=== PATIENT | female | born 1940 | race Caucasian/White ===

== ENCOUNTER 2023-02-08 10:09 | Inpatient (IN) | payer MEDICARE, SELFPAY ==
[2023-02-08] VITALS (7 sets, daily range): BP systolic 105–149; BP diastolic 44–82; PULSE 97–106; RESP 16–35; TEMP 36.4–36.6; O2SAT 84–95; BMI 46.5; BMI 45.4
--- NOTE | ~2023-02-08 | CT_ITS ---
EXAMINATION: CT CHEST WITHOUT CONTRAST CLINICAL INFORMATION: Shortness of breath. COMPARISON: Chest x-ray dated 02/08/2023. TECHNIQUE: Multidetector volumetric CT imaging of the chest was obtained noncontrast. Sagittal and coronal reformations were obtained. This CT examination was performed using dose optimization techniques as appropriate, variously including the following: *Automated exposure control *Adjustment of mA and/or kV according to patient size (this includes techniques or standardized protocols for targeted exams where dose is matched to indication/reason for exam; i.e. extremities or head) *Use of iterative reconstruction technique DLP: 379 mGy-cm. FINDINGS: LUNGS: Mild centrilobular and paraseptal emphysema. Several scattered linear regions of atelectasis seen in the mid and lower lungs bilaterally, most prominently in the anterobasal left lower lobe (series 5, image 345). Several scattered calcified granulomas seen in the lungs. There are also multiple additional tiny 1 to 2 mm scattered solid noncalcified pulmonary nodules seen in the lungs bilaterally. In addition, largest solid noncalcified nodules are seen, some examples of which include the following are seen on series 5: -Posterior inferior right upper lobe pleural-based 4 mm nodule, image 225. -Posterior segment right middle lobe 7 mm nodule, image 262 and 6 mm nodule, image 303. -Posterior medial basal left lower lobe 7 mm nodule, image 381. No effusion or pneumothorax. Central airways and small airways densely calcified and patent. LYMPHOVASCULAR STRUCTURES: Aortic and heart size normal. Prominent epicardiac fat pad. Prominent mitral annular calcifications and moderate aortic and great vessel atherosclerotic calcifications. No pericardial effusion. No mediastinal, hilar or axillary adenopathy or free fluid collection. CORONARY ARTERY CALCIFICATION: Three-vessel coronary artery calcifications are seen, most extensive and severe in the left anterior descending coronary artery. THYROID GLAND: Unremarkable to the extent included. UPPER ABDOMEN: Postcholecystectomy toyin are seen in the gallbladder fossa. Calcified granuloma noted in these veins. There is a partially exophytic 3.9 x 3.7 cm fluid attenuation mass in the upper pole of the left kidney, consistent with a benign cyst to the extent included. Slight fullness seen at the GE junction, consistent with a sliding hiatal hernia. Included portions of the solid organs in the upper abdomen otherwise unremarkable. BONES: Mild diffuse osteopenia and mild vertebral spondylosis in mid and lower thoracic spine. No suspicious focal findings. CT/CT chest wo IV con IMPRESSION: 1. Mild emphysema with multiple scattered bilateral calcified and noncalcified pulmonary nodules seen, measuring up to 7 mm in size. Since the patient is symptomatic, Fleischner criteria cannot be applied. The findings may be related to an inflammatory or infectious process in the acute setting. Close clinical correlation and follow-up is recommended repeat CT scan in 1-3 months is suggested for reassessment of the nodules. 2. No adenopathy. 3. Moderate to severe coronary artery calcifications. 4. Upper pole left renal cyst. This is incompletely imaged and dedicated ultrasound follow-up is recommended to fully characterize this mass and exclude solid eccentric nodular component. 5. Status post cholecystectomy. 6. Small sliding hiatal hernia. 7. Osteopenia.
--- NOTE | ~2023-02-08 | XR_ITS ---
EXAMINATION: XR CHEST CLINICAL INFORMATION: Shortness of breath COMPARISON: None available. TECHNIQUE: Frontal view of the chest was obtained. FINDINGS: The cardiac silhouette is slightly enlarged. Hilar and mediastinal contours are unremarkable. There is bilateral subsegmental atelectasis. The lungs are otherwise clear. No acute bone abnormality. XR/XR chest 1V IMPRESSION: Slightly enlarged cardiac silhouette and bilateral subsegmental atelectasis.
--- NOTE | 2023-02-08 10:38 | PC.NURSE ---
oxygen dropped to 84% after ambulating to bathroom. placed on 2L nasal cannula 94%
--- NOTE | 2023-02-08 10:45 | ECG_ITS ---
Test Reason : sob Blood Pressure : / mmHG Vent. Rate : 097 BPM Atrial Rate : 000 BPM P-R Int : 000 ms QRS Dur : 064 ms QT Int : 348 ms P-R-T Axes : 000 077 012 degrees QTc Int : 441 ms Atrial fibrillation Low voltage QRS Cannot rule out Anterior infarct , age undetermined Abnormal ECG No previous ECGs available Referred By: Kiel Martinez Electronically Signed By:Mark Prather
--- NOTE | 2023-02-08 10:51 | ED_ITS ---
HPI - General Adult General Chief complaint: General Medical Stated complaint: Swelling of lower legs per EMS Time Seen by Provider: 02/08/23 10:13 Source: patient and EMS Mode of arrival: EMS Limitations: no limitations History of Present Illness HPI narrative: 82 year old female hx of afib on Coumadin presents with shortness of breath, lower extremity swelling for the past few weeks, according to patient shortness breath is worse with exertion and better at rest. Patient notes her legs are getting progressively much larger and are seeping a clear fluid. Patient denies any chest pain. Denies fevers, chills, nausea, vomiting, abdominal pain, headache, vision changes, dizziness and weakness. Patient does not wear oxygen at home however saturating 89% on room air. With ambulation patient dropped down to 84% therefore on arrival immediately she was placed on 2 L nasal cannula. Related Data Home Medications Medication Instructions Recorded Confirmed acetaminophen 650 mg 1,300 mg PO Q8H PRN Pain 02/08/23 02/08/23 tablet,extended release (Tylenol Arthritis Pain) albuterol sulfate 90 mcg/actuation 2 puff inhalation Q4H PRN wheezing 02/08/23 02/08/23 aerosol inhaler atorvastatin 80 mg tablet 80 mg PO DAILY 02/08/23 02/08/23 diltiazem HCl 360 mg capsule,24 360 mg PO DAILY 02/08/23 02/08/23 hr,extended release (Tiadylt ER) fenofibrate 160 mg tablet 160 mg PO DAILY 02/08/23 02/08/23 furosemide 20 mg tablet 20 mg PO DAILY 02/08/23 02/08/23 gabapentin 100 mg capsule 100 mg PO BEDTIME 02/08/23 02/08/23 insulin glargine 100 unit/mL (3 80 unit subcut BEDTIME 02/08/23 02/08/23 mL) subcutaneous pen (Lantus Solostar U-100 Insulin) insulin lispro 100 unit/mL 30 unit subcut TID 02/08/23 02/08/23 subcutaneous pen (Humalog KwikPen (U-100) Insulin) losartan 25 mg tablet 25 mg PO DAILY 02/08/23 02/08/23 warfarin 2.5 mg tablet 2.5 mg PO TUSA 02/08/23 02/08/23 warfarin 5 mg tablet 5 mg PO SUMOWETHFR 02/08/23 02/08/23 Allergies Allergy/AdvReac Type Severity Reaction Status Date / Time lisinopril Allergy Cough Verified 02/08/23 11:45 Review of Systems Review of Systems: Constitutional : No Weight loss, No Fever, No Chills, No Fatigue, No Malaise ENT/Mouth : No sore throat, No Rhinorrhea Eyes: No Eye Pain, No Swelling, No Redness Cardiovascular : No Chest Pain, + SOB, + Dyspnea on Exertion, No Orthopnea, + Edema, No Palpitations Respiratory : No Cough, No Sputum, No Wheezing Gastrointestinal : No Nausea, No Vomiting, No Diarrhea, No Constipation, No ab dominal Pain, No Hematochezia, No Melena Genitourinary : No Dysuria, No Urinary Frequency, No Hematuria, Musculoskeletal : No joint pain, No Myalgias, No Joint Swelling Skin : No Skin Lesions, No rash Neuro : No Weakness, No Numbness, No Dizziness, No Headache Psych : No Anxiety/Panic, No Depression All other systems reviewed and are negative Yes all other systems are reviewed and are negative [facility] Past Medical History Attestation statement: The following information was validated with the patient. Source: old records reviewed and nursing notes reviewed Social History Social History Alcohol intake: never Smoked in Last 30 Days: No Use of substances other than those prescribed or required for medical reasons: No Advance Directives: No Advance Directives Information Provided: Yes Physical Exam ED Vital Signs: Vital Signs - 24 hr 02/08/23 10:21 02/08/23 10:27 02/08/23 10:56 Temperature 97.9 F Pulse Rate 99 Respiratory Rate 24 H Blood Pressure 149/57 H Pulse Oximetry 93 84 L Oxygen Delivery Method Room Air Room Air BMI result Body Mass Index 46.5 vss Appearance: Alert.? Oriented X3.? No acute distress.? Head: Normocephalic, atraumatic, no step-offs or deformities Eyes: Pupils equal, round and reactive to light.? CVS: Normal heart rate and rhythm.? Pulses normal.? Respiratory: No respiratory distress.? Breath sounds diminished bilaterally.? Abdomen: Soft and nontender.? Skin: Skin warm and dry.? Normal skin color.? Normal skin turgor.? Extremities: 2+ pitting edema to b/l lower extremites w/ clear drainage bilaterally. Open wounds to the right lower extremity around the montemayor w/ overlying errythema and warmth . 1+ insert tibialis, posterior tibialis and d orsalis pedis pulses equal bilateral. Normal sensation distally normal capillary refill to bilateral lower extremity digits.? No calf ttp. Global weakness. Back: No midline tenderness, no C-spine tenderness, full range of motion, no CVA tenderness bilaterally Neuro: Oriented X 3.? No motor deficit.? No sensory deficit. CN 2-12 intact Course Reevaluation(s) Reevaluation #1: W/ ambulation patient destated to 84% on RA placed on 2L now 89 at rest. Time: 12:59 Reevaluation #2: CBC appears to be within normal limits. Coags with slightly elevated BUN likely secondary to poor p.o. intake dehydration. Troponin negative, EKG nonischemic, BNP within normal limits however, patient's clinical presentation an x-ray concerning for CHF with cardiomegaly. Likely why patient is hypoxic. UA clean. She has been intermittently requiring oxygen during her stay, plan is for hospital admission. Time: 13:40 Medical Decision Making Medical Decision Making [facility] Narrative: 1100 82 year old femalepresents w/ SOB and b/l lower extremity edema worsening X 2 weeks Breath sounds diminished b/l. 2+ pitting edema to b/l lower extremites w/ clear drainage bilaterally. Open wounds to the right lower extremity around the montemayor w/ overlying errythema and warmth 1+ insert tibialis, posterior tibialis and dorsalis pedis pulses equal bilateral. Normal sensation distally normal capillary refill to bilateral lower extremity digits.? No calf ttp. Global weakness. Likely CHF, unlikely DVT or PE patient on cumadin and med compliant. I do not suspect pneumonia or ACS on this patient. Right lower extremity also seems to have slight cellulitis to the right anterior montemayor. No signs of necrotizing infection. No signs of neurovascular compromise or threatened limb. No signs of arterial occlusion. Plan labs, imaging, UA, chest x-ray, EKG. Differential Diagnosis Differential Diagnoses: The differential diagnosis associated with the presen tation includes Likely CHF, unlikely DVT or PE patient on cumadin and med compliant. I do not suspect pneumonia or ACS on this patient. Right lower extremity also seems to have slight cellulitis to the right anterior montemayor. No signs of necrotizing infection. No signs of neurovascular compromise or threatened limb. No signs of arterial occlusion. Admission/Observation Consideration of admission/observation: Escalation of care including admission/observation considered Likely hospital admission Consult Healthcare Provider Management of the patient was discussed with: Hospitalist Lab Data MDM Lab Attestation statement: I reviewed the patient's lab results. 02/08/23 11:11 02/08/23 11:11 Labs: Lab Results 02/08/23 02/08/23 02/08/23 Range/Units 11:11 11:11 11:11 WBC 8.8 (4.8-10.8) X10*3/uL RBC 5.31 (4.20-5.50) X10*6/uL Hgb 15.3 (12.0-16.0) g/dl Hct 48.6 H (37.0-47.0) % MCV 91.5 (80.0-98.0) fL MCH 28.8 (27.0-33.0) pg MCHC 31.5 (31.0-35.0) g/dl RDW 16.4 H (11.0-16.0) % Plt Count 331 (160-400) X10*3/uL MPV 9.3 L (9.4-12.3) fL Immature Gran % (Auto) 0.3 (0.0-0.4) % Neut % (Auto) 72.4 (45-73) % Lymph % (Auto) 13.9 L (20-40) % [facility] % (Auto) 9.4 (2-11) % Eos % (Auto) 3.4 (0-4) % Baso % (Auto) 0.6 (0-2) % Lymph # (Auto) 1.2 (1.2-4.9) X10*3/uL [facility] # (Auto) 0.8 (0.1-1.2) X10*3/uL Eos # (Auto) 0.3 (0.0-0.4) X10*3/uL Baso # (Auto) 0.1 (0.0-0.2) X10*3/uL Abs Immat Gran (auto) 0.03 (0.00-0.03) X10*3/uL Absolute Neuts (auto) 6.4 (2.0-8.3) x10*3/uL Absolute Nucleated RBC 0.000 (0.0-0.012) X10*3/uL Nucleated RBC % (auto) 0.0 (0.0-0.2) /100WBC PT (10.0-13.1) SEC INR (0.9-1.1) Sodium 144 (135-145) mmol/L Potassium 3.9 (3.3-5.1) mmol/L Chloride 105 (96-108) mmol/L Carbon Dioxide 30 H (22-29) mmol/L Anion Gap 13 (12-20) BUN 26 H (9-16) mg/dL Creatinine 1.25 (0.5-1.4) mg/dL Estim Creat Clear Calc 37.9 Estimated GFR 41 Random Glucose 107 (60-115) mg/dL Calcium 10.0 (8.4-10.2) mg/dL Magnesium 2.0 (1.6-2.6) mg/dL Total Bilirubin 0.6 (0.0-1.0) mg/dL AST 15 (5-31) U/L ALT 10 (0-31) U/L Alkaline Phosphatase 53 (39-117) U/L Troponin I High Sens < 2.7 (<3.5-17.0) ng/L B-Natriuretic Peptide (<100) pg/mL Total Protein 6.9 (6.5-8.0) g/dL Albumin 3.9 (3.5-5.0) g/dL Urine Color Urine Appearance Urine pH (5.0-9.0) Ur Specific [place] (1.005-1.025) Urine Protein (Neg-Trace) mg/dL Urine Glucose (UA) (Negative) mg/dL Urine Ketones (Negative) mg/dL Urine Blood (Negative) Urine Nitrite (Negative) Ur Leukocyte Esterase (Negative) Urine RBC (0-2) /HPF Urine WBC (0-5) /HPF Ur Squamous Epith Cells (0-2) /HPF Urine Bacteria (None Seen) Hyaline Casts (0-2) /LPF 02/08/23 02/08/23 02/08/23 Range/Units 11:11 11:11 11:11 WBC (4.8-10.8) X10*3/uL RBC (4.20-5.50) X10*6/uL Hgb (12.0-16.0) g/dl Hct (37.0-47.0) % MCV (80.0-98.0) fL MCH (27.0-33.0) pg MCHC (31.0-35.0) g/dl RDW (11.0-16.0) % Plt Count (160-400) X10*3/uL MPV (9.4-12.3) fL Immature Gran % (Auto) (0.0-0.4) % Neut % (Auto) (45-73) % Lymph % (Auto) (20-40) % [facility] % (Auto) (2-11) % Eos % (Auto) (0-4) % Baso % (Auto) (0-2) % Lymph # (Auto) (1.2-4.9) X10*3/uL [place] # (Auto) (0.1-1.2) X10*3/uL Eos # (Auto) (0.0-0.4) X10*3/uL Baso # (Auto) (0.0-0.2) X10*3/uL Abs Immat Gran (auto) (0.00-0.03) X10*3/uL Absolute Neuts (auto) (2.0-8.3) x10*3/uL Absolute Nucleated RBC (0.0-0.012) X10*3/uL Nucleated RBC % (auto) (0.0-0.2) /100WBC PT 28.9 H (10.0-13.1) SEC INR 2.4 H (0.9-1.1) Sodium (135-145) mmol/L Potassium (3.3-5.1) mmol/L Chloride (96-108) mmol/L Carbon Dioxide (22-29) mmol/L Anion Gap (12-20) BUN (9-16) mg/dL Creatinine (0.5-1.4) mg/dL Estim Creat Clear Calc Estimated GFR Random Glucose (60-115) mg/dL Calcium (8.4-10.2) mg/dL Magnesium (1.6-2.6) mg/dL Total Bilirubin (0.0-1.0) mg/dL AST (5-31) U/L ALT (0-31) U/L Alkaline Phosphatase (39-117) U/L Troponin I High Sens (<3.5-17.0) ng/L B-Natriuretic Peptide 100 (<100) pg/mL Total Protein (6.5-8.0) g/dL Albumin (3.5-5.0) g/dL Urine Color Yellow Urine Appearance Clear Urine pH 6.5 (5.0-9.0) Ur Specific [place] 1.010 (1.005-1.025) Urine Protein Negative (Neg-Trace) mg/dL Urine Glucose (UA) Negative (Negative) mg/dL Urine Ketones Negative (Negative) mg/dL Urine Blood Negative (Negative) Urine Nitrite Negative (Negative) Ur Leukocyte Esterase Moderate (2+) H (Negative) Urine RBC 0-2 (0-2) /HPF Urine WBC 6-10 H (0-5) /HPF Ur Squamous Epith Cells 3-5 (0-2) /HPF Urine Bacteria Trace (None Seen) Hyaline Casts 0-2 (0-2) /LPF Independent Interpretation I performed an independent interpretation of an: EKG (Ventricular rate of 97, P are variable, QRS normal, QT/QTC normal. EKG with AFib with low voltage QRS no ST elevations or inversions concerning with ischemia.) Radiology Impression Discussion of test interpretation with radiology: I have reviewed the radiologist's reading. Critical Care Time Critical Care Time Critical Care Time: No Discharge Plan Discharge Clinical Impression: Bilateral edema of lower extremity, Cellulitis, Shortness of breath, Hypoxia Patient Disposition: Still a Patient Prescriptions: No Action atorvastatin 80 mg tablet 80 mg PO DAILY diltiazem HCl [Tiadylt ER] 360 mg capsule,extended release 24 hr 360 mg PO DAILY acetaminophen [Tylenol Arthritis Pain] 650 mg Tablet Extended Release 1,300 mg PO Q8H PRN (Reason: Pain) warfarin 5 mg tablet 5 mg PO SUMOWETHFR losartan 25 mg tablet 25 mg PO DAILY furosemide 20 mg tablet 20 mg PO DAILY gabapentin 100 mg capsule 100 mg PO BEDTIME albuterol sulfate 90 mcg/actuation HFA aerosol inhaler 2 puff inhalation Q4H PRN (Reason: wheezing) insulin lispro [Humalog KwikPen Insulin] 100 unit/mL insulin pen 30 unit subcut TID fenofibrate 160 mg tablet 160 mg PO DAILY insulin glargine [Lantus Solostar U-100 Insulin] 100 unit/mL (3 mL) insulin pen 80 unit subcut BEDTIME warfarin 2.5 mg Tablet 2.5 mg PO ALEJANDRO
[2023-02-08 11:16] LABS: MANUAL DIFF FLAG NO
[2023-02-08 11:18] LABS: Basophils Absolute Auto 0.1 X10*3/uL (0.0-0.2); Basophils Percent Auto 0.6 % (0-2); Eosinophils Absolute Auto 0.3 X10*3/uL (0.0-0.4); Eosinophils Percent Auto 3.4 % (0-4); Hematocrit 48.6 % (37.0-47.0); Hemoglobin 15.3 g/dl (12.0-16.0); Imm Gran Abs Auto 0.03 X10*3/uL (0.00-0.03); Imm Gran Pct Auto 0.3 % (0.0-0.4); Lymphocytes Absolute Auto 1.2 X10*3/uL (1.2-4.9); Lymphocytes Percent Auto 13.9 % (20-40); Mean Corpuscular HGB Conc 31.5 g/dl (31.0-35.0); Mean Corpuscular Hemoglobin 28.8 pg (27.0-33.0); Mean Corpuscular Volume 91.5 fL (80.0-98.0); Mean Platelet Volume 9.3 fL (9.4-12.3); Monocytes Absolute Auto 0.8 X10*3/uL (0.1-1.2); Monocytes Percent Auto 9.4 % (2-11); Neutrophils Absolute Auto 6.4 x10*3/uL (2.0-8.3); Neutrophils Percent Auto 72.4 % (45-73); Platelet Count 331 X10*3/uL (160-400); Red Blood Count 5.31 X10*6/uL (4.20-5.50); Red Cell Distribution Width 16.4 % (11.0-16.0); White Blood Count 8.8 X10*3/uL (4.8-10.8)
[2023-02-08 11:22] LABS: Appearance Urine Clear; Color Urine Yellow; Glucose Urine UA Negative (Negative); Leukocyte Esterase Urine Moderate (2+) (Negative); Nitrite Urine Negative (Negative); PH 6.5 (5.0-9.0); UMIC TRIGGER UACC YES; Urine Blood Negative (Negative); Urine Ketones Negative (Negative); Urine Protein Negative (Neg-Trace)
[2023-02-08 11:24] LABS: Bacteria Urine Trace (None Seen); Hyaline Casts Urine 0-2 /LPF (0-2); RBC Urine 0-2 /HPF (0-2); UACC Culture Trigger YES
[2023-02-08 11:27] LABS: INTERNATIONAL NORM RATIO 2.4 (0.9-1.1); Prothrombin Time 28.9 SEC (10.0-13.1)
[2023-02-08 11:41] LABS: Alanine Aminotransferase 10 U/L (0-31); Albumin Level 3.9 g/dL (3.5-5.0); Alkaline Phosphatase 53 U/L (39-117); Anion Gap 13 (12-20); Aspartate Amino Transferase 15 U/L (5-31); Bilirubin Total 0.6 mg/dL (0.0-1.0); Blood Urea Nitrogen 26 mg/dL (9-16); Carbon Dioxide 30 mmol/L (22-29); Chloride 105 mmol/L (96-108); Creatinine Clr Calc Pharmacy 37.9; Estimated Glomerular Filt Rate 41; Glucose Random 107 mg/dL (60-115); Potassium 3.9 mmol/L (3.3-5.1); Sodium 144 mmol/L (135-145); Total Protein 6.9 g/dL (6.5-8.0)
[2023-02-08 11:46] LABS: B Type Natriuretic Peptide 100 pg/mL (<100)
[2023-02-08 11:56] LABS: Troponin-I High Sensitivity < 2.7 ng/L (<3.5-17.0)
--- NOTE | 2023-02-08 12:42 | PHA.MEDREC ---
Addendum entered by Cayetano Krishnan 02/08/23 13:16: After speaking with daughter and patient again, narrowed down warfarin to 5mg daily except on Friday and Friday which she takes a half tab (2.5mg). Original Note: Pharmacy Consult ? Medication Reconciliation Pharmacy has completed the medication reconciliation. spoke with patient to verify medications. She was able to verify insulin units. Patient cannot remember how she takes warfarin or what dose. 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 Left voicemail to son and tried calling daughter but no answer. Will try again.
[2023-02-08 14:05] LABS: COVID-19 Test Negative (Negative); IDNOW Serial# BCCEAD1C
[2023-02-08] MEDS: Piperacillin Sodium/Tazobactam 3.375 GM in 0.9 % Sodium Chloride 50 ML IV (14:14)
--- NOTE | 2023-02-08 14:40 | PM.IMHP ---
History of Present Illness Date of Service: 02/08/23 Chief Complaint: Shortness of breath 82-year-old woman presented to the ER with complaints of worsening shortness of breath over the last several weeks. She has a baseline history of chronic shortness of breath specially with ambulation but again has been worse over the last several weeks. She denied chest pain, nausea, vomiting, diarrhea. She does not wear oxygen at home and oxygen saturation in the ER was 84% with ambulation and patient would also become quite tachycardic. In the ER, chest CT showing emphysema with scattered bilateral calcified and noncalcified pulmonary nodules with no obvious consolidation or effusion. She does have moderate to severe coronary artery calcifications. BNP 100, troponin 2.7. She was also noted to lower extremity edema which is chronic from dryness and scratching with some small areas of skin tearing. In the ER she was given a dose of Zosyn. She will be admitted further management and treatment of acute hypoxic respiratory failure secondary to COPD /emphysema. Review of Systems Review of Systems: Denies any recent fever chills or decrease in appetite respiratory see HPI cardiovascular Denies chest pain gastrointestinal denies any dysphagia abdominal pain nausea vomiting or diarrhea genitourinary denies any dysuria frequency or hematuria musculoskeletal denies any joint pain or swelling neuropsych denies any weakness or seizures all other systems reviewed are negative [facility] Medical History (Updated 02/08/23 @ 14:44 by Clementine Davenport NP) Hyperlipidemia Social History Alcohol intake: never Smoked in Last 30 Days: No Use of substances other than those prescribed or required for medical reasons: No Advance Directives: No Advance Directives Information Provided: Yes Meds Allergies Allergy/AdvReac Type Severity Reaction Status Date / Time lisinopril Allergy Cough Verified 02/08/23 11:45 Active Medications: Current Medications Pharmacy Consult (Consult Rx Perform Med Rec) 1 each MISCELLANE ONCE PRN PRN Reason: Consult order Home Medications Medication Instructions Recorded Confirmed Last Taken Type acetaminophen 650 mg 1,300 mg PO Q8H PRN Pain 02/08/23 02/08/23 Unknown History tablet,extended release (Tylenol Arthritis Pain) albuterol sulfate 90 mcg/actuation 2 puff inhalation Q4H PRN wheezing 02/08/23 02/08/23 Unknown History aerosol inhaler atorvastatin 80 mg tablet 80 mg PO DAILY 02/08/23 02/08/23 Unknown History diltiazem HCl 360 mg capsule,24 360 mg PO DAILY 02/08/23 02/08/23 Unknown History hr,extended release (Tiadylt ER) fenofibrate 160 mg tablet 160 mg PO DAILY 02/08/23 02/08/23 Unknown History furosemide 20 mg tablet 20 mg PO DAILY 02/08/23 02/08/23 Unknown History gabapentin 100 mg capsule 100 mg PO BEDTIME 02/08/23 02/08/23 Unknown History insulin glargine 100 unit/mL (3 80 unit subcut BEDTIME 02/08/23 02/08/23 Unknown History mL) subcutaneous pen (Lantus Solostar U-100 Insulin) insulin lispro 100 unit/mL 30 unit subcut TID 02/08/23 02/08/23 Unknown History subcutaneous pen (Humalog KwikPen (U-100) Insulin) losartan 25 mg tablet 25 mg PO DAILY 02/08/23 02/08/23 Unknown History warfarin 2.5 mg tablet 2.5 mg PO TUSA 02/08/23 02/08/23 Unknown History warfarin 5 mg tablet 5 mg PO SUMOWETHFR 02/08/23 02/08/23 Unknown History Physical Exam Vital Signs and Narrative: Vital Signs: Last Vital Signs Temp 97.9 F 02/08/23 14:06 Pulse 100 02/08/23 14:06 Resp 35 H 02/08/23 14:06 BP 105/44 L 02/08/23 14:06 Pulse Ox 84 L 02/08/23 10:56 O2 Del Method Nasal Cannula 02/08/23 14:06 O2 Flow Rate 2 02/08/23 14:06 BMI result Body Mass Index 46.5 Appearing in no acute distress head is normocephalic atraumatic eyes pupils are PERRLA sclera is anicteric mouth throat mucous membranes are intact and moist neck is supple no lymphadenopathy, no JVD noted lung sounds are clear to auscultation heart regular rate rhythm, clear S1, S2, chronic skin changes and dryness to bilateral lower extremities with nonpitting edema noted positive bowel sounds, abdomen is soft, nontender neuro patient is alert x3, no focal deficits Results Labs 02/08/23 11:11 02/08/23 11:11 Labs: Laboratory Results - last 24 hr 02/08/23 02/08/23 02/08/23 11:11 11:11 11:11 MCV 91.5 MCH 28.8 MCHC 31.5 RDW 16.4 H Plt Count 331 MPV 9.3 L Immature Gran % (Auto) 0.3 Neut % (Auto) 72.4 Lymph % (Auto) 13.9 L [place] % (Auto) 9.4 Eos % (Auto) 3.4 Baso % (Auto) 0.6 Lymph # (Auto) 1.2 [place] # (Auto) 0.8 Eos # (Auto) 0.3 Baso # (Auto) 0.1 Abs Immat Gran (auto) 0.03 Absolute Neuts (auto) 6.4 Absolute Nucleated RBC 0.000 Nucleated RBC % (auto) 0.0 PT INR Anion Gap 13 Estim Creat Clear Calc 37.9 Estimated GFR 41 Random Glucose 107 Calcium 10.0 Magnesium 2.0 Total Bilirubin 0.6 AST 15 ALT 10 Alkaline Phosphatase 53 Troponin I High Sens < 2.7 B-Natriuretic Peptide Total Protein 6.9 Albumin 3.9 Urine Color Urine Appearance Urine pH Ur Specific [place] Urine Protein Urine Glucose (UA) Urine Ketones Urine Blood Urine Nitrite Ur Leukocyte Esterase Urine RBC Urine WBC Ur Squamous Epith Cells Urine Bacteria Hyaline Casts COVID-19 (TESSA) COVID-19 Clin Com 02/08/23 02/08/23 02/08/23 11:11 11:11 11:11 MCV MCH MCHC RDW Plt Count MPV Immature Gran % (Auto) Neut % (Auto) Lymph % (Auto) [place] % (Auto) Eos % (Auto) Baso % (Auto) Lymph # (Auto) [place] # (Auto) Eos # (Auto) Baso # (Auto) Abs Immat Gran (auto) Absolute Neuts (auto) Absolute Nucleated RBC Nucleated RBC % (auto) PT 28.9 H INR 2.4 H Anion Gap Estim Creat Clear Calc Estimated GFR Random Glucose Calcium Magnesium Total Bilirubin AST ALT Alkaline Phosphatase Troponin I High Sens B-Natriuretic Peptide 100 Total Protein Albumin Urine Color Yellow Urine Appearance Clear Urine pH 6.5 Ur Specific [place] 1.010 Urine Protein Negative Urine Glucose (UA) Negative Urine Ketones Negative Urine Blood Negative Urine Nitrite Negative Ur Leukocyte Esterase Moderate (2+) H Urine RBC 0-2 Urine WBC 6-10 H Ur Squamous Epith Cells 3-5 Urine Bacteria Trace Hyaline Casts 0-2 COVID-19 (TESSA) COVID-19 Clin Com 02/08/23 13:45 MCV MCH MCHC RDW Plt Count MPV Immature Gran % (Auto) Neut % (Auto) Lymph % (Auto) [place] % (Auto) Eos % (Auto) Baso % (Auto) Lymph # (Auto) [place] # (Auto) Eos # (Auto) Baso # (Auto) Abs Immat Gran (auto) Absolute Neuts (auto) Absolute Nucleated RBC Nucleated RBC % (auto) PT INR Anion Gap Estim Creat Clear Calc Estimated GFR Random Glucose Calcium Magnesium Total Bilirubin AST ALT Alkaline Phosphatase Troponin I High Sens B-Natriuretic Peptide Total Protein Albumin Urine Color Urine Appearance Urine pH Ur Specific [place] Urine Protein Urine Glucose (UA) Urine Ketones Urine Blood Urine Nitrite Ur Leukocyte Esterase Urine RBC Urine WBC Ur Squamous Epith Cells Urine Bacteria Hyaline Casts COVID-19 (TESSA) Negative COVID-19 Clin Com See Note Imaging Radiologist's Impressions: Impressions Chest X-Ray 02/08/23 11:40 IMPRESSION: Slightly enlarged cardiac silhouette and bilateral subsegmental atelectasis. Assessment and Plan (1) Shortness of breath: Status: Acute Plan 82-year-old woman admitted with acute hypoxic respiratory failure likely secondary to COPD exacerbation /emphysema Acute hypoxic respiratory failure secondary to COPD / emphysema Oxygen saturation with ambulation in the low 80s Chest CT showing emphysema with atelectasis without clear consolidation or effusion Will treat with IV steroids, scheduled [facility] Pulmonology consultation as patient has no formal dx of COPD Moderate to severe coronary artery calcification noted on CT, will order echocardiogram Supplemental oxygen to maintain oxygen saturation greater than 90% Atrial fibrillation Continue diltiazem Warfarin, check PT INR daily Lower extremity skin changes with skin tearing dry skin and scratching contributing cleanse both legs with soap and water daily and apply lac hydrin cream to intact skin Hypertension Losartan, furosemide Follow blood pressure closely Diabetes mellitus type 2 Sliding scale, ADA diet Hyperlipidemia Statin DVT prophylaxis with warfarin Full code Patient required 2 inpatient midnights for treatment of acute hypoxic respiratory failure requiring oxygen and IV steroids Time Spent With Patient Time: Total time managing care of this patient today ____ minutes. Quality Stroke Does the patient have a stroke diagnosis?: No VTE Prior VTE?: No VTE Risk Level:: Medical - moderate - high VTE Device Contraindication: Treatment Not Indicated VTE Drug Contraindication: N/A - Med Ordered
[2023-02-08 15:19] LABS: D Dimer High Sensitivity 259 NG/ML
--- NOTE | 2023-02-08 15:36 | PC.NURSE ---
Ambulated patient without oxygen around the nurses station dropped to 84% is not on oxygen at home. Dr. Cuenca and Carole DWYER notified.
[2023-02-08 15:46] LABS: Venous Blood Gas Refer to POC result
[2023-02-08 15:47] LABS: VBG Base Excess 5.3 mmol/L; VBG HCO3 31 mmol/L (22-26); VBG pCO2 50 mmHg; VBG pO2 58 mmHg
[2023-02-08 17:34] LABS: Glucose, Whole Blood 194 mg/dL (60-115)
[2023-02-08] MEDS: methylPREDNISolone Sod Succ 40 MG/ML VIAL IVPUSH (17:34)
[2023-02-08] MEDS: 0.9 % Sodium Chloride Flush 3 ML SYRINGE IVFLUSH ×2 (17:34→23:42)
[2023-02-08] MEDS: Insulin Lispro 100 UNIT/ML 3 ML VIAL SUBCUT ×2 (17:40→22:24)
--- NOTE | 2023-02-08 18:15 | PC.NURSE ---
called for coumadin from pharmacy
[2023-02-08] MEDS: Albuterol Sulfate (0.083%) 2.5 MG/3 ML VIAL.NEB INHALE (18:55)
[2023-02-08] MEDS: Ammonium Lactate 12 % Lotion 226 GM BOTTLE 1 APPL TOPICAL (19:04)
[2023-02-08] MEDS: Warfarin Sodium 2.5 MG TABLET PO (19:04)
[2023-02-08 21:06] LABS: Glucose, Whole Blood 243 mg/dL (60-115)
[2023-02-08] MEDS: Gabapentin 100 MG CAPSULE PO (22:23)
[2023-02-08] MEDS: Insulin Glargine,Hum.rec.anlog 100 UNIT/ML 10 ML VIAL 80 UNIT SUBCUT (22:24)
[2023-02-09] VITALS (8 sets, daily range): BP systolic 119–154; BP diastolic 60–71; PULSE 70–118; RESP 16–22; TEMP 36.1–36.6; O2SAT 83–95
[2023-02-09] MEDS: methylPREDNISolone Sod Succ 40 MG/ML VIAL IVPUSH (04:30)
[2023-02-09 05:43] LABS: Hemoglobin 15.1 g/dl (12.0-16.0); Mean Corpuscular HGB Conc 32.1 g/dl (31.0-35.0); Mean Corpuscular Hemoglobin 29.2 pg (27.0-33.0); Mean Corpuscular Volume 90.7 fL (80.0-98.0); Mean Platelet Volume 9.6 fL (9.4-12.3); Platelet Count 310 X10*3/uL (160-400); Red Blood Count 5.18 X10*6/uL (4.20-5.50); Red Cell Distribution Width 15.9 % (11.0-16.0); White Blood Count 8.4 X10*3/uL (4.8-10.8)
[2023-02-09 05:53] LABS: INTERNATIONAL NORM RATIO 1.9 (0.9-1.1); Prothrombin Time 22.9 SEC (10.0-13.1)
[2023-02-09 05:56] LABS: Anion Gap 14 (12-20); Blood Urea Nitrogen 24 mg/dL (9-16); Calcium 9.4 mg/dL (8.4-10.2); Carbon Dioxide 25 mmol/L (22-29); Chloride 105 mmol/L (96-108); Creatinine Clr Calc Pharmacy 39.3; Estimated Glomerular Filt Rate 43; Glucose Random 267 mg/dL (60-115); Potassium 4.6 mmol/L (3.3-5.1); Sodium 139 mmol/L (135-145)
[2023-02-09 07:25] LABS: Glucose, Whole Blood 287 mg/dL (60-115)
[2023-02-09] MEDS: Albuterol Sulfate (0.083%) 2.5 MG/3 ML VIAL.NEB INHALE ×3 (07:36→19:56)
[2023-02-09] MEDS: Insulin Lispro 100 UNIT/ML 3 ML VIAL SUBCUT ×7 (07:53→20:43)
[2023-02-09] MEDS: Fenofibrate 160 MG TABLET PO (07:54)
[2023-02-09] MEDS: Losartan Potassium 25 MG TABLET PO (07:54)
[2023-02-09] MEDS: 0.9 % Sodium Chloride Flush 3 ML SYRINGE IVFLUSH ×3 (07:54→20:45)
[2023-02-09] MEDS: Atorvastatin Calcium 80 MG TABLET PO (07:54)
[2023-02-09] MEDS: dilTIAZem HCL CD 180 MG CAP.ER.24H 360 MG PO (07:54)
[2023-02-09] MEDS: Ammonium Lactate 12 % Lotion 226 GM BOTTLE 1 APPL TOPICAL (07:55)
--- NOTE | 2023-02-09 10:10 | P.PNIM_ITS ---
Subjective Subjective Date of Service: 02/09/23 Review of Systems Follow up COPD no sob, only with ambulation Physical Exam Vital Signs: Vital Signs: Last Vital Signs Temp 97 F 02/09/23 07:12 Pulse 118 H 02/09/23 08:30 Resp 18 02/09/23 07:38 BP 131/68 02/09/23 07:12 Pulse Ox 83 L 02/09/23 08:30 O2 Del Method Room Air 02/09/23 08:30 O2 Flow Rate 2 02/09/23 07:12 BMI result Body Mass Index 45.4 Appearing in no acute distress lung sounds diminished heart regular rate rhythm, clear S1, S2 positive bowel sounds, abdomen is soft, nontender neuro patient is alert x3, no focal deficits Objective Data Active Medications Acetaminophen (Acetaminophen 325 Mg Tablet) 650 mg PO Q6H PRN PRN Reason: Pain, Mild (Pain Scale 1-3) Albuterol Sulfate (Albuterol Sulfate (0.083%) 2.5 Mg/3 Ml Vial.Neb) 2.5 mg INHALE RQ4H WHILE AWAKE [facility] Last Admin: 02/09/23 07:36 Dose: 2.5 mg Documented By: NIDA Atorvastatin Calcium (Atorvastatin Calcium 80 Mg Tablet) 80 mg PO DAILY [facility] Last Admin: 02/09/23 07:54 Dose: 80 mg Documented By: JAVIER Dextrose (Dextrose 50 % 25 Gm/50 Ml Syringe) 25 gm IVPUSH Q15M PRN; Protocol PRN Reason: per Hypoglycemia Standing Ord. Diltiazem HCl (Diltiazem Hcl Cd 180 Mg Cap.Er.24h) 360 mg PO DAILY [facility]; Protocol Last Admin: 02/09/23 07:54 Dose: 360 mg Documented By: JAVIER Fenofibrate (Fenofibrate 160 Mg Tablet) 160 mg PO DAILY [facility] Last Admin: 02/09/23 07:54 Dose: 160 mg Documented By: JAVIER Gabapentin (Gabapentin 100 Mg Capsule) 100 mg PO BEDTIME [facility] Last Admin: 02/08/23 22:23 Dose: 100 mg Documented By: MEERA Glucose (Glucose Gel 15 Gm Gel..Gram.) 15 gm PO Q15M PRN; Protocol PRN Reason: per Hypoglycemia Standing Ord. Insulin Glargine (Insulin Glargine,Hum.Rec.Anlog 100 Unit/Ml 10 Ml Vial) 80 unit SUBCUT BEDTIME [facility] Last Admin: 02/08/23 22:24 Dose: 80 unit Documented By: MEERA Insulin Human Lispro (Insulin Lispro 100 Unit/Ml 3 Ml Vial) 0 unit SUBCUT QIDACHS [facility]; Protocol Last Admin: 02/09/23 07:53 Dose: 6 unit Documented By: JAVIER Lactic Acid (Ammonium Lactate 12 % Lotion 226 Gm Bottle) 1 appl TOPICAL DAILY [facility]; Protocol Last Admin: 02/09/23 07:55 Dose: 1 appl Documented By: JAVIER Losartan Potassium (Losartan Potassium 25 Mg Tablet) 25 mg PO DAILY [facility]; Protocol Last Admin: 02/09/23 07:54 Dose: 25 mg Documented By: JAVIER Methylprednisolone Sodium Succinate (Methylprednisolone Sod Succ 40 Mg/Ml Vial) 40 mg IVPUSH Q12H [facility] Last Admin: 02/09/23 04:30 Dose: 40 mg Documented By: GRAHAM Ondansetron HCl (Ondansetron Hcl 4 Mg/2 Ml Vial) 4 mg IVPUSH Q8H PRN PRN Reason: Nausea and Vomiting Pharmacy Consult (Consult Rx Perform Med Rec) 1 each MISCELLANE ONCE PRN PRN Reason: Consult order Sodium Chloride (0.9 % Sodium Chloride Flush 3 Ml Syringe) 3 ml IVFLUSH QSHIFT [facility] Last Admin: 02/09/23 07:54 Dose: 3 ml Documented By: JAVIER Warfarin Sodium (Warfarin Sodium 2.5 Mg Tablet) 2.5 mg PO TuSa@1800 [facility] Last Admin: 02/08/23 19:04 Dose: 2.5 mg Documented By: KRISTINA Warfarin Sodium (Warfarin Sodium 5 Mg Tablet) 5 mg PO SuMoWeThFr@1800 [facility] Labs 02/09/23 05:07 02/09/23 05:07 Labs: Laboratory Results - last 24 hr 02/08/23 02/08/23 02/08/23 11:11 11:11 11:11 MCV 91.5 MCH 28.8 MCHC 31.5 RDW 16.4 H Plt Count 331 MPV 9.3 L Immature Gran % (Auto) 0.3 Neut % (Auto) 72.4 Lymph % (Auto) 13.9 L Carbon % (Auto) 9.4 Eos % (Auto) 3.4 Baso % (Auto) 0.6 Lymph # (Auto) 1.2 Carbon # (Auto) 0.8 Eos # (Auto) 0.3 Baso # (Auto) 0.1 Abs Immat Gran (auto) 0.03 Absolute Neuts (auto) 6.4 Absolute Nucleated RBC 0.000 Nucleated RBC % (auto) 0.0 PT INR D-Dimer High Sensitivty VBG pH VBG pCO2 VBG pO2 VBG HCO3 VBG O2 Saturation VBG Base Excess Anion Gap 13 Estim Creat Clear Calc 37.9 Estimated GFR 41 POC Glucose Random Glucose 107 Calcium 10.0 Magnesium 2.0 Total Bilirubin 0.6 AST 15 ALT 10 Alkaline Phosphatase 53 Troponin I High Sens < 2.7 B-Natriuretic Peptide Total Protein 6.9 Albumin 3.9 Urine Color Urine Appearance Urine pH Ur Specific [place] Urine Protein Urine Glucose (UA) Urine Ketones Urine Blood Urine Nitrite Ur Leukocyte Esterase Urine RBC Urine WBC Ur Squamous Epith Cells Urine Bacteria Hyaline Casts COVID-19 (TESSA) COVID-19 [facility] 02/08/23 02/08/23 02/08/23 11:11 11:11 11:11 MCV MCH MCHC RDW Plt Count MPV Immature Gran % (Auto) Neut % (Auto) Lymph % (Auto) Carbon % (Auto) Eos % (Auto) Baso % (Auto) Lymph # (Auto) Carbon # (Auto) Eos # (Auto) Baso # (Auto) Abs Immat Gran (auto) Absolute Neuts (auto) Absolute Nucleated RBC Nucleated RBC % (auto) PT 28.9 H INR 2.4 H D-Dimer High Sensitivty 259 VBG pH VBG pCO2 VBG pO2 VBG HCO3 VBG O2 Saturation VBG Base Excess Anion Gap Estim Creat Clear Calc Estimated GFR POC Glucose Random Glucose Calcium Magnesium Total Bilirubin AST ALT Alkaline Phosphatase Troponin I High Sens B-Natriuretic Peptide 100 Total Protein Albumin Urine Color Yellow Urine Appearance Clear Urine pH 6.5 Ur Specific [place] 1.010 Urine Protein Negative Urine Glucose (UA) Negative Urine Ketones Negative Urine Blood Negative Urine Nitrite Negative Ur Leukocyte Esterase Moderate (2+) H Urine RBC 0-2 Urine WBC 6-10 H Ur Squamous Epith Cells 3-5 Urine Bacteria Trace Hyaline Casts 0-2 COVID-19 (TESSA) COVID-19 [employer] 02/08/23 02/08/23 02/08/23 13:45 15:39 17:30 MCV MCH MCHC RDW Plt Count MPV Immature Gran % (Auto) Neut % (Auto) Lymph % (Auto) Carbon % (Auto) Eos % (Auto) Baso % (Auto) Lymph # (Auto) Carbon # (Auto) Eos # (Auto) Baso # (Auto) Abs Immat Gran (auto) Absolute Neuts (auto) Absolute Nucleated RBC Nucleated RBC % (auto) PT INR D-Dimer High Sensitivty VBG pH 7.40 VBG pCO2 50 VBG pO2 58 VBG HCO3 31 H VBG O2 Saturation 84.0 VBG Base Excess 5.3 Anion Gap Estim Creat Clear Calc Estimated GFR POC Glucose 194 H Random Glucose Calcium Magnesium Total Bilirubin AST ALT Alkaline Phosphatase Troponin I High Sens B-Natriuretic Peptide Total Protein Albumin Urine Color Urine Appearance Urine pH Ur Specific [place] Urine Protein Urine Glucose (UA) Urine Ketones Urine Blood Urine Nitrite Ur Leukocyte Esterase Urine RBC Urine WBC Ur Squamous Epith Cells Urine Bacteria Hyaline Casts COVID-19 (TESSA) Negative COVID-19 Clin Com See Note 02/08/23 02/09/23 02/09/23 21:02 05:07 05:07 MCV 90.7 MCH 29.2 MCHC 32.1 RDW 15.9 Plt Count 310 MPV 9.6 Immature Gran % (Auto) Neut % (Auto) Lymph % (Auto) Carbon % (Auto) Eos % (Auto) Baso % (Auto) Lymph # (Auto) Carbon # (Auto) Eos # (Auto) Baso # (Auto) Abs Immat Gran (auto) Absolute Neuts (auto) Absolute Nucleated RBC 0.000 Nucleated RBC % (auto) 0.0 PT INR D-Dimer High Sensitivty VBG pH VBG pCO2 VBG pO2 VBG HCO3 VBG O2 Saturation VBG Base Excess Anion Gap 14 Estim Creat Clear Calc 39.3 Estimated GFR 43 POC Glucose 243 H Random Glucose 267 H Calcium 9.4 Magnesium Total Bilirubin AST ALT Alkaline Phosphatase Troponin I High Sens B-Natriuretic Peptide Total Protein Albumin Urine Color Urine Appearance Urine pH Ur Specific [place] Urine Protein Urine Glucose (UA) Urine Ketones Urine Blood Urine Nitrite Ur Leukocyte Esterase Urine RBC Urine WBC Ur Squamous Epith Cells Urine Bacteria Hyaline Casts COVID-19 (TESSA) COVID-19 Clin Com 02/09/23 02/09/23 05:07 07:18 MCV MCH MCHC RDW Plt Count MPV Immature Gran % (Auto) Neut % (Auto) Lymph % (Auto) Carbon % (Auto) Eos % (Auto) Baso % (Auto) Lymph # (Auto) Carbon # (Auto) Eos # (Auto) Baso # (Auto) Abs Immat Gran (auto) Absolute Neuts (auto) Absolute Nucleated RBC Nucleated RBC % (auto) PT 22.9 H INR 1.9 H D-Dimer High Sensitivty VBG pH VBG pCO2 VBG pO2 VBG HCO3 VBG O2 Saturation VBG Base Excess Anion Gap Estim Creat Clear Calc Estimated GFR POC Glucose 287 H Random Glucose Calcium Magnesium Total Bilirubin AST ALT Alkaline Phosphatase Troponin I High Sens B-Natriuretic Peptide Total Protein Albumin Urine Color Urine Appearance Urine pH Ur Specific [place] Urine Protein Urine Glucose (UA) Urine Ketones Urine Blood Urine Nitrite Ur Leukocyte Esterase Urine RBC Urine WBC Ur Squamous Epith Cells Urine Bacteria Hyaline Casts COVID-19 (TESSA) COVID-19 Clin Com Assessment and Plan (1) Cellulitis: Status: Acute Plan 82-year-old woman admitted with acute hypoxic respiratory failure likely s econdary to COPD exacerbation /emphysema Acute hypoxic respiratory failure secondary to COPD / emphysema Oxygen saturation with ambulation in the low 80s Chest CT showing emphysema with atelectasis? without clear consolidation or effusion Will treat with IV steroids, scheduled [facility] Pulmonology consultation as patient has no formal dx of COPD Moderate to severe coronary artery calcification noted on CT, will order echocardiogram Supplemental oxygen to maintain oxygen saturation greater than 90% Atrial fibrillation Continue diltiazem Warfarin, check PT INR daily Lower extremity skin changes with skin tearing dry skin and scratching contributing cleanse both legs with soap and water daily and apply lac hydrin cream to intact skin Hypertension Losartan, furosemide Follow blood pressure closely Diabetes mellitus type 2 Sliding scale, ADA diet Hyperlipidemia Statin DVT prophylaxis with warfarin Full code Attending Dr. Haider continued hospital stay for treatment of acute hypoxic respiratory failure requiring oxygen and IV steroids Time Spent With Patient Time: Total time managing care of this patient today ____ minutes. Quality Stroke Does the patient have a stroke diagnosis?: No VTE Prior VTE?: No VTE Risk Level:: Medical - moderate - high VTE Device Contraindication: Treatment Not Indicated VTE Drug Contraindication: N/A - Med Ordered
[2023-02-09 11:19] LABS: Glucose, Whole Blood 456 mg/dL (60-115)
--- NOTE | 2023-02-09 12:18 | P.CONPL_ITS ---
History of Present Illness History of Present Illness Consult date: 02/09/23 Requesting physician: Clementine Davenport Chief complaint: COPD Narrative: 82-year-old lady former 20 pack-year smoker, quit 40 years prior with underlying history of obesity, diabetes mellitus, hypertension, hyperlipidemia, also likely diastolic dysfunction admitted on 02/08/2023 with subacute onset of dyspnea over several weeks. CT chest was obtained that showed no significant emphysema, but pulmonary vascular congestion. Patient requires supplemental oxygen, however she normally does not use supplemental oxygen pulmonary evaluation was requested. On my evaluation patient does complain of slowly worsening swelling of lower extremities that is painful and orthopnea. Review of Systems Constitutional: Constitutional: Denies daytime sleepiness, Denies excessive sweating, Denies fatigue, Denies fever(s), Denies lethargy, Denies malaise, Denies night sweats, Denies snoring and Denies weight loss Eyes: Eyes: Denies blurry vision and Denies itchy eyes ENT: Denies nasal congestion, Denies post nasal drip, Denies sinus pain, Denies sinus pressure and Denies other ( Thrush) Cardiovascular: Cardiovascular: Denies chest pain, Reports pedal edema, Denies dyspnea, Reports dyspnea on exertion, Reports orthopnea and Denies paroxysmal nocturnal dyspnea Respiratory: Respiratory: Denies cough, Denies hemoptysis, Denies excessive phlegm production, Denies dyspnea, Reports dyspnea on exertion, Denies snoring and Denies wheezing Gastrointestinal: Gastrointestinal: Denies abdominal pain and Denies heartburn Musculoskeletal: Musculoskeletal: Denies myalgias, Denies arthralgias and Denies joint swelling Integumentary/Breasts: Skin/Breast: Denies rash Neurologic: Denies memory loss and Denies seizure-like activity Psychiatric: Psychiatric: Denies abnormal sleep pattern, Denies anxiety and Denies memory loss Endocrine: Endocrine: Denies excessive sweating, Denies fatigue and Denies he at intolerance Hematologic/Lymphatic: Hematologic/Lymphatic: Denies easy bruising Allergic/Immunologic: Allergic/Immunologic: Denies itchy eyes, Denies seasonal rhinorrhea and Denies wheezing PMFSH Past Medical History Medical History (Updated 02/09/23 @ 12:26 by Maximus Turner MD) Hyperlipidemia Social History Social History Household Members: Children Housing: House Alcohol intake: never Patient Tobacco Use Status: Former Tobacco user Smoked in Last 30 Days: No Use of substances other than those prescribed or required for medical reasons: No Currently Displaying Signs/Symptoms of Drug Intoxication Withdrawal: No Have you been hit, kicked, punched, or otherwise hurt by someone within the past year? If so, by whom?: No Advance Directives: No Advance Directives Information Provided: Yes Do you have thoughts of harming others: None Do you have a plan to hurt others: No Plan Recently lost weight without trying: No Nutrition Risks: No Nutritional Risk and Dental problems Patient : No : No Meds Allergies Allergy/AdvReac Type Severity Reaction Status Date / Time lisinopril Allergy Cough Verified 02/08/23 11:45 Active Medications: Current Medications Acetaminophen (Acetaminophen 325 Mg Tablet) 650 mg PO Q6H PRN PRN Reason: Pain, Mild (Pain Scale 1-3) Acetazolamide (Acetazolamide 250 Mg Tablet) 500 mg PO BID [facility] Albuterol Sulfate (Albuterol Sulfate (0.083%) 2.5 Mg/3 Ml Vial.Neb) 2.5 mg INHALE RQ4H WHILE AWAKE [facility] Last Admin: 02/09/23 11:11 Dose: Not Given Atorvastatin Calcium (Atorvastatin Calcium 80 Mg Tablet) 80 mg PO DAILY [facility] Last Admin: 02/09/23 07:54 Dose: 80 mg Dextrose (Dextrose 50 % 25 Gm/50 Ml Syringe) 25 gm IVPUSH Q15M PRN; Protocol PRN Reason: per Hypoglycemia Standing Ord. Diltiazem HCl (Diltiazem Hcl Cd 180 Mg Cap.Er.24h) 360 mg PO DAILY [facility]; Protocol Last Admin: 02/09/23 07:54 Dose: 360 mg Fenofibrate (Fenofibrate 160 Mg Tablet) 160 mg PO DAILY [facility] Last Admin: 02/09/23 07:54 Dose: 160 mg Furosemide (Furosemide 40 Mg/4 Ml Vial) 40 mg IVPUSH BID@0900,1800 [facility]; Protocol Gabapentin (Gabapentin 100 Mg Capsule) 100 mg PO BEDTIME [facility] Last Admin: 02/08/23 22:23 Dose: 100 mg Glucose (Glucose Gel 15 Gm Gel..Gram.) 15 gm PO Q15M PRN; Protocol PRN Reason: per Hypoglycemia Standing Ord. Insulin Glargine (Insulin Glargine,Hum.Rec.Anlog 100 Unit/Ml 10 Ml Vial) 80 unit SUBCUT BEDTIME [facility] Last Admin: 02/08/23 22:24 Dose: 80 unit Insulin Human Lispro (Insulin Lispro 100 Unit/Ml 3 Ml Vial) 0 unit SUBCUT QIDACHS [facility]; Protocol Last Admin: 02/09/23 07:53 Dose: 6 unit Insulin Human Lispro (Insulin Lispro 100 Unit/Ml 3 Ml Vial) 5 unit SUBCUT QIDACHS [facility] Lactic Acid (Ammonium Lactate 12 % Lotion 226 Gm Bottle) 1 appl TOPICAL DAILY [facility]; Protocol Last Admin: 02/09/23 07:55 Dose: 1 appl Losartan Potassium (Losartan Potassium 25 Mg Tablet) 25 mg PO DAILY [facility]; Protocol Last Admin: 02/09/23 07:54 Dose: 25 mg Ondansetron HCl (Ondansetron Hcl 4 Mg/2 Ml Vial) 4 mg IVPUSH Q8H PRN PRN Reason: Nausea and Vomiting Pharmacy Consult (Consult Rx Perform Med Rec) 1 each MISCELLANE ONCE PRN PRN Reason: Consult order Sodium Chloride (0.9 % Sodium Chloride Flush 3 Ml Syringe) 3 ml IVFLUSH QSHIFT [facility] Last Admin: 02/09/23 07:54 Dose: 3 ml Warfarin Sodium (Warfarin Sodium 2.5 Mg Tablet) 2.5 mg PO TuSa@1800 [facility] Last Admin: 02/08/23 19:04 Dose: 2.5 mg Warfarin Sodium (Warfarin Sodium 5 Mg Tablet) 5 mg PO SuMoWeThFr@1800 [facility] Home Medications Medication Instructions Recorded Confirmed Last Taken Type acetaminophen 650 mg 1,300 mg PO Q8H PRN Pain 02/08/23 02/08/23 Unknown History tablet,extended release (Tylenol Arthritis Pain) albuterol sulfate 90 mcg/actuation 2 puff inhalation Q4H PRN wheezing 02/08/23 02/08/23 Unknown History aerosol inhaler atorvastatin 80 mg tablet 80 mg PO DAILY 02/08/23 02/08/23 Unknown History diltiazem HCl 360 mg capsule,24 360 mg PO DAILY 02/08/23 02/08/23 Unknown History hr,extended release (Tiadylt ER) fenofibrate 160 mg tablet 160 mg PO DAILY 02/08/23 02/08/23 Unknown History furosemide 20 mg tablet 20 mg PO DAILY 02/08/23 02/08/23 Unknown History gabapentin 100 mg capsule 100 mg PO BEDTIME 02/08/23 02/08/23 Unknown History insulin glargine 100 unit/mL (3 80 unit subcut BEDTIME 02/08/23 02/08/23 Unknown History mL) subcutaneous pen (Lantus Solostar U-100 Insulin) insulin lispro 100 unit/mL 30 unit subcut TID 02/08/23 02/08/23 Unknown History subcutaneous pen (Humalog KwikPen (U-100) Insulin) losartan 25 mg tablet 25 mg PO DAILY 02/08/23 02/08/23 Unknown History warfarin 2.5 mg tablet 2.5 mg PO TUSA 02/08/23 02/08/23 Unknown History warfarin 5 mg tablet 5 mg PO SUMOWETHFR 02/08/23 02/08/23 Unknown History Physical Exam Vital Signs: Vital Signs: Last Vital Signs Temp 97 F 02/09/23 07:12 Pulse 118 H 02/09/23 08:30 Resp 18 02/09/23 07:38 BP 131/68 02/09/23 07:12 Pulse Ox 83 L 02/09/23 08:30 O2 Del Method Room Air 02/09/23 08:30 O2 Flow Rate 2 02/09/23 07:12 BMI result Body Mass Index 45.4 Const: General: no acute distress and alert Nutritional Appearance: obese Orientation/consciousness: Other orientation findings ( oriented) HEENT: Head: Yes atraumatic Eyes: General: appearance normal, both eyes and all related structures Sclerae: sclerae normal EOM: EOMs intact bilaterally Neck: Neck: Yes supple Lymphatic: no lymphadenopathy noted Resp: Effort & Inspection: normal respiratory effort and no use of accessory muscles Auscultation: clear to auscultation bilaterally Cardio: Rate: tachycardic Rhythm: regular rhythm Heart sounds: no gallops, no murmurs and no rubs Skin: General skin exam: other ( warm) Extrem: General: No clubbing, No cyanosis and Yes edema ( 2+ bilateral ) Results Laboratory Findings 02/09/23 05:07 02/09/23 05:07 ABG, PT/INR, D-dimer: PT/INR, D-dimer PT 22.9 SEC (10.0-13.1) H 02/09/23 05:07 INR 1.9 (0.9-1.1) H 02/09/23 05:07 Abnormal lab findings: Abnormal Labs 02/08/23 02/08/23 02/08/23 11:11 11:11 11:11 Hct 48.6 H RDW 16.4 H MPV 9.3 L Lymph % (Auto) 13.9 L PT INR VBG HCO3 Carbon Dioxide 30 H BUN 26 H POC Glucose Random Glucose Ur Leukocyte Esterase Moderate (2+) H Urine WBC 6-10 H 02/08/23 02/08/23 02/08/23 11:11 15:39 17:30 Hct RDW MPV Lymph % (Auto) PT 28.9 H INR 2.4 H VBG HCO3 31 H Carbon Dioxide BUN POC Glucose 194 H Random Glucose Ur Leukocyte Esterase Urine WBC 02/08/23 02/09/23 02/09/23 21:02 05:07 05:07 Hct RDW MPV Lymph % (Auto) PT 22.9 H INR 1.9 H VBG HCO3 Carbon Dioxide BUN 24 H POC Glucose 243 H Random Glucose 267 H Ur Leukocyte Esterase Urine WBC 02/09/23 02/09/23 07:18 11:15 Hct RDW MPV Lymph % (Auto) PT INR VBG HCO3 Carbon Dioxide BUN POC Glucose 287 H 456 H* Random Glucose Ur Leukocyte Esterase Urine WBC Assessment and Plan (1) Acute respiratory failure with hypoxia: Status: Acute (2) Bilateral edema of lower extremity: Status: Acute Plan Impression: 82-year-old lady admitted with acute hypoxic respiratory failure. It appears that patient had only 20 pack-year smoking history and, though she may have underlying COPD, it is unlikely it is causing her symptoms at this time. Patient does appear to diastolic dysfunction with pulmonary edema and lower extremity edema. Also, likely underlying obstructive sleep apnea with obesity hypoventilation syndrome. Recommendation: Agree with obtaining 2D echocardiogram to evaluate underlying cardiac function. Suggest starting on acetazolamide 500 IV twice a day with additional IV furosemide. Suggest nocturnal CPAP. No significant wheezing noted, would advise against systemic glucocorticoids at this time. Time Spent With Patient Time: Total time managing care of this patient today ____ minutes. Procedures Date of Service Date of Service: 02/09/23
[2023-02-09] MEDS: Acetaminophen 325 MG TABLET 650 MG PO (13:20)
--- NOTE | 2023-02-09 14:33 | MHC.CM.PN ---
PT REPORTS SHE LIVES WITH HER DAUGHTER AND IS INDEPENDENT WITH SELF CARE SHE SAYS SHE HAS A POLICE LIEUTENANT PRECINCT THAT COMES 1X/WK TO CLEAN SHE HAS A WALKER SHE USES ONLY WHEN GOING OUT SHE SAYS SHE HAS A HCP NAMING HER DAUGHTER HER AGENT ALREADY COMPLETED, COPY REQUESTED SHE DOES NOT KNOW THE NAME OF HER PCP, BUT REPORTS SHE GOES TO DELIVERED CURRENT DCP: HOME NO SERVICES FAMILY OR SON TO TRANSPORT
--- NOTE | 2023-02-09 15:56 | PC.NURSE ---
Pt bs were high at POC today, 456 @ 1130 and 359 at 1600. Provider was notified so insulin scale could be adjusted. Pt is not exhibiting any s/s of hyperglycemia. Will continue to monitor.
[2023-02-09 16:00] LABS: Glucose, Whole Blood 359 mg/dL (60-115)
[2023-02-09] MEDS: Warfarin Sodium 5 MG TABLET PO (17:00)
[2023-02-09] MEDS: Furosemide 40 MG/4 ML VIAL IVPUSH (17:01)
[2023-02-09] MEDS: Gabapentin 100 MG CAPSULE PO (20:29)
[2023-02-09] MEDS: acetaZOLAMIDE 250 MG TABLET 500 MG PO (20:29)
[2023-02-09 20:35] LABS: Glucose, Whole Blood 357 mg/dL (60-115)
[2023-02-09] MEDS: Insulin Glargine,Hum.rec.anlog 100 UNIT/ML 10 ML VIAL 80 UNIT SUBCUT (20:44)
[2023-02-10 03:07] VITALS: BP 145/63; PULSE 76; RESP 16; TEMP 36; O2SAT 94
--- NOTE | 2023-02-10 03:35 | PC.NURSE ---
HS POC= 37, sliding scale and scheduled Lispro given, Dr. Henderson was made aware.
[2023-02-10 06:31] LABS: INTERNATIONAL NORM RATIO 1.9 (0.9-1.1); Prothrombin Time 22.1 SEC (10.0-13.1)
[2023-02-10 06:40] LABS: Anion Gap 13 (12-20); Blood Urea Nitrogen 39 mg/dL (9-16); Calcium 9.4 mg/dL (8.4-10.2); Carbon Dioxide 28 mmol/L (22-29); Chloride 102 mmol/L (96-108); Creatinine Clr Calc Pharmacy 33.6; Estimated Glomerular Filt Rate 36; Glucose Random 255 mg/dL (60-115); Potassium 4.1 mmol/L (3.3-5.1); Sodium 139 mmol/L (135-145)
--- NOTE | 2023-02-10 07:00 | CA_ITS ---
Transthoracic Echocardiogram Patient (Last, First, Middle): Sofia Farris, Gender: Female Date of : 1940 Age: 82 Procedure Date: 02/10/2023 Procedure Type: Transthoracic Echocardiogram Location: S3W Height: 152.4 cm Weight: 105.24 kg BSA: 1.99 m2 Heart Rate: bpm BP: 118 / 68 mmHg Field Secretary: HAKAN Referring MD: Clementine Davenport NP Checkering Machine Adjuster: Jg Paz MD Symptoms: hypoxia Study Quality: Fair ECG Rhythm: Atrial Fibrillation Conclusions: - 1. Normal LV ejection fraction of 60-65% with mild LVH 2. Mildly dilated left atrium and right ventricle 3. Normal cardiac valvular Dopplers 4. Mildly to moderately elevated right ventricular systolic pressure mildly elevated right atrial pressures 5. Upper limits of normal ascending aortic size 6. No pericardial effusion Findings Left Ventricle Normal left ventricular size and systolic function. There is mildly increased left ventricular wall thickness. The visually estimated ejection fraction is between 60-65%. Spectral Doppler is indicative of a restrictive filling pattern. Right Ventricle Mildly increased right ventricular cavity size. There is normal right ventricular systolic function. Atria The left atrium is mildly dilated. There is lipomatous hypertrophy of the interatrial septum. There is no evidence of interatrial shunt. The right atrium is mildly dilated. Aortic Valve There is mild thickening of the aortic valve. There is no aortic valve stenosis. There is no aortic valve regurgitation. Mitral Valve There is mild anterior and posterior mitral leaflet thickening. There is moderate mitral annular calcification. There is mild mitral valve regurgitation. There is no mitral valve stenosis. Pulmonic Valve The pulmonic valve is likely normal. There is trace pulmonic valve regurgitation. Tricuspid Valve Normal tricuspid valve structure. There is mild to moderate tricuspid valve regurgitation. The right ventricular systolic pressure is 45 mmHg. Mildly elevated right atrial pressure. Mild to moderate pulmonary hypertension is present. Great Vessels The pulmonary artery was not well visualized. Venous The inferior vena cava is mildly dilated and collapses greater than 50% with inspiration. Pericardium/Pleural There is no evidence of pericardial effusion. Prior Study Comparison No prior study available for comparison. Measurements 2D Linear Measurements IVSd: 1.29 0.6-0.9/0.6-1.0 cm LVIDd: 3.79 3.9-5.3/4.2-5.9 cm LVIDd Index: 1.90 2.4-3.2/2.2-3.1 cm/m2 LVIDs: 2.56 2.0-3.6 cm LVPWd: 1.27 0.7-1.1 cm Ao Root: 3.00 2.1-3.5 cm LA Diam: 4.70 2.7-3.8/3.0-4.0 cm LAIDs Index: 2.36 1.5-2.3 cm/m2 LV Mass: 209.67 67-162/88-224 g LV Mass Index: 105.36 43-95/49-115 g/m2 LVOT Diam: 2.00 3.0+(-)1.3 cm Mitral Valve MV Pk E: 1.29 MV Decel Time: 320.00 E'Lateral: 9.79 E'Medial: 7.07 E/E' Med: 18.20 E/E' Lat: 13.20 PHT: 94.00 MVA PHT: 2.34 Decel [place]: 4.02 Aortic Valve AoV Pk Tac[place]: 1.43 AoV Mn Tac[place]: 0.93 AoV VTI: 0.36 AoV Pk Grad: 8.00 Aov Mn Grad: 4.00 YASMEEN Cont.VTI: 1.57 LVOT LVOT Pk [place]: 0.78 LVOT Mn [place]: 0.55 LVOT VTI: 0.18 LVOT Pk Grad: 2.00 LVOT Mn Grad: 2.00 LVOT Diam: 2.00 LVOT Area: 3.14 Diastolic Function MV Pk E: 1.29 E'Medial: 7.07 E/E' Med: 18.20 E' Laterial: 9.79 E/E' Lat: 13.20 Tricuspid Valve TR Pk Tac[place]: 3.06 TR Pk Grad: 37.00 RA Press: 8.00 RVSP: 45.00 Great Vessels Aorta Ao Root-2D: 3.00 2.0-3.7 cm Ao Asc: 3.60 2.1-3.4 cm Pulmonary Valve PV Pk Tacos: 1.09 Peak PV Grad: 5.00 Updated in Other Vendor System with Status of Final Jg Paz MD electronically signed on 02/10/2023 4:37:25 PM with status of Final
[2023-02-10 07:16] VITALS: BP 118/68; PULSE 75; RESP 18; TEMP 36.4; O2SAT 94
[2023-02-10 07:24] LABS: Glucose, Whole Blood 216 mg/dL (60-115)
[2023-02-10] MEDS: Furosemide 40 MG/4 ML VIAL IVPUSH ×2 (07:56→17:13)
[2023-02-10] MEDS: dilTIAZem HCL CD 180 MG CAP.ER.24H 360 MG PO (07:57)
[2023-02-10] MEDS: acetaZOLAMIDE 250 MG TABLET 500 MG PO ×2 (07:57→20:06)
[2023-02-10] MEDS: Fenofibrate 160 MG TABLET PO (07:57)
[2023-02-10] MEDS: Atorvastatin Calcium 80 MG TABLET PO (07:57)
[2023-02-10] MEDS: Losartan Potassium 25 MG TABLET PO (07:57)
[2023-02-10] MEDS: Insulin Lispro 100 UNIT/ML 3 ML VIAL SUBCUT ×8 (07:57→22:13)
[2023-02-10] MEDS: 0.9 % Sodium Chloride Flush 3 ML SYRINGE IVFLUSH ×3 (07:59→20:06)
[2023-02-10] MEDS: Ammonium Lactate 12 % Lotion 226 GM BOTTLE 1 APPL TOPICAL (08:00)
--- NOTE | 2023-02-10 08:19 | HO.PM.IMPN ---
Subjective Subjective Date of Service: 02/10/23 Review of Systems Follow up COPD no sob, only with ambulation Physical Exam Vital Signs: Vital Signs: Last Vital Signs Temp 97.6 F 02/10/23 07:16 Pulse 75 02/10/23 07:16 Resp 18 02/10/23 07:16 BP 118/68 02/10/23 07:16 Pulse Ox 94 02/10/23 07:16 O2 Del Method Room Air 02/10/23 07:16 O2 Flow Rate 2 02/09/23 20:00 BMI result Body Mass Index 45.4 Appearing in no acute distress lung sounds diminished heart regular rate rhythm, clear S1, S2 positive bowel sounds, abdomen is soft, nontender neuro patient is alert x3, no focal deficits Objective Data Active Medications Acetaminophen (Acetaminophen 325 Mg Tablet) 650 mg PO Q6H PRN PRN Reason: Pain, Mild (Pain Scale 1-3) Last Admin: 02/09/23 13:20 Dose: 650 mg Documented By: JAVIER Acetazolamide (Acetazolamide 250 Mg Tablet) 500 mg PO BID [facility] Last Admin: 02/10/23 07:57 Dose: 500 mg Documented By: LUIGI Albuterol Sulfate (Albuterol Sulfate (0.083%) 2.5 Mg/3 Ml Vial.Neb) 2.5 mg INHALE RQ4H WHILE AWAKE [facility] Last Admin: 02/10/23 07:51 Dose: Not Given Documented By: NIDA Non-Admin Reason: Patient Refused Atorvastatin Calcium (Atorvastatin Calcium 80 Mg Tablet) 80 mg PO DAILY [facility] Last Admin: 02/10/23 07:57 Dose: 80 mg Documented By: LUIGI Dextrose (Dextrose 50 % 25 Gm/50 Ml Syringe) 25 gm IVPUSH Q15M PRN; Protocol PRN Reason: per Hypoglycemia Standing Ord. Diltiazem HCl (Diltiazem Hcl Cd 180 Mg Cap.Er.24h) 360 mg PO DAILY [facility]; Protocol Last Admin: 02/10/23 07:57 Dose: 360 mg Documented By: LUIGI Fenofibrate (Fenofibrate 160 Mg Tablet) 160 mg PO DAILY [facility] Last Admin: 02/10/23 07:57 Dose: 160 mg Documented By: LUIGI Furosemide (Furosemide 40 Mg/4 Ml Vial) 40 mg IVPUSH BID@0900,1800 [facility]; Protocol Last Admin: 02/10/23 07:56 Dose: 40 mg Documented By: LUIGI Gabapentin (Gabapentin 100 Mg Capsule) 100 mg PO BEDTIME [facility] Last Admin: 02/09/23 20:29 Dose: 100 mg Documented By: GOOD Glucose (Glucose Gel 15 Gm Gel..Gram.) 15 gm PO Q15M PRN; Protocol PRN Reason: per Hypoglycemia Standing Ord. Insulin Glargine (Insulin Glargine,Hum.Rec.Anlog 100 Unit/Ml 10 Ml Vial) 80 unit SUBCUT BEDTIME [facility] Last Admin: 02/09/23 20:44 Dose: 80 unit Documented By: GOOD Insulin Human Lispro (Insulin Lispro 100 Unit/Ml 3 Ml Vial) 0 unit SUBCUT QIDACHS [facility]; Protocol Last Admin: 02/10/23 07:58 Dose: 4 unit Documented By: LUIGI Insulin Human Lispro (Insulin Lispro 100 Unit/Ml 3 Ml Vial) 5 unit SUBCUT QIDACHS [facility] Last Admin: 02/10/23 07:57 Dose: 5 unit Documented By: LUIGI Lactic Acid (Ammonium Lactate 12 % Lotion 226 Gm Bottle) 1 appl TOPICAL DAILY [facility]; Protocol Last Admin: 02/10/23 08:00 Dose: 1 appl Documented By: LUIGI Losartan Potassium (Losartan Potassium 25 Mg Tablet) 25 mg PO DAILY [facility]; Protocol Last Admin: 02/10/23 07:57 Dose: 25 mg Documented By: LUIGI Ondansetron HCl (Ondansetron Hcl 4 Mg/2 Ml Vial) 4 mg IVPUSH Q8H PRN PRN Reason: Nausea and Vomiting Pharmacy Consult (Consult Rx Perform Med Rec) 1 each MISCELLANE ONCE PRN PRN Reason: Consult order Sodium Chloride (0.9 % Sodium Chloride Flush 3 Ml Syringe) 3 ml IVFLUSH QSHIFT [facility] Last Admin: 02/10/23 07:59 Dose: 3 ml Documented By: LUIGI Warfarin Sodium (Warfarin Sodium 2.5 Mg Tablet) 2.5 mg PO TuSa@1800 [facility] Last Admin: 02/08/23 19:04 Dose: 2.5 mg Documented By: KRISTINA Warfarin Sodium (Warfarin Sodium 5 Mg Tablet) 5 mg PO SuMoWeThFr@1800 [facility] Last Admin: 02/09/23 17:00 Dose: 5 mg Documented By: JAVIER Labs 02/09/23 05:07 02/10/23 06:04 Labs: Laboratory Results - last 24 hr 02/09/23 02/09/23 02/09/23 11:15 15:50 20:30 PT INR Anion Gap Estim Creat Clear Calc Estimated GFR POC Glucose 456 H* 359 H* 357 H* Random Glucose Calcium 02/10/23 02/10/23 02/10/23 06:04 06:04 07:14 PT 22.1 H INR 1.9 H Anion Gap 13 Estim Creat Clear Calc 33.6 Estimated GFR 36 POC Glucose 216 H Random Glucose 255 H Calcium 9.4 Microbiology Microbiology Results: Microbiology 02/08/23 Unknown Urine Culture - Final Urine clean catch - Clean Catch Midstream Assessment and Plan (1) Cellulitis: Status: Acute Plan 82-year-old woman admitted with acute hypoxic respiratory failure likely secondary to COPD exacerbation /emphysema Acute hypoxic respiratory failure secondary to COPD / emphysema Oxygen saturation with ambulation in the low 80s Chest CT showing emphysema with atelectasis? without clear consolidation or effusion Pulmonology consultation>some degree of hypoventilation syndrome and also CHF likely, stop steroids, start diamox 500mg BID and diurese with Lasix IV Moderate to severe coronary artery calcification noted on CT, echocardiogram pending Supplemental oxygen to maintain oxygen saturation greater than 90% Atrial fibrillation Continue diltiazem Warfarin, check PT INR daily Lower extremity skin changes with skin tearing dry skin and scratching contributing cleanse both legs with soap and water daily and apply lac hydrin cream to intact skin Hypertension Losartan, furosemide Follow blood pressure closely Diabetes mellitus type 2 Sliding scale, ADA diet Hyperlipidemia Statin DVT prophylaxis with warfarin Full code Attending Dr. Osorio continued hospital stay for treatment of acute hypoxic respiratory failure requiring oxygen and IV steroids Time Spent With Patient Time: Total time managing care of this patient today ____ minutes. Quality Stroke Does the patient have a stroke diagnosis?: No VTE Prior VTE?: No VTE Risk Level:: Medical - moderate - high VTE Device Contraindication: Treatment Not Indicated VTE Drug Contraindication: N/A - Med Ordered
[2023-02-10 11:23] LABS: Glucose, Whole Blood 337 mg/dL (60-115)
--- NOTE | 2023-02-10 12:51 | MHC.CM.PN ---
per rounds pt not ready for dc today to have an echo dc plans remain home no servcies
[2023-02-10 15:02] VITALS: BP 112/53; PULSE 65; RESP 18; TEMP 36.7; O2SAT 94
[2023-02-10 16:28] LABS: Glucose, Whole Blood 276 mg/dL (60-115)
[2023-02-10] MEDS: Warfarin Sodium 5 MG TABLET PO (17:12)
[2023-02-10] MEDS: Acetaminophen 325 MG TABLET 650 MG PO (17:13)
[2023-02-10 19:11] VITALS: BP 143/64; PULSE 87; RESP 17; TEMP 36.6; O2SAT 95
[2023-02-10] MEDS: Albuterol Sulfate (0.083%) 2.5 MG/3 ML VIAL.NEB INHALE (19:16)
[2023-02-10 19:17] VITALS: PULSE 88; RESP 17; O2SAT 93
[2023-02-10] MEDS: Gabapentin 100 MG CAPSULE PO (20:05)
[2023-02-10 20:25] LABS: Glucose, Whole Blood 287 mg/dL (60-115)
[2023-02-10] MEDS: Insulin Glargine,Hum.rec.anlog 100 UNIT/ML 10 ML VIAL 80 UNIT SUBCUT (20:54)
[2023-02-11] VITALS (8 sets, daily range): BP systolic 118–139; BP diastolic 57–63; PULSE 75–90; RESP 16–24; TEMP 36.2–36.6; O2SAT 87–97
[2023-02-11 05:46] LABS: INTERNATIONAL NORM RATIO 2.2 (0.9-1.1); Prothrombin Time 25.7 SEC (10.0-13.1)
[2023-02-11 07:32] LABS: Glucose, Whole Blood 148 mg/dL (60-115)
[2023-02-11] MEDS: Albuterol Sulfate (0.083%) 2.5 MG/3 ML VIAL.NEB INHALE ×2 (08:10→11:18)
[2023-02-11] MEDS: Furosemide 40 MG/4 ML VIAL IVPUSH (08:22)
[2023-02-11] MEDS: acetaZOLAMIDE 250 MG TABLET 500 MG PO (08:22)
[2023-02-11] MEDS: Losartan Potassium 25 MG TABLET PO (08:22)
[2023-02-11] MEDS: Atorvastatin Calcium 80 MG TABLET PO (08:22)
[2023-02-11] MEDS: dilTIAZem HCL CD 180 MG CAP.ER.24H 360 MG PO (08:23)
[2023-02-11] MEDS: 0.9 % Sodium Chloride Flush 3 ML SYRINGE IVFLUSH (08:23)
[2023-02-11] MEDS: Fenofibrate 160 MG TABLET PO (08:23)
[2023-02-11] MEDS: Ammonium Lactate 12 % Lotion 226 GM BOTTLE 1 APPL TOPICAL (08:33)
[2023-02-11 11:33] LABS: Glucose, Whole Blood 284 mg/dL (60-115)
--- NOTE | 2023-02-11 11:33 | P.CDIM_ITS ---
PROVIDER RESPONSE TEXT: To clarify, the appropriate diagnosis supported by the clinical indicators: Obesity Due to excess calories QUERY TEXT: PHYSICIAN'S DOCUMENTATION REQUEST Date of Query: 02/11/2023 08:30 AM EDT Patient Name: Sofia Farris Admit Date: 02/08/2023 Dear Clementine Davenport, A review of the medical record indicates additional documentation may be needed. Please review below and update the documentation accordingly. Clinical Indicators: Height: ( ) 5FT Weight: ( ) 105.551 kg BMI: ( ) 45.4 Other Clinical Notes Supporting Significance of the BMI: Per Pulmonology Consultation Note 02/09/23: underlying history of obesity likely underlying obstructive sleep apnea with obesity hypoventilation syndrome Suggest nocturnal CPAP If possible, please provide an associated diagnosis related to the abnormal BMI, such as: Overweight Obesity Due to excess calories Morbid Obesity with OHS Obesity Due to other cause Specify the other cause Severe or Morbid Obesity Without alveolar hypoventilation BMI is not significant Other (explain)Clinically unable to determine (explain)Thank you, Maren Bender RN Use of terms such as suspected, likely, concern for, or probable (associated with a specific diagnosi s that is being evaluated, monitored, or treated as if it exists) are acceptable and can be coded in the inpatient se tting, when documented at the time of discharge. Please use your independent medical judgment in providing your response. THIS QUERY IS PART OF THE PERMANENT MEDICAL RECORD
--- NOTE | 2023-02-11 11:33 | P.CDIM_ITS ---
PROVIDER RESPONSE TEXT: To clarify, the appropriate diagnosis supported by the clinical indicators: Diastolic: acute QUERY TEXT: PHYSICIAN'S DOCUMENTATION REQUEST Date of Query: 02/11/2023 08:20 AM EDT Patient Name: Sofia Farris Admit Date: 02/08/2023 Dear Clementine Davenport, A review of the medical record indicates additional documentation may be needed. Please review below and update the documentation accordingly. Clinical Indicators: Per Pulmonary Consultation Note 02/09/23: Patient does appear to diastolic dysfunction with pulmonary edema and lower extremity edema ECHO done 02/10/23 Per Hospitalist Progress Note 02/10/23: stop steroids, start diamox 500mg BID and diurese with Lasix I V Please provide further specificity regarding the most likely type and acuity of CHF you are evaluatin g, treating, or monitoring. Systolic Please specify if Acute, Chronic, or Acute on chronic, or Unable to determine Diastolic Please specify if Acute, Chronic, or Acute on chronic, or Unable to determine Combined Systolic/Diastolic Please specify if Acute, Chronic, or Acute on chronic, or Unable to determine Other (explain)Clinically unable to determine (explain)Thank you, Maren Bender RN Use of terms such as suspected, likely, concern for, or probable (associated with a specific diagnosi s that is being evaluated, monitored, or treated as if it exists) are acceptable and can be coded in the inpatient se tting, when documented at the time of discharge. Please use your independent medical judgment in providing your response. THIS QUERY IS PART OF THE PERMANENT MEDICAL RECORD
--- NOTE | 2023-02-11 11:33 | P.CDIM_ITS ---
PROVIDER RESPONSE TEXT: To clarify, the appropriate diagnosis supported by the clinical indicators: No complications of DM QUERY TEXT: PHYSICIAN'S DOCUMENTATION REQUEST Date of Query: 02/11/2023 08:26 AM EDT Patient Name: Sofia Farris Admit Date: 02/08/2023 Dear Clementine Davenport, A review of the medical record indicates additional documentation may be needed. Please review below and update the documentation accordingly. Clinical Indicators: PMH: Glucose on 02/09/23: 456, 359, 357 Glucose on 02/10/23: 337 Per Hospitalist Progress Note 02/10/23: Diabetes mellitus type 2 Sliding scale, ADA diet Please clarify the following regarding the Complications of Diabetes Mellitus (DM): Please describe any known complications Hyperglycemia No complications of DM Other (explain)Clinically unable to determine (explain)Thank you, Maren Bender RN Use of terms such as suspected, likely, concern for, or probable (associated with a specific diagnosi s that is being evaluated, monitored, or treated as if it exists) are acceptable and can be coded in the inpatient se tting, when documented at the time of discharge. Please use your independent medical judgment in providing your response. THIS QUERY IS PART OF THE PERMANENT MEDICAL RECORD
[2023-02-11] MEDS: Insulin Lispro 100 UNIT/ML 3 ML VIAL SUBCUT ×2 (11:43)
--- NOTE | 2023-02-11 12:48 | P.DS_ITS ---
DS: Providers Provider Date of Service: 02/11/23 Date of admission: 02/08/23 15:54 Primary care physician: Unknown Physician Consults: 02/08/23 16:05 Consult to Pulmonology Routine Consulting Provider: [facility] [place] Pulmonology Services Reason for consultation: hypoxia DS: Diagnosis Discharge Diagnosis (1) Cellulitis: Status: Acute DS: Summary Hospital Course Hospital Course: 82-year-old woman presented to the ER with complaints of worsening shortness of breath? over the last several weeks.? She has a baseline history of chronic shortness of breath specially with ambulation but again has been worse over the last several weeks.? She denied chest pain, nausea, vomiting, diarrhea.? She does not wear oxygen at home and oxygen saturation in the ER was 84% with ambulation and patient would also become quite tachycardic.? In the ER, chest CT showing emphysema with scattered bilateral calcified and noncalcified pulmonary nodules with no obvious consolidation or effusion.? She does have moderate to severe coronary artery calcifications.? BNP 100, troponin 2.7. ? She was also noted to lower extremity edema which is chronic from dryness and scratching with some small areas of skin tearing.? In the ER she was given a dose of Zosyn. She will be admitted further management and treatment of acute hypoxic respiratory failure secondary to COPD /emphysema. 82 year old women treated for acute hypoxic respiratory failure secondary to COPD / emphysema, HFpEF with diastolic dysfunction. Seems like patient also has some degree of TREMAYNE/obesity hypoventilation syndrome. She was noted to be hypoxic in the 80's and placed on supplemental oxygen. Chest CT showed Emphysema with scattered bilateral pulmonary nodules with no obvious consolidation or effusion. Moderate to severe coronary artery calcification noted. Patient was seen evaluated by pulmonology with recommendation to stop steroids, treated with Diamox and IV Lasix. Echocardiogram then obtained showing EF of 60-65% with mild LVH, dilated left atrium and right ventricle, mild to moderate elevation to right ventricular systolic pressure and mildly elevated right atrial pressures. Patient was treated with IV Lasix with no further report of shortness breath. Chronic lower extremity edema with chronic skin changes and skin tears without acute infection. Home O2 evaluation obtained with recommendation for 2 L with rest and 3 L with ambulation. Patient should follow-up with pulmonology and will need PFTs and sleep study outpatient Atrial fibrillation. Continue diltiazem and Warfarin Lower extremity skin changes with skin tearing. dry skin and scratching contributing. cleanse both legs with soap and water daily and apply lac hydrin cream to intact skin Hypertension. Continue Losartan and furosemide Diabetes mellitus type 2. Continue medications Hyperlipidemia. Continue Statin Time Spent with Patient Time attestation: Total time managing care of this patient today ____ minutes. Discharge coordination time: Greater than 30 minutes Quality: Safe Use of Opioids Does Pt have an Active Cancer Diagnosis on the Problem List?: No Quality: Stroke Does the patient have a stroke diagnosis?: No Physical Exam Vital Signs: Vital Signs: Last Vital Signs Temp 97.6 F 02/11/23 07:02 Pulse 75 02/11/23 11:20 Resp 16 02/11/23 11:20 BP 118/60 02/11/23 08:12 Pulse Ox 93 02/11/23 08:12 O2 Del Method Nasal Cannula 02/11/23 07:02 O2 Flow Rate 2 02/11/23 07:02 BMI result Body Mass Index 45.4 Appearing in no acute distress head is normocephalic atraumatic eyes pupils are PERRLA sclera is anicteric mouth throat mucous membranes are intact and moist neck is supple no lymphadenopathy, no JVD noted lung sounds are clear to auscultation heart regular rate rhythm, clear S1, S2 positive bowel sounds, abdomen is soft, nontender neuro patient is alert x3, no focal deficits Chronic skin changes to lower extremities with skin tears, no weeping noted DS: Data Data Completed and Pending Labs on day of discharge: Laboratory Results - last 24 hr 02/10/23 02/10/23 02/11/23 16:16 20:19 05:04 PT 25.7 H INR 2.2 H POC Glucose 276 H 287 H 02/11/23 02/11/23 07:09 11:23 PT INR POC Glucose 148 H 284 H Discharge Plan Discharge Anticipated Discharge Date/Time: 02/11/23 11:21 Patient Disposition: Home, Self-Care Discharge Diagnosis: Acute hypoxic respiratory failure COPD/emphysema Atrial fibrillation Congestive heart failure with preserved ejection fraction Referrals: Maximus Turner MD [Physician] - 1 Week Discharge Medications: Continued atorvastatin 80 mg tablet 80 mg PO DAILY diltiazem HCl [Tiadylt ER] 360 mg capsule,extended release 24 hr 360 mg PO DAILY acetaminophen [Tylenol Arthritis Pain] 650 mg Tablet Extended Release 1,300 mg PO Q8H PRN (Reason: Pain) warfarin 5 mg tablet 5 mg PO SUMOWETHFR losartan 25 mg tablet 25 mg PO DAILY furosemide 20 mg tablet 20 mg PO DAILY gabapentin 100 mg capsule 100 mg PO BEDTIME albuterol sulfate 90 mcg/actuation HFA aerosol inhaler 2 puff inhalation Q4H PRN (Reason: wheezing) insulin lispro [Humalog KwikPen Insulin] 100 unit/mL insulin pen 30 unit subcut TID fenofibrate 160 mg tablet 160 mg PO DAILY insulin glargine [Lantus Solostar U-100 Insulin] 100 unit/mL (3 mL) insulin pen 80 unit subcut BEDTIME warfarin 2.5 mg Tablet 2.5 mg PO TUSA Discharge Orders: Discharge Order (Routine); Ordered 02/11/23 Ordered By: Clementine Davenport Diet: Advance to usual diet Activity on Discharge: As tolerated Stand Alone Forms: Patient Portal Discharge page Care Plan Goals: Complete resolution of symptoms Health Concerns: Acute hypoxic respiratory failure COPD/emphysema Atrial fibrillation Congestive heart failure with preserved ejection fraction Plan of Treatment: Follow-up with primary care provider as needed Take all medications as prescribed He will be sent home with oxygen, 2 L at rest, 3 L with ambulation cleanse both legs with soap and water daily and apply lac hydrin cream to intact skin Assessment: See discharge summary
--- NOTE | 2023-02-11 13:07 | W.MHC.F2F ---
Service Date Service Date: 02/11/23 Encounter Date of encounter: 02/11/23 Reasons for Services Signs and symptoms assessed: Chronic lower extremity skin changes with acute skin tears Reason for group home: wound care Homebound: Leaving the home is medically contraindicated at this time without the asist of a device and/or another person due th the listed conditions above and below. Reason homebound: unsteady gait / fall risk and shortness of breath with minimal effort Certification: Based on the above findings, I certify that this patient is confined to the home and needs intermittent group home care, physical therapy and/or speech therapy, or continues to need occupational therapy. The patient is under my care, and I have initiated the establishment of the plan of care. The patient will be followed by a physician who will periodically review the plan of care. Time Spent With Patient Time: Total time managing care of this patient today ____ minutes.
[2023-02-11 16:30] LABS: Glucose, Whole Blood 253 mg/dL (60-115)
== END 2023-02-11 17:01 | disposition home health service (06) | DRG 291 ==
LOC: HO.ED 13:33 → HO.EDOVER 16:30 → HO.S3 21:51
PROVIDERS: Physician Assistant; Admitting Provider Nurse Practitioner Acute Care; Emergency Provider Emergency Medicine; PCP Family Medicine; Visit Provider Nurse Practitioner Acute Care
DX: I11.0 Hypertensive heart disease with heart failure (principal); I50.31 Acute diastolic (congestive) heart failure; J96.01 Acute respiratory failure with hypoxia; E66.2 Morbid (severe) obesity with alveolar hypoventilation; Z68.42 Body mass index [BMI] 45.0-49.9, adult; E11.9 Type 2 diabetes mellitus without complications; I48.91 Unspecified atrial fibrillation; J43.9 Emphysema, unspecified; E78.5 Hyperlipidemia, unspecified; Z20.822 Contact with and (suspected) exposure to COVID-19; Z87.891 Personal history of nicotine dependence; Z79.4 Long term (current) use of insulin; Z79.01 Long term (current) use of anticoagulants; Z79.899 Other long term (current) drug therapy
CPT/HCPCS: 36415; 71045; 71250; 80048; 80053; 81001; 82803; 82947; 83735; 83880; 84484; 85025; 85027; 85379; 85610; 87086; 87635; 93005; 93306; 94640; 97162; 99285; J1940; J2543; J2920

== ENCOUNTER → 2023-02-08 10:31 | Outpatient (BNV) | payer MEDICARE, SELFPAY | PROVIDERS: Emergency Provider Emergency Medicine; Visit Provider Nurse Practitioner Acute Care | DX: J96.01 Acute respiratory failure with hypoxia (principal) | CPT/HCPCS: 99223; 99232; 99239; G0180 ==

== ENCOUNTER → 2023-02-08 10:45 | Outpatient (BNV) | payer MEDICARE, SELFPAY | PROVIDERS: Admitting Provider Nurse Practitioner Acute Care; Emergency Provider Emergency Medicine; Visit Provider Internal Medicine Cardiovascular Disease | DX: R06.02 Shortness of breath (principal) | CPT/HCPCS: 93010 ==

== ENCOUNTER 2023-02-08 15:54 | Outpatient (BNV) | payer MEDICARE, SELFPAY | END 2023-02-10 07:00 | PROVIDERS: Admitting Provider Nurse Practitioner Acute Care; Emergency Provider Emergency Medicine; Visit Provider Internal Medicine Cardiovascular Disease | DX: R09.02 Hypoxemia (principal) | CPT/HCPCS: 93306 ==

== ENCOUNTER → 2023-02-08 15:54 | Outpatient (BNV) | payer MEDICARE, SELFPAY | PROVIDERS: Admitting Provider Nurse Practitioner Acute Care; Emergency Provider Emergency Medicine; Visit Provider Internal Medicine Pulmonary Disease | DX: J96.01 Acute respiratory failure with hypoxia (principal); R60.0 Localized edema | CPT/HCPCS: 99232 ==

== ENCOUNTER 2023-07-15 12:04 | Inpatient (IN) | payer MEDICARE, SELFPAY ==
--- NOTE | ~2023-07-15 | XR_ITS ---
EXAMINATION: XR CHEST CLINICAL INFORMATION: SOB COMPARISON: None available. TECHNIQUE: Frontal view of the chest was obtained. FINDINGS: There is moderate cardiomegaly with prominent bilateral perivascular is suggestive mild congestion. There is mild atelectatic changes in the right lung base. The upper lung are well-expanded and clear. XR/XR chest 1V IMPRESSION: Cardiomegaly with mild CHF
[2023-07-15 12:18] VITALS: BP 125/82; PULSE 96; O2SAT 94
[2023-07-15 12:34] VITALS: BP 90/66; PULSE 96; RESP 16; TEMP 36.9; O2SAT 94; BMI 45.5
--- NOTE | 2023-07-15 12:51 | ECG_ITS ---
Test Reason : Dyspenea Blood Pressure : / mmHG Vent. Rate : 087 BPM Atrial Rate : 000 BPM P-R Int : 000 ms QRS Dur : 062 ms QT Int : 368 ms P-R-T Axes : 000 074 014 degrees QTc Int : 442 ms Atrial fibrillation Low voltage QRS Abnormal ECG When compared with ECG of 08-FEB-2023 11:01, Minimal criteria for Anterior infarct are no longer Present Referred By: Kiel Martinez Electronically Signed By:LEONARDO MANLEY
--- NOTE | 2023-07-15 13:13 | ED_ITS ---
HPI - SOB/Dyspnea General Chief Complaint: Dyspnea Stated Complaint: DIFF BREATHING, CHF HX le EDEMA/CRACKLES Time Seen by Provider: 07/15/23 13:00 Source: patient Mode of arrival: ambulatory Limitations: no limitations History of Present Illness HPI Narrative: Patient Comes to the emergency room accompanied by her daughter. Patient states that she has known history of CHF and COPD O2 dependent at 3 L. Patient states that for about 5 days she has been coughing more than usual, complaining of shortness of breath worse with exertion. Patient states the last night she had to sleep sitting upright in her couch. Patient denies fever or chills, no congestion or body aches. Patient denies worsening lower extremity edema. Denies any chest pain. Related Data Home Medications Medication Instructions Recorded Confirmed acetaminophen 650 mg 1,300 mg PO Q8H PRN Pain 02/08/23 02/08/23 tablet,extended release (Tylenol Arthritis Pain) albuterol sulfate 90 mcg/actuation 2 puff inhalation Q4H PRN wheezing 02/08/23 02/08/23 aerosol inhaler atorvastatin 80 mg tablet 80 mg PO DAILY 02/08/23 02/08/23 diltiazem HCl 360 mg capsule,24 360 mg PO DAILY 02/08/23 02/08/23 hr,extended release (Tiadylt ER) fenofibrate 160 mg tablet 160 mg PO DAILY 02/08/23 02/08/23 furosemide 20 mg tablet 20 mg PO DAILY 02/08/23 02/08/23 gabapentin 100 mg capsule 100 mg PO BEDTIME 02/08/23 02/08/23 insulin glargine 100 unit/mL (3 80 unit subcut BEDTIME 02/08/23 02/08/23 mL) subcutaneous pen (Lantus Solostar U-100 Insulin) insulin lispro 100 unit/mL 30 unit subcut TID 02/08/23 02/08/23 subcutaneous pen (Humalog KwikPen (U-100) Insulin) losartan 25 mg tablet 25 mg PO DAILY 02/08/23 02/08/23 warfarin 2.5 mg tablet 2.5 mg PO TUSA 02/08/23 02/08/23 warfarin 5 mg tablet 5 mg PO SUMOWETHFR 02/08/23 02/08/23 Allergies Allergy/AdvReac Type Severity Reaction Status Date / Time lisinopril Allergy Cough Verified 02/08/23 11:45 Review of Systems 2 Review of Systems: Constitutional : No Weight loss, No Fever, No Chills, No Night Sweats, No Fatigue, No Malaise ENT/Mouth : No Hearing loss, No Ear Pain, No Nasal Congestion, No Sinus Pain, No Hoarseness, No sore throat, No Rhinorrhea, No Swallowing Difficulty Eyes: No Eye Pain, No Swelling, No Redness, No Foreign Body, No Discharge, No Vision Changes Cardiovascular : No Chest Pain, complaining of shortness of breath exertion, complaining of orthopnea, no palpitations Respiratory : Complaining worsening productive cough and Wheezing, No Smoke Exposure, No Dyspnea Gastrointestinal : No Nausea, No Vomiting, No Diarrhea, No Constipation, No abdominal Pain, No Hematochezia, No Melena Genitourinary : no irregular bleeding, No Dysuria, No Urinary Frequency, No Hematuria, No Urinary Incontinence, No Urgency, No Flank Pain, No Urinary Flow Changes, No Hesitancy Musculoskeletal : No joint pain, No Myalgias, No Joint Swelling Skin : No Skin Lesions, No rash Neuro : No Weakness, No Numbness, No Paresthesias, No Loss of Consciousness, No Dizziness, No Headache Psych : No Anxiety/Panic, No Depression, No SI/HI/AH/VH, No Social Issues, Heme/Lymph: No Bruising, No Bleeding,No Lymphadenopathy Endocrine : No Polyuria, No Polydipsia, No Temperature Intolerance [facility] Past Medical History Medical History (Updated 07/15/23 @ 17:26 by Sophia Thomson MD) COPD (chronic obstructive pulmonary disease) On Coumadin for atrial fibrillation Atrial fibrillation Hyperlipidemia Hypoxia Shortness of breath Bilateral edema of lower extremity Social History Social History Household Members: Children Housing: House Unable to assess alcohol history related to: Unknown Alcohol intake: never Patient Tobacco Use Status: Former Tobacco user Smoked in Last 30 Days: No Use of substances other than those prescribed or required for medical reasons: Unknown Advance Directives: Yes Advance Directives Information Provided: Yes Advance Directives on File: No service: No Physical Exam 2 Vital Signs: Vital Signs: Last Vital Signs Temp 98.8 F 07/15/23 15:50 Pulse 92 07/15/23 15:50 Resp 20 07/15/23 15:50 BP 125/55 L 07/15/23 15:50 Pulse Ox 91 L 07/15/23 15:50 O2 Del Method Nasal Cannula 07/15/23 15:50 O2 Flow Rate 2 07/15/23 15:50 Oxygen Flow Rate 3 07/15/23 12:34 BMI result Body Mass Index 45.5 Const: Other: Appearance: Alert. Oriented X3. No acute distress. Eyes: Pupils equal, round and reactive to light. ENT: Pharynx normal. Neck: Normal inspection. Neck supple. No lymph nodes noted. No crepitus CVS: Normal heart rate and rhythm. Pulses normal. Normal S1 and S2 Respiratory: No respiratory distress. Bilateral wheezing, decreased air movement, very minimal crackles bilaterally Abdomen: Soft and nontender. No rigidity. No distention. Skin: Skin warm and dry. Normal skin color. Normal skin turgor. Extremities: +2 nonpitting edema, chronic venous stasis Neuro: Oriented X 3. No motor deficit. No sensory deficit. Moving all extremities. No slurred speech. CN 2 through 12 grossly intact Psych: calm, cooperative, normal affect Course Course Course Narrative: - patient's labs and imaging pending Medications Administered Discontinued Medications Generic Name Dose Route Start Last Admin Trade Name Freq PRN Reason Stop Dose Admin Albuterol Sulfate 2.5 mg/ 0 mg 07/15/23 13:22 07/15/23 13:24 Albuterol/Ipratropium 3 ml INHALE 07/15/23 13:23 1 dose ONCE ONE Administration Magnesium Sulfate 2 gm in 50 mls @ 25 mls/hr 07/15/23 13:16 07/15/23 15:55 Magnesium Sulfate/H2o IV 07/15/23 15:15 Infused ONCE ONE Infusion Ceftriaxone Sodium 1 gm/ 50 mls @ 100 mls/hr 07/15/23 14:07 07/15/23 15:55 Sodium Chloride IV 07/15/23 14:36 Infused ONCE ONE Infusion Azithromycin 500 mg/ Sodium 250 mls @ 125 mls/hr 07/15/23 14:07 07/15/23 15:51 Chloride IV 07/15/23 16:06 125 mls/hr ONCE ONE Administration Methylprednisolone Sodium Succinate 125 mg 07/15/23 13:16 07/15/23 14:10 Methylprednisolone Sod Succ 125 Mg/2 Ml Vial IVPUSH 07/15/23 13:17 125 mg ONCE ONE Administration Medical Decision Making Medical Decision Making [facility] Narrative: -my interpretation of patient's hematology: White blood cell count 15.3. The rest of the labs are pending. -my interpretation of chest x-ray: Bilateral vascular congestion, possible Infiltrate in right lower lobe, possible pneumonia -patient has no fever, no hypotension, no tachycardia, at this time, 14:12, sepsis is not suspected. Patient being treated with IV antibiotics and gentle hydration -patient's BNP is normal. However, radiology read chest x-ray as CHF exacerbation. -it is possible that patient may have overlapping COPD. Patient empirically received IV antibiotics. -patient receiving Lasix IV. -when patient walks using her 3 L of oxygen, patient's oxygen dropped to 85%. -I discussed the patient with hospitalist team, patient being admitted Differential Diagnosis Differential Diagnoses: The differential diagnosis associated with the presentation includes (CHF, COPD, URI) Admission/Observation Consideration of admission/observation: Escalation of care including admission/observation considered Consult Healthcare Provider Management of the patient was discussed with: Hospitalist Lab Data [facility] Lab Attestation statement: I reviewed the patient's lab results. 07/15/23 13:23 07/15/23 13:23 Labs: Lab Results 07/15/23 07/15/23 Range/Units 13:23 14:45 WBC 15.3 H (4.8-10.8) X10*3/uL RBC 4.54 (4.20-5.50) X10*6/uL Hgb 13.5 (12.0-16.0) g/dl Hct 42.6 (37.0-47.0) % MCV 93.8 (80.0-98.0) fL MCH 29.7 (27.0-33.0) pg MCHC 31.7 (31.0-35.0) g/dl RDW 15.8 (11.0-16.0) % Plt Count 318 (160-400) X10*3/uL MPV 9.3 L (9.4-12.3) fL Immature Gran % (Auto) 0.8 H (0.0-0.4) % Neut % (Auto) 80.8 H (45-73) % Lymph % (Auto) 7.8 L (20-40) % [place] % (Auto) 9.3 (2-11) % Eos % (Auto) 1.0 (0-4) % Baso % (Auto) 0.3 (0-2) % Lymph # (Auto) 1.2 (1.2-4.9) X10*3/uL [place] # (Auto) 1.4 H (0.1-1.2) X10*3/uL Eos # (Auto) 0.2 (0.0-0.4) X10*3/uL Baso # (Auto) 0.1 (0.0-0.2) X10*3/uL Abs Immat Gran (auto) 0.12 H (0.00-0.03) X10*3/uL Absolute Neuts (auto) 12.4 H (2.0-8.3) x10*3/uL Absolute Nucleated RBC 0.000 (0.0-0.012) X10*3/uL Nucleated RBC % (auto) 0.0 (0.0-0.2) /100WBC PT 26.5 H (11.1-13.3) SEC INR 2.2 H (0.9-1.1) VBG pH 7.38 (7.32-7.43) VBG pCO2 44 mmHg VBG pO2 69 mmHg VBG HCO3 26 (22-26) mmol/L VBG O2 Saturation 91.0 % VBG Base Excess 1.0 mmol/L Sodium 138 (135-145) mmol/L Potassium 4.4 (3.3-5.1) mmol/L Chloride 103 (96-108) mmol/L Carbon Dioxide 26 (22-29) mmol/L Anion Gap 13 (12-20) BUN 23 H (9-16) mg/dL Creatinine 1.20 (0.5-1.4) mg/dL Estim Creat Clear Calc 40.5 Estimated GFR 43 Random Glucose 181 H (60-115) mg/dL Calcium 9.5 (8.4-10.2) mg/dL Magnesium 1.9 (1.6-2.6) mg/dL Total Bilirubin 0.7 (0.0-1.0) mg/dL AST 14 (5-31) U/L ALT 9 (0-31) U/L Alkaline Phosphatase 69 (39-117) U/L Troponin I High Sens 5.7 D (<3.5-17.0) ng/L B-Natriuretic Peptide 59 (<100) pg/mL Total Protein 6.9 (6.5-8.0) g/dL Albumin 3.5 (3.5-5.0) g/dL Influenza Type A (PCR) NEGATIVE (Negative) Influenza Type B (PCR) NEGATIVE (Negative) RSV RNA Qual (PCR) NEGATIVE (Negative) SARS-CoV-2 RNA (RT-PCR) NEGATIVE (Negative) Independent Interpretation I performed an independent interpretation of an: EKG (My interpretation of EKG: Atrial fibrillation, heart rate 87, no ST segment depression or elevation, the T-wave inversion, QTC 442) and Plain X-Ray Radiology Impression Discussion of test interpretation with radiology: I have reviewed the radiologist's reading. Radiologist Impression: There is moderate cardiomegaly with prominent bilateral perivascular is suggestive mild congestion. There is mild atelectatic changes in the right lung base. The upper lung are well-expanded and clear. XR/XR chest 1V IMPRESSION: Cardiomegaly with mild CHF Independent Historian Clinical information obtained from an independent historian. History obtained from or confirmed by: Other (Patient's daughter) Critical Care Time Critical Care Time Critical Care Time: Yes Total Critical Care Time: 75 Attestation: I have personally provided critical care time. Time includes review of lab data, radiology results, discussion with consultants, and monitoring for potential decompensation. Intervention performed as documented. Discharge Plan Discharge Clinical Impression: CHF (congestive heart failure) Patient Disposition: Admitted As Inpatient Prescriptions: No Action atorvastatin 80 mg tablet 80 mg PO DAILY diltiazem HCl [Tiadylt ER] 360 mg capsule,extended release 24 hr 360 mg PO DAILY acetaminophen [Tylenol Arthritis Pain] 650 mg Tablet Extended Release 1,300 mg PO Q8H PRN (Reason: Pain) warfarin 5 mg tablet 5 mg PO SUMOWETHFR losartan 25 mg tablet 25 mg PO DAILY furosemide 20 mg tablet 20 mg PO DAILY gabapentin 100 mg capsule 100 mg PO BEDTIME albuterol sulfate 90 mcg/actuation HFA aerosol inhaler 2 puff inhalation Q4H PRN (Reason: wheezing) insulin lispro [Humalog KwikPen Insulin] 100 unit/mL insulin pen 30 unit subcut TID fenofibrate 160 mg tablet 160 mg PO DAILY insulin glargine [Lantus Solostar U-100 Insulin] 100 unit/mL (3 mL) insulin pen 80 unit subcut BEDTIME warfarin 2.5 mg Tablet 2.5 mg PO ALEJANDRO
[2023-07-15] MEDS: Albuterol Sulfate 2.5 MG, Albuterol/Iprat 2.5/0.5MG 3 ML 3 ML INHALE (13:24)
[2023-07-15 13:26] VITALS: PULSE 94; RESP 22; O2SAT 90
[2023-07-15 13:31] LABS: MANUAL DIFF FLAG NO
[2023-07-15 13:34] LABS: Basophils Absolute Auto 0.1 X10*3/uL (0.0-0.2); Basophils Percent Auto 0.3 % (0-2); Eosinophils Absolute Auto 0.2 X10*3/uL (0.0-0.4); Hematocrit 42.6 % (37.0-47.0); Hemoglobin 13.5 g/dl (12.0-16.0); Imm Gran Abs Auto 0.12 X10*3/uL (0.00-0.03); Imm Gran Pct Auto 0.8 % (0.0-0.4); Lymphocytes Absolute Auto 1.2 X10*3/uL (1.2-4.9); Lymphocytes Percent Auto 7.8 % (20-40); Mean Corpuscular HGB Conc 31.7 g/dl (31.0-35.0); Mean Corpuscular Hemoglobin 29.7 pg (27.0-33.0); Mean Corpuscular Volume 93.8 fL (80.0-98.0); Mean Platelet Volume 9.3 fL (9.4-12.3); Monocytes Absolute Auto 1.4 X10*3/uL (0.1-1.2); Monocytes Percent Auto 9.3 % (2-11); Neutrophils Absolute Auto 12.4 x10*3/uL (2.0-8.3); Neutrophils Percent Auto 80.8 % (45-73); Platelet Count 318 X10*3/uL (160-400); Red Blood Count 4.54 X10*6/uL (4.20-5.50); Red Cell Distribution Width 15.8 % (11.0-16.0); White Blood Count 15.3 X10*3/uL (4.8-10.8)
[2023-07-15 13:38] LABS: INTERNATIONAL NORM RATIO 2.2 (0.9-1.1); Prothrombin Time 26.5 SEC (11.1-13.3)
[2023-07-15 13:50] LABS: Alanine Aminotransferase 9 U/L (0-31); Albumin Level 3.5 g/dL (3.5-5.0); Alkaline Phosphatase 69 U/L (39-117); Anion Gap 13 (12-20); Aspartate Amino Transferase 14 U/L (5-31); Bilirubin Total 0.7 mg/dL (0.0-1.0); Blood Urea Nitrogen 23 mg/dL (9-16); Calcium 9.5 mg/dL (8.4-10.2); Carbon Dioxide 26 mmol/L (22-29); Chloride 103 mmol/L (96-108); Creatinine Clr Calc Pharmacy 40.5; Estimated Glomerular Filt Rate 43; Glucose Random 181 mg/dL (60-115); Magnesium 1.9 mg/dL (1.6-2.6); Potassium 4.4 mmol/L (3.3-5.1); Sodium 138 mmol/L (135-145); Total Protein 6.9 g/dL (6.5-8.0)
[2023-07-15 13:55] LABS: B Type Natriuretic Peptide 59 pg/mL (<100); Troponin-I High Sensitivity 5.7 ng/L (<3.5-17.0)
[2023-07-15] MEDS: methylPREDNISolone Sod Succ 125 MG/2 ML VIAL IVPUSH (14:10)
[2023-07-15] MEDS: Magnesium Sulfate/H2O 2 GM/50 ML PIGGYBACK IV (14:10)
[2023-07-15 14:20] LABS: Influenza A PCR NEGATIVE (Negative); Influenza B PCR NEGATIVE (Negative); Resp Syncy Virus RNA Qual PCR NEGATIVE (Negative); SARS COV2 PCR INHOUSE NEGATIVE (Negative)
[2023-07-15 14:55] LABS: VBG HCO3 26 mmol/L (22-26); VBG pCO2 44 mmHg; VBG pH 7.38 (7.32-7.43); VBG pO2 69 mmHg
[2023-07-15 14:56] LABS: Venous Blood Gas Refer to POC result
[2023-07-15] MEDS: cefTRIAXone sodium 1 GM in 0.9 % Sodium Chloride 50 ML IV (15:28)
[2023-07-15 15:41] VITALS: O2SAT 86
[2023-07-15 15:50] VITALS: BP 125/55; PULSE 92; RESP 20; TEMP 37.1; O2SAT 91
[2023-07-15] MEDS: Azithromycin 500 MG in 0.9 % Sodium Chloride 250 ML 125 MG IV (15:51)
--- NOTE | 2023-07-15 17:12 | MHC.EDTECH ---
ambulated patient oxygen went from 91-86%.
--- NOTE | 2023-07-15 17:29 | PC.NURSE ---
Pt ambulated to bathroom, desatted to 86% with increased work of breathing with 3L O2 in place. Dr early notified.
--- NOTE | 2023-07-15 17:45 | P.HPHOSP_ITS ---
History of Present Illness Date of Service: 07/15/23 Chief Complaint: sob 82F PMH chronic hypoxic respiratory failure on 3L home O2, emphysema (on CT), morbid obesity, chronic diastolic chf, htn, hld, DM, permanent afib presented with sob. At baseline patient can ambulate with walker, slowly, with minimal shortness of breath. Over the past 2 weeks has had increasing shortness of breath, decreased tolerance of minimal effort. Reports increased orthopnea and started to sleep in a recliner, reporting worsening lower extremity edema, wheezing, nonproductive cough. Denies fevers, chest pain, chills. In ED noted to be hypoxic to 84% on ambulation. Chest x-ray with mild CHF. Review of Systems 2 Review of Systems: Yes all other systems are reviewed and are negative [facility] Medical History COPD (chronic obstructive pulmonary disease) On Coumadin for atrial fibrillation Atrial fibrillation Hyperlipidemia Hypoxia Shortness of breath Bilateral edema of lower extremity Social History Household Members: Children Housing: House Unable to assess alcohol history related to: Unknown Alcohol intake: never Patient Tobacco Use Status: Former Tobacco user Smoked in Last 30 Days: No Use of substances other than those prescribed or required for medical reasons: Unknown Advance Directives: Yes Advance Directives Information Provided: Yes Advance Directives on File: No service: No Meds Allergies Allergy/AdvReac Type Severity Reaction Status Date / Time lisinopril Allergy Cough Verified 02/08/23 11:45 Active Medications: Current Medications Albuterol/Ipratropium (Albuterol/Iprat 2.5/0.5mg 3 Ml Ampul.Neb) 3 ml INHALE RQ4H WHILE AWAKE DANIELE Dextrose (Dextrose 50 % 25 Gm/50 Ml Syringe) 25 gm IVPUSH Q15M PRN; Protocol PRN Reason: per Hypoglycemia Standing Ord. Furosemide (Furosemide 40 Mg/4 Ml Vial) 40 mg IVPUSH BID@0900,1800 [facility]; Protocol Glucose (Glucose Gel 15 Gm Gel..Gram.) 15 gm PO Q15M PRN; Protocol PRN Reason: per Hypoglycemia Standing Ord. Insulin Glargine (Insulin Glargine,Hum.Rec.Anlog 100 Unit/Ml 10 Ml Vial) 40 unit SUBCUT BEDTIME [facility] Insulin Human Lispro (Insulin Lispro 100 Unit/Ml 3 Ml Vial) 0 unit SUBCUT QIDACHS [facility]; Protocol Insulin Human Lispro (Insulin Lispro 100 Unit/Ml 3 Ml Vial) 5 unit SUBCUT QIDACHS [facility] Methylprednisolone Sodium Succinate (Methylprednisolone Sod Succ 40 Mg/Ml Vial) 40 mg IVPUSH Q12H [facility] Sodium Chloride (0.9 % Sodium Chloride Flush 3 Ml Syringe) 3 ml IVFLUSH QSHIFT [facility] Home Medications Medication Instructions Recorded Confirmed Last Taken Type acetaminophen 650 mg 1,300 mg PO Q8H PRN Pain 02/08/23 07/15/23 Unknown History tablet,extended release (Tylenol Arthritis Pain) albuterol sulfate 90 mcg/actuation 2 puff inhalation Q4H PRN wheezing 02/08/23 07/15/23 Unknown History aerosol inhaler atorvastatin 80 mg tablet 80 mg PO DAILY 02/08/23 07/15/23 07/14/23 History diltiazem HCl 360 mg capsule,24 360 mg PO DAILY 02/08/23 07/15/23 07/14/23 History hr,extended release (Tiadylt ER) fenofibrate 160 mg tablet 160 mg PO DAILY 02/08/23 07/15/23 07/14/23 History furosemide 20 mg tablet 20 mg PO DAILY 02/08/23 07/15/23 07/14/23 History gabapentin 100 mg capsule 100 mg PO BEDTIME 02/08/23 07/15/23 07/14/23 History insulin glargine 100 unit/mL (3 80 unit subcut BEDTIME 02/08/23 07/15/23 07/14/23 History mL) subcutaneous pen (Lantus Solostar U-100 Insulin) insulin lispro 100 unit/mL 30 unit subcut TIDAC 02/08/23 07/15/23 07/14/23 History subcutaneous pen (Humalog KwikPen (U-100) Insulin) losartan 25 mg tablet 25 mg PO DAILY 02/08/23 07/15/23 07/14/23 History warfarin 2.5 mg tablet 2.5 mg PO SUTH@1800 02/08/23 07/15/23 07/13/23 History warfarin 5 mg tablet 5 mg PO MOTUWEFRSA@1800 02/08/23 07/15/23 07/14/23 History tiotropium bromide 18 mcg capsule 1 cap inhalation DAILY 07/15/23 07/15/23 07/14/23 History with inhalation device (Spiriva with HandiHaler) Physical Exam 2 Vital Signs and Narrative: Vital Signs: Last Vital Signs Temp 98.8 F 07/15/23 15:50 Pulse 92 07/15/23 15:50 Resp 20 07/15/23 15:50 BP 125/55 L 07/15/23 15:50 Pulse Ox 91 L 07/15/23 15:50 O2 Del Method Nasal Cannula 07/15/23 15:50 O2 Flow Rate 2 07/15/23 15:50 Oxygen Flow Rate 3 07/15/23 12:34 BMI result Body Mass Index 45.5 General: AO X 3, dyspneic Resp: poor air entry, wheezes bilateral, accessory muscles used CVS: S1,S2,irregular, 3+ bialteral edema with chronic skin changes GI: soft, non tender, non distended Neuro: motor grossly intact, alert Psych: appropriate affect, appropriate insight Results Labs 07/15/23 13:23 07/15/23 13:23 Labs: Laboratory Results - last 24 hr 07/15/23 07/15/23 13:23 14:45 MCV 93.8 MCH 29.7 MCHC 31.7 RDW 15.8 Plt Count 318 MPV 9.3 L Immature Gran % (Auto) 0.8 H Neut % (Auto) 80.8 H Lymph % (Auto) 7.8 L [place] % (Auto) 9.3 Eos % (Auto) 1.0 Baso % (Auto) 0.3 Lymph # (Auto) 1.2 [place] # (Auto) 1.4 H Eos # (Auto) 0.2 Baso # (Auto) 0.1 Abs Immat Gran (auto) 0.12 H Absolute Neuts (auto) 12.4 H Absolute Nucleated RBC 0.000 Nucleated RBC % (auto) 0.0 PT 26.5 H INR 2.2 H VBG pH 7.38 VBG pCO2 44 VBG pO2 69 VBG HCO3 26 VBG O2 Saturation 91.0 VBG Base Excess 1.0 Anion Gap 13 Estim Creat Clear Calc 40.5 Estimated GFR 43 Random Glucose 181 H Calcium 9.5 Magnesium 1.9 Total Bilirubin 0.7 AST 14 ALT 9 Alkaline Phosphatase 69 B-Natriuretic Peptide 59 Total Protein 6.9 Albumin 3.5 Influenza Type A (PCR) NEGATIVE Influenza Type B (PCR) NEGATIVE RSV RNA Qual (PCR) NEGATIVE SARS-CoV-2 RNA (RT-PCR) NEGATIVE Imaging Radiologist's Impressions: Impressions Chest X-Ray 07/15/23 13:26 IMPRESSION: Cardiomegaly with mild CHF Assessment and Plan (1) CHF (congestive heart failure): Status: Acute Plan 82F PMH chronic hypoxic respiratory failure on 3L home O2, emphysema (on CT), morbid obesity, chronic diastolic chf, htn, hld, DM, permanent afib presented with sob Acute on chronic hypoxic respiratory failure due to acute on chronic diastolic CHF and COPD with acute decompensation IV Lasix, IV Solu-Medrol, DuoNebs Wean O2 as tolerated Monitor electrolytes Diabetes with hyperglycemia Basal bolus insulin Monitor point of care Morbid obesity Weight loss recommended Hypertension Continue losartan, diltiazem Permanent atrial fibrillation Continue Coumadin, diltiazem, monitor INR hld statin, fibrate DVT prophylaxis-on Coumadin Full code Patient with significant dyspnea, using accessory muscles and requiring higher levels of oxygen the baseline, therefore, expected require at least 2 midnights in patient Quality Stroke Does the patient have a stroke diagnosis?: No VTE Prior VTE?: No VTE Risk Level:: Medical - moderate - high VTE Device Contraindication: Treatment Not Indicated VTE Drug Contraindication: N/A - Med Ordered
--- NOTE | 2023-07-15 18:02 | PHA.MEDREC ---
Pharmacy Consult ? Medication Reconciliation Pharmacy has completed the medication reconciliation.Med rec complete, spoke with patient and compared with pharmacy claim history.
[2023-07-15] MEDS: Furosemide 40 MG/4 ML VIAL IVPUSH (18:33)
[2023-07-15] MEDS: Warfarin Sodium 5 MG TABLET PO (18:33)
[2023-07-15] MEDS: Albuterol/Iprat 2.5/0.5MG 3 ML AMPUL.NEB INHALE (20:19)
[2023-07-15 20:21] VITALS: PULSE 94; RESP 20; O2SAT 89
[2023-07-15 20:34] LABS: Glucose, Whole Blood 478 mg/dL (60-115)
[2023-07-15] MEDS: Insulin Lispro 100 UNIT/ML 3 ML VIAL SUBCUT ×2 (20:45→20:46)
[2023-07-15] MEDS: Insulin Glargine,Hum.rec.anlog 100 UNIT/ML 10 ML VIAL 40 UNIT SUBCUT (20:46)
[2023-07-15] MEDS: Gabapentin 100 MG CAPSULE PO (20:48)
[2023-07-15] MEDS: 0.9 % Sodium Chloride Flush 3 ML SYRINGE IVFLUSH (20:50)
--- NOTE | 2023-07-15 21:12 | ECG_ITS ---
Test Reason : CHEST PAINS Blood Pressure : / mmHG Vent. Rate : 103 BPM Atrial Rate : 000 BPM P-R Int : 000 ms QRS Dur : 068 ms QT Int : 344 ms P-R-T Axes : 000 095 -84 degrees QTc Int : 450 ms Atrial fibrillation with rapid ventricular response Rightward axis Septal infarct , age undetermined Abnormal ECG When compared with ECG of 15-JUL-2023 13:10, Septal infarct is now Present Nonspecific T wave abnormality now evident in Lateral leads Referred By: Vinny Santana Electronically Signed By:LEONARDO MANLEY
[2023-07-15 22:00] LABS: Troponin-I High Sensitivity 3.6 ng/L (<3.5-17.0)
[2023-07-15 22:57] LABS: Glucose, Whole Blood 469 mg/dL (60-115)
[2023-07-16] VITALS (11 sets, daily range): BP systolic 127–161; BP diastolic 57–76; PULSE 67–107; RESP 18–28; TEMP 36.1–36.7; O2SAT 90–96
[2023-07-16] MEDS: Morphine Sulfate 2 MG/ML CARTRIDGE IVPUSH (00:10)
[2023-07-16] MEDS: Acetaminophen 325 MG TABLET 650 MG PO ×2 (00:16→16:07)
[2023-07-16] MEDS: Insulin Regular, Human 100 UNIT/ML 3 ML VIAL 10 UNIT IVPUSH ×2 (00:24→02:56)
[2023-07-16] MEDS: methylPREDNISolone Sod Succ 40 MG/ML VIAL IVPUSH ×3 (00:31→21:02)
[2023-07-16 02:15] LABS: Glucose, Whole Blood 400 mg/dL (60-115)
[2023-07-16 04:28] LABS: Glucose, Whole Blood 348 mg/dL (60-115)
[2023-07-16 07:18] LABS: Glucose, Whole Blood 341 mg/dL (60-115)
[2023-07-16 07:44] LABS: Hemoglobin 13.5 g/dl (12.0-16.0); Mean Corpuscular HGB Conc 32.1 g/dl (31.0-35.0); Mean Corpuscular Hemoglobin 29.6 pg (27.0-33.0); Mean Corpuscular Volume 92.1 fL (80.0-98.0); Mean Platelet Volume 9.4 fL (9.4-12.3); Platelet Count 328 X10*3/uL (160-400); Red Blood Count 4.56 X10*6/uL (4.20-5.50); Red Cell Distribution Width 15.4 % (11.0-16.0); White Blood Count 14.1 X10*3/uL (4.8-10.8)
[2023-07-16 07:50] LABS: INTERNATIONAL NORM RATIO 2.1 (0.9-1.1); Prothrombin Time 25.4 SEC (11.1-13.3)
[2023-07-16 08:06] LABS: Anion Gap 15 (12-20); Blood Urea Nitrogen 34 mg/dL (9-16); Calcium 9.6 mg/dL (8.4-10.2); Carbon Dioxide 25 mmol/L (22-29); Chloride 101 mmol/L (96-108); Estimated Glomerular Filt Rate 40; Glucose Fasting 381 mg/dL (60-99); Magnesium 2.6 mg/dL (1.6-2.6); Potassium 4.8 mmol/L (3.3-5.1); Sodium 136 mmol/L (135-145)
[2023-07-16] MEDS: Albuterol/Iprat 2.5/0.5MG 3 ML AMPUL.NEB INHALE ×4 (08:09→19:34)
[2023-07-16] MEDS: Furosemide 40 MG/4 ML VIAL IVPUSH ×2 (08:30→17:34)
[2023-07-16] MEDS: Insulin Glargine,Hum.rec.anlog 100 UNIT/ML 10 ML VIAL 10 UNIT SUBCUT (08:30)
[2023-07-16] MEDS: Insulin Lispro 100 UNIT/ML 3 ML VIAL SUBCUT ×8 (08:31→21:03)
[2023-07-16] MEDS: Losartan Potassium 25 MG TABLET PO (08:33)
[2023-07-16] MEDS: Fenofibrate 160 MG TABLET PO (08:33)
[2023-07-16] MEDS: Atorvastatin Calcium 80 MG TABLET PO (08:34)
[2023-07-16] MEDS: 0.9 % Sodium Chloride Flush 3 ML SYRINGE IVFLUSH ×2 (08:34→16:09)
[2023-07-16] MEDS: dilTIAZem HCL CD 180 MG CAP.ER.24H 360 MG PO (08:34)
--- NOTE | 2023-07-16 09:03 | MHC.CM.PN ---
IMM 07/16. Pt lives at home with her daughter, uses a walker and home O2 through [employer]. Pt has someone to help clean the home once a week. DCP is to return home with family support vs with new VNA. Pts daughter will transport her home. Pts daughter Joselyn is HCP, but they do not have a copy, will help assist pt to complete another HCP form. Pts daughter Joselyn will transport her home at D/C. PCP: Dr. Miracle Tijerina
--- NOTE | 2023-07-16 09:55 | P.PNIM_ITS ---
Subjective Subjective Date of Service: 07/16/23 Interval History: Seen and evaluated this morning feels better overall but still short of breath and coughing no chest pain Review of Systems Review of Systems: Yes all other systems are reviewed and are negative Physical Exam 2 Vital Signs: Vital Signs: Last Vital Signs Temp 97.3 F 07/16/23 07:22 Pulse 104 H 07/16/23 08:10 Resp 20 07/16/23 08:10 BP 127/76 07/16/23 07:22 Pulse Ox 91 L 07/16/23 07:22 O2 Del Method Nasal Cannula 07/16/23 07:22 O2 Flow Rate 4 07/16/23 07:22 Oxygen Flow Rate 3 07/15/23 12:34 BMI result Body Mass Index 45.5 Const: Other: Constitutional : Awake, interactive, not in distress Neck : Normal inspection, Supple Cardiovascular : RRR, no JVP, +1 bilateral lower extremity edema Respiratory : decreased bilateral air entry, no crackles, fine expiratory wheezes Gastrointestinal: soft, lax, Normal bowel sounds, Non tender Skin : Warm, D skin mainly in LEs. ry Neurological : Alert & oriented x3, No focal deficit Objective Data Active Medications Acetaminophen (Acetaminophen 325 Mg Tablet) 650 mg PO Q6H PRN PRN Reason: Pain, Moderate(Pain Scale 4-6) Last Admin: 07/16/23 00:16 Dose: 650 mg Documented By: IBAN Albuterol Sulfate (Albuterol Sulfate (0.083%) 2.5 Mg/3 Ml Vial.Neb) 2.5 mg INHALE Q2H PRN PRN Reason: Shortness of Breath/Wheezing Albuterol/Ipratropium (Albuterol/Iprat 2.5/0.5mg 3 Ml Ampul.Neb) 3 ml INHALE RQ4H WHILE AWAKE [facility] Last Admin: 07/16/23 08:09 Dose: 3 ml Documented By: KRISTIAN Atorvastatin Calcium (Atorvastatin Calcium 80 Mg Tablet) 80 mg PO DAILY [facility] Last Admin: 07/16/23 08:34 Dose: 80 mg Documented By: ELVIS Dextrose (Dextrose 50 % 25 Gm/50 Ml Syringe) 25 gm IVPUSH Q15M PRN; Protocol PRN Reason: per Hypoglycemia Standing Ord. Diltiazem HCl (Diltiazem Hcl Cd 180 Mg Cap.Er.24h) 360 mg PO DAILY [facility]; Protocol Last Admin: 07/16/23 08:34 Dose: 360 mg Documented By: ELVIS Fenofibrate (Fenofibrate 160 Mg Tablet) 160 mg PO DAILY [facility] Last Admin: 07/16/23 08:33 Dose: 160 mg Documented By: ELVIS Furosemide (Furosemide 40 Mg/4 Ml Vial) 40 mg IVPUSH BID@0900,1800 [facility]; Protocol Last Admin: 07/16/23 08:30 Dose: 40 mg Documented By: ELVIS Gabapentin (Gabapentin 100 Mg Capsule) 100 mg PO BEDTIME [facility] Last Admin: 07/15/23 20:48 Dose: 100 mg Documented By: IBAN Glucose (Glucose Gel 15 Gm Gel..Gram.) 15 gm PO Q15M PRN; Protocol PRN Reason: per Hypoglycemia Standing Ord. Insulin Glargine (Insulin Glargine,Hum.Rec.Anlog 100 Unit/Ml 10 Ml Vial) 60 unit SUBCUT BEDTIME [facility] Insulin Human Lispro (Insulin Lispro 100 Unit/Ml 3 Ml Vial) 0 unit SUBCUT QIDACHS [facility]; Protocol Last Admin: 07/16/23 08:31 Dose: 8 unit Documented By: ELVIS Comments: BG 341 Insulin Human Lispro (Insulin Lispro 100 Unit/Ml 3 Ml Vial) 5 unit SUBCUT QIDACHS [facility] Last Admin: 07/16/23 08:32 Dose: 5 unit Documented By: ELVIS Lactic Acid (Ammonium Lactate 12 % Lotion 226 Gm Bottle) 1 appl TOPICAL BID [facility]; Protocol Losartan Potassium (Losartan Potassium 25 Mg Tablet) 25 mg PO DAILY [facility]; Protocol Last Admin: 07/16/23 08:33 Dose: 25 mg Documented By: ELVIS Methylprednisolone Sodium Succinate (Methylprednisolone Sod Succ 40 Mg/Ml Vial) 40 mg IVPUSH Q12H [facility] Last Admin: 07/16/23 08:33 Dose: 40 mg Documented By: ELVIS Sodium Chloride (0.9 % Sodium Chloride Flush 3 Ml Syringe) 3 ml IVFLUSH QSHIFT [facility] Last Admin: 07/16/23 08:34 Dose: 3 ml Documented By: ELVIS Warfarin Sodium (Warfarin Sodium 2.5 Mg Tablet) 2.5 mg PO SUTH@1800 [facility] Warfarin Sodium (Warfarin Sodium 5 Mg Tablet) 5 mg PO BETH@1800 [facility] Last Admin: 07/15/23 18:33 Dose: 5 mg Documented By: KAIDEN Labs 07/16/23 07:02 07/16/23 07:02 Labs: Laboratory Results - last 24 hr 07/15/23 07/15/23 07/15/23 13:23 14:45 20:09 MCV 93.8 MCH 29.7 MCHC 31.7 RDW 15.8 Plt Count 318 MPV 9.3 L Immature Gran % (Auto) 0.8 H Neut % (Auto) 80.8 H Lymph % (Auto) 7.8 L [place] % (Auto) 9.3 Eos % (Auto) 1.0 Baso % (Auto) 0.3 Lymph # (Auto) 1.2 [place] # (Auto) 1.4 H Eos # (Auto) 0.2 Baso # (Auto) 0.1 Abs Immat Gran (auto) 0.12 H Absolute Neuts (auto) 12.4 H Absolute Nucleated RBC 0.000 Nucleated RBC % (auto) 0.0 PT 26.5 H INR 2.2 H VBG pH 7.38 VBG pCO2 44 VBG pO2 69 VBG HCO3 26 VBG O2 Saturation 91.0 VBG Base Excess 1.0 Anion Gap 13 Estim Creat Clear Calc 40.5 Estimated GFR 43 POC Glucose 478 H* Random Glucose 181 H Fasting Glucose Calcium 9.5 Magnesium 1.9 Total Bilirubin 0.7 AST 14 ALT 9 Alkaline Phosphatase 69 B-Natriuretic Peptide 59 Total Protein 6.9 Albumin 3.5 Influenza Type A (PCR) NEGATIVE Influenza Type B (PCR) NEGATIVE RSV RNA Qual (PCR) NEGATIVE SARS-CoV-2 RNA (RT-PCR) NEGATIVE 07/15/23 07/16/23 07/16/23 22:52 02:11 04:24 MCV MCH MCHC RDW Plt Count MPV Immature Gran % (Auto) Neut % (Auto) Lymph % (Auto) [place] % (Auto) Eos % (Auto) Baso % (Auto) Lymph # (Auto) [place] # (Auto) Eos # (Auto) Baso # (Auto) Abs Immat Gran (auto) Absolute Neuts (auto) Absolute Nucleated RBC Nucleated RBC % (auto) PT INR VBG pH VBG pCO2 VBG pO2 VBG HCO3 VBG O2 Saturation VBG Base Excess Anion Gap Estim Creat Clear Calc Estimated GFR POC Glucose 469 H* 400 H* 348 H Random Glucose Fasting Glucose Calcium Magnesium Total Bilirubin AST ALT Alkaline Phosphatase B-Natriuretic Peptide Total Protein Albumin Influenza Type A (PCR) Influenza Type B (PCR) RSV RNA Qual (PCR) SARS-CoV-2 RNA (RT-PCR) 07/16/23 07/16/23 07:02 07:14 MCV 92.1 MCH 29.6 MCHC 32.1 RDW 15.4 Plt Count 328 MPV 9.4 Immature Gran % (Auto) Neut % (Auto) Lymph % (Auto) [place] % (Auto) Eos % (Auto) Baso % (Auto) Lymph # (Auto) [place] # (Auto) Eos # (Auto) Baso # (Auto) Abs Immat Gran (auto) Absolute Neuts (auto) Absolute Nucleated RBC 0.000 Nucleated RBC % (auto) 0.0 PT 25.4 H INR 2.1 H VBG pH VBG pCO2 VBG pO2 VBG HCO3 VBG O2 Saturation VBG Base Excess Anion Gap 15 Estim Creat Clear Calc 38.0 Estimated GFR 40 POC Glucose 341 H Random Glucose Fasting Glucose 381 H* Calcium 9.6 Magnesium 2.6 Total Bilirubin AST ALT Alkaline Phosphatase B-Natriuretic Peptide Total Protein Albumin Influenza Type A (PCR) Influenza Type B (PCR) RSV RNA Qual (PCR) SARS-CoV-2 RNA (RT-PCR) Assessment and Plan (1) CHF (congestive heart failure): Status: Acute (2) COPD (chronic obstructive pulmonary disease): Status: Acute (3) Hypoxia: Status: Acute Plan 82F PMH chronic hypoxic respiratory failure on 3L home O2, emphysema (on CT), morbid obesity, chronic diastolic chf, htn, hld, DM, permanent afib presented with sob Acute on chronic hypoxic respiratory failure due to acute on chronic diastolic CHF and COPD with acute decompensation Continue IV Lasix resume IV Solu-Medrol, DuoNebs Wean O2 as tolerated Monitor response increase PT Diabetes with hyperglycemia Basal bolus insulin Monitor point of care Morbid obesity Weight loss recommended Hypertension Continue losartan, diltiazem Permanent atrial fibrillation Continue Coumadin, diltiazem, monitor INR hld statin, fibrate DVT prophylaxis-on Coumadin Full code Patient with significant dyspnea, using accessory muscles and requiring higher levels of oxygen the baseline, therefore, expected require 2 overnights in patient Quality Stroke Does the patient have a stroke diagnosis?: No VTE Prior VTE?: No VTE Risk Level:: Medical - moderate - high VTE Device Contraindication: Treatment Not Indicated VTE Drug Contraindication: N/A - Med Ordered
[2023-07-16 12:17] LABS: Glucose, Whole Blood 411 mg/dL (60-115)
[2023-07-16 13:16] LABS: Appearance Urine Cloudy; Color Urine Yellow; Glucose Urine UA >=1000 mg/dL (Negative); Leukocyte Esterase Urine Trace (Negative); Nitrite Urine Negative (Negative); Specific Gravity - Urine 1.015 (1.005-1.025); UMIC TRIGGER UACC YES; Urine Blood Moderate (2+) (Negative); Urine Ketones Negative (Negative); Urine Protein Negative (Neg-Trace)
[2023-07-16 13:29] LABS: Bacteria Urine 4+ (None Seen); Squamous Epithelial Cell Urine 0-2 /HPF (0-2); WBC Urine 0-5 /HPF (0-5)
[2023-07-16 16:28] LABS: Glucose, Whole Blood 470 mg/dL (60-115)
[2023-07-16] MEDS: metOLazone 2.5 MG TABLET PO (17:34)
[2023-07-16] MEDS: Warfarin Sodium 5 MG TABLET PO (17:39)
[2023-07-16 20:55] LABS: Glucose, Whole Blood 426 mg/dL (60-115)
[2023-07-16] MEDS: Gabapentin 100 MG CAPSULE PO (21:02)
[2023-07-16] MEDS: Insulin Glargine,Hum.rec.anlog 100 UNIT/ML 10 ML VIAL 60 UNIT SUBCUT (21:03)
[2023-07-16] MEDS: Ammonium Lactate 12 % Lotion 226 GM BOTTLE 1 APPL TOPICAL (22:50)
[2023-07-17] VITALS: BP 133/67; PULSE 82; RESP 20; TEMP 36.2; O2SAT 93
[2023-07-17] MEDS: 0.9 % Sodium Chloride Flush 3 ML SYRINGE IVFLUSH ×2 (00:06→09:12)
[2023-07-17 03:22] VITALS: BP 119/58; PULSE 84; RESP 20; TEMP 36.1; O2SAT 91
[2023-07-17] MEDS: Acetaminophen 325 MG TABLET 650 MG PO (05:07)
[2023-07-17 07:49] VITALS: BP 185/91; PULSE 95; RESP 14; TEMP 36.4; O2SAT 91
[2023-07-17 08:00] LABS: Glucose, Whole Blood 351 mg/dL (60-115)
[2023-07-17 08:22] LABS: INTERNATIONAL NORM RATIO 2.6 (0.9-1.1); Prothrombin Time 31.4 SEC (11.1-13.3)
[2023-07-17 08:35] LABS: Anion Gap 16 (12-20); Blood Urea Nitrogen 52 mg/dL (9-16); Calcium 9.3 mg/dL (8.4-10.2); Carbon Dioxide 27 mmol/L (22-29); Chloride 97 mmol/L (96-108); Estimated Glomerular Filt Rate 35; Glucose Random 401 mg/dL (60-115); Potassium 4.7 mmol/L (3.3-5.1); Sodium 135 mmol/L (135-145)
[2023-07-17] MEDS: Furosemide 40 MG/4 ML VIAL IVPUSH (09:09)
[2023-07-17] MEDS: Insulin Lispro 100 UNIT/ML 3 ML VIAL SUBCUT ×5 (09:10→12:27)
[2023-07-17] MEDS: Fenofibrate 160 MG TABLET PO (09:10)
[2023-07-17] MEDS: dilTIAZem HCL CD 180 MG CAP.ER.24H 360 MG PO (09:10)
[2023-07-17] MEDS: Atorvastatin Calcium 80 MG TABLET PO (09:10)
[2023-07-17] MEDS: methylPREDNISolone Sod Succ 40 MG/ML VIAL IVPUSH (09:10)
[2023-07-17] MEDS: Insulin Glargine,Hum.rec.anlog 100 UNIT/ML 10 ML VIAL 15 UNIT SUBCUT (09:11)
[2023-07-17] MEDS: Ammonium Lactate 12 % Lotion 226 GM BOTTLE 1 APPL TOPICAL (09:12)
[2023-07-17 10:39] VITALS: BP 185/91; PULSE 95; O2SAT 91
--- NOTE | 2023-07-17 11:28 | W.MHC.F2F ---
Service Date Service Date: 07/17/23 Encounter Date of encounter: 07/17/23 Reasons for Services Signs and symptoms assessed: physical deconditioning Reason for physical therapy: home safety and mobility and therapeutic exercises Homebound: Leaving the home is medically contraindicated at this time without the asist of a device and/or another person due th the listed conditions above and below. Reason homebound: unable to drive Certification: Based on the above findings, I certify that this patient is confined to the home and needs intermittent residential care, physical therapy and/or speech therapy, or continues to need occupational therapy. The patient is under my care, and I have initiated the establishment of the plan of care. The patient will be followed by a physician who will periodically review the plan of care. Time Spent With Patient Time: Total time managing care of this patient today ____ minutes.
--- NOTE | 2023-07-17 11:29 | P.DS_ITS ---
DS: Providers Provider Date of Service: 07/17/23 Date of admission: 07/15/23 17:42 Primary care physician: Miracle Tijerina MD DS: Diagnosis Discharge Diagnosis (1) CHF (congestive heart failure): Status: Acute (2) COPD (chronic obstructive pulmonary disease): Status: Acute (3) Hypoxia: Status: Acute DS: Summary Hospital Course Hospital Course: Admission note HPI 82F PMH chronic hypoxic respiratory failure on 3L home O2, emphysema (on CT), morbid obesity, chronic diastolic chf, htn, hld, DM, permanent afib presented with sob. At baseline patient can ambulate with walker, slowly, with minimal shortness of breath. Over the past 2 weeks has had increasing shortness of breath, decreased tolerance of minimal effort. Reports increased orthopnea and started to sleep in a recliner, reporting worsening lower extremity edema, wheezing, nonproductive cough. Denies fevers, chest pain, chills. In ED noted to be hypoxic to 84% on ambulation. Chest x-ray with mild CHF. Hospital course # Acute on chronic hypoxic respiratory failure due to acute on chronic diastolic CHF and COPD with acute decompensation Treated with IV lasix, IV Solu-Medrol and DuoNebs with good response over the course of hospital stay as Weaned O2 as tolerated to room air with fair response. she felt much better and was able to ambulate with no reported dyspnea. Seen by PT team who recommended home PT as [facility] will follow her at home. Had hyperglycemia related to DM2 and steroid usage with higher than usual readings requiring more basal and rapid insulin for better control. Ammonia lotion started for lower extremities dry skin. LOW SODIUM diet Decrease Liquids intake, up to 1.5L total daily Prednisone for 3 more days Lotion for lower extremities dry skin Nystatin for rash Time Attestation Discharge coordination time: Greater than 30 minutes Quality: Safe Use of Opioids Does Pt have an Active Cancer Diagnosis on the Problem List?: No Quality: Stroke Does the patient have a stroke diagnosis?: No Physical Exam Vital Signs: Vital Signs: Last Vital Signs Temp 97.5 F 07/17/23 07:49 Pulse 95 07/17/23 10:39 Resp 14 07/17/23 07:49 BP 185/91 H 07/17/23 10:39 Pulse Ox 91 L 07/17/23 10:39 O2 Del Method Nasal Cannula 07/17/23 07:49 O2 Flow Rate 3 07/17/23 07:49 Oxygen Flow Rate 3 07/15/23 12:34 BMI result Body Mass Index 45.5 Const: Other: Constitutional : Awake, interactive, not in distress Neck : Normal inspection, Supple Cardiovascular : RRR, no JVP, no lower extremity edema Respiratory : fair bilateral air entry, no crackles, fine expiratory wheezes Gastrointestinal: soft, lax, Normal bowel sounds, Non tender Skin : Warm, Dry skin mainly in LEs. Neurological : Alert & oriented x3, No focal deficit DS: Data Data Completed and Pending Labs on day of discharge: Laboratory Results - last 24 hr 07/16/23 07/16/23 07/16/23 11:46 12:45 16:24 Hold Purple Top PT INR Sodium Potassium Chloride Carbon Dioxide Anion Gap BUN Creatinine Estim Creat Clear Calc Estimated GFR POC Glucose 411 H* 470 H* Random Glucose Calcium Urine Color Yellow Urine Appearance Cloudy Urine pH 5.0 Ur Specific [place] 1.015 Urine Protein Negative Urine Glucose (UA) >=1000 H Urine Ketones Negative Urine Blood Moderate (2+) H Urine Nitrite Negative Ur Leukocyte Esterase Trace H Urine RBC 6-10 H Urine WBC 0-5 Ur Squamous Epith Cells 0-2 Urine Bacteria 4+ Hyaline Casts 3-5 07/16/23 07/17/23 07/17/23 20:49 06:40 07:48 Hold Purple Top SEE NOTE PT 31.4 H D INR 2.6 H Sodium 135 Potassium 4.7 Chloride 97 Carbon Dioxide 27 Anion Gap 16 BUN 52 H Creatinine 1.43 H Estim Creat Clear Calc 34.0 Estimated GFR 35 POC Glucose 426 H* 351 H* Random Glucose 401 H* Calcium 9.3 Urine Color Urine Appearance Urine pH Ur Specific [place] Urine Protein Urine Glucose (UA) Urine Ketones Urine Blood Urine Nitrite Ur Leukocyte Esterase Urine RBC Urine WBC Ur Squamous Epith Cells Urine Bacteria Hyaline Casts Imaging Chest x-ray: Radiologist's impression: ITS Impressions Chest X-Ray 07/15/23 13:26 IMPRESSION: Cardiomegaly with mild CHF Discharge Plan Discharge Anticipated Discharge Date/Time: 07/17/23 11:19 Patient Disposition: Home Health Service Discharge Diagnosis: COPD exacerbation Referrals: Miracle Tijerina MD [Primary Care Provider] - 1 Week Discharge Medications: New ammonium lactate 12 % Lotion 1 appl topical BID Qty: 225 2RF Protocol: Apply to: Apply to: Lower extremities nystatin 100,000 unit/gram Powder 1 appl topical BID Qty: 30 1RF Protocol: Apply to: Apply to: beneath breasts prednisone 20 mg tablet 40 mg PO DAILY Qty: 6 0RF Continued tiotropium bromide [Spiriva with HandiHaler] 18 mcg Capsule, W/Inhalation Device 1 cap INHALATION DAILY Rx Instructions: puncture 1 cap using device; one dose = 2 inhalations atorvastatin 80 mg tablet 80 mg PO DAILY diltiazem HCl [Tiadylt ER] 360 mg capsule,extended release 24 hr 360 mg PO DAILY acetaminophen [Tylenol Arthritis Pain] 650 mg Tablet Extended Release 1,300 mg PO Q8H PRN (Reason: Pain) warfarin 5 mg tablet 5 mg PO MOTUWEFRSA@1800 losartan 25 mg tablet 25 mg PO DAILY furosemide 20 mg tablet 20 mg PO DAILY gabapentin 100 mg capsule 100 mg PO BEDTIME albuterol sulfate 90 mcg/actuation HFA aerosol inhaler 2 puff inhalation Q4H PRN (Reason: wheezing) insulin lispro [Humalog KwikPen Insulin] 100 unit/mL insulin pen 30 unit subcut TIDAC fenofibrate 160 mg tablet 160 mg PO DAILY insulin glargine [Lantus Solostar U-100 Insulin] 100 unit/mL (3 mL) insulin pen 80 unit subcut BEDTIME warfarin 2.5 mg Tablet 2.5 mg PO SUTH@1800 Discharge Orders: Discharge Order (Routine); Ordered 07/17/23 Ordered By: Sylvia Elkins Diet: Low salt diet Activity on Discharge: As tolerated Stand Alone Forms: Patient Portal Discharge page Care Plan Goals: Read below Health Concerns: Read below Plan of Treatment: Read below Assessment: LOW SODIUM diet Decrease Liquids intake, up to 1.5L total daily Prednisone for 3 more days Lotion for lower extremities dry skin Nystatin for rash
[2023-07-17 11:31] VITALS: BP 141/70; PULSE 91; RESP 14; TEMP 36.3; O2SAT 95
[2023-07-17] MEDS: Albuterol/Iprat 2.5/0.5MG 3 ML AMPUL.NEB INHALE (11:36)
[2023-07-17 11:46] VITALS: PULSE 78; RESP 20; O2SAT 95
[2023-07-17 11:49] LABS: Glucose, Whole Blood 448 mg/dL (60-115)
--- NOTE | 2023-07-17 12:34 | MHC.CM.PN ---
Pt has been medically cleared for DC, she will go home via family transport, and will have skilled home care services from [facility].
[2023-07-17 13:33] LABS: HBS Num1 0.65 mIU/mL (0-7.99); HBc Num1 0.17 S/CO (0.00-0.79); HIV AB/AG Nonreactive (Nonreactive); HIV Num 1 0.07 S/CO (0.00-0.99); Hepatitis B Core Antibody Nonreactive (Nonreactive); ~Hepatitis B Surface Antibody NONREACTIVE (Nonreactive)
[2023-07-17 13:53] LABS: Hepatitis C Ab Exposure Source NonReactive (Nonreactive)
[2023-07-17 14:38] LABS: HBsAGNum1 0.21 S/CO (0.00-0.99); Hepatitis B Surface Antigen Negative (Negative)
[2023-07-17 14:41] LABS: HBsAGNum2 Nonreactive; HBsAGNum3 Nonreactive; Hepatitis B Surface Antigen NEGATIVE (Negative)
== END 2023-07-17 12:59 | disposition home health service (06) | DRG 291 ==
LOC: HO.ED 17:26 → HO.EDOVER 18:21 → HO.IMC 18:39
PROVIDERS: Internal Medicine; Physician Assistant; Admitting Provider Internal Medicine; Emergency Provider Emergency Medicine; PCP Family Medicine; Visit Provider Student in an Organized Health Care Education/Training Program
DX: I11.0 Hypertensive heart disease with heart failure (principal); I50.33 Acute on chronic diastolic (congestive) heart failure; J96.21 Acute and chronic respiratory failure with hypoxia; I48.21 Permanent atrial fibrillation; Z68.42 Body mass index [BMI] 45.0-49.9, adult; E78.5 Hyperlipidemia, unspecified; E66.01 Morbid (severe) obesity due to excess calories; J43.9 Emphysema, unspecified; E11.65 Type 2 diabetes mellitus with hyperglycemia; Z99.81 Dependence on supplemental oxygen; Z79.4 Long term (current) use of insulin; Z79.01 Long term (current) use of anticoagulants; Z79.899 Other long term (current) drug therapy
CPT/HCPCS: 0241U; 36415; 71045; 80048; 80053; 81001; 82803; 82947; 83735; 83880; 84484; 85025; 85027; 85610; 86803; 93005; 94640; 97116; 97162; 99285; J0456; J0696; J1940; J2270; J2920; J2930; J3475

== ENCOUNTER → 2023-07-15 12:51 | Outpatient (BNV) | payer MEDICARE, SELFPAY | PROVIDERS: Admitting Provider Internal Medicine; Emergency Provider Emergency Medicine; PCP Family Medicine; Visit Provider Internal Medicine | DX: R07.9 Chest pain, unspecified (principal); I48.0 Paroxysmal atrial fibrillation | CPT/HCPCS: 93010 ==

== ENCOUNTER → 2023-07-15 17:42 | Outpatient (BNV) | payer MEDICARE, SELFPAY | PROVIDERS: Admitting Provider Internal Medicine; Emergency Provider Emergency Medicine; Visit Provider Internal Medicine | DX: I50.32 Chronic diastolic (congestive) heart failure (principal); J44.9 Chronic obstructive pulmonary disease, unspecified; J96.11 Chronic respiratory failure with hypoxia | CPT/HCPCS: 99223; 99232; 99239; G0180 ==

== ENCOUNTER 2023-10-07 15:20 | Inpatient (IN) | payer MEDICARE, SELFPAY ==
[2023-10-07] VITALS (7 sets, daily range): BP systolic 118–167; BP diastolic 40–75; PULSE 75–102; RESP 16–20; TEMP 36.5–36.7; O2SAT 93–96; BMI 45.7
--- NOTE | ~2023-10-07 | XR_ITS ---
EXAMINATION: XR chest 2V CLINICAL INFORMATION: Reason for Exam SOB COMPARISON: Prior chest x-ray 07/15/2023 TECHNIQUE: XR chest 2V, 2 Views Lungs and Clarisa: There is pulmonary vascular congestion, mild interstitial opacification possibly mild interstitial edema. Pleura: Blunting of right costophrenic angle suggesting small pleural effusion. Heart: Cardiac silhouette is enlarged. Mediastinum: Widened mediastinum exaggerated by AP technique unchanged.. Bones: Skeletal structures included are normal for patient's age. XR/XR chest 2V IMPRESSION: 1. Congestive heart failure. 2. Blunting of right costophrenic angle suggesting small pleural effusion. 3. Widened mediastinum exaggerated by AP technique unchanged.
--- NOTE | ~2023-10-07 | XR_ITS ---
EXAMINATION: XR CHEST CLINICAL INFORMATION: Low O2 saturation with CHF COMPARISON: Chest radiograph yesterday TECHNIQUE: Frontal view of the chest was obtained. FINDINGS: The heart is enlarged. There is interstitial prominence present consistent with mild CHF however minimally improved when compared to yesterday's exam. No large pleural effusions. No focal consolidations. XR/XR chest 1V IMPRESSION: Cardiomegaly with mild CHF, minimally improved when compared to yesterday's exam.
--- NOTE | 2023-10-07 15:56 | PC.NURSE ---
pt a&o x4, calm, and cooperative. comes from home where she lives with her daughter for sob. pt sts she has been sob for weeks-months but has worsened over last couple of days with exertion/standing. pt uses O2 at home, 2L. EMS found pt sating in 91-92% on room air. placed pt back on 2L and sats up to 95%. pt given duoneb by EMS and sats up to 100%. 20G IV placed by EMS to left hand. pt legs are edematous and leaking. pt has multiple scabs due to itching . pt sts she takes lasix at home and has not had any changes in her meds/voiding. pt changed over to hospital attire, placed on bedside monitor, and hooked up to 3L O2 sating 93%. purewick in place and blankets given. pt resting quietly on stretcher awaiting ED provider. call mercedes within reach. rr even/unlabored. plan of care ongoing.
--- NOTE | 2023-10-07 16:05 | ED.GENADULT ---
HPI - General Adult General Chief complaint: Dyspnea Stated complaint: SOB, CHF, COPD, swollen legs Time Seen by Provider: 10/07/23 15:57 History of Present Illness HPI narrative: 82 y/o F patient; PMH chronic hypoxic respiratory failure on 3L NC, emphysema, obesity, chronic diastolic CHF, HTN, HLD, T2DM, persistent atrial fibrillation on Coumadin; presents from home with report of worsening shortness of breath. Associated with increased orthopnea and worsening lower extremity edema. Lower extremities are also noted to have open sores in multiple locations. She denies: fever or chills, nausea/vomiting, abdominal pain, chest pain. Patient was last seen in this hospital for similar complaints and admitted from 07/15 - 07/17/2023. Since her discharge to home patient has refused to leave her house for any physician appointments. Related Data Home Medications Medication Instructions Recorded Confirmed albuterol sulfate 90 mcg/actuation 2 puff inhalation Q4H PRN wheezing 02/08/23 10/07/23 aerosol inhaler atorvastatin 80 mg tablet 80 mg PO DAILY 02/08/23 10/07/23 diltiazem HCl 360 mg capsule,24 360 mg PO DAILY 02/08/23 10/07/23 hr,extended release (Tiadylt ER) fenofibrate 160 mg tablet 160 mg PO DAILY 02/08/23 10/07/23 furosemide 20 mg tablet 20 mg PO DAILY 02/08/23 10/07/23 gabapentin 100 mg capsule 100 mg PO BEDTIME 02/08/23 10/07/23 insulin glargine 100 unit/mL (3 80 unit subcut BEDTIME 02/08/23 10/07/23 mL) subcutaneous pen (Lantus Solostar U-100 Insulin) insulin lispro 100 unit/mL 30 unit subcut TIDAC 02/08/23 10/07/23 subcutaneous pen (Humalog KwikPen (U-100) Insulin) losartan 25 mg tablet 25 mg PO DAILY 02/08/23 10/07/23 warfarin 5 mg tablet 5 mg PO DAILY@1800 02/08/23 10/07/23 tiotropium bromide 18 mcg capsule 1 cap inhalation DAILY 07/15/23 10/07/23 with inhalation device (Spiriva with HandiHaler) Previous Rx's Medication Instructions Recorded ammonium lactate 12 % lotion 1 appl topical BID #225 grams 07/17/23 Allergies Allergy/AdvReac Type Severity Reaction Status Date / Time lisinopril Allergy Cough Verified 02/08/23 11:45 Review of Systems Review of Systems: Yes all other systems are reviewed and are negative [facility] Past Medical History Attestation statement: The following information was validated with the patient. Source: old records reviewed Medical History CHF (congestive heart failure) Hypoxia COPD (chronic obstructive pulmonary disease) On Coumadin for atrial fibrillation Atrial fibrillation Hyperlipidemia Shortness of breath Bilateral edema of lower extremity Social History Social History Household Members: Other Household Members Other:: Daughter Joselyn lives with her in a house with 2 steps. Housing: House Unable to assess alcohol history related to: Unknown Alcohol intake: never Patient Tobacco Use Status: Former Tobacco user Smoked in Last 30 Days: No Use of substances other than those prescribed or required for medical reasons: No Advance Directives: Yes Advance Directives on File: Yes Advance Directives Date on File: 07/18/23 service: No Physical Exam ED Vital Signs: Vital Signs - 24 hr 10/07/23 15:51 10/07/23 16:30 10/07/23 16:59 Temperature 97.7 F Pulse Rate 93 102 H 88 Respiratory Rate 20 18 16 Blood Pressure 167/62 H 119/49 L Pulse Oximetry 93 94 Oxygen Delivery Method Nasal Cannula Nasal Cannula Oxygen Flow Rate 3 10/07/23 17:48 10/07/23 18:23 10/07/23 20:13 Temperature 97.8 F 98.0 F Pulse Rate 100 93 Respiratory Rate 18 16 20 Blood Pressure 118/49 L 118/49 L Pulse Oximetry 94 94 Oxygen Delivery Method Nasal Cannula Nasal Cannula Oxygen Flow Rate 3 3 BMI result Body Mass Index 45.7 Patient is afebrile, hypertensive, and 93% on supplemental 2L SpO2. Const General: cooperative HENMT Head: Yes atraumatic Eyes General: appearance normal, both eyes and all related structures Neck Neck: Yes normal visual inspection, Yes full ROM, Yes supple and No tender Chest Chest palpation & inspection: normal inspection of the chest and normal palpation of entire chest wall Resp Effort & Inspection: normal respiratory effort and able to speak in complete sentences Auscultation: clear to auscultation bilaterally Cardio Rate: regular rate Rhythm: abnormal rhythm Peripheral pulses: Peripheral pulses 2+ throughout GI Inspection: Yes normal to inspection, No Abdominal wall edema and No distended Palpation (GI): Soft to palpation, not firm, nontender, no guarding and not rigid Auscultation: normal bowel sounds Extrem Other: Bilateral lower extremity pitting edema with chronic venous stasis changes and scattered open sores without surrounding erythema/warmth/fluctuance/induration Course Course Course Narrative: Patient is afebrile and mildly hypertensive. On home level of SpO2. Ordered EKG, CXR, and cardiorespiratory labs. Ordered ED bronchodilator protocol as needed as currently patient's lungs are clear and SpO2 level is below baseline used at home. Discussed with patient and daughter that many of their concerns today are chronic and will not necessarily be solved today. We will plan to evaluate the patient for possible ACS, pneumonia, CHF exacerbation, COPD exacerbation - however if patient's work up is unremarkable - it will be critical patient follow up with her PCP and [facility] out-patient. Reevaluation(s) Reevaluation #1: Labs reviewed. No leukocytosis. Mild anemia Hgb 11. Unremarkable VBG. BNP 122. Troponin unremarkable. Even with exertion patient is on home O2. No evidence of clinically significant CHF exacerbation. Did provide Lasix 40mg IV x1. Also received Dilaudid 0.5mg IV and lidoderm patch for chronic lower back pain. Patient and daughter discussed - patient's daughter has a surgery planned for 1.5 weeks from now and is concerned the patient is too deconditioned to be home alone. Will requested case management and physical therapy evaluation. Home medications ordered. Plan: Patient placed in physician obs Condition: Stable Medications Administered Discontinued Medications Generic Name Dose Route Start Last Admin Trade Name Igorq PRN Reason Stop Dose Admin Acetaminophen 975 mg 10/07/23 16:44 10/07/23 18:30 Acetaminophen 325 Mg Tablet PO 10/07/23 16:45 Not Given ONCE ONE Albuterol Sulfate 2.5 mg/ 0 mg 10/07/23 16:16 10/07/23 16:28 Albuterol/Ipratropium 3 ml INHALE 10/07/23 16:17 1 dose ONCE ONE Administration Furosemide 40 mg 10/07/23 16:32 10/07/23 18:31 Furosemide 40 Mg/4 Ml Vial IVPUSH 10/07/23 16:33 40 mg ONCE ONE Administration Protocol Hydromorphone HCl 0.5 mg 10/07/23 16:56 10/07/23 17:48 Hydromorphone Hcl 0.5 Mg/0.5 Ml Syringe IVPUSH 10/07/23 16:57 0.5 mg ONCE ONE Administration Protocol Lidocaine 1 patch 10/07/23 16:44 10/07/23 17:48 Lidocaine 4 % Patch Adh..Patch TRANSDERMA 10/07/23 16:45 1 patch ONCE ONE Administration Protocol Medical Decision Making Lab Data 10/07/23 16:52 10/07/23 16:52 Labs: Lab Results 10/07/23 10/07/23 Range/Units 16:52 16:56 WBC 9.3 (4.8-10.8) X10*3/uL RBC 3.82 L (4.20-5.50) X10*6/uL Hgb 11.0 L (12.0-16.0) g/dl Hct 35.6 L (37.0-47.0) % MCV 93.2 (80.0-98.0) fL MCH 28.8 (27.0-33.0) pg MCHC 30.9 L (31.0-35.0) g/dl RDW 17.1 H (11.0-16.0) % Plt Count 356 (160-400) X10*3/uL MPV 8.8 L (9.4-12.3) fL Immature Gran % (Auto) 0.2 (0.0-0.4) % Neut % (Auto) 69.1 (45-73) % Lymph % (Auto) 15.6 L (20-40) % [place] % (Auto) 11.3 H (2-11) % Eos % (Auto) 3.3 (0-4) % Baso % (Auto) 0.5 (0-2) % Lymph # (Auto) 1.5 (1.2-4.9) X10*3/uL [place] # (Auto) 1.1 (0.1-1.2) X10*3/uL Eos # (Auto) 0.3 (0.0-0.4) X10*3/uL Baso # (Auto) 0.1 (0.0-0.2) X10*3/uL Abs Immat Gran (auto) 0.02 (0.00-0.03) X10*3/uL Absolute Neuts (auto) 6.4 (2.0-8.3) x10*3/uL Absolute Nucleated RBC 0.000 (0.0-0.012) X10*3/uL Nucleated RBC % (auto) 0.0 (0.0-0.2) /100WBC VBG pH 7.47 H (7.32-7.43) VBG pCO2 42 mmHg VBG pO2 49 mmHg VBG HCO3 31 H (22-26) mmol/L VBG O2 Saturation 78.0 % VBG Base Excess 6.9 mmol/L Sodium 144 (135-145) mmol/L Potassium 3.8 (3.3-5.1) mmol/L Chloride 110 H (96-108) mmol/L Carbon Dioxide 24 (22-29) mmol/L Anion Gap 14 (12-20) BUN 19 H (9-16) mg/dL Creatinine 0.94 (0.5-1.4) mg/dL Estim Creat Clear Calc 49.9 Estimated GFR 57 Random Glucose 88 (60-115) mg/dL Lactic Acid 1.7 (0.5-2.0) mmol/L Calcium 9.1 (8.4-10.2) mg/dL Phosphorus 2.1 L (2.7-4.5) mg/dL Magnesium 1.8 (1.6-2.6) mg/dL Total Bilirubin 0.9 (0.0-1.0) mg/dL Direct Bilirubin 0.4 (0.0-0.5) mg/dL AST 21 (5-31) U/L ALT 12 (0-31) U/L Alkaline Phosphatase 48 (39-117) U/L Troponin I High Sens 4.5 (<3.5-17.0) ng/L B-Natriuretic Peptide 122 H (<100) pg/mL Total Protein 6.5 (6.5-8.0) g/dL Albumin 3.3 L (3.5-5.0) g/dL Lipase 42 (8-78) U/L Independent Interpretation I performed an independent interpretation of an: EKG Interpretation: Atrial fibrillation 94BPM without ischemic changes Radiology Impression Discussion of test interpretation with radiology: I have reviewed the radiologist's reading. Radiologist Impression: EXAMINATION: XR chest 2V CLINICAL INFORMATION: Reason for Exam SOB COMPARISON: Prior chest x-ray 07/15/2023 TECHNIQUE: XR chest 2V, 2 Views Lungs and Clarisa: There is pulmonary vascular congestion, mild interstitial opacification possibly mild interstitial edema. Pleura: Blunting of right costophrenic angle suggesting small pleural effusion. Heart: Cardiac silhouette is enlarged. Mediastinum: Widened mediastinum exaggerated by AP technique unchanged.. Bones: Skeletal structures included are normal for patient's age. XR/XR chest 2V IMPRESSION: 1. Congestive heart failure. 2. Blunting of right costophrenic angle suggesting small pleural effusion. 3. Widened mediastinum exaggerated by AP technique unchanged. Discharge Plan Discharge Clinical Impression: Congestive heart failure, Physical deconditioning, Lower back pain Patient Disposition: Still a Patient Prescriptions: No Action tiotropium bromide [Spiriva with HandiHaler] 18 mcg Capsule, W/Inhalation Device 1 cap INHALATION DAILY Rx Instructions: puncture 1 cap using device; one dose = 2 inhalations ammonium lactate 12 % Lotion 1 appl topical BID Qty: 225 2RF Protocol: Apply to: Apply to: Lower extremities atorvastatin 80 mg tablet 80 mg PO DAILY diltiazem HCl [Tiadylt ER] 360 mg capsule,extended release 24 hr 360 mg PO DAILY warfarin 5 mg tablet 5 mg PO DAILY@1800 losartan 25 mg tablet 25 mg PO DAILY furosemide 20 mg tablet 20 mg PO DAILY gabapentin 100 mg capsule 100 mg PO BEDTIME albuterol sulfate 90 mcg/actuation HFA aerosol inhaler 2 puff inhalation Q4H PRN (Reason: wheezing) insulin lispro [Humalog KwikPen Insulin] 100 unit/mL insulin pen 30 unit subcut TIDAC fenofibrate 160 mg tablet 160 mg PO DAILY insulin glargine [Lantus Solostar U-100 Insulin] 100 unit/mL (3 mL) insulin pen 80 unit subcut BEDTIME
--- NOTE | 2023-10-07 16:09 | ECG_ITS ---
Test Reason : SOB Blood Pressure : / mmHG Vent. Rate : 094 BPM Atrial Rate : 000 BPM P-R Int : 000 ms QRS Dur : 054 ms QT Int : 302 ms P-R-T Axes : 000 067 181 degrees QTc Int : 377 ms Atrial fibrillation Low voltage QRS Nonspecific T wave abnormality Abnormal ECG When compared with ECG of 15-JUL-2023 21:10, Criteria for Septal infarct are no longer Present Nonspecific T wave abnormality now evident in Anterior leads QT has shortened Referred By: Hiral Casanova Electronically Signed By:LEONARDO MANLEY
[2023-10-07] MEDS: Albuterol Sulfate 2.5 MG, Albuterol/Iprat 2.5/0.5MG 3 ML 3 ML INHALE (16:28)
[2023-10-07 16:59] LABS: Basophils Absolute Auto 0.1 X10*3/uL (0.0-0.2); Basophils Percent Auto 0.5 % (0-2); Eosinophils Absolute Auto 0.3 X10*3/uL (0.0-0.4); Eosinophils Percent Auto 3.3 % (0-4); Hematocrit 35.6 % (37.0-47.0); Imm Gran Abs Auto 0.02 X10*3/uL (0.00-0.03); Imm Gran Pct Auto 0.2 % (0.0-0.4); Lymphocytes Absolute Auto 1.5 X10*3/uL (1.2-4.9); Lymphocytes Percent Auto 15.6 % (20-40); MANUAL DIFF FLAG NO; Mean Corpuscular HGB Conc 30.9 g/dl (31.0-35.0); Mean Corpuscular Hemoglobin 28.8 pg (27.0-33.0); Mean Corpuscular Volume 93.2 fL (80.0-98.0); Mean Platelet Volume 8.8 fL (9.4-12.3); Monocytes Absolute Auto 1.1 X10*3/uL (0.1-1.2); Monocytes Percent Auto 11.3 % (2-11); Neutrophils Absolute Auto 6.4 x10*3/uL (2.0-8.3); Neutrophils Percent Auto 69.1 % (45-73); Platelet Count 356 X10*3/uL (160-400); Red Blood Count 3.82 X10*6/uL (4.20-5.50); Red Cell Distribution Width 17.1 % (11.0-16.0); White Blood Count 9.3 X10*3/uL (4.8-10.8)
[2023-10-07 17:02] LABS: Venous Blood Gas Refer to POC result
[2023-10-07 17:02] LABS: VBG Base Excess 6.9 mmol/L; VBG HCO3 31 mmol/L (22-26); VBG pCO2 42 mmHg; VBG pH 7.47 (7.32-7.43); VBG pO2 49 mmHg
[2023-10-07 17:13] LABS: Lactic Acid 1.7 mmol/L (0.5-2.0)
[2023-10-07 17:17] LABS: Alanine Aminotransferase 12 U/L (0-31); Albumin Level 3.3 g/dL (3.5-5.0); Alkaline Phosphatase 48 U/L (39-117); Anion Gap 14 (12-20); Aspartate Amino Transferase 21 U/L (5-31); Bilirubin Direct 0.4 mg/dL (0.0-0.5); Bilirubin Total 0.9 mg/dL (0.0-1.0); Blood Urea Nitrogen 19 mg/dL (9-16); Calcium 9.1 mg/dL (8.4-10.2); Carbon Dioxide 24 mmol/L (22-29); Chloride 110 mmol/L (96-108); Creatinine Clr Calc Pharmacy 49.9; Estimated Glomerular Filt Rate 57; Glucose Random 88 mg/dL (60-115); Lipase 42 U/L (8-78); Magnesium 1.8 mg/dL (1.6-2.6); Phosphorus 2.1 mg/dL (2.7-4.5); Potassium 3.8 mmol/L (3.3-5.1); Sodium 144 mmol/L (135-145); Total Protein 6.5 g/dL (6.5-8.0)
[2023-10-07 17:20] LABS: B Type Natriuretic Peptide 122 pg/mL (<100)
[2023-10-07 17:24] LABS: Troponin-I High Sensitivity 4.5 ng/L (<3.5-17.0)
[2023-10-07] MEDS: Lidocaine 4 % Patch ADH..PATCH 1 PATCH TRANSDERMA (17:48)
[2023-10-07] MEDS: HYDROmorphone HCl 0.5 MG/0.5 ML SYRINGE IVPUSH (17:48)
[2023-10-07] MEDS: Furosemide 40 MG/4 ML VIAL IVPUSH (18:31)
--- NOTE | 2023-10-07 18:38 | MHC.CM.ED ---
CM met with patient at request of Dr. Casanova. CM spoke with patient and daughter/HCP Joselyn ([phone]). Pt is A&Ox4. Lives with daughter. Has a walker and a cane, but doesn't use them at home. Furniture creeps. Pt is on continuous Oxygen at 3L from [facility]. Has light housekeeping at [facility]. Pt has not been to her PCP since June 2023. States it is too difficult to leave her home. Pt is very deconditioned. Pt admits to needing help with showering, and sponge bathes instead. States she does have a shower chair. Daughter cannot help her shower. Suggested they speak with [facility] regarding [employer] to help with showering weekly. PT is pending. Pt and daughter would like [facility] or [facility]. Agreeable to local referrals. CM following for discharge planning.
--- NOTE | 2023-10-07 19:41 | PC.NURSE ---
assumed care of pt at 1900
[2023-10-07 22:27] LABS: INTERNATIONAL NORM RATIO 3.1 (0.9-1.1); Prothrombin Time 37.6 SEC (11.1-13.3)
[2023-10-07] MEDS: Gabapentin 100 MG CAPSULE PO (22:51)
[2023-10-07] MEDS: Insulin Glargine,Hum.rec.anlog 100 UNIT/ML 10 ML VIAL 80 UNIT SUBCUT (22:51)
--- NOTE | 2023-10-07 23:35 | MHC.EDTECH ---
Pt transferred to hospital bed. Purewick replaced as patient was incontinent. Patient asked for water, water given.
[2023-10-08] VITALS (10 sets, daily range): BP systolic 127–163; BP diastolic 40–69; PULSE 87–115; RESP 16–36; TEMP 36.3–36.8; O2SAT 88–97
--- NOTE | 2023-10-08 01:33 | PC.NURSE ---
pt sleeping at this time, no sign of distress, pt repositioned for comfort.
--- NOTE | 2023-10-08 03:42 | PC.NURSE ---
pt reposition for comfort, legs elevated with pillow, pt reposition to her right side. pure wick in place.
[2023-10-08] MEDS: Acetaminophen 325 MG TABLET 650 MG PO ×2 (04:11→15:00)
[2023-10-08] MEDS: Nystatin Powder 15 GM BOTTLE 1 APPL TOPICAL (04:11)
--- NOTE | 2023-10-08 04:19 | PC.NURSE ---
respiratory called for breathing treatment, provider notified of crackles through out all lobes. provider into assess pt, medicated per sep.
--- NOTE | 2023-10-08 04:33 | PC.RT ---
Pt given a walk test while being monitored x2 assist on 3LPM NC which is her baseline. Pt stood at edge of bed and desaturated to mid 80's for Spo2. and RN aware
[2023-10-08] MEDS: Albuterol Sulfate (0.083%) 2.5 MG/3 ML VIAL.NEB INHALE (04:37)
[2023-10-08] MEDS: Furosemide 40 MG/4 ML VIAL IVPUSH (04:51)
--- NOTE | 2023-10-08 04:55 | PC.NURSE ---
completed bed change, pt repositioned, pt medicated per mar.
--- NOTE | 2023-10-08 04:58 | PM.IMHP ---
History of Present Illness Date of Service: 10/08/23 Chief Complaint: Dyspnea This is a 82-year-old female with pertinent history of chronic hypoxemic respiratory failure on 3 L supplemental oxygen due to COPD, congestive heart failure with preserved ejection fraction, insulin-dependent diabetes mellitus, essential hypertension, permanent atrial fibrillation on Coumadin who presents to the emergency department for evaluation of dyspnea. Patient states her dyspnea has worsened over the last couple of days with worsening edema of lower extremities. Admits orthopnea. Also has been having cough with intermittent sputum production. No fevers or chills. Patient did not follow-up with her doctor appointments. Of note, patient was recently admitted and discharged on 07/17/2023 with exacerbation of CHF and decompensation of COPD. No chest discomfort, palpitations, abdominal pain, changes in urinary bowel habits. In the emergency department, BNP found to be elevated and imaging concerning for pulmonary edema. Patient was found to be satting in the 80s on her 3 L supplemental oxygen Review of Systems Constitutional: Constitutional: Reports fatigue, Reports malaise, Reports poor appetite and Reports weakness Cardiovascular: Cardiovascular: Reports dyspnea on exertion and Reports orthopnea Respiratory: Respiratory: Reports cough, Reports dyspnea on exertion and Reports wheezing Neurologic: Reports weakness Endocrine: Endocrine: Reports fatigue Allergic/Immunologic: Allergic/Immunologic: Reports wheezing [facility] Medical History CHF (congestive heart failure) Hypoxia COPD (chronic obstructive pulmonary disease) On Coumadin for atrial fibrillation Atrial fibrillation Hyperlipidemia Shortness of breath Bilateral edema of lower extremity Pertinent family history: No family history of early CAD Social History Household Members: Other Household Members Other:: Daughter Joselyn lives with her in a house with 2 steps. Housing: House Unable to assess alcohol history related to: Unknown Alcohol intake: never Patient Tobacco Use Status: Former Tobacco user Smoked in Last 30 Days: No Use of substances other than those prescribed or required for medical reasons: No Advance Directives: Yes Advance Directives on File: Yes Advance Directives Date on File: 07/18/23 service: No Meds Allergies Allergy/AdvReac Type Severity Reaction Status Date / Time lisinopril Allergy Cough Verified 02/08/23 11:45 Active Medications: Current Medications Albuterol Sulfate (Albuterol Sulfate 90 Mcg 8 Gm Inhaler) 2 puff INHALE Q4H PRN PRN Reason: wheezing Atorvastatin Calcium (Atorvastatin Calcium 80 Mg Tablet) 80 mg PO DAILY [facility] Diltiazem HCl (Diltiazem Hcl Cd 180 Mg Cap.Er.24h) 360 mg PO DAILY [facility]; Protocol Fenofibrate (Fenofibrate 160 Mg Tablet) 160 mg PO DAILY [facility] Furosemide (Furosemide 20 Mg Tablet) 20 mg PO DAILY DANIELE; Protocol Gabapentin (Gabapentin 100 Mg Capsule) 100 mg PO BEDTIME [facility] Last Admin: 10/07/23 22:51 Dose: 100 mg Insulin Glargine (Insulin Glargine,Hum.Rec.Anlog 100 Unit/Ml 10 Ml Vial) 80 unit SUBCUT BEDTIME [facility] Last Admin: 10/07/23 22:51 Dose: 80 unit Insulin Human Lispro (Insulin Lispro 100 Unit/Ml 3 Ml Vial) 30 unit SUBCUT TIDAC DANIELE Losartan Potassium (Losartan Potassium 25 Mg Tablet) 25 mg PO DAILY [facility], [facility]; Protocol Tiotropium [place] (Tiotropium [place] 2.5 Mcg 1 Puff/2.5 Mcg Mist.Inhal) 2 puff INHALE RDAILY [facility] Warfarin Sodium (Warfarin Sodium 5 Mg Tablet) 5 mg PO DAILY@1800 [facility] Home Medications Medication Instructions Recorded Confirmed Last Taken Type albuterol sulfate 90 mcg/actuation 2 puff inhalation Q4H PRN wheezing 02/08/23 10/07/23 Unknown History aerosol inhaler atorvastatin 80 mg tablet 80 mg PO DAILY 02/08/23 10/07/23 10/07/23 History diltiazem HCl 360 mg capsule,24 360 mg PO DAILY 02/08/23 10/07/23 10/07/23 History hr,extended release (Tiadylt ER) fenofibrate 160 mg tablet 160 mg PO DAILY 02/08/23 10/07/23 10/07/23 History furosemide 20 mg tablet 20 mg PO DAILY 02/08/23 10/07/23 10/07/23 History gabapentin 100 mg capsule 100 mg PO BEDTIME 02/08/23 10/07/23 10/06/23 History insulin glargine 100 unit/mL (3 80 unit subcut BEDTIME 02/08/23 10/07/23 10/06/23 History mL) subcutaneous pen (Lantus Solostar U-100 Insulin) insulin lispro 100 unit/mL 30 unit subcut TIDAC 02/08/23 10/07/23 10/07/23 History subcutaneous pen (Humalog KwikPen (U-100) Insulin) losartan 25 mg tablet 25 mg PO DAILY 02/08/23 10/07/23 10/07/23 History warfarin 5 mg tablet 5 mg PO DAILY@1800 02/08/23 10/07/23 10/06/23 History tiotropium bromide 18 mcg capsule 1 cap inhalation DAILY 07/15/23 10/07/23 10/07/23 History with inhalation device (Spiriva with HandiHaler) Physical Exam Vital Signs and Narrative: Vital Signs: Last Vital Signs Temp 97.9 F 10/08/23 03:35 Pulse 99 10/08/23 04:38 Resp 22 H 10/08/23 04:38 BP 140/55 H 10/08/23 03:35 Pulse Ox 94 10/08/23 03:35 O2 Del Method Nasal Cannula 10/08/23 03:35 O2 Flow Rate 3 10/08/23 03:35 Oxygen Flow Rate 3 10/07/23 15:51 BMI result Body Mass Index 45.7 Middle-aged female lying in bed in mild distress on supplemental oxygen Neck supple, + JVD Regular rate and rhythm, S1-S2 heard Bilateral wheezing and crackles Abdomen soft nontender, no guarding, no rigidity Patient is awake, alert and oriented to self, place, time and person ; no focal motor deficit Psych: Normal mood Lower extremity edema with venous stasis changes Results Labs 10/07/23 16:52 10/07/23 16:52 Labs: Laboratory Results - last 24 hr 10/07/23 10/07/23 10/07/23 16:52 16:56 22:12 MCV 93.2 MCH 28.8 MCHC 30.9 L RDW 17.1 H Plt Count 356 MPV 8.8 L Immature Gran % (Auto) 0.2 Neut % (Auto) 69.1 Lymph % (Auto) 15.6 L [place] % (Auto) 11.3 H Eos % (Auto) 3.3 Baso % (Auto) 0.5 Lymph # (Auto) 1.5 [place] # (Auto) 1.1 Eos # (Auto) 0.3 Baso # (Auto) 0.1 Abs Immat Gran (auto) 0.02 Absolute Neuts (auto) 6.4 Absolute Nucleated RBC 0.000 Nucleated RBC % (auto) 0.0 PT 37.6 H INR 3.1 H VBG pH 7.47 H VBG pCO2 42 VBG pO2 49 VBG HCO3 31 H VBG O2 Saturation 78.0 VBG Base Excess 6.9 Anion Gap 14 Estim Creat Clear Calc 49.9 Estimated GFR 57 Random Glucose 88 Lactic Acid 1.7 Calcium 9.1 Phosphorus 2.1 L Magnesium 1.8 Total Bilirubin 0.9 Direct Bilirubin 0.4 AST 21 ALT 12 Alkaline Phosphatase 48 Troponin I High Sens 4.5 B-Natriuretic Peptide 122 H Total Protein 6.5 Albumin 3.3 L Lipase 42 Imaging Radiologist's Impressions: Impressions Chest X-Ray 10/07/23 17:10 IMPRESSION: 1. Congestive heart failure. 2. Blunting of right costophrenic angle suggesting small pleural effusion. 3. Widened mediastinum exaggerated by AP technique unchanged. Assessment and Plan (1) Congestive heart failure: Status: Acute Plan This is a 82-year-old female with pertinent history of chronic hypoxemic respiratory failure on 3 L supplemental oxygen due to COPD, congestive heart failure with preserved ejection fraction, insulin-dependent diabetes mellitus, essential hypertension, permanent atrial fibrillation on Coumadin who presents to the emergency department for evaluation of dyspnea. #. Acute on chronic hypoxic respiratory failure due to acute on chronic diastolic congestive heart failure and decompensation of COPD: Will admit patient and continue IV Lasix. Strict I's and O's. Low-salt diet. Obtaining echo. PT eval. Also ordered IV steroids and IV azithromycin. Scheduled and p.r.n. DuoNebs. Continue home inhalers #. Insulin-dependent diabetes mellitus: Continue basal bolus insulin regimen #. Morbid obesity: Counseled regarding diet and exercise #. Essential hypertension: On losartan and diltiazem #. Permanent atrial fibrillation on Coumadin. On diltiazem #. Mixed hyperlipidemia: On statin and fibrate #. Bilateral lower extremity venous stasis: Wound care DVT prophylaxis: Coumadin Full code Admit as inpatient and will require two night minimum hospital stay for supplemental oxygen, IV diuresis (as above), which is not possible in a lesser acute setting. Quality Stroke Does the patient have a stroke diagnosis?: No VTE Prior VTE?: No VTE Risk Level:: Medical - moderate - high VTE Device Contraindication: Treatment Not Indicated VTE Drug Contraindication: N/A - Med Ordered
[2023-10-08] MEDS: Azithromycin 500 MG TABLET PO (06:05)
[2023-10-08] MEDS: methylPREDNISolone Sod Succ 40 MG/ML VIAL IVPUSH ×2 (06:06→18:33)
--- NOTE | 2023-10-08 06:09 | PC.NURSE ---
medicated per mar, applied nystatin power under bilateral breast.
--- NOTE | 2023-10-08 07:00 | CA_ITS ---
Transthoracic Echocardiogram Patient (Last, First, Middle): Sofia Farris, Gender: Female Date of : 1940 Age: 82 Procedure Date: 10/08/2023 Procedure Type: Transthoracic Echocardiogram Location: [facility] [place] Height: 152.4 cm Weight: 105.69 kg BSA: 1.99 m2 Heart Rate: bpm BP: 140 / 55 mmHg Marker Shipments: Referring MD: Gisela Henderson MD Symptoms: CHF Study Quality: Fair ECG Rhythm: Atrial Fibrillation Conclusions: - The left ventricular systolic function is hyperdynamic. The visually estimated ejection fraction is >70%. - Mildly increased right ventricular cavity size. - There is mild calcification of the aortic valve. - There is moderate mitral annular calcification. - Mild pulmonary hypertension is present. Findings Left Ventricle Normal left ventricular cavity size. There is mildly increased left ventricular wall thickness. The left ventricular systolic function is hyperdynamic. The visually estimated ejection fraction is >70%. There is no evidence of regional wall motion abnormalities. Diastolic function is indeterminate on the basis of available data. Right Ventricle Mildly increased right ventricular cavity size. There is normal right ventricular systolic function. Atria The left atrium is normal in size. The right atrium is mildly dilated. Aortic Valve There is mild calcification of the aortic valve. There is no aortic valve stenosis. There is no aortic valve regurgitation. Mitral Valve There is moderate mitral annular calcification. There is no mitral valve regurgitation. Mean gradient across the mitral valve 7 mm Hg at 122/min. Doubt any significant mitral stenosis. Pulmonic Valve The pulmonic valve is likely normal. Tricuspid Valve There is mild tricuspid valve regurgitation. Mild pulmonary hypertension is present. Great Vessels The asc aorta is normal in size. Venous The inferior vena cava is mildly dilated and collapses greater than 50% with inspiration. Pericardium/Pleural There is no evidence of pericardial effusion. Prior Study Comparison No significant change compared to prior study dated: 01/31/2023. Measurements 2D Linear Measurements IVSd: 1.23 0.6-0.9/0.6-1.0 cm LVIDd: 3.71 3.9-5.3/4.2-5.9 cm LVIDd Index: 1.86 2.4-3.2/2.2-3.1 cm/m2 LVIDs: 2.34 2.0-3.6 cm LVPWd: 1.22 0.7-1.1 cm Ao Root: 3.00 2.1-3.5 cm LA Diam: 4.20 2.7-3.8/3.0-4.0 cm LAIDs Index: 2.11 1.5-2.3 cm/m2 LV Mass: 189.99 67-162/88-224 g LV Mass Index: 95.47 43-95/49-115 g/m2 LVOT Diam: 2.00 3.0+(-)1.3 cm 2D Systolic Function EF 4C: 69.30 >55% EF 2C: 78.50 >55% EF BiP: 74.50 >55% Mitral Valve MV VTI: 0.46 MV Pk Tacos: 2.04 MV Mn Tacos: 1.16 MV Pk Grad: 17.00 MV Mn Grad: 7.00 MV Pk E: 1.40 MV Decel Time: 204.00 E'Lateral: 9.14 E'Medial: 7.94 E/E' Med: 17.60 E/E' Lat: 15.30 PHT: 60.00 MVA PHT: 3.67 MVA Continuity: 1.27 Decel Warrick: 6.85 Aortic Valve AoV Pk Tacos: 1.85 AoV Mn Tacos: 1.23 AoV VTI: 0.32 AoV Pk Grad: 14.00 Aov Mn Grad: 7.00 YASMEEN Cont.VTI: 1.83 LVOT LVOT Pk Tacos: 0.97 LVOT Mn Tacos: 0.69 LVOT VTI: 0.19 LVOT Pk Grad: 4.00 LVOT Mn Grad: 2.00 LVOT Diam: 2.00 LVOT Area: 3.14 Diastolic Function MV Pk E: 1.40 E'Medial: 7.94 E/E' Med: 17.60 E' Laterial: 9.14 E/E' Lat: 15.30 Right Ventricle TAPSE (mm): 24.00 TVS' Tacos: 12.00 Tricuspid Valve TR Pk Tacos: 3.41 TR Pk Grad: 47.00 RA Press: 3.00 RVSP: 50.00 Great Vessels Aorta Ao Root-2D: 3.00 2.0-3.7 cm Ao Asc: 3.70 2.1-3.4 cm Pulmonary Valve PV Pk Tacos: 1.66 Peak PV Grad: 11.00 IL Pk Tacos: 0.12 Updated in Other Vendor System with Status of Final Jc Snyder MD electronically signed on 10/08/2023 3:49:05 PM with status of Final
[2023-10-08 07:01] LABS: MANUAL DIFF FLAG NO
[2023-10-08 07:04] LABS: Basophils Absolute Auto 0.1 X10*3/uL (0.0-0.2); Basophils Percent Auto 0.5 % (0-2); Eosinophils Absolute Auto 0.3 X10*3/uL (0.0-0.4); Eosinophils Percent Auto 2.9 % (0-4); Hematocrit 35.6 % (37.0-47.0); Hemoglobin 11.4 g/dl (12.0-16.0); Imm Gran Abs Auto 0.05 X10*3/uL (0.00-0.03); Imm Gran Pct Auto 0.5 % (0.0-0.4); Lymphocytes Absolute Auto 1.1 X10*3/uL (1.2-4.9); Lymphocytes Percent Auto 10.7 % (20-40); Mean Corpuscular Hemoglobin 29.4 pg (27.0-33.0); Mean Corpuscular Volume 91.8 fL (80.0-98.0); Mean Platelet Volume 8.7 fL (9.4-12.3); Monocytes Absolute Auto 1.1 X10*3/uL (0.1-1.2); Monocytes Percent Auto 10.5 % (2-11); Neutrophils Absolute Auto 7.9 x10*3/uL (2.0-8.3); Neutrophils Percent Auto 74.9 % (45-73); Platelet Count 364 X10*3/uL (160-400); Red Blood Count 3.88 X10*6/uL (4.20-5.50); White Blood Count 10.5 X10*3/uL (4.8-10.8)
[2023-10-08 07:16] LABS: INTERNATIONAL NORM RATIO 2.7 (0.9-1.1); Prothrombin Time 32.6 SEC (11.1-13.3)
[2023-10-08 07:24] LABS: Glucose, Whole Blood 112 mg/dL (60-115)
[2023-10-08 07:34] LABS: Anion Gap 16 (12-20); Blood Urea Nitrogen 18 mg/dL (9-16); Calcium 9.3 mg/dL (8.4-10.2); Carbon Dioxide 26 mmol/L (22-29); Chloride 104 mmol/L (96-108); Creatinine Clr Calc Pharmacy 48.9; Estimated Glomerular Filt Rate 56; Glucose Random 122 mg/dL (60-115); Potassium 3.5 mmol/L (3.3-5.1); Sodium 142 mmol/L (135-145)
--- NOTE | 2023-10-08 07:40 | PHA.MEDREC ---
Pharmacy Consult ? Medication Reconciliation Pharmacy has completed the medication reconciliation by Akilah Alfaro.
[2023-10-08] MEDS: Albuterol/Iprat 2.5/0.5MG 3 ML AMPUL.NEB INHALE ×4 (08:24→23:42)
[2023-10-08] MEDS: Tiotropium Bromide 2.5 mcg 1 PUFF/2.5 MCG MIST.INHAL 2 PUFF INHALE (08:24)
[2023-10-08] MEDS: 0.9 % Sodium Chloride Flush 3 ML SYRINGE IVFLUSH ×3 (12:18→23:50)
[2023-10-08] MEDS: Losartan Potassium 25 MG TABLET PO (12:19)
[2023-10-08] MEDS: dilTIAZem HCL CD 180 MG CAP.ER.24H 360 MG PO (12:20)
[2023-10-08] MEDS: Atorvastatin Calcium 80 MG TABLET PO (12:20)
--- NOTE | 2023-10-08 12:25 | PC.NURSE ---
alert and oriented, respirations even and unlabored. medicated per the MAR, purewick remains in place - previously emptied 1300mL now w/ 300mL. repositioned in bed for patient's comfort. new IV established in patient's left AC. offering no other complaints at this time, call mercedes remains within reach.
--- NOTE | 2023-10-08 13:22 | PM.EVENT ---
Event Note Date of Service: 10/08/23 Event Note: Seen and evaluated this morning Feels better overall making good amount of urine decrease O2 supplement Continue nebulizers and Lasix Wean O2 as tolerated Pending Echo Time Spent With Patient Time: Total time managing care of this patient today ____ minutes.
[2023-10-08 13:42] LABS: Glucose, Whole Blood 232 mg/dL (60-115)
--- NOTE | 2023-10-08 13:50 | MHC.CM.PN ---
PT REPORTS SHE LIVES WITH HER DAUGHTER AND IS INDEPENDENT WITH SELF CARE SHE HAS A MESSENGER FLOORPERSON THAT COMES ONCE PER WEEK FOR AN HOUR TO CLEAN SHE HAS A WAKER SHE USES WHEN GOING OUTSIDE THE HOME HCP ON FILE PCP: DAVID AGGARWAL IMM DELIVERED DCP: HOME [facility] [employer]EN[employer] DTR TO TRANSPORT
[2023-10-08] MEDS: Insulin Lispro 100 UNIT/ML 3 ML VIAL SUBCUT ×3 (14:13→21:38)
--- NOTE | 2023-10-08 14:35 | PC.NURSE ---
echo is at bedside, patient requesting prn tylenol at this time
[2023-10-08 18:03] LABS: Glucose, Whole Blood 324 mg/dL (60-115)
[2023-10-08] MEDS: Warfarin Sodium 5 MG TABLET PO (18:33)
[2023-10-08] MEDS: Insulin Lispro 100 UNIT/ML 3 ML VIAL 20 UNIT SUBCUT (18:34)
--- NOTE | 2023-10-08 18:37 | PC.NURSE ---
patient medicated per the MAR, continues to rest quietly in room watching tv. offering no other complaints at this time, call mercedes within reach
[2023-10-08 21:27] LABS: Glucose, Whole Blood 280 mg/dL (60-115)
[2023-10-08] MEDS: Gabapentin 100 MG CAPSULE PO (21:37)
[2023-10-08] MEDS: Insulin Glargine,Hum.rec.anlog 100 UNIT/ML 10 ML VIAL 55 UNIT SUBCUT (21:37)
--- NOTE | 2023-10-08 21:40 | PC.NURSE ---
Medicated per sep, notified YING Frazier.
[2023-10-08] MEDS: Ammonium Lactate 12 % Lotion 226 GM BOTTLE 1 APPL TOPICAL (21:42)
--- NOTE | 2023-10-08 23:21 | PC.NURSE ---
Pt brought to overflow 8. Linens changed. Denies any pain or other complaints at this time. New pure wick applied per EDTA.
--- NOTE | 2023-10-08 23:41 | PC.NURSE ---
Vital signs done on pt, found to have oxygen saturation of 86-89% on normal 3L. Oxygen titrated up to 4L per NC, oxygen remains in high 80's. Respiratory called to bedside for breathing tx. Hospitalist Kenneth made aware via [email or web address].
[2023-10-09] VITALS (9 sets, daily range): BP systolic 111–124; BP diastolic 58–61; PULSE 71–107; RESP 16–20; TEMP 36.1–36.8; O2SAT 89–96
--- NOTE | 2023-10-09 00:09 | PC.NURSE ---
Pt still satting 88-91% after neb tx. Plan for repeat CXR and IV lasix.
[2023-10-09] MEDS: Furosemide 100 MG/10 ML VIAL 60 MG IVPUSH (00:27)
[2023-10-09] MEDS: Acetaminophen 325 MG TABLET 650 MG PO ×3 (02:11→18:15)
[2023-10-09] MEDS: methylPREDNISolone Sod Succ 40 MG/ML VIAL IVPUSH ×2 (05:33→17:42)
--- NOTE | 2023-10-09 05:44 | MHC.EDTECH ---
PATIENT WAS INCONIENT OF URINE ,CARE GIVEN ,BEDDING CHANGE ,VITALS TAKEN ,PATIENT HAS AN OLD SKIN TEAR ON HER LEFT INNER ANKLE ,WAS CLEAN AND FOAM DRESSING APPLY ,FRESH WATER GIVEN .
[2023-10-09 06:35] LABS: Anion Gap 13 (12-20); Blood Urea Nitrogen 28 mg/dL (9-16); Calcium 9.3 mg/dL (8.4-10.2); Carbon Dioxide 29 mmol/L (22-29); Chloride 99 mmol/L (96-108); Creatinine Clr Calc Pharmacy 42.6; Estimated Glomerular Filt Rate 47; Glucose Random 313 mg/dL (60-115); Potassium 4.1 mmol/L (3.3-5.1); Sodium 137 mmol/L (135-145)
[2023-10-09 07:09] LABS: Glucose, Whole Blood 270 mg/dL (60-115)
[2023-10-09] MEDS: Fenofibrate 160 MG TABLET PO (07:56)
[2023-10-09] MEDS: Atorvastatin Calcium 80 MG TABLET PO (07:56)
[2023-10-09] MEDS: 0.9 % Sodium Chloride Flush 3 ML SYRINGE IVFLUSH ×3 (07:56→20:21)
[2023-10-09] MEDS: Losartan Potassium 25 MG TABLET PO (07:56)
[2023-10-09] MEDS: Insulin Lispro 100 UNIT/ML 3 ML VIAL SUBCUT ×4 (07:57→20:20)
[2023-10-09] MEDS: Furosemide 40 MG/4 ML VIAL IVPUSH (08:01)
[2023-10-09] MEDS: Ammonium Lactate 12 % Lotion 226 GM BOTTLE 1 APPL TOPICAL ×2 (08:02→20:21)
[2023-10-09 08:21] LABS: INTERNATIONAL NORM RATIO 2.1 (0.9-1.1)
[2023-10-09] MEDS: Albuterol/Iprat 2.5/0.5MG 3 ML AMPUL.NEB INHALE ×4 (08:23→19:55)
[2023-10-09] MEDS: Tiotropium Bromide 2.5 mcg 1 PUFF/2.5 MCG MIST.INHAL 2 PUFF INHALE (08:23)
[2023-10-09] MEDS: dilTIAZem HCL CD 180 MG CAP.ER.24H 360 MG PO (09:11)
[2023-10-09] MEDS: Azithromycin 500 MG TABLET PO (09:11)
--- NOTE | 2023-10-09 09:28 | HO.PM.IMPN ---
Subjective Subjective Date of Service: 10/09/23 Interval History: Seen and evaluated this morning reporting SOB and dyspnea still having wheezes Review of Systems Review of Systems: Yes all other systems are reviewed and are negative Physical Exam Vital Signs: Vital Signs: Last Vital Signs Temp 97.2 F 10/09/23 05:26 Pulse 107 H 10/09/23 08:26 Resp 18 10/09/23 08:26 BP 124/61 10/09/23 05:26 Pulse Ox 94 10/09/23 05:26 O2 Del Method Nasal Cannula 10/09/23 05:26 O2 Flow Rate 4 10/09/23 05:26 Oxygen Flow Rate 3 10/07/23 15:51 BMI result Body Mass Index 45.7 Const: Other: Constitutional : Awake, interactive, not in distress Neck : Normal inspection, Supple Cardiovascular : RRR, no JVP, trace bilateral lower extremity edema Respiratory : good bilateral air entry, no crackles, expiratory wheezes, on O2 supplement Gastrointestinal: soft, lax, Normal bowel sounds, Non tender Skin : Warm, Dry Neurological : Alert & oriented x3, No focal deficit Objective Data Active Medications Acetaminophen (Acetaminophen 325 Mg Tablet) 650 mg PO Q6H PRN PRN Reason: Pain, Mild (Pain Scale 1-3) Last Admin: 10/09/23 02:11 Dose: 650 mg Documented By: PAUL Albuterol Sulfate (Albuterol Sulfate 90 Mcg 8 Gm Inhaler) 2 puff INHALE Q4H PRN PRN Reason: wheezing Albuterol/Ipratropium (Albuterol/Iprat 2.5/0.5mg 3 Ml Ampul.Neb) 3 ml INHALE RQ4H WHILE AWAKE [facility] Last Admin: 10/09/23 08:23 Dose: 3 ml Documented By: KAYA Albuterol/Ipratropium (Albuterol/Iprat 2.5/0.5mg 3 Ml Ampul.Neb) 3 ml INHALE Q4H PRN PRN Reason: Wheezing Last Admin: 10/08/23 23:42 Dose: 3 ml Documented By: TITUS Atorvastatin Calcium (Atorvastatin Calcium 80 Mg Tablet) 80 mg PO DAILY [facility] Last Admin: 10/09/23 07:56 Dose: 80 mg Documented By: GRECIA Azithromycin (Azithromycin 500 Mg Tablet) 500 mg PO DAILY [facility] Last Admin: 10/09/23 09:11 Dose: 500 mg Documented By: GRECIA Dextrose (Dextrose 50 % 25 Gm/50 Ml Syringe) 25 gm IVPUSH Q15M PRN; Protocol PRN Reason: per Hypoglycemia Standing Ord. Diltiazem HCl (Diltiazem Hcl Cd 180 Mg Cap.Er.24h) 360 mg PO DAILY [facility]; Protocol Last Admin: 10/09/23 09:11 Dose: 360 mg Documented By: GRECIA Fenofibrate (Fenofibrate 160 Mg Tablet) 160 mg PO DAILY [facility] Last Admin: 10/09/23 07:56 Dose: 160 mg Documented By: GRECIA Furosemide (Furosemide 40 Mg/4 Ml Vial) 40 mg IVPUSH BID@0900,1800 [facility]; Protocol Last Admin: 10/09/23 08:01 Dose: 40 mg Documented By: GRECIA Gabapentin (Gabapentin 100 Mg Capsule) 100 mg PO BEDTIME [facility] Last Admin: 10/08/23 21:37 Dose: 100 mg Documented By: CARMEN Glucose (Glucose Gel 15 Gm Gel..Gram.) 15 gm PO Q15M PRN; Protocol PRN Reason: per Hypoglycemia Standing Ord. Insulin Glargine (Insulin Glargine,Hum.Rec.Anlog 100 Unit/Ml 10 Ml Vial) 55 unit SUBCUT BEDTIME [facility] Last Admin: 10/08/23 21:37 Dose: 55 unit Documented By: CARMEN Insulin Human Lispro (Insulin Lispro 100 Unit/Ml 3 Ml Vial) 0 unit SUBCUT QIDACHS [facility]; Protocol Last Admin: 10/09/23 07:57 Dose: 6 unit Documented By: GRECIA Lactic Acid (Ammonium Lactate 12 % Lotion 226 Gm Bottle) 1 appl TOPICAL BID [facility]; Protocol Last Admin: 10/09/23 08:02 Dose: 1 appl Documented By: GRECIA Losartan Potassium (Losartan Potassium 25 Mg Tablet) 25 mg PO DAILY [facility]; Protocol Last Admin: 10/09/23 07:56 Dose: 25 mg Documented By: GRECIA Melatonin (Melatonin 3 Mg Tablet) 6 mg PO BEDTIME PRN PRN Reason: Insomnia Methylprednisolone Sodium Succinate (Methylprednisolone Sod Succ 40 Mg/Ml Vial) 40 mg IVPUSH Q12H [facility] Last Admin: 10/09/23 05:33 Dose: 40 mg Documented By: PAUL Ondansetron HCl (Ondansetron Hcl 4 Mg/2 Ml Vial) 4 mg IVPUSH Q8H PRN PRN Reason: Nausea and Vomiting Sodium Chloride (0.9 % Sodium Chloride Flush 3 Ml Syringe) 3 ml IVFLUSH QSHIFT [facility] Last Admin: 10/09/23 07:56 Dose: 3 ml Documented By: GRECIA Tiotropium [place] (Tiotropium [place] 2.5 Mcg 1 Puff/2.5 Mcg Mist.Inhal) 2 puff INHALE RDAILY [facility] Last Admin: 10/09/23 08:23 Dose: 2 puff Documented By: KAYA Warfarin Sodium (Warfarin Sodium 5 Mg Tablet) 5 mg PO DAILY@1800 [facility] Last Admin: 10/08/23 18:33 Dose: 5 mg Documented By: JITENDRAMA Labs 10/08/23 06:48 10/09/23 05:53 Labs: Laboratory Results - last 24 hr 10/08/23 10/08/23 10/08/23 13:36 17:58 21:24 PT INR Anion Gap Estim Creat Clear Calc Estimated GFR POC Glucose 232 H 324 H 280 H Random Glucose Calcium 10/09/23 10/09/23 10/09/23 05:53 07:05 07:54 PT 26.0 H D INR 2.1 H Anion Gap 13 Estim Creat Clear Calc 42.6 Estimated GFR 47 POC Glucose 270 H Random Glucose 313 H Calcium 9.3 Assessment and Plan (1) Physical deconditioning: Status: Acute (2) Congestive heart failure: Status: Acute (3) COPD (chronic obstructive pulmonary disease): Status: Inactive (4) Hypoxia: Status: Resolved Plan This is a 82-year-old female with pertinent history of chronic hypoxemic respiratory failure on 3 L supplemental oxygen due to COPD, congestive heart failure with preserved ejection fraction, insulin-dependent diabetes mellitus, essential hypertension, permanent atrial fibrillation on Coumadin who presents to the emergency department for evaluation of dyspnea. # Acute on chronic hypoxic respiratory failure due to acute on chronic dCHF and COPD exacerbation Continue IV Lasix. Strict I's and O's. Low-salt diet. Echo. PT eval. Continue IV steroids and IV azithromycin. Scheduled and p.r.n. DuoNebs. home inhalers Wean O2 to baseline 3L # Insulin-dependent diabetes mellitus: Continue basal bolus insulin regimen # Morbid obesity: Counseled regarding diet and exercise # Essential hypertension: losartan and diltiazem # Permanent atrial fibrillation Continue Coumadin. On diltiazem # Mixed hyperlipidemia On statin and fibrate # Bilateral lower extremity venous stasis Wound care DVT prophylaxis: Coumadin Full code Admit as inpatient and will require overnight hospital stay for supplemental oxygen, IV diuresis (as above) and nebulizer treatment which is not possible in a lesser acute setting. Quality Stroke Does the patient have a stroke diagnosis?: No VTE Prior VTE?: No VTE Risk Level:: Medical - moderate - high VTE Device Contraindication: Treatment Not Indicated VTE Drug Contraindication: N/A - Med Ordered
[2023-10-09 11:12] LABS: Glucose, Whole Blood 434 mg/dL (60-115)
[2023-10-09] MEDS: Insulin Lispro 100 UNIT/ML 3 ML VIAL 10 UNIT SUBCUT (11:35)
--- NOTE | 2023-10-09 12:08 | PC.NURSE ---
Addendum entered by Sonya Joshua RN 10/09/23 15:44: Pt transferred to Med Surg. Report given to YING Saunders Original Note: Pt A/Ox4. PT shazia completed, currently up in recliner. Awaiting bed on Med Surg, PRN tylenol given for back pain
[2023-10-09 16:14] LABS: Glucose, Whole Blood 466 mg/dL (60-115)
[2023-10-09] MEDS: Insulin Lispro 100 UNIT/ML 3 ML VIAL 20 UNIT SUBCUT ×2 (17:08→20:20)
[2023-10-09] MEDS: Warfarin Sodium 5 MG TABLET PO (17:43)
[2023-10-09 17:55] LABS: Glucose, Whole Blood 520 mg/dL (60-115)
--- NOTE | 2023-10-09 18:02 | PC.NURSE ---
POC before dinner is 466, aware and ordered additional 20 units on top of 10 units SSI, POC rechecked about 40 mins after insulin was given and found to be 520, aware and instructed to recheck POC again in 30 mins
[2023-10-09 19:05] LABS: Glucose, Whole Blood 465 mg/dL (60-115)
[2023-10-09 20:08] LABS: Glucose, Whole Blood 456 mg/dL (60-115)
[2023-10-09] MEDS: Gabapentin 100 MG CAPSULE PO (20:19)
[2023-10-09] MEDS: Melatonin 3 MG TABLET 6 MG PO (20:20)
[2023-10-09] MEDS: Insulin Glargine,Hum.rec.anlog 100 UNIT/ML 10 ML VIAL 75 UNIT SUBCUT (20:20)
[2023-10-10] VITALS (8 sets, daily range): BP systolic 125–145; BP diastolic 65–80; PULSE 63–91; RESP 17–20; TEMP 36.4–36.8; O2SAT 90–97
--- NOTE | 2023-10-10 | ECG_ITS ---
Test Reason : Chest pain Blood Pressure : / mmHG Vent. Rate : 083 BPM Atrial Rate : 000 BPM P-R Int : 000 ms QRS Dur : 062 ms QT Int : 358 ms P-R-T Axes : 000 090 053 degrees QTc Int : 420 ms Atrial fibrillation Rightward axis Abnormal ECG When compared with ECG of 07-OCT-2023 16:42, No significant changes seen Referred By: Conner Kenyon Electronically Signed By:LEONARDO MANLEY
[2023-10-10] MEDS: methylPREDNISolone Sod Succ 40 MG/ML VIAL IVPUSH ×2 (05:37→17:22)
[2023-10-10 06:01] LABS: Hematocrit 34.9 % (37.0-47.0); Hemoglobin 11.2 g/dl (12.0-16.0); Mean Corpuscular HGB Conc 32.1 g/dl (31.0-35.0); Mean Corpuscular Hemoglobin 29.2 pg (27.0-33.0); Mean Corpuscular Volume 91.1 fL (80.0-98.0); Mean Platelet Volume 9.2 fL (9.4-12.3); Platelet Count 407 X10*3/uL (160-400); Red Blood Count 3.83 X10*6/uL (4.20-5.50); Red Cell Distribution Width 16.4 % (11.0-16.0); White Blood Count 13.4 X10*3/uL (4.8-10.8)
[2023-10-10 06:16] LABS: Anion Gap 16 (12-20); Blood Urea Nitrogen 42 mg/dL (9-16); Calcium 9.4 mg/dL (8.4-10.2); Carbon Dioxide 30 mmol/L (22-29); Chloride 94 mmol/L (96-108); Creatinine Clr Calc Pharmacy 29.7; Estimated Glomerular Filt Rate 31; Glucose Random 336 mg/dL (60-115); Potassium 4.5 mmol/L (3.3-5.1); Sodium 135 mmol/L (135-145)
[2023-10-10 06:35] LABS: INTERNATIONAL NORM RATIO 2.7 (0.9-1.1); Prothrombin Time 32.8 SEC (11.1-13.3)
[2023-10-10 06:57] LABS: Glucose, Whole Blood 300 mg/dL (60-115)
[2023-10-10] MEDS: Azithromycin 500 MG TABLET PO (07:51)
[2023-10-10] MEDS: Atorvastatin Calcium 80 MG TABLET PO (07:51)
[2023-10-10] MEDS: Losartan Potassium 25 MG TABLET PO (07:51)
[2023-10-10] MEDS: dilTIAZem HCL CD 180 MG CAP.ER.24H 360 MG PO (07:51)
[2023-10-10] MEDS: Fenofibrate 160 MG TABLET PO (07:51)
[2023-10-10] MEDS: Insulin Lispro 100 UNIT/ML 3 ML VIAL SUBCUT ×4 (07:52→21:01)
[2023-10-10] MEDS: Furosemide 40 MG/4 ML VIAL IVPUSH (07:52)
[2023-10-10] MEDS: 0.9 % Sodium Chloride Flush 3 ML SYRINGE IVFLUSH ×3 (07:52→22:36)
[2023-10-10] MEDS: Insulin Lispro 100 UNIT/ML 3 ML VIAL 20 UNIT SUBCUT ×4 (07:52→21:02)
[2023-10-10] MEDS: Ammonium Lactate 12 % Lotion 226 GM BOTTLE 1 APPL TOPICAL ×2 (07:53→21:02)
[2023-10-10] MEDS: Albuterol/Iprat 2.5/0.5MG 3 ML AMPUL.NEB INHALE ×4 (08:40→20:33)
[2023-10-10] MEDS: Tiotropium Bromide 2.5 mcg 1 PUFF/2.5 MCG MIST.INHAL 2 PUFF INHALE (08:45)
[2023-10-10] MEDS: Acetaminophen 325 MG TABLET 650 MG PO ×3 (09:35→22:34)
[2023-10-10 11:31] LABS: Glucose, Whole Blood 377 mg/dL (60-115)
--- NOTE | 2023-10-10 11:33 | MHC.CLN ---
NUTRITION ADDED DM 1800 KCALS TO DIET ORDER. DIET=DIABETIC 1800 KCALS, CARDIAC.
--- NOTE | 2023-10-10 12:33 | P.CDIM_ITS ---
PROVIDER RESPONSE TEXT: To clarify, the appropriate diagnosis supported by the clinical indicators: DM with Hyperglycemia QUERY TEXT: PHYSICIAN'S DOCUMENTATION REQUEST Date of Query: 10/09/2023 08:38 AM EDT Patient Name: Sofia Farris Admit Date: 10/08/2023 Dear Sylvia Elkins, A review of the medical record indicates additional documentation may be needed. Please review below and update the documentation accordingly. Clinical Indicators: Glucose on 10/08/23: 232, 324, 280 Glucose on 10/09/23: 270 On Insulin as directed Please clarify the following regarding the Complications of Diabetes Mellitus (DM): DM with Hyperglycemia No complications of DM Other (explain) Clinically unable to determine (explain) Thank you, Maren Bender RN Use of terms such as suspected, likely, concern for, or probable (associated with a specific diagnosi s that is being evaluated, monitored, or treated as if it exists) are acceptable and can be coded in the inpatient se tting, when documented at the time of discharge. Please use your independent medical judgment in providing your response. THIS QUERY IS PART OF THE PERMANENT MEDICAL RECORD
--- NOTE | 2023-10-10 13:10 | MHC.CM.PN ---
pt accepted at [facility] they are lesa greenter aware
--- NOTE | 2023-10-10 13:25 | P.PNIM_ITS ---
Subjective Subjective Date of Service: 10/10/23 Interval History: Seen and evaluated this morning improving SOB and dyspnea no more wheezes no overnight events Review of Systems Review of Systems: Yes all other systems are reviewed and are negative Physical Exam 2 Vital Signs: Vital Signs: Last Vital Signs Temp 98 F 10/10/23 06:42 Pulse 82 10/10/23 12:01 Resp 20 10/10/23 12:01 BP 140/80 H 10/10/23 06:42 Pulse Ox 97 10/10/23 06:42 O2 Del Method Nasal Cannula 10/10/23 06:42 O2 Flow Rate 2 10/10/23 06:42 Oxygen Flow Rate 3 10/07/23 15:51 BMI result Body Mass Index 45.7 Const: Other: Constitutional : Awake, interactive, not in distress Neck : Normal inspection, Supple Cardiovascular : RRR, no JVP, trace bilateral lower extremity edema Respiratory : good bilateral air entry, no crackles, scattered expiratory wheezes, on O2 supplement Gastrointestinal: soft, lax, Normal bowel sounds, Non tender Skin : Warm, Dry Neurological : Alert & oriented x3, No focal deficit Objective Data Active Medications Acetaminophen (Acetaminophen 325 Mg Tablet) 650 mg PO Q6H PRN PRN Reason: Pain, Mild (Pain Scale 1-3) Last Admin: 10/10/23 09:35 Dose: 650 mg Documented By: CHRISSY Albuterol Sulfate (Albuterol Sulfate 90 Mcg 8 Gm Inhaler) 2 puff INHALE Q4H PRN PRN Reason: wheezing Albuterol/Ipratropium (Albuterol/Iprat 2.5/0.5mg 3 Ml Ampul.Neb) 3 ml INHALE RQ4H WHILE AWAKE [facility] Last Admin: 10/10/23 12:01 Dose: 3 ml Documented By: PATRICIA Albuterol/Ipratropium (Albuterol/Iprat 2.5/0.5mg 3 Ml Ampul.Neb) 3 ml INHALE Q4H PRN PRN Reason: Wheezing Last Admin: 10/08/23 23:42 Dose: 3 ml Documented By: TITUS Atorvastatin Calcium (Atorvastatin Calcium 80 Mg Tablet) 80 mg PO DAILY [facility] Last Admin: 10/10/23 07:51 Dose: 80 mg Documented By: CHRISSY Azithromycin (Azithromycin 500 Mg Tablet) 500 mg PO DAILY [facility] Last Admin: 10/10/23 07:51 Dose: 500 mg Documented By: CHRISSY Dextrose (Dextrose 50 % 25 Gm/50 Ml Syringe) 25 gm IVPUSH Q15M PRN; Protocol PRN Reason: per Hypoglycemia Standing Ord. Diltiazem HCl (Diltiazem Hcl Cd 180 Mg Cap.Er.24h) 360 mg PO DAILY [facility]; Protocol Last Admin: 10/10/23 07:51 Dose: 360 mg Documented By: CHRISSY Fenofibrate (Fenofibrate 160 Mg Tablet) 160 mg PO DAILY [facility] Last Admin: 10/10/23 07:51 Dose: 160 mg Documented By: CHRISSY Furosemide (Furosemide 40 Mg/4 Ml Vial) 40 mg IVPUSH DAILY [facility]; Protocol Last Admin: 10/10/23 07:52 Dose: 40 mg Documented By: CHRISSY Gabapentin (Gabapentin 100 Mg Capsule) 100 mg PO BEDTIME [facility] Last Admin: 10/09/23 20:19 Dose: 100 mg Documented By: PEÑA Glucose (Glucose Gel 15 Gm Gel..Gram.) 15 gm PO Q15M PRN; Protocol PRN Reason: per Hypoglycemia Standing Ord. Insulin Glargine (Insulin Glargine,Hum.Rec.Anlog 100 Unit/Ml 10 Ml Vial) 75 unit SUBCUT BEDTIME [facility] Last Admin: 10/09/23 20:20 Dose: 75 unit Documented By: PEÑA Insulin Human Lispro (Insulin Lispro 100 Unit/Ml 3 Ml Vial) 0 unit SUBCUT QIDACHS [facility]; Protocol Last Admin: 10/10/23 11:47 Dose: 10 unit Documented By: CHRISSY Insulin Human Lispro (Insulin Lispro 100 Unit/Ml 3 Ml Vial) 20 unit SUBCUT QIDACHS [facility] Last Admin: 10/10/23 11:48 Dose: 20 unit Documented By: CHRISSY Lactic Acid (Ammonium Lactate 12 % Lotion 226 Gm Bottle) 1 appl TOPICAL BID [facility]; Protocol Last Admin: 10/10/23 07:53 Dose: 1 appl Documented By: CHRISSY Losartan Potassium (Losartan Potassium 25 Mg Tablet) 25 mg PO DAILY [facility]; Protocol Last Admin: 10/10/23 07:51 Dose: 25 mg Documented By: CHRISSY Melatonin (Melatonin 3 Mg Tablet) 6 mg PO BEDTIME PRN PRN Reason: Insomnia Last Admin: 10/09/23 20:20 Dose: 6 mg Documented By: COTEMA Methylprednisolone Sodium Succinate (Methylprednisolone Sod Succ 40 Mg/Ml Vial) 40 mg IVPUSH Q12H [facility] Last Admin: 10/10/23 05:37 Dose: 40 mg Documented By: COTEMA Ondansetron HCl (Ondansetron Hcl 4 Mg/2 Ml Vial) 4 mg IVPUSH Q8H PRN PRN Reason: Nausea and Vomiting Sodium Chloride (0.9 % Sodium Chloride Flush 3 Ml Syringe) 3 ml IVFLUSH QSHIFT [facility] Last Admin: 10/10/23 07:52 Dose: 3 ml Documented By: CHRISSY Tiotropium [place] (Tiotropium [place] 2.5 Mcg 1 Puff/2.5 Mcg Mist.Inhal) 2 puff INHALE RDAILY [facility] Last Admin: 10/10/23 08:45 Dose: 2 puff Documented By: KAYA Warfarin Sodium (Warfarin Sodium 5 Mg Tablet) 5 mg PO DAILY@1800 [facility] Last Admin: 10/09/23 17:43 Dose: 5 mg Documented By: CHRISSY Labs 10/10/23 05:24 10/10/23 05:24 Labs: Laboratory Results - last 24 hr 10/09/23 10/09/23 10/09/23 16:10 17:48 19:00 MCV MCH MCHC RDW Plt Count MPV Absolute Nucleated RBC Nucleated RBC % (auto) PT INR Anion Gap Estim Creat Clear Calc Estimated GFR POC Glucose 466 H* 520 H* 465 H* Random Glucose Calcium 10/09/23 10/10/23 10/10/23 19:34 05:24 06:54 MCV 91.1 MCH 29.2 MCHC 32.1 RDW 16.4 H Plt Count 407 H MPV 9.2 L Absolute Nucleated RBC 0.000 Nucleated RBC % (auto) 0.0 PT 32.8 H D INR 2.7 H Anion Gap 16 Estim Creat Clear Calc 29.7 Estimated GFR 31 POC Glucose 456 H* 300 H Random Glucose 336 H Calcium 9.4 10/10/23 11:25 MCV MCH MCHC RDW Plt Count MPV Absolute Nucleated RBC Nucleated RBC % (auto) PT INR Anion Gap Estim Creat Clear Calc Estimated GFR POC Glucose 377 H* Random Glucose Calcium Assessment and Plan (1) Physical deconditioning: Status: Acute (2) Congestive heart failure: Status: Acute (3) COPD exacerbation: Status: Acute Plan This is a 82-year-old female with pertinent history of chronic hypoxemic respiratory failure on 3 L supplemental oxygen due to COPD, congestive heart failure with preserved ejection fraction, insulin-dependent diabetes mellitus, essential hypertension, permanent atrial fibrillation on Coumadin who presents to the emergency department for evaluation of dyspnea. # Acute on chronic hypoxic respiratory failure due to acute on chronic dCHF and COPD exacerbation Improving Echo w EF 70% Change to PO Lasix. Strict I's and O's. Low-salt diet. # COPD exacerbation Continue IV steroids and IV azithromycin. Scheduled and p.r.n. DuoNebs. home inhalers Wean O2 to baseline 3L # PHysical deconditioning PT rec STR # Insulin-dependent diabetes mellitus: Continue basal bolus insulin regimen # Morbid obesity: Counseled regarding diet and exercise # Essential hypertension: losartan and diltiazem # Permanent atrial fibrillation Continue Coumadin. On diltiazem # Mixed hyperlipidemia On statin and fibrate # Bilateral lower extremity venous stasis Wound care DVT prophylaxis: Coumadin Full code Admit as inpatient and will require overnight hospital stay for supplemental oxygen, IV diuresis (as above) and nebulizer treatment which is not possible in a lesser acute setting. Quality Stroke Does the patient have a stroke diagnosis?: No VTE Prior VTE?: No VTE Risk Level:: Medical - moderate - high VTE Device Contraindication: Treatment Not Indicated VTE Drug Contraindication: N/A - Med Ordered
--- NOTE | 2023-10-10 14:58 | HO.WOUND ---
Wound Consult: Initial 82yr old? [place] [facility] [place] See progress notes and H&P for detailed history.? Wound consult placed for Bilateral Breast Folds, Abdominal skin fold and Bilateral Lower Legs. Patient agreeable to assessment and photo documentation.? Bilateral Breast folds and abdominal skin fold assessed for pink mirrored erythema - no yeast odor noted at the time of my assessment - no s/s of fungal invasion noted - MASD (Moisture Associated Skin Damage noted) recommend Interdry to wick moisture away from skin fold. Bilateral heels assessed no pressure injury noted - recommend elevate feels off of bed surface with pillows and consider foam application for preventative measures. Left Medial Ankle Etiology: ?Venous Dermatitis Wound Measurements: see charting for detailed measurements Wound Bed: pale pink moist wound bed with moist yellow slough noted Drainage / Odor: creamy yellow drainage noted on dressing dried crusted drainage to wound edge - No odor noted Edges: ?Linear María Elena wound: dry thickened epidermal layer -evidence of previous swelling - No Induration, Fluctuance or Warmth noted Pain: pain reported Goals of Treatment: ? Moist wound healing for autolytic debridement Bilateral Lower Legs Etiology: ?Venous Dermatitis Wounds Measurements: various sites in various sizes in various stages Wound Bed: dried crusted marr yellow scabs Drainage / Odor: None Edges: well defined María Elena wound: dry thickened epidermal layer -evidence of previous swelling - No Induration, Fluctuance or Warmth noted Pain: pain reported Goals of Treatment: ? Moist wound healing for autolytic debridement Recommendations: 1. Turn and Reposition every 2 hours and as needed for patient comfort.? Use pillows or wedges to support off loading positions. 2. Off Load all bony prominences with use of pillows and heel boots if needed.? Apply Preventative foams where needed. ? 3. Monitor for incontinence and moisture control, use barrier creams when needed for prevention and treatment. 4. Provide adequate and supplemental nutrition.? 5. Order low air loss mattress. 6. When applicable maintain blood glucose levels per Providers order. 7. Bilateral Breast Skin folds and Abdominal skin folds - Routine cleansing, dry well. Tuck Interdry AG Sheet into skin fold to wick and translocate moisture away from skin fold.? Be sure to leave at least 2 inch of fabric exposed outside of skin fold.? Change when soiled. 8. Left Medial Ankle - Cleanse with NS, Pat dry.? Apply barrier to periwound, apply Durafiber AG, cover with dry gauze and ABD pad, and gauze wrap.? Change Daily. 9. Bilateral Lower Legs - Elevate lower legs off of surface of bed with use of pillows.? Cleanse with NS, Pat dry.? Apply vaseline to both legs, apply layer of Xeroform to open wound beds secure with ABD pad, gauze wrap and tape.? Change Daily. Re-consult wound care Nurse for wound deterioration or wound changes.
--- NOTE | 2023-10-10 15:27 | MHC.CM.PN ---
pt to [facility] today at [address] notifed
--- NOTE | 2023-10-10 15:41 | PM.DS ---
DS: Providers Provider Date of Service: 10/10/23 Date of admission: 10/08/23 04:58 Primary care physician: Miracle Tijerina MD Consults: 10/07/23 18:02 Consult to Case Management Stat Comment: 10/09/23 18:12 Consult to Wound Care Routine Reason for consultation: lower extremity venous stasis/ulcers, ? fungal rash under breasts, abd fold DS: Diagnosis Discharge Diagnosis (1) Physical deconditioning: Status: Acute (2) Congestive heart failure: Status: Acute (3) COPD exacerbation: Status: Acute DS: Summary Hospital Course Hospital Course: Admission note HPI This is a 82-year-old female with pertinent history of chronic hypoxemic respiratory failure on 3 L supplemental oxygen due to COPD, congestive heart failure with preserved ejection fraction, insulin-dependent diabetes mellitus, essential hypertension, permanent atrial fibrillation on Coumadin who presents to the emergency department for evaluation of dyspnea. Patient states her dyspnea has worsened over the last couple of days with worsening edema of lower extremities. Admits orthopnea. Also has been having cough with intermittent sputum production. No fevers or chills. Patient did not follow-up with her doctor appointments. Of note, patient was recently admitted and discharged on 07/17/2023 with exacerbation of CHF and decompensation of COPD. No chest discomfort, palpitations, abdominal pain, changes in urinary bowel habits. In the emergency department, BNP found to be elevated and imaging concerning for pulmonary edema. Patient was found to be satting in the 80s on her 3 L supplemental oxygen. Hospital course The patient was admitted for treatment of acute on chronic hypoxic respiratory failure due to acute on chronic dCHF and COPD exacerbation. She recieved IV lasix, IV steroid along with nebulizers and O2 supplement with good response over the course of hospital stay. Echo was done with EF 70%. She was able to participate with PT on 2L O2 which is around her home supplement (2-3L) who recommended short term rehab. Continue Prednisone and Azithromycin for 3 more days Low sodium diet Monitor your weight and report any gain to PCP Time Attestation Discharge Coordination Time (in mins): 34 Quality: Safe Use of Opioids Does Pt have an Active Cancer Diagnosis on the Problem List?: No Quality: Stroke Does the patient have a stroke diagnosis?: No Physical Exam Vital Signs: Vital Signs: Last Vital Signs Temp 97.5 F 10/10/23 15:24 Pulse 81 10/10/23 15:38 Resp 18 10/10/23 15:38 BP 125/65 10/10/23 15:24 Pulse Ox 94 10/10/23 15:24 O2 Del Method Nasal Cannula 10/10/23 15:24 O2 Flow Rate 2 10/10/23 15:24 Oxygen Flow Rate 3 10/07/23 15:51 BMI result Body Mass Index 45.7 Const: Other: Constitutional : Awake, interactive, not in distress Neck : Normal inspection, Supple Cardiovascular : RRR, no JVP, trace bilateral lower extremity edema Respiratory : good bilateral air entry, no crackles, no wheezes, on O2 supplement Gastrointestinal: soft, lax, Normal bowel sounds, Non tender Skin : Warm, Dry Neurological : Alert & oriented x3, No focal deficit DS: Data Data Completed and Pending Labs on day of discharge: Laboratory Results - last 24 hr 10/09/23 10/09/23 10/09/23 16:10 17:48 19:00 WBC RBC Hgb Hct MCV MCH MCHC RDW Plt Count MPV Absolute Nucleated RBC Nucleated RBC % (auto) PT INR Sodium Potassium Chloride Carbon Dioxide Anion Gap BUN Creatinine Estim Creat Clear Calc Estimated GFR POC Glucose 466 H* 520 H* 465 H* Random Glucose Calcium 10/09/23 10/10/23 10/10/23 19:34 05:24 06:54 WBC 13.4 H RBC 3.83 L Hgb 11.2 L Hct 34.9 L MCV 91.1 MCH 29.2 MCHC 32.1 RDW 16.4 H Plt Count 407 H MPV 9.2 L Absolute Nucleated RBC 0.000 Nucleated RBC % (auto) 0.0 PT 32.8 H D INR 2.7 H Sodium 135 Potassium 4.5 Chloride 94 L Carbon Dioxide 30 H Anion Gap 16 BUN 42 H Creatinine 1.58 H Estim Creat Clear Calc 29.7 Estimated GFR 31 POC Glucose 456 H* 300 H Random Glucose 336 H Calcium 9.4 10/10/23 11:25 WBC RBC Hgb Hct MCV MCH MCHC RDW Plt Count MPV Absolute Nucleated RBC Nucleated RBC % (auto) PT INR Sodium Potassium Chloride Carbon Dioxide Anion Gap BUN Creatinine Estim Creat Clear Calc Estimated GFR POC Glucose 377 H* Random Glucose Calcium Imaging Chest x-ray: Radiologist's impression: ITS Impressions Chest X-Ray 10/07/23 17:10 IMPRESSION: 1. Congestive heart failure. 2. Blunting of right costophrenic angle suggesting small pleural effusion. 3. Widened mediastinum exaggerated by AP technique unchanged. Chest X-Ray 10/09/23 00:19 IMPRESSION: Cardiomegaly with mild CHF, minimally improved when compared to yesterday's exam. Discharge Plan Discharge Anticipated Discharge Date/Time: 10/10/23 15:37 Patient Disposition: [facility] Discharge Diagnosis: COPD exacerbation CHF exacerbation Referrals: [facility] [Other] - 1 Week Miracle Tijerina MD [Primary Care Provider] - 1 Week Discharge Medications: New azithromycin 500 mg Tablet 500 mg PO DAILY Qty: 3 0RF prednisone 20 mg tablet 40 mg PO DAILY Qty: 6 0RF Continued tiotropium bromide [Spiriva with HandiHaler] 18 mcg Capsule, W/Inhalation Device 1 cap INHALATION DAILY Rx Instructions: puncture 1 cap using device; one dose = 2 inhalations ammonium lactate 12 % Lotion 1 appl topical BID Qty: 225 2RF Protocol: Apply to: Apply to: Lower extremities atorvastatin 80 mg tablet 80 mg PO DAILY diltiazem HCl [Tiadylt ER] 360 mg capsule,extended release 24 hr 360 mg PO DAILY warfarin 5 mg tablet 5 mg PO DAILY@1800 losartan 25 mg tablet 25 mg PO DAILY furosemide 20 mg tablet 20 mg PO DAILY gabapentin 100 mg capsule 100 mg PO BEDTIME albuterol sulfate 90 mcg/actuation HFA aerosol inhaler 2 puff inhalation Q4H PRN (Reason: wheezing) insulin lispro [Humalog KwikPen Insulin] 100 unit/mL insulin pen 30 unit subcut TIDAC fenofibrate 160 mg tablet 160 mg PO DAILY insulin glargine [Lantus Solostar U-100 Insulin] 100 unit/mL (3 mL) insulin pen 80 unit subcut BEDTIME Discharge Orders: Discharge Order (Routine); Ordered 10/10/23 Ordered By: Sylvia Elkins Diet: Low salt diet Activity on Discharge: As tolerated Stand Alone Forms: Patient Portal Discharge page Care Plan Goals: Read below Health Concerns: Read below Plan of Treatment: Read below Assessment: You were treated for heart failure and COPD exacerbation with Lasix, steroids and nebulizers with good response over the course of hospital stay. Continue Prednisone and Azithromycin for 3 more days Low sodium diet Monitor your weight and report any gain to PCP
[2023-10-10 16:21] LABS: Glucose, Whole Blood 339 mg/dL (60-115)
[2023-10-10] MEDS: Warfarin Sodium 5 MG TABLET PO (17:22)
--- NOTE | 2023-10-10 20:18 | PC.NURSE ---
Addendum entered by Shaina North RN 10/10/23 20:31: EKG obtained and presented to [facility] . Appears no changes from previous. Original Note: Patient scheduled to leave to a rehab at 8 PM via ambulance. States does not want to go because is not feeling good, has a chest tightness and is tired. Conner Kenyon hospitalist PA at bedside , [facility] will order troponin and EKG and patient is to stay at the hospital tonight. VS stable, patient states increase pain with deep breaths. Orders in progress, ambulance cancelled, patients daughter Joselyn notified, few attempts to call the rehab [facility] in [place] to notify them but no one is answering.
[2023-10-10 20:32] LABS: Glucose, Whole Blood 356 mg/dL (60-115)
--- NOTE | 2023-10-10 20:33 | P.EN_ITS ---
Event Note Date of Service: 10/10/23 Event Note: Patient seen and evaluated for complaints of ?not feeling well?. Patient complaining of sharp, stabbing left-sided chest pain which she says she occasionally gets. Reports began around 15 minutes ago. Pain was reproducible with palpation over anterior left-sided chest wall. Ordered EKG and troponin. EKG unremarkable: Showed atrial fibrillation without significant ST elevations or depressions, similar to previous. Patient was set to be discharged to [facility] rehab tonight at 20:00, however does not feel she is ready to leave. Chest pain likely secondary to anxiety. Will be re-evaluated for discharge tomorrow a.m.. Time Spent With Patient Time: Total time managing care of this patient today ____ minutes.
[2023-10-10] MEDS: Insulin Glargine,Hum.rec.anlog 100 UNIT/ML 10 ML VIAL 75 UNIT SUBCUT (21:01)
[2023-10-10] MEDS: Gabapentin 100 MG CAPSULE PO (21:01)
[2023-10-10] MEDS: LORazepam 0.5 MG TABLET PO (21:01)
[2023-10-10 21:02] LABS: Troponin-I High Sensitivity 28.8 ng/L (<3.5-17.0)
[2023-10-11 01:02] LABS: Troponin-I High Sensitivity 21.6 ng/L (<3.5-17.0)
[2023-10-11 04:00] VITALS: BP 119/64; PULSE 87; RESP 18; TEMP 36.1; O2SAT 94
[2023-10-11] MEDS: methylPREDNISolone Sod Succ 40 MG/ML VIAL IVPUSH (05:50)
[2023-10-11 06:14] LABS: INTERNATIONAL NORM RATIO 3.6 (0.9-1.1); Prothrombin Time 43.3 SEC (11.1-13.3)
[2023-10-11 07:48] VITALS: BP 129/85; PULSE 100; RESP 18; TEMP 36.6; O2SAT 96
[2023-10-11 07:50] LABS: Glucose, Whole Blood 272 mg/dL (60-115)
[2023-10-11] MEDS: Albuterol/Iprat 2.5/0.5MG 3 ML AMPUL.NEB INHALE ×2 (08:04→11:52)
[2023-10-11] MEDS: Tiotropium Bromide 2.5 mcg 1 PUFF/2.5 MCG MIST.INHAL 2 PUFF INHALE (08:04)
[2023-10-11 08:07] VITALS: PULSE 96; RESP 18; O2SAT 93
[2023-10-11] MEDS: Insulin Lispro 100 UNIT/ML 3 ML VIAL SUBCUT ×2 (08:21→12:03)
[2023-10-11] MEDS: Atorvastatin Calcium 80 MG TABLET PO (08:22)
[2023-10-11] MEDS: Insulin Lispro 100 UNIT/ML 3 ML VIAL 20 UNIT SUBCUT ×2 (08:22→12:03)
[2023-10-11] MEDS: Losartan Potassium 25 MG TABLET PO (08:22)
[2023-10-11] MEDS: Fenofibrate 160 MG TABLET PO (08:22)
[2023-10-11] MEDS: 0.9 % Sodium Chloride Flush 3 ML SYRINGE IVFLUSH (08:22)
[2023-10-11] MEDS: Azithromycin 500 MG TABLET PO (08:22)
[2023-10-11] MEDS: Furosemide 40 MG TABLET PO (08:22)
[2023-10-11] MEDS: dilTIAZem HCL CD 180 MG CAP.ER.24H 360 MG PO (08:22)
[2023-10-11] MEDS: Ammonium Lactate 12 % Lotion 226 GM BOTTLE 1 APPL TOPICAL (08:27)
--- NOTE | 2023-10-11 09:40 | MHC.CM.PN ---
IMM 10/11/23 Patient discharged to [facility] for [facility] . Transport is booked for 12:30pm [facility].
[2023-10-11 11:31] LABS: Glucose, Whole Blood 419 mg/dL (60-115)
[2023-10-11 11:52] VITALS: PULSE 91; RESP 18; O2SAT 94
== END 2023-10-11 12:33 | disposition skilled nursing facility (03) | DRG 291 ==
LOC: HO.ED 18:11 → HO.EDOVER 10-08 05:01 → HO.S3 10-09 14:30
PROVIDERS: Student in an Organized Health Care Education/Training Program; Admitting Provider Student in an Organized Health Care Education/Training Program; Emergency Provider Emergency Medicine; PCP Family Medicine; Visit Provider Student in an Organized Health Care Education/Training Program
DX: I11.0 Hypertensive heart disease with heart failure (principal); I50.33 Acute on chronic diastolic (congestive) heart failure; J96.21 Acute and chronic respiratory failure with hypoxia; I48.21 Permanent atrial fibrillation; Z68.42 Body mass index [BMI] 45.0-49.9, adult; I87.333 Chronic venous hypertension (idiopathic) with ulcer and inflammation of bilateral lower extremity; L97.829 Non-pressure chronic ulcer of other part of left lower leg with unspecified severity; L97.819 Non-pressure chronic ulcer of other part of right lower leg with unspecified severity; R07.89 Other chest pain; E78.2 Mixed hyperlipidemia; J43.9 Emphysema, unspecified; E11.65 Type 2 diabetes mellitus with hyperglycemia; E66.01 Morbid (severe) obesity due to excess calories; Z87.891 Personal history of nicotine dependence; Z79.4 Long term (current) use of insulin; Z79.01 Long term (current) use of anticoagulants; Z79.899 Other long term (current) drug therapy
CPT/HCPCS: 36415; 71045; 71046; 80048; 80076; 82803; 82947; 83605; 83690; 83735; 83880; 84100; 84484; 85025; 85027; 85610; 93005; 93306; 94640; 97162; 97530; 99285; J1170; J1940; J2920; Q9957

== ENCOUNTER → 2023-10-07 16:09 | Outpatient (BNV) | payer MEDICARE, SELFPAY | PROVIDERS: Admitting Provider Student in an Organized Health Care Education/Training Program; Emergency Provider Emergency Medicine; PCP Family Medicine; Visit Provider Internal Medicine | DX: I50.9 Heart failure, unspecified (principal) | CPT/HCPCS: 93010 ==

== ENCOUNTER 2023-10-08 04:58 | Outpatient (BNV) | payer MEDICARE, SELFPAY | END 2023-10-10 20:09 | PROVIDERS: Admitting Provider Student in an Organized Health Care Education/Training Program; Emergency Provider Emergency Medicine; PCP Family Medicine; Visit Provider Internal Medicine | DX: R07.9 Chest pain, unspecified (principal); I48.91 Unspecified atrial fibrillation | CPT/HCPCS: 93010 ==

== ENCOUNTER 2023-10-08 04:58 | Outpatient (BNV) | payer MEDICARE, SELFPAY | END 2023-10-08 07:00 | PROVIDERS: Admitting Provider Student in an Organized Health Care Education/Training Program; Emergency Provider Emergency Medicine; PCP Family Medicine; Visit Provider Internal Medicine | DX: I34.81 Nonrheumatic mitral (valve) annulus calcification (principal) | CPT/HCPCS: 93306 ==

== ENCOUNTER → 2023-10-08 04:58 | Outpatient (BNV) | payer MEDICARE, SELFPAY | PROVIDERS: Admitting Provider Student in an Organized Health Care Education/Training Program; Emergency Provider Emergency Medicine; PCP Family Medicine; Visit Provider Student in an Organized Health Care Education/Training Program | DX: R53.81 Other malaise (principal); I50.32 Chronic diastolic (congestive) heart failure; J44.1 Chronic obstructive pulmonary disease with (acute) exacerbation; J96.21 Acute and chronic respiratory failure with hypoxia | CPT/HCPCS: 99223; 99232; 99239; 99499 ==

== ENCOUNTER 2023-12-04 15:11 | Inpatient (IN) | payer MEDICARE, SELFPAY ==
[2023-12-04] VITALS (10 sets, daily range): BP systolic 106–135; BP diastolic 40–105; PULSE 8–127; RESP 14–26; TEMP 36.6; O2SAT 82–95; BMI 38.3
--- NOTE | 2023-12-04 | ECG_ITS ---
Test Reason : RYTHM CHANGES Blood Pressure : / mmHG Vent. Rate : 112 BPM Atrial Rate : 000 BPM P-R Int : 000 ms QRS Dur : 074 ms QT Int : 328 ms P-R-T Axes : 000 089 251 degrees QTc Int : 447 ms Atrial fibrillation with rapid ventricular response Cannot rule out Anterior infarct , age undetermined ST & T wave abnormality, consider inferolateral ischemia Abnormal ECG When compared with ECG of 04-DEC-2023 15:27, ST now depressed in Inferior leads ST now depressed in Anterolateral leads T wave inversion now evident in Inferior leads T wave inversion now evident in Lateral leads Referred By: Conner Kenyon Electronically Signed By:JOHN SESAY MD
--- NOTE | 2023-12-04 | ECG_ITS ---
Test Reason : SOB Blood Pressure : / mmHG Vent. Rate : 076 BPM Atrial Rate : 000 BPM P-R Int : 000 ms QRS Dur : 058 ms QT Int : 400 ms P-R-T Axes : 000 075 091 degrees QTc Int : 450 ms Atrial fibrillation Low voltage QRS Abnormal ECG When compared with ECG of 10-OCT-2023 20:09, No significant change was found Referred By: Generic ED Physician Electronically Signed By:JOHN SESAY MD
--- NOTE | ~2023-12-04 | XR_ITS ---
EXAMINATION: XR CHEST CLINICAL INFORMATION: Shortness of breath COMPARISON: Previous chest x-ray September 2023 TECHNIQUE: Frontal view of the chest was obtained. FINDINGS: The cardiac silhouette is enlarged but stable. There is increased central bronchovascular markings. The lungs are otherwise clear. No significant pleural effusion. No pneumothorax. Bony structures are unremarkable. XR/XR chest 1V IMPRESSION: Enlarged cardiac silhouette and prominent central bronchovascular markings. Differential would include mild pulmonary edema and airways disease.
--- NOTE | ~2023-12-04 | US_ITS ---
EXAMINATION: US VENOUS ULTRASOUND WITH DOPPLER LOWER EXTREMITY, BILATERAL CLINICAL INFORMATION: Swelling. Pain COMPARISON: None available. TECHNIQUE: Ultrasound of the deep veins is performed from the hip to the calf with compression sonography and color and pulse Doppler assessment. Spectral analysis with color-flow imaging is performed. FINDINGS: RIGHT: There is normal venous compression and respiratory variation and augmented flow. The visualized common femoral vein, superficial femoral vein, profunda femoral vein, popliteal vein, and the trifurcation region shows no evidence of deep venous thrombosis. Right popliteal fossa Bailey's cyst at 12 x 11 x 11 mm. LEFT: There is normal venous compression and respiratory variation and augmented flow. The visualized common femoral vein, superficial femoral vein, profunda femoral vein, popliteal vein, and the trifurcation region shows no evidence of deep venous thrombosis. Left popliteal fossa Bailey's cyst at 44 x 8 x 7 mm. If the patient's symptoms persist, followup ultrasound in 5 days 7 days might be of value to exclude proximal propagation from a non-visualized calf vein. US/US venous duplex LE BI IMPRESSION: No DVT demonstrated in the right and left lower extremity.
--- NOTE | ~2023-12-04 | NM_ITS ---
PULMONARY PERFUSION ONLY STUDY: CLINICAL INDICATION: Hypoxia. Shortness of breath. Pulmonary hypertension. PROCEDURE: Following the intravenous administration of 0.8 millicuries technetium 99m MAA, images of the chest were obtained in multiple projections using a gamma scintiphotographic camera. The radiotracer dose was purposefully reduced with compensatory increase in acquisition time (10 minutes per frame) to maintain optimal quality of the images. COMPARISON: Chest radiograph done on the same day. PERFUSION IMAGES: Focal segmental perfusion defect is present at right lung base anteriorly corresponding to the airspace opacity seen on the chest radiograph. The remainder of the lung jarvis bilaterally show near symmetric perfusion and no evidence of any additional site of segmental perfusion defects. NM/NM pul perfusion IMPRESSION: Based on perfusion only modified PIOPED 2 criteria, the study is considered nondiagnostic for pulmonary thromboembolism. Alternative imaging modality as appropriate is recommended for further clarification.
--- NOTE | ~2023-12-04 | XR_ITS ---
EXAMINATION: XR CHEST CLINICAL INFORMATION: Evaluate for VQ scan COMPARISON: 12/06/2023 TECHNIQUE: Frontal view of the chest was obtained. FINDINGS: The heart is enlarged. Right basilar atelectasis is again seen similar to prior. There has been some mild improvement in left midlung atelectasis. No gross CHF. No pleural effusions. XR/XR chest 1V IMPRESSION: Cardiomegaly. Right basilar atelectasis with only a small amount of atelectasis remaining in the left mid.
--- NOTE | ~2023-12-04 | XR_ITS ---
EXAMINATION: XR CHEST CLINICAL INFORMATION: Shortness of breath. COMPARISON: Most recent chest radiograph dated 12/04/2023. TECHNIQUE: Frontal view of the chest was obtained. FINDINGS: Left middle and right basilar linear opacities, likely representing atelectasis. Early infiltrates are thought less likely. No large, confluent airspace consolidation. No pleural effusion or pneumothorax. Stable cardiomediastinal silhouette. XR/XR chest 1V IMPRESSION: Left middle and right basilar linear opacities, likely representing atelectasis.
[2023-12-04] MEDS: Albuterol Sulfate 5 MG, Albuterol/Iprat 2.5/0.5MG 3 ML 3 ML INHALE (15:33)
[2023-12-04] MEDS: methylPREDNISolone Sod Succ 125 MG/2 ML VIAL IVPUSH (15:34)
--- NOTE | 2023-12-04 15:38 | ED_ITS ---
HPI - SOB/Dyspnea General Chief Complaint: Dyspnea Stated Complaint: diff breathing,85-87%RA Time Seen by Provider: 12/04/23 15:22 Source: patient and EMS Mode of arrival: EMS History of Present Illness HPI Narrative: 83-year-old female with history of COPD/CHF/atrial fibrillation on chronic anticoagulation/diabetes presents via EMS for worsening shortness of breath over the past couple of days without fevers or chills and is currently on 2 L nasal cannula prescribed. Related Data Home Medications ?Medication ?Instructions ?Recorded ?Confirmed albuterol sulfate 90 mcg/actuation 2 puff inhalation Q4H PRN wheezing 02/08/23 10/07/23 aerosol inhaler atorvastatin 80 mg tablet 80 mg PO DAILY 02/08/23 10/07/23 diltiazem HCl 360 mg capsule,24 360 mg PO DAILY 02/08/23 10/07/23 hr,extended release (Tiadylt ER) fenofibrate 160 mg tablet 160 mg PO DAILY 02/08/23 10/07/23 furosemide 20 mg tablet 20 mg PO DAILY 02/08/23 10/07/23 gabapentin 100 mg capsule 100 mg PO BEDTIME 02/08/23 10/07/23 insulin glargine 100 unit/mL (3 80 unit subcut BEDTIME 02/08/23 10/07/23 mL) subcutaneous pen (Lantus Solostar U-100 Insulin) insulin lispro 100 unit/mL 30 unit subcut TIDAC 02/08/23 10/07/23 subcutaneous pen (Humalog KwikPen (U-100) Insulin) losartan 25 mg tablet 25 mg PO DAILY 02/08/23 10/07/23 warfarin 5 mg tablet 5 mg PO DAILY@1800 02/08/23 10/07/23 tiotropium bromide 18 mcg capsule 1 cap inhalation DAILY 07/15/23 10/07/23 with inhalation device (Spiriva with HandiHaler) Previous Rx's ?Medication ?Instructions ?Recorded ammonium lactate 12 % lotion 1 appl topical BID #225 grams 07/17/23 azithromycin 500 mg tablet 500 mg PO DAILY #3 tabs 10/10/23 prednisone 20 mg tablet 40 mg (2 x 20 mg) PO DAILY #6 tabs 10/10/23 Allergies Allergy/AdvReac Type Severity Reaction Status Date / Time lisinopril Allergy Cough Verified 12/04/23 15:20 Review of Systems 2 Review of Systems: Pertinent positives and negatives as stated in HPI [facility] Past Medical History Source: nursing notes reviewed Medical History Lower back pain Congestive heart failure CHF (congestive heart failure) Hypoxia COPD (chronic obstructive pulmonary disease) On Coumadin for atrial fibrillation Atrial fibrillation Hyperlipidemia Shortness of breath Bilateral edema of lower extremity Social History Social History Household Members: Family Household Members Other:: daughter Housing: House Do you presently have visiting nurse or other home services: Yes (cleaing person 1x week) Unable to assess alcohol history related to: Unknown Alcohol intake: never Patient Tobacco Use Status: Former Tobacco user Advance Directives Date on File: 07/18/23 Do you have a plan to hurt others: No Plan service: No Physical Exam 2 Vital Signs: Vital Signs: Last Vital Signs Pulse 85 12/04/23 15:35 Resp 14 12/04/23 15:35 BP 125/57 L 12/04/23 15:34 Pulse Ox 95 12/04/23 15:34 O2 Del Method Oxymask 12/04/23 15:34 O2 Flow Rate 3 12/04/23 15:34 BMI result Body Mass Index 38.3 VITAL SIGNS: Reviewed. GENERAL: Elevated BMI, chronically ill, in no acute distress. HEAD: Normocephalic/atraumatic EYES: PERRLA, EOMI EARS: Ext canals without abnormality NOSE: Nares patent bilateral OROPHARYNX: no oral lesions noted, posterior pharynx clear NECK: Supple, no adenopathy LUNGS: Rhonchi/wheezing inspiratory and expiratory SpO2<95> via OxyMask CARDIOVASCULAR: Regular rate and rhythm without noted murmurs, no JVD bilateral 2+ pitting edema ABDOMEN: Soft, non-tender, non-distended with bowel sounds. MUSCULOSKELETAL: No tenderness, deformities, or effusions noted on gross inspection. EXTREMITIES: No cyanosis, clubbing or edema. SKIN: Inspection of the skin reveals no rashes NEUROLOGIC: Alert and oriented x 4. Strength and sensation to light touch were grossly intact x 4. Medications Administered Discontinued Medications Generic Name Dose Route Start Last Admin Trade Name Freq PRN Reason Stop Dose Admin Albuterol Sulfate 5 mg/ 0 mg 12/04/23 15:27 12/04/23 15:33 Albuterol/Ipratropium 3 ml INHALE 12/04/23 15:28 7.5 each ONCE ONE Administration Methylprednisolone Sodium Succinate 125 mg 12/04/23 15:23 12/04/23 15:34 Methylprednisolone Sod Succ 125 Mg/2 Ml Vial IVPUSH 12/04/23 15:24 125 mg ONCE ONE Administration Medical Decision Making Medical Decision Making [facility] Narrative: 1523: 83-year-old female with history and clinical presentation, DDX: Possible exacerbation chronic lung disease, pneumonia, CHF exacerbation. Differential Diagnosis Differential Diagnoses: The differential diagnosis associated with the presentation includes Please see the discussion above Admission/Observation Consideration of admission/observation: Escalation of care including admission/observation considered Please see the discussion above Lab Data 12/04/23 15:30 12/04/23 15:30 Labs: Lab Results 12/04/23 12/04/23 12/04/23 Range/Units 15:30 15:41 15:44 WBC 10.3 (4.8-10.8) X10*3/uL RBC 4.44 (4.20-5.50) X10*6/uL Hgb 12.4 (12.0-16.0) g/dl Hct 39.8 (37.0-47.0) % MCV 89.6 (80.0-98.0) fL MCH 27.9 (27.0-33.0) pg MCHC 31.2 (31.0-35.0) g/dl RDW 16.7 H (11.0-16.0) % Plt Count 333 (160-400) X10*3/uL MPV 9.4 (9.4-12.3) fL Immature Gran % (Auto) 0.6 H (0.0-0.4) % Neut % (Auto) 59.7 (45-73) % Lymph % (Auto) 22.1 (20-40) % [place] % (Auto) 13.0 H (2-11) % Eos % (Auto) 3.9 (0-4) % Baso % (Auto) 0.7 (0-2) % Lymph # (Auto) 2.3 (1.2-4.9) X10*3/uL [place] # (Auto) 1.3 H (0.1-1.2) X10*3/uL Eos # (Auto) 0.4 (0.0-0.4) X10*3/uL Baso # (Auto) 0.1 (0.0-0.2) X10*3/uL Abs Immat Gran (auto) 0.06 H (0.00-0.03) X10*3/uL Absolute Neuts (auto) 6.2 (2.0-8.3) x10*3/uL Absolute Nucleated RBC 0.000 (0.0-0.012) X10*3/uL Nucleated RBC % (auto) 0.0 (0.0-0.2) /100WBC VBG pH 7.44 H (7.32-7.43) VBG pCO2 46 mmHg VBG pO2 50 mmHg VBG HCO3 31 H (22-26) mmol/L VBG O2 Saturation 78.0 % VBG Base Excess 6.8 mmol/L Lactic Acid 1.3 (0.5-2.0) mmol/L Independent Interpretation I performed an independent interpretation of an: EKG Interpretation: Atrial fibrillation without RVR, HR-76, no STEMI, QRS/QTC is within normal limits. Discharge Plan Discharge Clinical Impression: Breath shortness Patient Disposition: Still a Patient Prescriptions: No Action tiotropium bromide [Spiriva with HandiHaler] 18 mcg Capsule, W/Inhalation Device 1 cap INHALATION DAILY Rx Instructions: puncture 1 cap using device; one dose = 2 inhalations ammonium lactate 12 % Lotion 1 appl topical BID Qty: 225 2RF Protocol: Apply to: Apply to: Lower extremities azithromycin 500 mg Tablet 500 mg PO DAILY Qty: 3 0RF prednisone 20 mg tablet 40 mg PO DAILY Qty: 6 0RF atorvastatin 80 mg tablet 80 mg PO DAILY diltiazem HCl [Tiadylt ER] 360 mg capsule,extended release 24 hr 360 mg PO DAILY warfarin 5 mg tablet 5 mg PO DAILY@1800 losartan 25 mg tablet 25 mg PO DAILY furosemide 20 mg tablet 20 mg PO DAILY gabapentin 100 mg capsule 100 mg PO BEDTIME albuterol sulfate 90 mcg/actuation HFA aerosol inhaler 2 puff inhalation Q4H PRN (Reason: wheezing) insulin lispro [Humalog KwikPen Insulin] 100 unit/mL insulin pen 30 unit subcut TIDAC fenofibrate 160 mg tablet 160 mg PO DAILY insulin glargine [Lantus Solostar U-100 Insulin] 100 unit/mL (3 mL) insulin pen 80 unit subcut BEDTIME Print Language: Pashto
--- NOTE | 2023-12-04 15:40 | PC.NURSE ---
biba from home d/t sob w/ exertion x 3 days. pt also verbalizing nonproductive cough that causes pain in bilateral ribs. pt rating rib pain a 5/10 - worsens while coughing. hx of COPD - on 2-3L via NC. when pt called EMS - she was found at 3L via NC. EMS took pt off of O2 and ambulated to stretcher - pt desatted to 82% on RA. placed back on 3L via NC. EMS placed an 18gIV in the left AC - administered magnesium, solumedrol, and a duoneb. upon EMS arrival - 83% on RA. pt placed on 3L via oxymask - 93%. sob/wob noted. pt positioned upright to promote patent airway. ekg performed by tech. labs obtained/sent to lab. medication administered per provider order. pt seen by ED provider/aware of plan of care.
[2023-12-04 15:46] LABS: MANUAL DIFF FLAG NO
[2023-12-04 15:49] LABS: Venous Blood Gas Refer to POC result
[2023-12-04 15:51] LABS: Basophils Absolute Auto 0.1 X10*3/uL (0.0-0.2); Basophils Percent Auto 0.7 % (0-2); Eosinophils Absolute Auto 0.4 X10*3/uL (0.0-0.4); Eosinophils Percent Auto 3.9 % (0-4); Hematocrit 39.8 % (37.0-47.0); Hemoglobin 12.4 g/dl (12.0-16.0); Imm Gran Abs Auto 0.06 X10*3/uL (0.00-0.03); Imm Gran Pct Auto 0.6 % (0.0-0.4); Lymphocytes Absolute Auto 2.3 X10*3/uL (1.2-4.9); Lymphocytes Percent Auto 22.1 % (20-40); Mean Corpuscular HGB Conc 31.2 g/dl (31.0-35.0); Mean Corpuscular Hemoglobin 27.9 pg (27.0-33.0); Mean Corpuscular Volume 89.6 fL (80.0-98.0); Mean Platelet Volume 9.4 fL (9.4-12.3); Monocytes Absolute Auto 1.3 X10*3/uL (0.1-1.2); Neutrophils Absolute Auto 6.2 x10*3/uL (2.0-8.3); Neutrophils Percent Auto 59.7 % (45-73); Platelet Count 333 X10*3/uL (160-400); Red Blood Count 4.44 X10*6/uL (4.20-5.50); Red Cell Distribution Width 16.7 % (11.0-16.0); White Blood Count 10.3 X10*3/uL (4.8-10.8)
[2023-12-04 15:51] LABS: VBG Base Excess 6.8 mmol/L; VBG HCO3 31 mmol/L (22-26); VBG pCO2 46 mmHg; VBG pH 7.44 (7.32-7.43); VBG pO2 50 mmHg
[2023-12-04 15:57] LABS: INTERNATIONAL NORM RATIO 2.1 (0.9-1.1); Prothrombin Time 25.3 SEC (11.1-13.3)
[2023-12-04 15:59] LABS: Partial Thromboplastin Time 37.4 SEC (26.0-36.8)
[2023-12-04 15:59] LABS: Lactic Acid 1.3 mmol/L (0.5-2.0)
[2023-12-04 16:05] LABS: Alanine Aminotransferase 9 U/L (0-31); Albumin Level 3.7 g/dL (3.5-5.0); Alkaline Phosphatase 64 U/L (39-117); Anion Gap 16 (12-20); Aspartate Amino Transferase 15 U/L (5-31); Bilirubin Total 0.6 mg/dL (0.0-1.0); Blood Urea Nitrogen 22 mg/dL (9-16); Calcium 9.6 mg/dL (8.4-10.2); Carbon Dioxide 31 mmol/L (22-29); Chloride 95 mmol/L (96-108); Creatinine Clr Calc Pharmacy 33.8; Estimated Glomerular Filt Rate 35; Potassium 4.1 mmol/L (3.3-5.1); Sodium 138 mmol/L (135-145)
[2023-12-04 16:07] LABS: Glucose Random 373 mg/dL (60-115)
[2023-12-04 16:09] LABS: B Type Natriuretic Peptide 78 pg/mL (<100)
--- OUTSIDE RECORDS SUMMARY | 2023-12-04 16:09 | XMS_ITS | Continuity of Care Document ---
Author Organization [facility] ter Address [address] [place] [id number]- Care Team Providers Care Lasting Machine Operator Name Role Phone Jonathan Colvin MD Primary Care Physician [phone] [place] [facility] [place]): 02/07/23 - 02/07/[address] [address]- Discharge Disposition: A-D/C Walkout Attending Physician: Not on Staff, Attending MD Admitting Physician: Not on Staff, Admitting MD Referring Physician: Not on Staff, Referring MD Allergies, Adverse Reactions, Alerts Substance Reaction Severity Status lisinopril Active Medications albuterol CFC free 90 mcg/inh inhalation aerosol 2 puffs, Inhalation, 4 times a day, PRN for wheezing, # 25 Gm, 0 Refills, Aerosol Start Date: 07/19/10 Status: Ordered diltiazem 240 mg/24 hours oral capsule, extended release 1 capsule, By Mouth, Daily, # 30 capsule, 0 Refills, CR Capsule Start Date: 07/19/10 Status: Ordered fenofibrate 160 mg oral tablet 1 tablet = 160 mg, By Mouth, Daily, 0 Refills, Maintenance Start Date: 07/16/10 Status: Ordered GlyBURIDE = 10 mg, By Mouth, 2 times a day, 0 Refills, Maintenance Start Date: 07/16/10 Status: Ordered Lantus Inj = 40 units, Subcutaneous Injection, Daily at bedtime, mL, 0 Refills, Maintenance, Injection Start Date: 07/16/10 Status: Ordered metformin 850 mg oral tablet 1 tablet = 850 mg, By Mouth, 3 times a day, 0 Refills, Maintenance Start Date: 07/16/10 Status: Ordered oseltamivir 75 mg oral capsule 1 capsule, By Mouth, 2 times a day, # 6 capsule, 0 Refills, Maintenance, Capsule Start Date: 07/19/10 Stop Date: 07/22/10 Status: Ordered simvastatin 40 mg oral tablet 1 tablet = 40 mg, By Mouth, Daily at bedtime, 0 Refills, Maintenance Start Date: 07/16/10 Status: Ordered Vital Signs Most recent to oldest [Reference Range]: 1 2 3 Height 137 cm (02/07/23 7:22 PM) 153 cm (02/07/23 11:05 AM) Oxygen Saturation [94-100 %] 100 % (02/07/23 7:22 PM) 91 % *L* (02/07/23 5:05 PM) 89 % *L* (02/07/23 2:01 PM) Pulse Rate [55-90 bpm] 65 bpm (02/07/23 7:22 PM) 77 bpm (02/07/23 5:05 PM) 70 bpm (02/07/23 2:01 PM) Blood Pressure [90-138/55-84 mm Hg] 134/74mm Hg (02/07/23 7:22 PM) 105/54mm Hg (02/07/23 5:05 PM) 130/56mm Hg (02/07/23 2:01 PM) Respiratory Rate [16-30 br/min] 18 br/min (02/07/23 7:22 PM) 18 br/min (02/07/23 5:05 PM) 16 br/min (02/07/23 11:05 AM) Temperature [96.8-100.4 DegF] 99.1 DegF (02/07/23 7:22 PM) 98.1 DegF (02/07/23 5:05 PM) 98.1 DegF (02/07/23 2:01 PM) Mode of Delivery (Oxygen) Room air (02/07/23 7:22 PM) Room air (02/07/23 5:05 PM) Room air (02/07/23 2:01 PM) Blood pressure sites Arm, right (02/07/23 7:22 PM) Arm, right (02/07/23 5:05 PM) Arm, left (02/07/23 2:01 PM) Temperature Route Oral (02/07/23 7:22 PM) Oral (02/07/23 5:05 PM) Oral (02/07/23 2:01 PM) Dry Weight 114 kg (02/07/23 7:22 PM) Social History Social History Type Response Smoking Status Former smoker, quit more than 30 days ago entered on: 02/07/23 Sex Patient Care team information Care Team Personnel Name: Jimbo Taveras MD Position: [facility] Physician (General Medicine) Member Role: Lifetime Consulting Physician Address: Address: [address] [place] [address] [place] [address]- Name: Jonathan Colvin MD Position: Reference Physician Member Role: PCP Address: Address: [address] [place] [id number]- Care Team Related Persons Name: ANETTE SOW Address: home [address] [place] [address] Name: RAMSEY SOW Address: home [address] [place] [address]
--- NOTE | 2023-12-04 16:10 | PC.NURSE ---
pt to xray at this time.
--- NOTE | 2023-12-04 16:26 | PC.NURSE ---
pt receiving another breathing treatment via RT at this time.
[2023-12-04] MEDS: levalbuterol HCL 1.25 MG/3 ML VIAL.NEB 3.75 MG INHALE (16:29)
--- NOTE | 2023-12-04 17:54 | PC.NURSE ---
pt c/o generalized discomfort d/t being in bed. recliner placed bedside. upon transferring pt to bed - pt verbalizing extreme dsypnea. sob/wob noted. pt hyperoxygenated for transport. 95% via NC on 4L. pt placed back on 3L via NC at rest in recliner - resting at 93%. pursed lip breathing noted. HOB elevated to promote patent airway. pt continue to wait for chest xray at this time. plan of care ongoing.
[2023-12-04] MEDS: Albuterol Sulfate 5 MG, Albuterol Sulfate (0.083%) 2.5 MG 7.5 MG INHALE (18:47)
[2023-12-04] MEDS: Furosemide 40 MG/4 ML VIAL IVPUSH (19:02)
--- NOTE | 2023-12-04 19:18 | PC.NURSE ---
lasix administered per provider order. purewick in place.
[2023-12-04 19:26] LABS: Influenza A PCR NEGATIVE (Negative); Influenza B PCR NEGATIVE (Negative); Resp Syncy Virus RNA Qual PCR NEGATIVE (Negative); SARS COV2 PCR INHOUSE NEGATIVE (Negative)
--- NOTE | 2023-12-04 19:52 | P.HPHOSP_ITS ---
History of Present Illness Date of Service: 12/04/23 Attending physician on admission: Chana Cooper Chief Complaint: SOB Pt is an 83-year-old female with a PMH significant for COPD with?chronic hypoxic respiratory failure on 3L home O2, HFpEF, HTN, chronic AFib on Coumadin, insulin-dependent diabetes type 2 among others who presents to the ED with?increased shortness of breath, difficulty breathing, and nonproductive cough for the past week. Has also noticed increased lower leg edema and weeping from lower legs. Patient complains of heartburn, but denies chest pain/pressure or palpitations. No fever, chills, nausea, vomiting, abdominal pain. Patient states she is able to move around her apartment by holding onto furniture, and uses a walker at baseline while in the community. Of note, during interview and exam patient was noted to desat to 85% on her chronic home 3L O2. In the ED pt was tachycardic up to 108, tachypneic up to 26, with soft BP as low as 117/52, satting as low as 85% on prescribed 3L home O2. Labs were significant for BUN 22, creatinine 1.43, and POC glucose 419. No leukocytosis. Stable H&H. No significant electrolyte abnormalities. Lactic acid WNL at 1.3. Hepatic function baseline. BNP WNL at 78. Tested negative for flu, RSV, and COVID. CXR showed enlarged cardiac silhouette and prominent central bronchovascular markings, suggestive of mild pulmonary edema and airway disease. EKG demonstrated atrial fibrillation without significant evidence of ST elevations or depressions. Pt was treated with DuoNebs, Solu-Medrol, and furosemide 40 mg IV. Pt will be admitted to the hospital for treatment and further evaluation of acute on chronic hypoxic respiratory failure in the setting of COPD and CHF exacerbation. Review of Systems 2 Review of Systems: Increasing SOB, FERREIRA Nonproductive cough Increased lower leg edema Heartburn No chest pain/pressure or palpitations Denies fever, chills, N/V/D, or abdominal pain [facility] Medical History Lower back pain Congestive heart failure CHF (congestive heart failure) Hypoxia COPD (chronic obstructive pulmonary disease) On Coumadin for atrial fibrillation Atrial fibrillation Hyperlipidemia Shortness of breath Bilateral edema of lower extremity Social History Household Members: Family Household Members Other:: daughter Housing: House Do you presently have visiting nurse or other home services: Yes (cleaing person 1x week) Unable to assess alcohol history related to: Unknown Alcohol intake: never Patient Tobacco Use Status: Former Tobacco user Smoked in Last 30 Days: No Use of substances other than those prescribed or required for medical reasons: No Advance Directives: Yes Advance Directives on File: Yes Advance Directives Date on File: 07/18/23 Do you have a plan to hurt others: No Plan service: No Meds Allergies Allergy/AdvReac Type Severity Reaction Status Date / Time lisinopril Allergy Cough Verified 12/04/23 15:20 Home Medications ?Medication ?Instructions ?Recorded ?Confirmed ?Last Taken ?Type albuterol sulfate 90 mcg/actuation 2 puff inhalation Q4H PRN wheezing 02/08/23 10/07/23 Unknown History aerosol inhaler atorvastatin 80 mg tablet 80 mg PO DAILY 02/08/23 10/07/23 10/07/23 History diltiazem HCl 360 mg capsule,24 360 mg PO DAILY 02/08/23 10/07/23 10/07/23 History hr,extended release (Tiadylt ER) fenofibrate 160 mg tablet 160 mg PO DAILY 02/08/23 10/07/23 10/07/23 History furosemide 20 mg tablet 20 mg PO DAILY 02/08/23 10/07/23 10/07/23 History gabapentin 100 mg capsule 100 mg PO BEDTIME 02/08/23 10/07/23 10/06/23 History insulin glargine 100 unit/mL (3 80 unit subcut BEDTIME 02/08/23 10/07/23 10/06/23 History mL) subcutaneous pen (Lantus Solostar U-100 Insulin) insulin lispro 100 unit/mL 30 unit subcut TIDAC 02/08/23 10/07/23 10/07/23 History subcutaneous pen (Humalog KwikPen (U-100) Insulin) losartan 25 mg tablet 25 mg PO DAILY 02/08/23 10/07/23 10/07/23 History warfarin 5 mg tablet 5 mg PO DAILY@1800 02/08/23 10/07/23 10/06/23 History tiotropium bromide 18 mcg capsule 1 cap inhalation DAILY 07/15/23 10/07/23 10/07/23 History with inhalation device (Spiriva with HandiHaler) Physical Exam 2 Vital Signs and Narrative: Vital Signs: Last Vital Signs Pulse 102 H 12/04/23 18:47 Resp 26 H 12/04/23 18:47 BP 125/57 L 12/04/23 15:34 Pulse Ox 95 12/04/23 15:34 O2 Del Method Oxymask 12/04/23 15:34 O2 Flow Rate 3 12/04/23 15:34 BMI result Body Mass Index 38.3 Constitutional: Alert, in no acute distress. Mental Status: Oriented to person, place and time. Eyes: Pupils are equal, round, and reactive to light. Ear, Nose, and Throat: Oropharynx clear, mucous membranes moist. Ears and nose without deformities. Trachea midline. Respiratory: Diffuse expiratory wheezing bilaterally. Cardiovascular: Irregularly irregular rhythm, tachy. No murmurs, rubs, or gallops. Gastrointestinal: Abdomen soft, non-tender, obese. Normal bowel sounds. Neurologic: Cranial nerves II-XII are grossly intact bilaterally. No focal neurological deficits. Moves all extremities spontaneously. Skin: Warm, dry. Extremities: 1+ lower leg edema. Chronic venous stasis dermatitis bilaterally. Multiple areas of superficial abrasions in various stages of healing. As pictured below. Psychiatric: Normal mood and affect. Results Labs 12/04/23 15:30 12/04/23 15:30 Labs: Laboratory Results - last 24 hr 12/04/23 12/04/23 12/04/23 15:30 15:41 15:44 MCV 89.6 MCH 27.9 MCHC 31.2 RDW 16.7 H Plt Count 333 MPV 9.4 Immature Gran % (Auto) 0.6 H Neut % (Auto) 59.7 Lymph % (Auto) 22.1 Hughes % (Auto) 13.0 H Eos % (Auto) 3.9 Baso % (Auto) 0.7 Lymph # (Auto) 2.3 Hughes # (Auto) 1.3 H Eos # (Auto) 0.4 Baso # (Auto) 0.1 Abs Immat Gran (auto) 0.06 H Absolute Neuts (auto) 6.2 Absolute Nucleated RBC 0.000 Nucleated RBC % (auto) 0.0 PT 25.3 H D INR 2.1 H APTT 37.4 H VBG pH 7.44 H VBG pCO2 46 VBG pO2 50 VBG HCO3 31 H VBG O2 Saturation 78.0 VBG Base Excess 6.8 Anion Gap 16 Estim Creat Clear Calc 33.8 Estimated GFR 35 Random Glucose 373 H* Lactic Acid 1.3 Calcium 9.6 Total Bilirubin 0.6 AST 15 ALT 9 Alkaline Phosphatase 64 Troponin I High Sens 4.0 D B-Natriuretic Peptide 78 Total Protein 7.0 Albumin 3.7 Influenza Type A (PCR) Influenza Type B (PCR) RSV RNA Qual (PCR) SARS-CoV-2 RNA (RT-PCR) 12/04/23 18:42 MCV MCH MCHC RDW Plt Count MPV Immature Gran % (Auto) Neut % (Auto) Lymph % (Auto) Hughes % (Auto) Eos % (Auto) Baso % (Auto) Lymph # (Auto) Hughes # (Auto) Eos # (Auto) Baso # (Auto) Abs Immat Gran (auto) Absolute Neuts (auto) Absolute Nucleated RBC Nucleated RBC % (auto) PT INR APTT VBG pH VBG pCO2 VBG pO2 VBG HCO3 VBG O2 Saturation VBG Base Excess Anion Gap Estim Creat Clear Calc Estimated GFR Random Glucose Lactic Acid Calcium Total Bilirubin AST ALT Alkaline Phosphatase Troponin I High Sens B-Natriuretic Peptide Total Protein Albumin Influenza Type A (PCR) NEGATIVE Influenza Type B (PCR) NEGATIVE RSV RNA Qual (PCR) NEGATIVE SARS-CoV-2 RNA (RT-PCR) NEGATIVE Imaging Radiologist's Impressions: Impressions Chest X-Ray 12/04/23 16:15 IMPRESSION: Enlarged cardiac silhouette and prominent central bronchovascular markings. Differential would include mild pulmonary edema and airways disease. Assessment and Plan (1) CHF (congestive heart failure): Status: Inactive (2) COPD exacerbation: Status: Resolved Plan Pt is an 83-year-old female with a PMH significant for COPD with?chronic hypoxic respiratory failure on 3L home O2, HFpEF, HTN, chronic AFib on Coumadin, insulin-dependent diabetes type 2 among others who presents to the ED with?increased shortness of breath, difficulty breathing, and nonproductive cough for the past week. Pt will be admitted to the hospital for treatment and further evaluation of acute on chronic hypoxic respiratory failure in the setting of COPD and CHF exacerbation. Acute on chronic hypoxic respiratory failure in the setting of COPD exacerbation Patient with increased SOB, FERREIRA, nonproductive cough, satting as low as 85% on home 3L O2 Continues to be symptomatic and wheezing upon exam despite treatment in the ED Will treat with DuoNebs, Solu-Medrol, and benzonatate Pt does not meet sepsis criteria: no indication for bacterial infection, tachycardia secondary to albuterol use No indication for antibiotics at this time Continue home inhalers Titrate supplemental O2 >90, wean as tolerated Monitor respiratory status Acute HFpEF exacerbation Patient's hypoxia and dyspnea likely combination of COPD and CHF exacerbations Patient with increased LLE, CXR suggestive of pulmonary edema BNP WNL but likely falsely low d/t obesisty Furosemide 40 mg IV b.i.d. Follow lytes, MG, I/O Daily weights, low-salt diet Monitor on telemetry Elevated creatinine Creatinine 1.43, elevated from baseline around 1.2 Likely cardiorenal Treat as above Follow BMP Uncontrolled insulin-dependent type 2 diabetes mellitus POC glucose 419 at time of presentation Sliding-scale insulin, continue Lantus Will add 7 units lispro before meals Diabetic diet Chronic AFib Continue diltiazem HLD Continue statin, fenofibrate Full Code Attending:?Dr. Berger DVT Prophylaxis: On Coumadin Pt will require a hospitalization of at least two nights for treatment of? acute on chronic hypoxic respiratory failure in the setting of COPD and CHF exacerbations. Patient will require hospitalization for administration of increased supplemental oxygen, IV steroids, breathing treatments, IV diuretics, and close monitoring of labs and respiratory status. Quality Stroke Does the patient have a stroke diagnosis?: No VTE Prior VTE?: No VTE Risk Level:: Medical - moderate - high VTE Device Contraindication: Treatment Not Indicated VTE Drug Contraindication: N/A - Med Ordered
--- NOTE | 2023-12-04 19:55 | PC.NURSE ---
assumed care of pt 1914 pt resting comfortably on recliner nad. at 1949 pct notified RN pt requested to move back into stretcher as she felt uncomfortable and was having difficulty catching breath. in stretcher pt is sitting upright sats 93% on 3L NC. lung sounds rales/crackles noted bilateral. SUNITHA MAYES notified. vss. RT notified per PA orders.
[2023-12-04] MEDS: Albuterol Sulfate 7.5 MG, Albuterol Sulfate (0.083%) 2.5 MG 10 MG INHALE (20:05)
[2023-12-04 20:58] LABS: Glucose, Whole Blood 559 mg/dL (60-115)
--- NOTE | 2023-12-04 21:04 | PC.NURSE ---
Addendum entered by Sonny Whitaker 12/04/23 21:06: lispro unavailable in pyxis at this time pharmacy notified. Original Note: poc 559; Conner MAYES notified. orders confirmed; following protocol to administer 12 units insulin at this time and recheck poc.
--- NOTE | 2023-12-04 21:48 | PHA.MEDREC ---
Addendum entered by Annika Ledbetter [facility] 12/04/23 21:51: Daughter states she does not take her Spiriva frequently, and often forgets to take it. Original Note: Pharmacy Consult ? Medication Reconciliation Pharmacy has completed the medication reconciliation. Spoke with patient's daughter, Osvaldo. She confirmed all medications. Patient last took warfarin yesterday 12/02.
[2023-12-04] MEDS: Acetaminophen 325 MG TABLET 650 MG PO (22:01)
[2023-12-04] MEDS: Insulin Lispro 100 UNIT/ML 3 ML VIAL SUBCUT (22:01)
--- NOTE | 2023-12-04 22:01 | PC.NURSE ---
pt reports generalized aches d/t arthritis; takes tylenol for this at home. pain score 6/10. pt requests prn tylenol. given per mar tolerated po with water.
[2023-12-04] MEDS: Benzonatate 100 MG CAPSULE PO (22:04)
--- NOTE | 2023-12-04 22:05 | PC.NURSE ---
pt coughing. prn tesslon given. sats 94% on 3L oxymask (baseline).
--- NOTE | 2023-12-04 22:12 | PC.NURSE ---
Addendum entered by Sonny Whitaker 12/04/23 22:15: PA aware of BP. 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 on monitor heart rate ranging 110-130 bpm; appears to be rapid afib. Conner MAYES notified; awaiting further orders.
[2023-12-04] MEDS: dilTIAZem HCL 125 MG in 0.9 % Sodium Chloride 100 ML IVCONT (23:17)
[2023-12-04] MEDS: Gabapentin 100 MG CAPSULE PO (23:23)
[2023-12-04] MEDS: Calcium Carbonate 750 MG TAB.CHEW PO (23:23)
--- NOTE | 2023-12-04 23:23 | PC.NURSE ---
per Conner MAYES to start cardizem drip per protocol; order for heart rate to sustain 80-90s bpm. heart rate ranging 115-130bpm at this time. Conner MAYES aware of bp. pt resting comfortably nad. prn tums given for heartburn. repeat drop drawn by phlebotomy at this time. call mercedes within reach.
--- NOTE | 2023-12-04 23:37 | PC.NURSE ---
repeat poc check too high to detect. labs ordered sent to lab. Dr. Ab Cooper aware.
[2023-12-05] VITALS (15 sets, daily range): BP systolic 85–164; BP diastolic 33–73; PULSE 92–140; RESP 16–22; TEMP 36.1–36.7; O2SAT 90–97; BMI 37.1
[2023-12-05 00:05] LABS: Anion Gap 24 (12-20); Blood Urea Nitrogen 28 mg/dL (9-16); Calcium 9.2 mg/dL (8.4-10.2); Carbon Dioxide 21 mmol/L (22-29); Chloride 94 mmol/L (96-108); Creatinine Clr Calc Pharmacy 26.7; Estimated Glomerular Filt Rate 27; Glucose Random 712 mg/dL (60-115); Potassium 3.6 mmol/L (3.3-5.1); Sodium 135 mmol/L (135-145)
[2023-12-05] MEDS: Insulin Regular, Human 100 UNIT/ML 3 ML VIAL 10 UNIT IVPUSH (00:09)
[2023-12-05] MEDS: Insulin Glargine,Hum.rec.anlog 100 UNIT/ML 10 ML VIAL 60 UNIT SUBCUT (00:15)
--- NOTE | 2023-12-05 00:18 | PC.NURSE ---
bp 92/35 pt asymptomatic, cardizem drip paused Dr. Ab Cooper aware. HR ranging 110-119 at this time. pt denies cp/sob. resting comfortably. pt medicated per mar with ivp insulin and subq insulin. will reassess poc glucose. Dr. Ab Cooper aware of critical labs. no further orders for elevated troponin; per Dr. Ab Cooper pt is on warfarin and within therapeutic limits for INR.
[2023-12-05 00:59] LABS: Glucose, Whole Blood > 600 mg/dL (60-115)
--- NOTE | 2023-12-05 01:05 | PC.NURSE ---
[address] Ab gleason in 2 hours per MD (0300).
--- NOTE | 2023-12-05 02:20 | PC.NURSE ---
pt heart rate sustaining 130-140s; bp as documented. cardizem drip started per sep. Dr. Ab Cooper aware.
--- NOTE | 2023-12-05 03:00 | PC.NURSE ---
0300 - [facility] 586. Dr. Ab Cooper aware.
[2023-12-05] MEDS: Insulin Lispro 100 UNIT/ML 3 ML VIAL 12 UNIT SUBCUT (04:14)
[2023-12-05] MEDS: methylPREDNISolone Sod Succ 40 MG/ML VIAL IVPUSH ×2 (04:14→16:50)
--- NOTE | 2023-12-05 04:15 | PC.NURSE ---
HR sustaining <[address] bpm. cardizem drip paused. Dr. Ab Cooper aware.
[2023-12-05 06:35] LABS: Hematocrit 38.7 % (37.0-47.0); Hemoglobin 12.5 g/dl (12.0-16.0); Mean Corpuscular HGB Conc 32.3 g/dl (31.0-35.0); Mean Corpuscular Volume 89.8 fL (80.0-98.0); Mean Platelet Volume 9.4 fL (9.4-12.3); Platelet Count 295 X10*3/uL (160-400); Red Blood Count 4.31 X10*6/uL (4.20-5.50); Red Cell Distribution Width 16.7 % (11.0-16.0); White Blood Count 8.9 X10*3/uL (4.8-10.8)
[2023-12-05 06:41] LABS: INTERNATIONAL NORM RATIO 1.8 (0.9-1.1); Prothrombin Time 22.5 SEC (11.1-13.3)
[2023-12-05] MEDS: Insulin Lispro 100 UNIT/ML 3 ML VIAL 7 UNIT SUBCUT (06:46)
[2023-12-05] MEDS: Insulin Lispro 100 UNIT/ML 3 ML VIAL SUBCUT ×4 (06:46→21:07)
[2023-12-05 06:51] LABS: Glucose, Whole Blood 551 mg/dL (60-115)
[2023-12-05 06:51] LABS: Glucose, Whole Blood 595 mg/dL (60-115)
[2023-12-05 06:51] LABS: Glucose, Whole Blood 546 mg/dL (60-115)
[2023-12-05 06:51] LABS: Glucose, Whole Blood 586 mg/dL (60-115)
[2023-12-05 06:51] LABS: Glucose, Whole Blood > 600 mg/dL (60-115)
[2023-12-05 06:51] LABS: Glucose, Whole Blood 582 mg/dL (60-115)
--- NOTE | 2023-12-05 07:00 | CA_ITS ---
Transthoracic Echocardiogram Patient (Last, First, Middle): Sofia Farris, Gender: Female Date of : 1940 Age: 83 Procedure Date: 12/05/2023 Procedure Type: Transthoracic Echocardiogram Location: [facility] [place] Height: 162.56 cm Weight: 101.15 kg BSA: 2.05 m2 Heart Rate: 108 bpm BP: 108 / 33 mmHg [employer] Person: Referring MD: Chana Cooper MD [employer]: Jg Paz MD Symptoms: acute CHF Study Quality: Adequate ECG Rhythm: Atrial Fibrillation w RVR Conclusions: - 1. Normal LV ejection fraction of 60-65% with mild LVH with suggestion of elevated filling pressures 2. Mildly to moderately reduced RV systolic function 3. Biatrial enlargement, right greater than left 4. [id number] aortic stenosis next 5. Moderately severe tricuspid regurgitation severely elevated right ventricular systolic pressure with mildly elevated right atrial pressures 6. No gross pericardial effusion Findings Left Ventricle Normal left ventricular size and systolic function. There is mildly increased left ventricular wall thickness. The visually estimated ejection fraction is between 60-65%. Elevated filling pressures. E/E prime ratio is >15, consistent with elevated filling pressures. Right Ventricle Moderately increased right ventricular cavity size. There is mild to moderately decreased right ventricular systolic function. Atria The left atrium is mildly dilated. There is no evidence of interatrial shunt. The right atrium is moderately dilated. Aortic Valve There is mild calcification of the aortic valve. There is mild thickening of the aortic valve. There is mild to moderate aortic valve stenosis. The peak aortic gradient is 13 mmHg.The mean gradient is 7 mmHg. The aortic valve area is 1.36 cm2. There is no aortic valve regurgitation. Mitral Valve There is mild anterior and moderate posterior mitral leaflet thickening. There is moderate mitral annular calcification. There is mild mitral valve regurgitation. There is no mitral valve stenosis. Pulmonic Valve The pulmonic valve is likely normal. Tricuspid Valve Likely normal tricuspid valve structure and function. There is moderate to severe tricuspid valve regurgitation. Mildly elevated right atrial pressure. Severe pulmonary hypertension is present. Great Vessels The pulmonary artery was not well visualized. There is mild dilatation of the ascending aorta measuring 3.70 cm. Venous The inferior vena cava is moderately dilated and collapses less than 50% with inspiration. Pericardium/Pleural There is no evidence of pericardial effusion. Measurements 2D Linear Measurements IVSd: 1.15 0.6-0.9/0.6-1.0 cm LVIDd: 4.00 3.9-5.3/4.2-5.9 cm LVIDd Index: 1.95 2.4-3.2/2.2-3.1 cm/m2 LVIDs: 2.77 2.0-3.6 cm LVPWd: 1.18 0.7-1.1 cm LA Diam: 4.20 2.7-3.8/3.0-4.0 cm LAIDs Index: 2.05 1.5-2.3 cm/m2 LV Mass: 197.22 67-162/88-224 g LV Mass Index: 96.21 43-95/49-115 g/m2 LVOT Diam: 1.80 3.0+(-)1.3 cm Mitral Valve MV VTI: 0.38 MV Pk Tacos: 1.77 MV Mn Tacos: 0.96 MV Pk Grad: 13.00 MV Mn Grad: 5.00 MV Pk E: 1.39 MV Decel Time: 267.00 E'Lateral: 12.80 E'Medial: 7.40 E/E' Med: 18.80 E/E' Lat: 10.90 PHT: 78.00 MVA PHT: 2.82 MVA Continuity: 1.17 Decel Hood: 5.22 Aortic Valve AoV Pk Tacos: 1.82 AoV Mn Tacos: 1.16 AoV VTI: 0.33 AoV Pk Grad: 13.00 Aov Mn Grad: 7.00 YASMEEN Cont.VTI: 1.36 LVOT LVOT Pk Tacos: 0.84 LVOT Mn Tacos: 0.63 LVOT VTI: 0.17 LVOT Pk Grad: 3.00 LVOT Mn Grad: 2.00 LVOT Diam: 1.80 LVOT Area: 2.54 Diastolic Function MV Pk E: 1.39 E'Medial: 7.40 E/E' Med: 18.80 E' Laterial: 12.80 E/E' Lat: 10.90 Right Ventricle TAPSE (mm): 19.40 TVS' Tacos: 11.90 Tricuspid Valve TR Pk Tacos: 3.84 TR Pk Grad: 59.00 RA Press: 8.00 RVSP: 67.00 Great Vessels Aorta Sinus of Valsalva: 3.30 2.0-3.5 cm Ao Asc: 3.70 2.1-3.4 cm Pulmonary Valve PV Pk Tacos: 1.29 Peak PV Grad: 7.00 Updated in Other Vendor System with Status of Final Jg Paz MD electronically signed on 12/05/2023 3:58:08 PM with status of Final
--- NOTE | 2023-12-05 07:11 | PC.NURSE ---
0510 - poc 551 Dr. Ab Cooper notified; verbal order to give 0730 order insulin lispro at 0630 per mar protocol orders. 0650 - poc 546 insulin given per mar [address] Ab Cooper aware; to recheck bgl within 1 hour. nad. heart rate remains 90s. cardizem continues to be paused. Dr. Ab Cooper in agreement with plan.
[2023-12-05 07:19] LABS: Anion Gap 17 (12-20); Blood Urea Nitrogen 28 mg/dL (9-16); Calcium 9.9 mg/dL (8.4-10.2); Carbon Dioxide 27 mmol/L (22-29); Chloride 95 mmol/L (96-108); Creatinine Clr Calc Pharmacy 29.3; Estimated Glomerular Filt Rate 30; Glucose Random 599 mg/dL (60-115); Magnesium 2.2 mg/dL (1.6-2.6); Potassium 3.9 mmol/L (3.3-5.1); Sodium 135 mmol/L (135-145)
[2023-12-05] MEDS: Albuterol/Iprat 2.5/0.5MG 3 ML AMPUL.NEB INHALE ×4 (07:34→20:02)
[2023-12-05] MEDS: 0.9 % Sodium Chloride Flush 3 ML SYRINGE IVFLUSH ×3 (08:07→21:07)
--- NOTE | 2023-12-05 08:08 | PC.NURSE ---
found to be incontinent of urine w/ purewick. linens changed and patient repositioned. offering no complaints, states her breathing is much better on oxymask 4L. call mercedes within reach.
[2023-12-05 08:12] LABS: Glucose, Whole Blood 435 mg/dL (60-115)
[2023-12-05 08:12] LABS: Glucose, Whole Blood 495 mg/dL (60-115)
--- NOTE | 2023-12-05 09:47 | MHC.CM.PN ---
CM met with Patient at bedside and addressed IMM with her, providing Patient with the original and a copy has been placed on the chart. Patient lives in a duplex with her Daughter/HCP/Joselyn and she uses a walker for outdoor travel. Patient is active with [facility], [facility] for home O2, and [facility] for Hom[facility]. Home/resume said services is the goal and CM has initiated and will follow for dc planning. PCP is Dr. Tijerina.
[2023-12-05] MEDS: Atorvastatin Calcium 80 MG TABLET PO (09:50)
[2023-12-05] MEDS: Fenofibrate 160 MG TABLET PO (09:50)
[2023-12-05] MEDS: Furosemide 40 MG/4 ML VIAL IVPUSH (09:50)
[2023-12-05] MEDS: dilTIAZem HCL CD 180 MG CAP.ER.24H 360 MG PO (09:50)
--- NOTE | 2023-12-05 10:50 | P.CONCA_ITS ---
History of Present Illness History of Present Illness Date of Service: 12/05/23 Requesting physician: Sylvia Elkins Consult reason: shortness of breath Chief complaint: COPD, CHF Exacerbation Narrative: I was consulted to see Sofia in cardiology consultation today for acute shortness of breath. 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 Patient came to the hospital with sudden-onset shortness of breath although seems like she has been gradually getting short of breath. Patient has been getting dry cough and increased wheezing and was getting progressively more short of breath. No associated chest pain, significant leg swelling, orthopnea, PND. She did not have any productive phlegm or fever or chills at home. Came to the hospital was noted to be in hypoxic respiratory failure despite using oxygen. She was therefore admitted for COPD exacerbation along with hypoxemic respiratory failure and suspected to have maybe mild CHF based on leg edema. Chest x-ray was also read as possibly having CHF exacerbation. She got IV diuresis. Remain short of breath and is wheezing. Does not have any other cardiac symptoms at this point time Review of Systems 2 Constitutional: Constitutional: Reports no additional constitutional complaints Eyes: Eyes: Reports no additional eye complaints Cardiovascular: Cardiovascular: Denies chest pain, Reports leg edema, Denies palpitations and Reports dyspnea on exertion Respiratory: Respiratory: Reports cough, Reports dyspnea on exertion and Reports wheezing Gastrointestinal: Gastrointestinal: Reports no additional gastrointestinal complaints Genitourinary: Genitourinary: Reports no additional female genitourinary complaints Neurologic: Reports system reviewed and no additional complaints, except as documented Psychiatric: Psychiatric: Reports no additional psychiatric complaints Endocrine: Endocrine: Denies palpitations Allergic/Immunologic: Allergic/Immunologic: Reports wheezing [facility] Past Medical History Medical History (Updated 12/05/23 @ 11:07 by Jg Paz MD) Lower back pain Congestive heart failure CHF (congestive heart failure) Hypoxia COPD (chronic obstructive pulmonary disease) On Coumadin for atrial fibrillation Atrial fibrillation Hyperlipidemia Shortness of breath Bilateral edema of lower extremity Social History Social History Household Members: Children Household Members Other:: daughter Housing: House Do you presently have visiting nurse or other home services: Yes (cleaing person 1x week) Unable to assess alcohol history related to: Unknown Alcohol intake: never Patient Tobacco Use Status: Former Tobacco user Smoked in Last 30 Days: No Use of substances other than those prescribed or required for medical reasons: No Have you been hit, kicked, punched, or otherwise hurt by someone within the past year? If so, by whom?: No Do you feel safe in your current relationship?: Yes Is there a partner from a previous relationship who is making you feel unsafe now?: No Are you made to feel afraid or neglected: No Advance Directives: Yes Advance Directives on File: Yes Advance Directives Date on File: 07/18/23 Do you have a plan to hurt others: No Plan Recently lost weight without trying: No Nutrition Risks: No Nutritional Risk Patient : No Poor oral hygiene: No service: No Meds Allergies Allergy/AdvReac Type Severity Reaction Status Date / Time lisinopril Allergy Cough Verified 12/04/23 15:20 Active Medications: Current Medications Acetaminophen (Acetaminophen 325 Mg Tablet) 650 mg PO Q6H PRN PRN Reason: Pain, Mild (Pain Scale 1-3) Last Admin: 12/04/23 22:01 Dose: 650 mg Albuterol/Ipratropium (Albuterol/Iprat 2.5/0.5mg 3 Ml Ampul.Neb) 3 ml INHALE RQ4H WHILE AWAKE [facility] Last Admin: 12/05/23 07:34 Dose: 3 ml Atorvastatin Calcium (Atorvastatin Calcium 80 Mg Tablet) 80 mg PO DAILY [facility] Last Admin: 12/05/23 09:50 Dose: 80 mg Benzonatate (Benzonatate 100 Mg Capsule) 100 mg PO TID PRN PRN Reason: Cough Last Admin: 12/04/23 22:04 Dose: 100 mg Calcium Carbonate (Calcium Carbonate 750 Mg Tab.Chew) 750 mg PO Q4H PRN PRN Reason: Heartburn Last Admin: 12/04/23 23:23 Dose: 750 mg Diltiazem HCl (Diltiazem Hcl Cd 180 Mg Cap.Er.24h) 360 mg PO DAILY [facility]; Protocol Last Admin: 12/05/23 09:50 Dose: 360 mg Docusate Sodium (Docusate Sodium 100 Mg Capsule) 100 mg PO DAILY PRN PRN Reason: Constipation Fenofibrate (Fenofibrate 160 Mg Tablet) 160 mg PO DAILY [facility] Last Admin: 12/05/23 09:50 Dose: 160 mg Furosemide (Furosemide 40 Mg/4 Ml Vial) 40 mg IVPUSH DAILY [facility]; Protocol Last Admin: 12/05/23 09:50 Dose: 40 mg Gabapentin (Gabapentin 100 Mg Capsule) 100 mg PO BEDTIME DANIELE Last Admin: 12/04/23 23:23 Dose: 100 mg Glucose (Glucose Gel 15 Gm Gel..Gram.) 15 gm PO Q15M PRN; Protocol PRN Reason: per Hypoglycemia Standing Ord. Dextrose (D10) 250 mls @ 750 mls/hr IV Q15M PRN; Protocol PRN Reason: per Hypoglycemia Standing Ord. Diltiazem HCl 125 mg/ Sodium (Chloride) 125 mls @ 0 mls/hr IVCONT .Q0M DANIELE; Protocol Last Titration: 12/05/23 04:15 Dose: 0 mg/hr, 0 mls/hr Insulin Glargine (Insulin Glargine,Hum.Rec.Anlog 100 Unit/Ml 10 Ml Vial) 60 unit SUBCUT BEDTIME [facility] Last Admin: 12/05/23 00:15 Dose: 60 unit Insulin Human Lispro (Insulin Lispro 100 Unit/Ml 3 Ml Vial) 0 unit SUBCUT QIDACHS [facility]; Protocol Last Admin: 12/05/23 06:46 Dose: 12 unit Insulin Human Lispro (Insulin Lispro 100 Unit/Ml 3 Ml Vial) 7 unit SUBCUT TIDAC [facility] Last Admin: 12/05/23 06:46 Dose: 7 unit Lactic Acid (Ammonium Lactate 12 % Lotion 226 Gm Bottle) 1 appl TOPICAL BID [facility]; Protocol Last Admin: 12/05/23 09:52 Dose: Not Given Losartan Potassium (Losartan Potassium 25 Mg Tablet) 25 mg PO DAILY [facility]; Protocol Last Admin: 12/05/23 09:51 Dose: Not Given Melatonin (Melatonin 3 Mg Tablet) 6 mg PO BEDTIME PRN PRN Reason: Insomnia Methylprednisolone Sodium Succinate (Methylprednisolone Sod Succ 40 Mg/Ml Vial) 40 mg IVPUSH Q12H [facility] Last Admin: 12/05/23 04:14 Dose: 40 mg Ondansetron HCl (Ondansetron Hcl 4 Mg/2 Ml Vial) 4 mg IVPUSH Q8H PRN PRN Reason: Nausea and Vomiting Sodium Chloride (0.9 % Sodium Chloride Flush 3 Ml Syringe) 3 ml IVFLUSH QSHIFT [facility] Last Admin: 12/05/23 08:07 Dose: 3 ml Tiotropium [place] (Tiotropium [place] 2.5 Mcg 1 Puff/2.5 Mcg Mist.Inhal) 2 puff INHALE DAILY [facility] Warfarin Sodium (Warfarin Sodium 2.5 Mg Tablet) 2.5 mg PO SUTH@1800 [facility] Warfarin Sodium (Warfarin Sodium 5 Mg Tablet) 5 mg PO MOTUWEFRSA@1800 [facility] Home Medications ?Medication ?Instructions ?Recorded ?Confirmed ?Last Taken ?Type atorvastatin 80 mg tablet 80 mg PO DAILY 02/08/23 12/04/23 12/04/23 History diltiazem HCl 360 mg capsule,24 360 mg PO DAILY 02/08/23 12/04/23 12/04/23 History hr,extended release (Tiadylt ER) fenofibrate 160 mg tablet 160 mg PO DAILY 02/08/23 12/04/23 12/04/23 History furosemide 20 mg tablet 20 mg PO DAILY 02/08/23 12/04/23 12/04/23 History gabapentin 100 mg capsule 100 mg PO BEDTIME 02/08/23 12/04/23 12/03/23 History insulin glargine 100 unit/mL (3 86 unit subcut BEDTIME 02/08/23 12/04/23 12/03/23 History mL) subcutaneous pen (Lantus Solostar U-100 Insulin) insulin lispro 100 unit/mL 30 unit subcut TIDAC 02/08/23 12/04/23 12/03/23 History subcutaneous pen (Humalog KwikPen (U-100) Insulin) losartan 25 mg tablet 25 mg PO DAILY 02/08/23 12/04/23 12/04/23 History warfarin 5 mg tablet 5 mg PO MOTUWEFRSA@1800 02/08/23 12/04/23 12/03/23 History tiotropium bromide 18 mcg capsule 1 cap inhalation DAILY 07/15/23 12/04/23 12/04/23 History with inhalation device (Spiriva with HandiHaler) acetaminophen 650 mg 650 mg PO Q8H PRN Pain 12/04/23 12/04/23 12/03/23 History tablet,extended release (Tylenol 8 Hour) warfarin 2.5 mg tablet 2.5 mg PO SUTH@1800 12/04/23 12/04/23 11/30/23 History Physical Exam 2 Vital Signs: Vital Signs: Last Vital Signs Temp 97 F 12/05/23 09:40 Pulse 105 H 12/05/23 09:40 Resp 20 12/05/23 09:40 BP 164/73 H 12/05/23 09:40 Pulse Ox 94 12/05/23 09:40 O2 Del Method Oxymask 12/05/23 09:40 O2 Flow Rate 6 12/05/23 09:40 BMI result Body Mass Index 37.1 Const: General: cooperative, alert, awake and in distress mild and respiratory Nutritional Appearance: obese Orientation/consciousness: patient oriented x3 HEENT: Head: Yes normocephalic and Yes atraumatic Neck: Neck: Yes trachea midline, Yes supple and Yes no JVD Resp: Effort & Inspection: normal respiratory effort Auscultation: wheezes scattered wheezes and diminished lung sounds Cardio: Jugular venous distension: no JVD Rate: tachycardic Rhythm: a bnormal rhythm irregularly irregular Heart sounds: S1 normal heart sound present, S2 normal heart sound present, no click, no gallops, no murmurs and no rubs GI: Auscultation: normal bowel sounds Skin: General skin exam: no rashes or lesions noted and ecchymosis Neuro: General: patient oriented x3 and no focal motor deficits Extrem: General: No clubbing, No cyanosis, Yes edema and Yes venous stasis dermatitis Objective Labs and Meds 12/05/23 05:57 12/05/23 05:57 Lab results: Laboratory Results - last 24 hr 12/04/23 12/04/23 12/04/23 15:30 15:41 15:44 WBC 10.3 RBC 4.44 Hgb 12.4 Hct 39.8 MCV 89.6 MCH 27.9 MCHC 31.2 RDW 16.7 H Plt Count 333 MPV 9.4 Immature Gran % (Auto) 0.6 H Neut % (Auto) 59.7 Lymph % (Auto) 22.1 [place] % (Auto) 13.0 H Eos % (Auto) 3.9 Baso % (Auto) 0.7 Lymph # (Auto) 2.3 [place] # (Auto) 1.3 H Eos # (Auto) 0.4 Baso # (Auto) 0.1 Abs Immat Gran (auto) 0.06 H Absolute Neuts (auto) 6.2 Absolute Nucleated RBC 0.000 Nucleated RBC % (auto) 0.0 PT 25.3 H D INR 2.1 H APTT 37.4 H VBG pH 7.44 H VBG pCO2 46 VBG pO2 50 VBG HCO3 31 H VBG O2 Saturation 78.0 VBG Base Excess 6.8 Sodium 138 Potassium 4.1 Chloride 95 L Carbon Dioxide 31 H Anion Gap 16 BUN 22 H Creatinine 1.43 H Estim Creat Clear Calc 33.8 Estimated GFR 35 POC Glucose Random Glucose 373 H* Lactic Acid 1.3 Calcium 9.6 Magnesium Total Bilirubin 0.6 AST 15 ALT 9 Alkaline Phosphatase 64 Troponin I High Sens 4.0 D B-Natriuretic Peptide 78 Total Protein 7.0 Albumin 3.7 Influenza Type A (PCR) Influenza Type B (PCR) RSV RNA Qual (PCR) SARS-CoV-2 RNA (RT-PCR) 12/04/23 12/04/23 12/04/23 18:42 20:54 23:24 WBC RBC Hgb Hct MCV MCH MCHC RDW Plt Count MPV Immature Gran % (Auto) Neut % (Auto) Lymph % (Auto) [place] % (Auto) Eos % (Auto) Baso % (Auto) Lymph # (Auto) [place] # (Auto) Eos # (Auto) Baso # (Auto) Abs Immat Gran (auto) Absolute Neuts (auto) Absolute Nucleated RBC Nucleated RBC % (auto) PT INR APTT VBG pH VBG pCO2 VBG pO2 VBG HCO3 VBG O2 Saturation VBG Base Excess Sodium Potassium Chloride Carbon Dioxide Anion Gap BUN Creatinine Estim Creat Clear Calc Estimated GFR POC Glucose 559 H* Random Glucose Lactic Acid Calcium Magnesium Total Bilirubin AST ALT Alkaline Phosphatase Troponin I High Sens 224.0 H* D B-Natriuretic Peptide Total Protein Albumin Influenza Type A (PCR) NEGATIVE Influenza Type B (PCR) NEGATIVE RSV RNA Qual (PCR) NEGATIVE SARS-CoV-2 RNA (RT-PCR) NEGATIVE 12/04/23 12/04/23 12/05/23 23:32 23:36 00:54 WBC RBC Hgb Hct MCV MCH MCHC RDW Plt Count MPV Immature Gran % (Auto) Neut % (Auto) Lymph % (Auto) [place] % (Auto) Eos % (Auto) Baso % (Auto) Lymph # (Auto) [place] # (Auto) Eos # (Auto) Baso # (Auto) Abs Immat Gran (auto) Absolute Neuts (auto) Absolute Nucleated RBC Nucleated RBC % (auto) PT INR APTT VBG pH VBG pCO2 VBG pO2 VBG HCO3 VBG O2 Saturation VBG Base Excess Sodium 135 Potassium 3.6 Chloride 94 L Carbon Dioxide 21 L Anion Gap 24 H BUN 28 H Creatinine 1.81 H Estim Creat Clear Calc 26.7 Estimated GFR 27 POC Glucose > 600 H* > 600 H* Random Glucose 712 H* Lactic Acid Calcium 9.2 Magnesium Total Bilirubin AST ALT Alkaline Phosphatase Troponin I High Sens B-Natriuretic Peptide Total Protein Albumin Influenza Type A (PCR) Influenza Type B (PCR) RSV RNA Qual (PCR) SARS-CoV-2 RNA (RT-PCR) 12/05/23 12/05/23 12/05/23 01:00 01:57 03:00 WBC RBC Hgb Hct MCV MCH MCHC RDW Plt Count MPV Immature Gran % (Auto) Neut % (Auto) Lymph % (Auto) [place] % (Auto) Eos % (Auto) Baso % (Auto) Lymph # (Auto) [place] # (Auto) Eos # (Auto) Baso # (Auto) Abs Immat Gran (auto) Absolute Neuts (auto) Absolute Nucleated RBC Nucleated RBC % (auto) PT INR APTT VBG pH VBG pCO2 VBG pO2 VBG HCO3 VBG O2 Saturation VBG Base Excess Sodium Potassium Chloride Carbon Dioxide Anion Gap BUN Creatinine Estim Creat Clear Calc Estimated GFR POC Glucose 595 H* 582 H* 586 H* Random Glucose Lactic Acid Calcium Magnesium Total Bilirubin AST ALT Alkaline Phosphatase Troponin I High Sens B-Natriuretic Peptide Total Protein Albumin Influenza Type A (PCR) Influenza Type B (PCR) RSV RNA Qual (PCR) SARS-CoV-2 RNA (RT-PCR) 12/05/23 12/05/23 12/05/23 05:09 05:57 06:39 WBC 8.9 RBC 4.31 Hgb 12.5 Hct 38.7 MCV 89.8 MCH 29.0 MCHC 32.3 RDW 16.7 H Plt Count 295 MPV 9.4 Immature Gran % (Auto) Neut % (Auto) Lymph % (Auto) [place] % (Auto) Eos % (Auto) Baso % (Auto) Lymph # (Auto) [place] # (Auto) Eos # (Auto) Baso # (Auto) Abs Immat Gran (auto) Absolute Neuts (auto) Absolute Nucleated RBC 0.000 Nucleated RBC % (auto) 0.0 PT 22.5 H INR 1.8 H APTT VBG pH VBG pCO2 VBG pO2 VBG HCO3 VBG O2 Saturation VBG Base Excess Sodium 135 Potassium 3.9 Chloride 95 L Carbon Dioxide 27 Anion Gap 17 BUN 28 H Creatinine 1.65 H Estim Creat Clear Calc 29.3 Estimated GFR 30 POC Glucose 551 H* 546 H* Random Glucose 599 H* Lactic Acid Calcium 9.9 D Magnesium 2.2 Total Bilirubin AST ALT Alkaline Phosphatase Troponin I High Sens B-Natriuretic Peptide Total Protein Albumin Influenza Type A (PCR) Influenza Type B (PCR) RSV RNA Qual (PCR) SARS-CoV-2 RNA (RT-PCR) 12/05/23 12/05/23 07:29 08:05 WBC RBC Hgb Hct MCV MCH MCHC RDW Plt Count MPV Immature Gran % (Auto) Neut % (Auto) Lymph % (Auto) [place] % (Auto) Eos % (Auto) Baso % (Auto) Lymph # (Auto) [place] # (Auto) Eos # (Auto) Baso # (Auto) Abs Immat Gran (auto) Absolute Neuts (auto) Absolute Nucleated RBC Nucleated RBC % (auto) PT INR APTT VBG pH VBG pCO2 VBG pO2 VBG HCO3 VBG O2 Saturation VBG Base Excess Sodium Potassium Chloride Carbon Dioxide Anion Gap BUN Creatinine Estim Creat Clear Calc Estimated GFR POC Glucose 435 H* 495 H* Random Glucose Lactic Acid Calcium Magnesium Total Bilirubin AST ALT Alkaline Phosphatase Troponin I High Sens B-Natriuretic Peptide Total Protein Albumin Influenza Type A (PCR) Influenza Type B (PCR) RSV RNA Qual (PCR) SARS-CoV-2 RNA (RT-PCR) Imaging Radiologist's impression: Impressions Chest X-Ray 12/04/23 16:15 IMPRESSION: Enlarged cardiac silhouette and prominent central bronchovascular markings. Differential would include mild pulmonary edema and airways disease. Assessment and Plan (1) Acute hypoxemic respiratory failure: Status: Acute Patient present with acute hypoxemic respiratory failure on top of her chronic respiratory failure most likely related to COPD exacerbation. I do not see significant congestive heart failure at this point time. She is received some IV Lasix. I do not think she is has [place] heart failure at this point time as a cause for her acute hypoxemic respiratory failure. Could switch her to p.o. diuretics. Continue to optimize her pulmonary function and use bronchodilators as well as anti-inflammatory history improve her pulmonary situation. Continue supportive care. Continue oxygen therapy. Echocardiogram is being performed will review it later pretty (2) Atrial fibrillation: Status: Acute Atrial fibrillation with slightly rapid ventricular response most likely due to underlying pulmonary situation at this point time. Continue Cardizem therapy. Can use p.r.n. IV Cardizem for rate control. If rate remains difficult control consider adding digoxin to her regimen. Currently on full oral anticoagulation warfarin. Target INR between 2 and 3. At this point time will sign of the case. Thank you for allowing us to partake in the care Procedures Date of Service Date of Service: 12/05/23
[2023-12-05] MEDS: Tiotropium Bromide 2.5 mcg 1 PUFF/2.5 MCG MIST.INHAL 2 PUFF INHALE (11:34)
[2023-12-05 12:14] LABS: Glucose, Whole Blood 368 mg/dL (60-115)
[2023-12-05] MEDS: Insulin Glargine,Hum.rec.anlog 100 UNIT/ML 10 ML VIAL 25 UNIT SUBCUT (12:28)
[2023-12-05] MEDS: Insulin Lispro 100 UNIT/ML 3 ML VIAL 10 UNIT SUBCUT ×2 (12:28→16:50)
--- NOTE | 2023-12-05 12:37 | P.PNIM_ITS ---
Subjective Subjective Date of Service: 12/05/23 Interval History: Seen and examined this morning Follow-up for CHF, COPD Shortness of breath improving, leg edema improving Review of Systems Review of Systems: Yes all other systems are reviewed and are negative Cardiovascular Cardiovascular: Denies chest pain, Denies palpitations and Reports dyspnea Respiratory Respiratory: Reports cough and Reports dyspnea Endocrine Endocrine: Denies palpitations Physical Exam 2 Vital Signs: Vital Signs: Last Vital Signs Temp 97.6 F 12/05/23 12:00 Pulse 116 H 12/05/23 12:00 Resp 22 H 12/05/23 12:00 BP 85/43 L 12/05/23 12:00 Pulse Ox 97 12/05/23 12:00 O2 Del Method Oxymask 12/05/23 12:00 O2 Flow Rate 5 12/05/23 12:00 BMI result Body Mass Index 37.1 Const: General: cooperative, comfortable, alert and awake Nutritional Appearance: obese Orientation/consciousness: patient oriented x3 Resp: Other: b/l wheeze Effort & Inspection: normal respiratory effort, able to speak in complete sentences, no respiratory distress and no use of accessory muscles Cardio: Rate: tachycardic GI: Inspection: No distended Palpation (GI): Soft to palpation Skin: Other: Neuro: General: patient oriented x3 Objective Data Active Medications Acetaminophen (Acetaminophen 325 Mg Tablet) 650 mg PO Q6H PRN PRN Reason: Pain, Mild (Pain Scale 1-3) Last Admin: 12/04/23 22:01 Dose: 650 mg Documented By: CRAOL Albuterol/Ipratropium (Albuterol/Iprat 2.5/0.5mg 3 Ml Ampul.Neb) 3 ml INHALE RQ4H WHILE AWAKE [facility] Last Admin: 12/05/23 11:34 Dose: 3 ml Documented By: PATRICIA Atorvastatin Calcium (Atorvastatin Calcium 80 Mg Tablet) 80 mg PO DAILY [facility] Last Admin: 12/05/23 09:50 Dose: 80 mg Documented By: STEPHENIEAC Benzonatate (Benzonatate 100 Mg Capsule) 100 mg PO TID PRN PRN Reason: Cough Last Admin: 12/04/23 22:04 Dose: 100 mg Documented By: CAROL Calcium Carbonate (Calcium Carbonate 750 Mg Tab.Chew) 750 mg PO Q4H PRN PRN Reason: Heartburn Last Admin: 12/04/23 23:23 Dose: 750 mg Documented By: CAROL Diltiazem HCl (Diltiazem Hcl Cd 180 Mg Cap.Er.24h) 360 mg PO DAILY [facility]; Protocol Last Admin: 12/05/23 09:50 Dose: 360 mg Documented By: SOM Docusate Sodium (Docusate Sodium 100 Mg Capsule) 100 mg PO DAILY PRN PRN Reason: Constipation Fenofibrate (Fenofibrate 160 Mg Tablet) 160 mg PO DAILY [facility] Last Admin: 12/05/23 09:50 Dose: 160 mg Documented By: SOM Furosemide (Furosemide 40 Mg/4 Ml Vial) 40 mg IVPUSH DAILY [facility]; Protocol Last Admin: 12/05/23 09:50 Dose: 40 mg Documented By: SOM Gabapentin (Gabapentin 100 Mg Capsule) 100 mg PO BEDTIME [facility] Last Admin: 12/04/23 23:23 Dose: 100 mg Documented By: CAROL Glucose (Glucose Gel 15 Gm Gel..Gram.) 15 gm PO Q15M PRN; Protocol PRN Reason: per Hypoglycemia Standing Ord. Dextrose (D10) 250 mls @ 750 mls/hr IV Q15M PRN; Protocol PRN Reason: per Hypoglycemia Standing Ord. Insulin Glargine (Insulin Glargine,Hum.Rec.Anlog 100 Unit/Ml 10 Ml Vial) 86 unit SUBCUT BEDTIME [facility] Insulin Human Lispro (Insulin Lispro 100 Unit/Ml 3 Ml Vial) 0 unit SUBCUT QIDACHS [facility]; Protocol Last Admin: 12/05/23 12:27 Dose: 10 unit Documented By: SOM Insulin Human Lispro (Insulin Lispro 100 Unit/Ml 3 Ml Vial) 10 unit SUBCUT TIDAC [facility] Last Admin: 12/05/23 12:28 Dose: 10 unit Documented By: SOM Lactic Acid (Ammonium Lactate 12 % Lotion 226 Gm Bottle) 1 appl TOPICAL BID [facility]; Protocol Last Admin: 12/05/23 09:52 Dose: Not Given Documented By: SOM Non-Admin Reason: Med Not Available Losartan Potassium (Losartan Potassium 25 Mg Tablet) 25 mg PO DAILY [facility]; Protocol Last Admin: 12/05/23 09:51 Dose: Not Given Documented By: SOM Non-Admin Reason: Unable to Scan Barcode Melatonin (Melatonin 3 Mg Tablet) 6 mg PO BEDTIME PRN PRN Reason: Insomnia Methylprednisolone Sodium Succinate (Methylprednisolone Sod Succ 40 Mg/Ml Vial) 40 mg IVPUSH Q12H [facility] Last Admin: 12/05/23 04:14 Dose: 40 mg Documented By: CAROL Nystatin (Nystatin Powder 15 Gm Bottle) 1 appl TOPICAL BID [facility]; Protocol Ondansetron HCl (Ondansetron Hcl 4 Mg/2 Ml Vial) 4 mg IVPUSH Q8H PRN PRN Reason: Nausea and Vomiting Sodium Chloride (0.9 % Sodium Chloride Flush 3 Ml Syringe) 3 ml IVFLUSH QSHIFT [facility] Last Admin: 12/05/23 08:07 Dose: 3 ml Documented By: ABBE Tiotropium [place] (Tiotropium [place] 2.5 Mcg 1 Puff/2.5 Mcg Mist.Inhal) 2 puff INHALE DAILY [facility] Last Admin: 12/05/23 11:34 Dose: 2 puff Documented By: PATRICIA Warfarin Sodium (Warfarin Sodium 2.5 Mg Tablet) 2.5 mg PO SUTH@1800 [facility] Warfarin Sodium (Warfarin Sodium 5 Mg Tablet) 5 mg PO MOTUWEFRSA@1800 [facility] Labs 12/05/23 05:57 12/05/23 05:57 Labs: Laboratory Results - last 24 hr 12/04/23 12/04/23 12/04/23 15:30 15:41 15:44 MCV 89.6 MCH 27.9 MCHC 31.2 RDW 16.7 H Plt Count 333 MPV 9.4 Immature Gran % (Auto) 0.6 H Neut % (Auto) 59.7 Lymph % (Auto) 22.1 [place] % (Auto) 13.0 H Eos % (Auto) 3.9 Baso % (Auto) 0.7 Lymph # (Auto) 2.3 [place] # (Auto) 1.3 H Eos # (Auto) 0.4 Baso # (Auto) 0.1 Abs Immat Gran (auto) 0.06 H Absolute Neuts (auto) 6.2 Absolute Nucleated RBC 0.000 Nucleated RBC % (auto) 0.0 PT 25.3 H D INR 2.1 H APTT 37.4 H VBG pH 7.44 H VBG pCO2 46 VBG pO2 50 VBG HCO3 31 H VBG O2 Saturation 78.0 VBG Base Excess 6.8 Anion Gap 16 Estim Creat Clear Calc 33.8 Estimated GFR 35 POC Glucose Random Glucose 373 H* Lactic Acid 1.3 Calcium 9.6 Magnesium Total Bilirubin 0.6 AST 15 ALT 9 Alkaline Phosphatase 64 Troponin I High Sens 4.0 D B-Natriuretic Peptide 78 Total Protein 7.0 Albumin 3.7 Influenza Type A (PCR) Influenza Type B (PCR) RSV RNA Qual (PCR) SARS-CoV-2 RNA (RT-PCR) 12/04/23 12/04/23 12/04/23 18:42 20:54 23:24 MCV MCH MCHC RDW Plt Count MPV Immature Gran % (Auto) Neut % (Auto) Lymph % (Auto) [place] % (Auto) Eos % (Auto) Baso % (Auto) Lymph # (Auto) [place] # (Auto) Eos # (Auto) Baso # (Auto) Abs Immat Gran (auto) Absolute Neuts (auto) Absolute Nucleated RBC Nucleated RBC % (auto) PT INR APTT VBG pH VBG pCO2 VBG pO2 VBG HCO3 VBG O2 Saturation VBG Base Excess Anion Gap Estim Creat Clear Calc Estimated GFR POC Glucose 559 H* Random Glucose Lactic Acid Calcium Magnesium Total Bilirubin AST ALT Alkaline Phosphatase Troponin I High Sens 224.0 H* D B-Natriuretic Peptide Total Protein Albumin Influenza Type A (PCR) NEGATIVE Influenza Type B (PCR) NEGATIVE RSV RNA Qual (PCR) NEGATIVE SARS-CoV-2 RNA (RT-PCR) NEGATIVE 12/04/23 12/04/23 12/05/23 23:32 23:36 00:54 MCV MCH MCHC RDW Plt Count MPV Immature Gran % (Auto) Neut % (Auto) Lymph % (Auto) [place] % (Auto) Eos % (Auto) Baso % (Auto) Lymph # (Auto) [place] # (Auto) Eos # (Auto) Baso # (Auto) Abs Immat Gran (auto) Absolute Neuts (auto) Absolute Nucleated RBC Nucleated RBC % (auto) PT INR APTT VBG pH VBG pCO2 VBG pO2 VBG HCO3 VBG O2 Saturation VBG Base Excess Anion Gap 24 H Estim Creat Clear Calc 26.7 Estimated GFR 27 POC Glucose > 600 H* > 600 H* Random Glucose 712 H* Lactic Acid Calcium 9.2 Magnesium Total Bilirubin AST ALT Alkaline Phosphatase Troponin I High Sens B-Natriuretic Peptide Total Protein Albumin Influenza Type A (PCR) Influenza Type B (PCR) RSV RNA Qual (PCR) SARS-CoV-2 RNA (RT-PCR) 12/05/23 12/05/23 12/05/23 01:00 01:57 03:00 MCV MCH MCHC RDW Plt Count MPV Immature Gran % (Auto) Neut % (Auto) Lymph % (Auto) [place] % (Auto) Eos % (Auto) Baso % (Auto) Lymph # (Auto) [place] # (Auto) Eos # (Auto) Baso # (Auto) Abs Immat Gran (auto) Absolute Neuts (auto) Absolute Nucleated RBC Nucleated RBC % (auto) PT INR APTT VBG pH VBG pCO2 VBG pO2 VBG HCO3 VBG O2 Saturation VBG Base Excess Anion Gap Estim Creat Clear Calc Estimated GFR POC Glucose 595 H* 582 H* 586 H* Random Glucose Lactic Acid Calcium Magnesium Total Bilirubin AST ALT Alkaline Phosphatase Troponin I High Sens B-Natriuretic Peptide Total Protein Albumin Influenza Type A (PCR) Influenza Type B (PCR) RSV RNA Qual (PCR) SARS-CoV-2 RNA (RT-PCR) 12/05/23 12/05/23 12/05/23 05:09 05:57 06:39 MCV 89.8 MCH 29.0 MCHC 32.3 RDW 16.7 H Plt Count 295 MPV 9.4 Immature Gran % (Auto) Neut % (Auto) Lymph % (Auto) [place] % (Auto) Eos % (Auto) Baso % (Auto) Lymph # (Auto) [place] # (Auto) Eos # (Auto) Baso # (Auto) Abs Immat Gran (auto) Absolute Neuts (auto) Absolute Nucleated RBC 0.000 Nucleated RBC % (auto) 0.0 PT 22.5 H INR 1.8 H APTT VBG pH VBG pCO2 VBG pO2 VBG HCO3 VBG O2 Saturation VBG Base Excess Anion Gap 17 Estim Creat Clear Calc 29.3 Estimated GFR 30 POC Glucose 551 H* 546 H* Random Glucose 599 H* Lactic Acid Calcium 9.9 D Magnesium 2.2 Total Bilirubin AST ALT Alkaline Phosphatase Troponin I High Sens B-Natriuretic Peptide Total Protein Albumin Influenza Type A (PCR) Influenza Type B (PCR) RSV RNA Qual (PCR) SARS-CoV-2 RNA (RT-PCR) 12/05/23 12/05/23 12/05/23 07:29 08:05 12:10 MCV MCH MCHC RDW Plt Count MPV Immature Gran % (Auto) Neut % (Auto) Lymph % (Auto) [place] % (Auto) Eos % (Auto) Baso % (Auto) Lymph # (Auto) [place] # (Auto) Eos # (Auto) Baso # (Auto) Abs Immat Gran (auto) Absolute Neuts (auto) Absolute Nucleated RBC Nucleated RBC % (auto) PT INR APTT VBG pH VBG pCO2 VBG pO2 VBG HCO3 VBG O2 Saturation VBG Base Excess Anion Gap Estim Creat Clear Calc Estimated GFR POC Glucose 435 H* 495 H* 368 H* Random Glucose Lactic Acid Calcium Magnesium Total Bilirubin AST ALT Alkaline Phosphatase Troponin I High Sens B-Natriuretic Peptide Total Protein Albumin Influenza Type A (PCR) Influenza Type B (PCR) RSV RNA Qual (PCR) SARS-CoV-2 RNA (RT-PCR) Assessment and Plan (1) Acute hypoxemic respiratory failure: Status: Acute (2) Atrial fibrillation: Status: Acute Plan Pt is an 83-year-old female with a PMH significant for COPD with?chronic hypoxic respiratory failure on 3L home O2, HFpEF, HTN, chronic AFib on Coumadin, insulin-dependent diabetes type 2 among others who presents to the ED with?increased shortness of breath, difficulty breathing, and nonproductive cough for the past week. Pt will be admitted to the hospital for treatment and further evaluation of acute on chronic hypoxic respiratory failure in the setting of COPD and CHF exacerbation. Acute on chronic hypoxic respiratory failure due to COPD and CHF On baseline 3 L of supplemental oxygen Acute COPD exacerbation continue DuoNebs, Solu-Medrol, and benzonatate Pt does not meet sepsis criteria, tachycardia secondary to albuterol use No indication for antibiotics at this time Continue home inhalers Titrate supplemental O2 >90, wean as tolerated Monitor respiratory status Acute HFpEF exacerbation Patient's hypoxia and dyspnea likely combination of COPD and CHF exacerbations Received IV Lasix with good effect, we will transitioned to home dose CKD3 likely near baseline follow BMP insulin-dependent type 2 diabetes mellitus with hyperglycemia due to steroids POC glucose 419 at time of presentation - up to nearly 700 Will increase to home dose of Lantus Increased premeal insulin Follow point of care sugars closely, titrate medication as needed Atrial fibrillation with rapid ventricular response Previously on Cardizem drip in the ED, weaned off Continue home dose of diltiazem Monitor heart rate closely Seen by Cardiology, consider IV bolus dosing of Cardizem versus digoxin if heart rate remains uncontrolled Follow INR daily, continue Coumadin Hypertension Blood pressure soft likely due to medications Will stop IV Lasix Hold losartan Follow blood pressure closely HLD Continue statin, fenofibrate Chronic left lower extremity wound In the setting of chronic venous stasis and leg edema Wound nurse consult pending Full Code DVT Prophylaxis: On Coumadin Requires ongoing inpatient hospitalization for management of? acute on chronic hypoxic respiratory failure in the setting of COPD and CHF exacerbations. Patient will require hospitalization for administration of increased supplemental oxygen, IV steroids, breathing treatments, IV diuretics, and close monitoring of labs and respiratory status. Quality Stroke Does the patient have a stroke diagnosis?: No VTE Prior VTE?: No VTE Risk Level:: Medical - moderate - high VTE Device Contraindication: Treatment Not Indicated VTE Drug Contraindication: N/A - Med Ordered
[2023-12-05 16:47] LABS: Glucose, Whole Blood 282 mg/dL (60-115)
[2023-12-05] MEDS: Acetaminophen 325 MG TABLET 650 MG PO ×2 (17:43→23:54)
[2023-12-05] MEDS: Warfarin Sodium 5 MG TABLET PO (17:44)
[2023-12-05 20:51] LABS: Glucose, Whole Blood 240 mg/dL (60-115)
[2023-12-05] MEDS: Gabapentin 100 MG CAPSULE PO (21:06)
[2023-12-05] MEDS: Insulin Glargine,Hum.rec.anlog 100 UNIT/ML 10 ML VIAL 86 UNIT SUBCUT (21:06)
[2023-12-06] VITALS (13 sets, daily range): BP systolic 101–125; BP diastolic 59–74; PULSE 68–101; RESP 16–20; TEMP 36.1–37; O2SAT 91–95
[2023-12-06] MEDS: methylPREDNISolone Sod Succ 40 MG/ML VIAL IVPUSH ×2 (04:12→17:11)
[2023-12-06 06:54] LABS: Anion Gap 17 (12-20); Blood Urea Nitrogen 37 mg/dL (9-16); Calcium 9.7 mg/dL (8.4-10.2); Carbon Dioxide 28 mmol/L (22-29); Chloride 96 mmol/L (96-108); Creatinine Clr Calc Pharmacy 32.8; Estimated Glomerular Filt Rate 34; Glucose Random 299 mg/dL (60-115); Potassium 4.2 mmol/L (3.3-5.1); Sodium 137 mmol/L (135-145)
[2023-12-06 06:55] LABS: Glucose, Whole Blood 277 mg/dL (60-115)
[2023-12-06 07:02] LABS: Glucose, Whole Blood 283 mg/dL (60-115)
[2023-12-06 07:18] LABS: INTERNATIONAL NORM RATIO 2.5 (0.9-1.1)
[2023-12-06] MEDS: Fenofibrate 160 MG TABLET PO (07:41)
[2023-12-06] MEDS: Albuterol/Iprat 2.5/0.5MG 3 ML AMPUL.NEB INHALE ×4 (07:42→20:08)
[2023-12-06] MEDS: Insulin Lispro 100 UNIT/ML 3 ML VIAL SUBCUT ×4 (07:42→21:48)
[2023-12-06] MEDS: Nystatin Powder 15 GM BOTTLE 1 APPL TOPICAL ×2 (07:42→21:54)
[2023-12-06] MEDS: Furosemide 20 MG TABLET PO (07:42)
[2023-12-06] MEDS: dilTIAZem HCL CD 180 MG CAP.ER.24H 360 MG PO (07:42)
[2023-12-06] MEDS: Atorvastatin Calcium 80 MG TABLET PO (07:42)
[2023-12-06] MEDS: Insulin Lispro 100 UNIT/ML 3 ML VIAL 10 UNIT SUBCUT ×3 (07:43→17:11)
[2023-12-06] MEDS: 0.9 % Sodium Chloride Flush 3 ML SYRINGE IVFLUSH ×2 (07:45→17:12)
[2023-12-06] MEDS: Furosemide 40 MG/4 ML VIAL IVPUSH (08:12)
[2023-12-06] MEDS: Acetaminophen 325 MG TABLET 650 MG PO ×2 (10:47→19:56)
[2023-12-06 10:54] LABS: Glucose, Whole Blood 441 mg/dL (60-115)
--- NOTE | 2023-12-06 13:19 | PM.PNCARD ---
Subjective Subjective Date of Service: 12/06/23 Principal diagnosis: COPD exacerbation, heart failure, pulmonary hypertension Interval history: Patient says her breathing is better. Echocardiogram shows severe pulmonary hypertension with mildly elevated right atrial pressures with moderately severe tricuspid regurgitation. She has underlying chronic atrial fibrillation. Heart rate is borderline controlled. Review of Systems Constitutional: Reports no additional constitutional complaints Cardiovascular: Reports leg edema and Reports dyspnea on exertion Respiratory: Reports dyspnea on exertion and Reports wheezing Gastrointestinal: Reports no additional gastrointestinal complaints Musculoskeletal: Reports no additional musculoskeletal complaints Reports system reviewed and no additional complaints, except as documented Allergic/Immunologic: Reports wheezing Physical Exam Vital Signs: Last Vital Signs Temp 96.9 F 12/06/23 10:58 Pulse 92 12/06/23 11:30 Resp 16 12/06/23 11:30 BP 101/65 12/06/23 10:58 Pulse Ox 91 L 12/06/23 10:58 O2 Del Method Nasal Cannula 12/06/23 10:58 O2 Flow Rate 5 12/06/23 10:58 BMI result Body Mass Index 37.1 Neck Neck: Yes trachea midline and Yes supple Resp Effort & Inspection: normal respiratory effort Auscultation: wheezes scattered wheezes and diminished lung sounds Cardio Rhythm: abnormal rhythm irregularly irregular Heart sounds: S1 normal heart sound present, S2 normal heart sound present, no click, no gallops and Murmur heart sound present systolic Skin General skin exam: no rashes or lesions noted and ecchymosis Extrem General: No clubbing, No cyanosis and Yes edema Objective Labs and Meds 12/05/23 05:57 12/06/23 06:13 Lab results: Laboratory Results - last 24 hr 12/05/23 12/05/23 12/05/23 16:42 20:47 23:34 Hold Purple Top SEE NOTE PT INR Sodium Potassium Chloride Carbon Dioxide Anion Gap BUN Creatinine Estim Creat Clear Calc Estimated GFR POC Glucose 282 H 240 H Random Glucose Calcium 12/06/23 12/06/23 12/06/23 06:03 06:13 06:59 Hold Purple Top PT 30.0 H D INR 2.5 H Sodium 137 Potassium 4.2 Chloride 96 Carbon Dioxide 28 Anion Gap 17 BUN 37 H Creatinine 1.45 H Estim Creat Clear Calc 32.8 Estimated GFR 34 POC Glucose 277 H 283 H Random Glucose 299 H Calcium 9.7 12/06/23 10:49 Hold Purple Top PT INR Sodium Potassium Chloride Carbon Dioxide Anion Gap BUN Creatinine Estim Creat Clear Calc Estimated GFR POC Glucose 441 H* Random Glucose Calcium Progress Note: A&P Assessment and plan (1) Acute hypoxemic respiratory failure: Status: Acute Assessment and Plan: Acute hypoxemic respiratory failure related to COPD exacerbation congestive heart failure. She is secondary significant pulmonary hypertension and moderately severe tricuspid regurgitation most likely related hypoxemic respiratory failure. Continue to aggressively treat her underlying COPD exacerbation as well as correct her hypoxemia which is not corrected. Most likely also has obesity hypoventilation syndrome and/or obstructive sleep apnea. Needs workup as an outpatient. Continue gentle diuresis given right atrial elevated pressures. Continue monitor strict intake and output chart. Continue monitor renal function closely along with electrolytes. Check BNP tomorrow. (2) Atrial fibrillation: Status: Acute Assessment and Plan: Chronic atrial fibrillation. Currently borderline rate controlled on Cardizem therapy. Continue the same. Will hold off on adding any other agent at this point time. Continue full oral anticoagulation, currently on warfarin therapy. Maintain INR between 2 and 3. Will follow with you Time Spent With Patient Time: Total time managing care of this patient today ____ minutes. Progress Note: Quality Stroke Does the patient have a stroke diagnosis?: No Procedures Date of Service Date of Service: 12/06/23
--- NOTE | 2023-12-06 15:10 | P.PNIM_ITS ---
Subjective Subjective Date of Service: 12/06/23 Interval History: Seen and examined this morning Follow-up for respiratory failure Still reporting shortness of breath, orthopnea, dry cough Review of Systems Review of Systems: Yes all other systems are reviewed and are negative Constitutional Constitutional: Denies chills and Denies fever(s) Cardiovascular Cardiovascular: Denies chest pain, Denies palpitations and Reports dyspnea Respiratory Respiratory: Reports cough and Reports dyspnea Endocrine Endocrine: Denies palpitations Physical Exam 2 Vital Signs: Vital Signs: Last Vital Signs Temp 96.9 F 12/06/23 10:58 Pulse 92 12/06/23 11:30 Resp 16 12/06/23 11:30 BP 101/65 12/06/23 10:58 Pulse Ox 91 L 12/06/23 10:58 O2 Del Method Nasal Cannula 12/06/23 10:58 O2 Flow Rate 5 12/06/23 10:58 BMI result Body Mass Index 37.1 Const: General: cooperative, comfortable, alert and awake Nutritional Appearance: obese Orientation/consciousness: patient oriented x3 Resp: Other: b/l wheeze Effort & Inspection: normal respiratory effort, able to speak in complete sentences, no respiratory distress and no use of accessory muscles Cardio: Rate: regular rate GI: Inspection: No distended Palpation (GI): Soft to palpation Skin: Other: Bilateral venous stasis skin changes, lower extremities; shallow ulceration left anterior montemayor, no surrounding erythema Neuro: General: patient oriented x3 Objective Data Active Medications Acetaminophen (Acetaminophen 325 Mg Tablet) 650 mg PO Q6H PRN PRN Reason: Pain, Mild (Pain Scale 1-3) Last Admin: 12/06/23 10:47 Dose: 650 mg Documented By: DEREK Albuterol/Ipratropium (Albuterol/Iprat 2.5/0.5mg 3 Ml Ampul.Neb) 3 ml INHALE RQ4H WHILE AWAKE [facility] Last Admin: 12/06/23 11:29 Dose: 3 ml Documented By: PATRICIA Atorvastatin Calcium (Atorvastatin Calcium 80 Mg Tablet) 80 mg PO DAILY [facility] Last Admin: 12/06/23 07:42 Dose: 80 mg Documented By: DEREK Benzonatate (Benzonatate 100 Mg Capsule) 100 mg PO TID PRN PRN Reason: Cough Last Admin: 12/04/23 22:04 Dose: 100 mg Documented By: CAROL Calcium Carbonate (Calcium Carbonate 750 Mg Tab.Chew) 750 mg PO Q4H PRN PRN Reason: Heartburn Last Admin: 12/04/23 23:23 Dose: 750 mg Documented By: CAROL Diltiazem HCl (Diltiazem Hcl Cd 180 Mg Cap.Er.24h) 360 mg PO DAILY [facility]; Protocol Last Admin: 12/06/23 07:42 Dose: 360 mg Documented By: DEREK Docusate Sodium (Docusate Sodium 100 Mg Capsule) 100 mg PO DAILY PRN PRN Reason: Constipation Fenofibrate (Fenofibrate 160 Mg Tablet) 160 mg PO DAILY [facility] Last Admin: 12/06/23 07:41 Dose: 160 mg Documented By: DEREK Furosemide (Furosemide 40 Mg/4 Ml Vial) 40 mg IVPUSH DAILY [facility]; Protocol Last Admin: 12/06/23 08:12 Dose: 40 mg Documented By: DEREK Gabapentin (Gabapentin 100 Mg Capsule) 100 mg PO BEDTIME [facility] Last Admin: 12/05/23 21:06 Dose: 100 mg Documented By: CHERYLE Glucose (Glucose Gel 15 Gm Gel..Gram.) 15 gm PO Q15M PRN; Protocol PRN Reason: per Hypoglycemia Standing Ord. Dextrose (D10) 250 mls @ 750 mls/hr IV Q15M PRN; Protocol PRN Reason: per Hypoglycemia Standing Ord. Insulin Glargine (Insulin Glargine,Hum.Rec.Anlog 100 Unit/Ml 10 Ml Vial) 86 unit SUBCUT BEDTIME [facility] Last Admin: 12/05/23 21:06 Dose: 86 unit Documented By: CHERYLE Insulin Human Lispro (Insulin Lispro 100 Unit/Ml 3 Ml Vial) 0 unit SUBCUT QIDACHS [facility]; Protocol Last Admin: 12/06/23 11:09 Dose: 12 unit Documented By: DEREK Insulin Human Lispro (Insulin Lispro 100 Unit/Ml 3 Ml Vial) 10 unit SUBCUT TIDAC [facility] Last Admin: 12/06/23 11:09 Dose: 10 unit Documented By: DEREK Lactic Acid (Ammonium Lactate 12 % Lotion 226 Gm Bottle) 1 appl TOPICAL BID [facility]; Protocol Last Admin: 12/06/23 07:45 Dose: Not Given Documented By: DEREK Non-Admin Reason: Med Not Available Losartan Potassium (Losartan Potassium 25 Mg Tablet) 25 mg PO DAILY [facility]; Protocol Last Admin: 12/05/23 09:51 Dose: Not Given Documented By: SOM Non-Admin Reason: Unable to Scan Barcode Melatonin (Melatonin 3 Mg Tablet) 6 mg PO BEDTIME PRN PRN Reason: Insomnia Methylprednisolone Sodium Succinate (Methylprednisolone Sod Succ 40 Mg/Ml Vial) 40 mg IVPUSH Q12H [facility] Last Admin: 12/06/23 04:12 Dose: 40 mg Documented By: CHERYLE Nystatin (Nystatin Powder 15 Gm Bottle) 1 appl TOPICAL BID [facility]; Protocol Last Admin: 12/06/23 07:42 Dose: 1 appl Documented By: DEREK Ondansetron HCl (Ondansetron Hcl 4 Mg/2 Ml Vial) 4 mg IVPUSH Q8H PRN PRN Reason: Nausea and Vomiting Sodium Chloride (0.9 % Sodium Chloride Flush 3 Ml Syringe) 3 ml IVFLUSH QSHIFT [facility] Last Admin: 12/06/23 07:45 Dose: 3 ml Documented By: DEREK Warfarin Sodium (Warfarin Sodium 2.5 Mg Tablet) 2.5 mg PO SUTH@1800 [facility] Warfarin Sodium (Warfarin Sodium 5 Mg Tablet) 5 mg PO MOTUWEFRSA@1800 [facility] Last Admin: 12/05/23 17:44 Dose: 5 mg Documented By: FOSTEKR Labs 12/05/23 05:57 12/06/23 06:13 Labs: Laboratory Results - last 24 hr 12/05/23 12/05/23 12/05/23 16:42 20:47 23:34 Hold Purple Top SEE NOTE PT INR Anion Gap Estim Creat Clear Calc Estimated GFR POC Glucose 282 H 240 H Random Glucose Calcium 12/06/23 12/06/23 12/06/23 06:03 06:13 06:59 Hold Purple Top PT 30.0 H D INR 2.5 H Anion Gap 17 Estim Creat Clear Calc 32.8 Estimated GFR 34 POC Glucose 277 H 283 H Random Glucose 299 H Calcium 9.7 12/06/23 10:49 Hold Purple Top PT INR Anion Gap Estim Creat Clear Calc Estimated GFR POC Glucose 441 H* Random Glucose Calcium Microbiology Microbiology Results: Microbiology 12/04/23 15:30 Blood Culture - Preliminary Blood - Venous Staphylococcus species 05/16/24 15:41 Blood Culture - Preliminary Blood - Venous No growth after 24 hours. Assessment and Plan (1) Acute hypoxemic respiratory failure: Status: Acute (2) Atrial fibrillation: Status: Acute Plan Pt is an 83-year-old female with a PMH significant for COPD with?chronic hypoxic respiratory failure on 3L home O2, HFpEF, HTN, chronic AFib on Coumadin, insulin-dependent diabetes type 2 among others who presents to the ED with?increased shortness of breath, difficulty breathing, and nonproductive cough for the past week. Pt will be admitted to the hospital for treatment and further evaluation of acute on chronic hypoxic respiratory failure in the setting of COPD and CHF exacerbation. Acute on chronic hypoxic respiratory failure due to COPD and CHF Obesity hypoventilation likely contributing Patient also has remote history of TREMAYNE, no longer using CPAP On baseline 3 L of supplemental oxygen Acute COPD exacerbation continue DuoNebs, Solu-Medrol Pt does not meet sepsis criteria, tachycardia secondary to albuterol use No indication for antibiotics at this time Continue home inhalers Titrate supplemental O2 >90, wean as tolerated Monitor respiratory status Acute HFpEF exacerbation Patient's hypoxia and dyspnea likely combination of COPD and CHF exacerbations Likely right heart failure secondary to pulmonary hypertension Echo EF 60-65%, [id number] aortic stenosis, moderately severe tricuspid regurgitation, elevated right ventricular systolic pressure with mildly elevated right atrial pressures, severe pulmonary hypertension Pulmonary hypertension Question due to underlying lung disease versus untreated TREMAYNE - will need outpatient sleep study and PFts Pulmonary consult pending CKD3 likely near baseline follow BMP insulin-dependent type 2 diabetes mellitus with hyperglycemia due to steroids POC glucose 419 at time of presentation - up to nearly 700 continue home dose of Lantus continue premeal insulin Follow point of care sugars closely, titrate medication as needed Atrial fibrillation with rapid ventricular response Previously on Cardizem drip in the ED, weaned off Continue home dose of diltiazem Monitor heart rate closely Seen by Cardiology, consider IV bolus dosing of Cardizem versus digoxin if heart rate remains uncontrolled Follow INR daily, continue Coumadin. INR therapeutic Hypertension Blood pressure soft likely due to medications Hold losartan Follow blood pressure closely HLD Continue statin, fenofibrate Chronic left lower extremity wound In the setting of chronic venous stasis and leg edema does not appear infected Wound nurse consult pending Morbid obesity BMI 37.1 Likely contributing to respiratory failure/hypoxia Full Code DVT Prophylaxis: On Coumadin Requires ongoing inpatient hospitalization for management of? acute on chronic hypoxic respiratory failure in the setting of COPD and CHF exacerbations. Patient will require hospitalization for administration of increased supplemental oxygen, IV steroids, breathing treatments, IV diuretics, and close monitoring of labs and respiratory status. Quality Stroke Does the patient have a stroke diagnosis?: No VTE Prior VTE?: No VTE Risk Level:: Medical - moderate - high VTE Device Contraindication: Treatment Not Indicated VTE Drug Contraindication: N/A - Med Ordered
[2023-12-06 15:46] LABS: Glucose, Whole Blood 342 mg/dL (60-115)
[2023-12-06] MEDS: Warfarin Sodium 5 MG TABLET PO (17:47)
[2023-12-06 19:49] LABS: Glucose, Whole Blood 322 mg/dL (60-115)
[2023-12-06] MEDS: Gabapentin 100 MG CAPSULE PO (21:48)
[2023-12-06] MEDS: Insulin Glargine,Hum.rec.anlog 100 UNIT/ML 10 ML VIAL 86 UNIT SUBCUT (21:50)
[2023-12-06] MEDS: Melatonin 3 MG TABLET 6 MG PO (21:51)
[2023-12-07] VITALS (11 sets, daily range): BP systolic 117–140; BP diastolic 55–70; PULSE 69–100; RESP 18–20; TEMP 36.2–36.9; O2SAT 89–96
[2023-12-07] MEDS: 0.9 % Sodium Chloride Flush 3 ML SYRINGE IVFLUSH ×4 (03:58→20:51)
[2023-12-07] MEDS: methylPREDNISolone Sod Succ 40 MG/ML VIAL IVPUSH ×2 (03:58→16:40)
[2023-12-07 07:04] LABS: INTERNATIONAL NORM RATIO 2.9 (0.9-1.1); Prothrombin Time 34.8 SEC (11.1-13.3)
[2023-12-07 07:19] LABS: B Type Natriuretic Peptide 109 pg/mL (<100)
[2023-12-07] MEDS: Albuterol/Iprat 2.5/0.5MG 3 ML AMPUL.NEB INHALE ×4 (07:43→19:27)
[2023-12-07 07:53] LABS: Glucose, Whole Blood 388 mg/dL (60-115)
[2023-12-07 08:05] LABS: Anion Gap 15 (12-20); Blood Urea Nitrogen 46 mg/dL (9-16); Calcium 9.6 mg/dL (8.4-10.2); Carbon Dioxide 29 mmol/L (22-29); Chloride 93 mmol/L (96-108); Creatinine Clr Calc Pharmacy 34.4; Estimated Glomerular Filt Rate 36; Potassium 4.3 mmol/L (3.3-5.1); Sodium 133 mmol/L (135-145)
[2023-12-07] MEDS: Fenofibrate 160 MG TABLET PO (08:12)
[2023-12-07] MEDS: Atorvastatin Calcium 80 MG TABLET PO (08:12)
[2023-12-07] MEDS: dilTIAZem HCL CD 180 MG CAP.ER.24H 360 MG PO (08:12)
[2023-12-07] MEDS: Insulin Lispro 100 UNIT/ML 3 ML VIAL 10 UNIT SUBCUT ×3 (08:13→16:41)
[2023-12-07] MEDS: Furosemide 40 MG/4 ML VIAL IVPUSH (08:13)
[2023-12-07] MEDS: Acetaminophen 325 MG TABLET 650 MG PO ×2 (08:13→16:40)
[2023-12-07] MEDS: Insulin Lispro 100 UNIT/ML 3 ML VIAL SUBCUT ×4 (08:13→20:48)
[2023-12-07] MEDS: Nystatin Powder 15 GM BOTTLE 1 APPL TOPICAL ×2 (08:14→20:48)
[2023-12-07 08:31] LABS: Glucose Random 395 mg/dL (60-115)
--- NOTE | 2023-12-07 10:46 | HO.PM.IMPN ---
Subjective Subjective Date of Service: 12/07/23 Interval History: Seen and examined this morning Follow-up for respiratory failure, pulmonary hypertension, CHF, COPD Still with shortness of breath, dry cough; breathing improving slowly Review of Systems Review of Systems: Yes all other systems are reviewed and are negative Constitutional Constitutional: Denies fever(s) Cardiovascular Cardiovascular: Denies chest pain, Denies palpitations and Reports dyspnea Respiratory Respiratory: Reports cough and Reports dyspnea Gastrointestinal Gastrointestinal: Denies abdominal pain Endocrine Endocrine: Denies palpitations Physical Exam Vital Signs: Vital Signs: Last Vital Signs Temp 97.2 F 12/07/23 10:41 Pulse 98 12/07/23 10:41 Resp 18 12/07/23 10:41 BP 134/56 L 12/07/23 10:41 Pulse Ox 96 12/07/23 10:41 O2 Del Method Nasal Cannula 12/07/23 10:41 O2 Flow Rate 4 12/07/23 10:41 BMI result Body Mass Index 37.1 Const: General: cooperative, comfortable, alert and awake Nutritional Appearance: obese Orientation/consciousness: patient oriented x3 Resp: Other: scattered wheeze; rales right base Effort & Inspection: normal respiratory effort, able to speak in complete sentences, no respiratory distress and no use of accessory muscles Cardio: Rate: regular rate and tachycardic GI: Inspection: No distended Palpation (GI): Soft to palpation Skin: Other: Bilateral venous stasis skin changes, lower extremities; shallow ulceration left anterior montemayor, no surrounding erythema Neuro: General: patient oriented x3 Objective Data Active Medications Acetaminophen (Acetaminophen 325 Mg Tablet) 650 mg PO Q6H PRN PRN Reason: Pain, Mild (Pain Scale 1-3) Last Admin: 12/07/23 08:13 Dose: 650 mg Documented By: DEREK Albuterol Sulfate (Albuterol Sulfate (0.083%) 2.5 Mg/3 Ml Vial.Neb) 2.5 mg INHALE Q4H PRN PRN Reason: Shortness of Breath/Wheezing Albuterol/Ipratropium (Albuterol/Iprat 2.5/0.5mg 3 Ml Ampul.Neb) 3 ml INHALE RQ4H WHILE AWAKE [facility] Last Admin: 12/07/23 07:43 Dose: 3 ml Documented By: PATRICIA Atorvastatin Calcium (Atorvastatin Calcium 80 Mg Tablet) 80 mg PO DAILY [facility] Last Admin: 12/07/23 08:12 Dose: 80 mg Documented By: DEREK Benzonatate (Benzonatate 100 Mg Capsule) 100 mg PO TID PRN PRN Reason: Cough Last Admin: 12/04/23 22:04 Dose: 100 mg Documented By: CAROL Calcium Carbonate (Calcium Carbonate 750 Mg Tab.Chew) 750 mg PO Q4H PRN PRN Reason: Heartburn Last Admin: 12/04/23 23:23 Dose: 750 mg Documented By: CAROL Diltiazem HCl (Diltiazem Hcl Cd 180 Mg Cap.Er.24h) 360 mg PO DAILY [facility]; Protocol Last Admin: 12/07/23 08:12 Dose: 360 mg Documented By: DEREK Docusate Sodium (Docusate Sodium 100 Mg Capsule) 100 mg PO DAILY PRN PRN Reason: Constipation Fenofibrate (Fenofibrate 160 Mg Tablet) 160 mg PO DAILY [facility] Last Admin: 12/07/23 08:12 Dose: 160 mg Documented By: DEREK Furosemide (Furosemide 40 Mg/4 Ml Vial) 40 mg IVPUSH DAILY [facility]; Protocol Last Admin: 12/07/23 08:13 Dose: 40 mg Documented By: DEREK Gabapentin (Gabapentin 100 Mg Capsule) 100 mg PO BEDTIME [facility] Last Admin: 12/06/23 21:48 Dose: 100 mg Documented By: BEVERLY Glucose (Glucose Gel 15 Gm Gel..Gram.) 15 gm PO Q15M PRN; Protocol PRN Reason: per Hypoglycemia Standing Ord. Dextrose (D10) 250 mls @ 750 mls/hr IV Q15M PRN; Protocol PRN Reason: per Hypoglycemia Standing Ord. Insulin Glargine (Insulin Glargine,Hum.Rec.Anlog 100 Unit/Ml 10 Ml Vial) 86 unit SUBCUT BEDTIME [facility] Last Admin: 12/06/23 21:50 Dose: 86 unit Documented By: BEVERLY Insulin Human Lispro (Insulin Lispro 100 Unit/Ml 3 Ml Vial) 0 unit SUBCUT QIDACHS [facility]; Protocol Last Admin: 12/07/23 08:13 Dose: 12 unit Documented By: DEREK Insulin Human Lispro (Insulin Lispro 100 Unit/Ml 3 Ml Vial) 10 unit SUBCUT TIDAC [facility] Last Admin: 12/07/23 08:13 Dose: 10 unit Documented By: DEREK Lactic Acid (Ammonium Lactate 12 % Lotion 226 Gm Bottle) 1 appl TOPICAL BID [facility]; Protocol Last Admin: 12/07/23 08:19 Dose: Not Given Documented By: DEREK Non-Admin Reason: Med Not Available Losartan Potassium (Losartan Potassium 25 Mg Tablet) 25 mg PO DAILY [facility]; Protocol Last Admin: 12/05/23 09:51 Dose: Not Given Documented By: SOM Non-Admin Reason: Unable to Scan Barcode Melatonin (Melatonin 3 Mg Tablet) 6 mg PO BEDTIME PRN PRN Reason: Insomnia Last Admin: 12/06/23 21:51 Dose: 6 mg Documented By: BEVERLY Methylprednisolone Sodium Succinate (Methylprednisolone Sod Succ 40 Mg/Ml Vial) 40 mg IVPUSH Q12H [facility] Last Admin: 12/07/23 03:58 Dose: 40 mg Documented By: CHERYLE Nystatin (Nystatin Powder 15 Gm Bottle) 1 appl TOPICAL BID [facility]; Protocol Last Admin: 12/07/23 08:14 Dose: 1 appl Documented By: DEREK Ondansetron HCl (Ondansetron Hcl 4 Mg/2 Ml Vial) 4 mg IVPUSH Q8H PRN PRN Reason: Nausea and Vomiting Sodium Chloride (0.9 % Sodium Chloride Flush 3 Ml Syringe) 3 ml IVFLUSH QSHIFT [facility] Last Admin: 12/07/23 08:14 Dose: 3 ml Documented By: DEREK Warfarin Sodium (Warfarin Sodium 2.5 Mg Tablet) 2.5 mg PO SUTH@1800 DANIE[facility] Warfarin Sodium (Warfarin Sodium 5 Mg Tablet) 5 mg PO MOTUWEFRSA@1800 [facility] Last Admin: 12/06/23 17:47 Dose: 5 mg Documented By: DEREK Labs 12/05/23 05:57 12/07/23 06:34 Labs: Laboratory Results - last 24 hr 12/06/23 12/06/23 12/06/23 10:49 15:42 19:44 Hold Purple Top PT INR Anion Gap Estim Creat Clear Calc Estimated GFR POC Glucose 441 H* 342 H 322 H Random Glucose Calcium B-Natriuretic Peptide 12/07/23 12/07/23 06:34 07:48 Hold Purple Top SEE NOTE PT 34.8 H INR 2.9 H Anion Gap 15 Estim Creat Clear Calc 34.4 Estimated GFR 36 POC Glucose 388 H* Random Glucose 395 H* Calcium 9.6 B-Natriuretic Peptide 109 H Microbiology Microbiology Results: Microbiology 12/04/23 15:30 Blood Culture - Preliminary Blood - Venous Staphylococcus species 12/04/23 15:41 Blood Culture - Preliminary Blood - Venous No growth after 48 hours. Assessment and Plan (1) Acute hypoxemic respiratory failure: Status: Acute (2) Pulmonary hypertension: Status: Acute Plan Pt is an 83-year-old female with a PMH significant for COPD with?chronic hypoxic respiratory failure on 3L home O2, HFpEF, HTN, chronic AFib on Coumadin, insulin-dependent diabetes type 2 among others who presents to the ED with?increased shortness of breath, difficulty breathing, and nonproductive cough for the past week. Pt will be admitted to the hospital for treatment and further evaluation of acute on chronic hypoxic respiratory failure in the setting of COPD and CHF exacerbation. Acute on chronic hypoxic respiratory failure due to COPD and CHF Obesity hypoventilation likely contributing as well as untreated TREMAYNE previous diagnosis of TREMAYNE - has never used CPAP On baseline 3 L of supplemental oxygen - improving down to 4L NC Acute COPD exacerbation continue DuoNebs, Solu-Medrol Pt does not meet sepsis criteria, tachycardia secondary to albuterol use Continue home inhalers Acute HFpEF exacerbation Likely right heart failure secondary to pulmonary hypertension Echo EF 60-65%, [id number] aortic stenosis, moderately severe tricuspid regurgitation, elevated right ventricular systolic pressure with mildly elevated right atrial pressures, severe pulmonary hypertension continue IV lasix cardiology following Pulmonary hypertension due to underlying lung disease/untreated TREMAYNE - will need outpatient sleep study Pulmonary consult pending CKD3 likely near baseline follow BMP insulin-dependent type 2 diabetes mellitus with hyperglycemia due to steroids POC glucose 419 at time of presentation - up to nearly 700 continue home dose of Lantus continue premeal insulin changed to diabetic diet Follow point of care sugars closely, titrate medication as needed Atrial fibrillation with rapid ventricular response HR improved Previously on Cardizem drip in the ED, weaned off Continue home dose of diltiazem Seen by Cardiology, consider IV bolus dosing of Cardizem versus digoxin if heart rate remains uncontrolled Follow INR daily, continue Coumadin. INR therapeutic Hypertension Blood pressure soft likely due to medications Hold losartan Follow blood pressure closely HLD Continue statin, fenofibrate Chronic left lower extremity wound In the setting of chronic venous stasis and leg edema does not appear infected continue local wound care Wound nurse consult pending Morbid obesity BMI 37.1 Likely contributing to respiratory failure/hypoxia Full Code DVT Prophylaxis: On Coumadin Requires ongoing inpatient hospitalization for management of? acute on chronic hypoxic respiratory failure in the setting of COPD and CHF exacerbations. Patient will require hospitalization for administration of increased supplemental oxygen, IV steroids, breathing treatments, IV diuretics, and close monitoring of labs and respiratory status. Quality Stroke Does the patient have a stroke diagnosis?: No VTE Prior VTE?: No VTE Risk Level:: Medical - moderate - high VTE Device Contraindication: Treatment Not Indicated VTE Drug Contraindication: N/A - Med Ordered
[2023-12-07 11:48] LABS: Glucose, Whole Blood 404 mg/dL (60-115)
[2023-12-07] MEDS: Ammonium Lactate 12 % Cream 140 GM TUBE 1 APPL TOPICAL (11:56)
--- NOTE | 2023-12-07 12:38 | PM.PNCARD ---
Subjective Subjective Date of Service: 12/07/23 Principal diagnosis: COPD exacerbation, heart failure, pulmonary hypertension Interval history: Patient continues to be short of breath but says that improved. Continues to be wheezing. Has diuresed about 400 mL negative balance, not sure if this is accurate. Denies any other cardiac symptoms of palpitation. Atrial fibrillation rate has remained controlled. Review of Systems Constitutional: Reports no additional constitutional complaints Eyes: Reports no additional eye complaints Cardiovascular: Reports dyspnea Respiratory: Reports dyspnea and Reports wheezing Gastrointestinal: Reports no additional gastrointestinal complaints Genitourinary: Reports no additional female genitourinary complaints Musculoskeletal: Reports no additional musculoskeletal complaints Psychiatric: Reports no additional psychiatric complaints Allergic/Immunologic: Reports wheezing Physical Exam Vital Signs: Last Vital Signs Temp 97.2 F 12/07/23 10:41 Pulse 92 12/07/23 11:35 Resp 18 12/07/23 11:35 BP 134/56 L 12/07/23 10:41 Pulse Ox 96 12/07/23 10:41 O2 Del Method Nasal Cannula 12/07/23 10:41 O2 Flow Rate 4 12/07/23 10:41 BMI result Body Mass Index 37.1 Neck Neck: Yes trachea midline and Yes supple Resp Effort & Inspection: normal respiratory effort Auscultation: wheezes scattered wheezes and diminished lung sounds Cardio Rhythm: abnormal rhythm irregularly irregular Heart sounds: S1 normal heart sound present, S2 normal heart sound present, no click, no gallops and Murmur heart sound present systolic Skin General skin exam: no rashes or lesions noted and ecchymosis Extrem General: No clubbing, No cyanosis and Yes edema Objective Labs and Meds 12/05/23 05:57 12/07/23 06:34 Lab results: Laboratory Results - last 24 hr 12/06/23 12/06/23 12/07/23 15:42 19:44 06:34 Hold Purple Top SEE NOTE PT 34.8 H INR 2.9 H Sodium 133 L Potassium 4.3 Chloride 93 L Carbon Dioxide 29 Anion Gap 15 BUN 46 H Creatinine 1.38 Estim Creat Clear Calc 34.4 Estimated GFR 36 POC Glucose 342 H 322 H Random Glucose 395 H* Calcium 9.6 B-Natriuretic Peptide 109 H 12/07/23 12/07/23 07:48 11:44 Hold Purple Top PT INR Sodium Potassium Chloride Carbon Dioxide Anion Gap BUN Creatinine Estim Creat Clear Calc Estimated GFR POC Glucose 388 H* 404 H* Random Glucose Calcium B-Natriuretic Peptide Imaging Radiologist's impression: Impressions Chest X-Ray 12/06/23 14:48 IMPRESSION: Left middle and right basilar linear opacities, likely representing atelectasis. Progress Note: A&P Assessment and plan (1) Acute hypoxemic respiratory failure: Status: Acute Assessment and Plan: Acute hypoxemic respiratory failure with COPD exacerbation as well as heart failure. Clinically seems to be more now wheezing and bronchospastic airway disease rather than heart failure. Leg edema has been improving. Although will continue with IV diuresis. Continue to monitor intake and output chart. Continue monitor renal function as well as BNP tomorrow. Continue aggressive management of her COPD with oxygen therapy as well as bronchodilators therapy. (2) Atrial fibrillation: Status: Acute Assessment and Plan: Atrial fibrillation, currently rate controlled. Continue Cardizem therapy. Continue full oral anticoagulation warfarin. Target INR between 2 and 3. At this point time will sign of the case. Will follow if need be. Thank you for allowing us to partake in the care Time Spent With Patient Time: Total time managing care of this patient today ____ minutes. Progress Note: Quality Stroke Does the patient have a stroke diagnosis?: No Procedures Date of Service Date of Service: 12/07/23
--- NOTE | 2023-12-07 13:38 | MHC.SL.SWA ---
Dysphasia Diet Status: DOWNGRADE solids Liquid Consistency and Strategies for Safe Swallow: Liquid Intake Recommendation: Thin Liquid Intake Strategies: Small Sips Solid Food Consistency: Dietary Recommendations: Chopped/Advanced (NDD3) Additional Modifications to Solid Foods: Sauce/gravy Oral Medication Intake: Whole with Liquid Please contact the pharmacy regarding appropriate crushable or liquid drug formulations that are available whenever modified delivery is recommended. Compensatory Strategies and Precautions to be Taken for Safe Swallow: Sitting Upright (90 deg) Small Bites and Sips Alternate Liquids/Solids Rate of Ingestion Change Avoid Specific Foods Supervision While Eating and Drinking for Safe Swallow: Total Supervision (1:1) Foods to Avoid: Avoid dry foods (i.e. saltines, doris crackers) Swallowing Recommended Treatments: Compens. Strategy Educat. Recommendation for Speech: Inpatient Speech Therapy Comment: Recommend CHOPPED/ADVANCED solids, THIN liquids, pills WHOLE w water. Full supervision recommended until HEALTH TECHNICIAN visit tomorrow to monitor for s/s aspiration, ensure upright position, cue to alternate liquids and solids. Coal Screener Clinican/Clinical Fellow: No Supervisory Statement: I have reviewed and agree with the student/clinical fellow's documentation: N/A Speech Language Pathologist: Haley Vasquez M.A., CCC-HEALTH TECHNICIAN
[2023-12-07 15:54] LABS: Glucose, Whole Blood 366 mg/dL (60-115)
[2023-12-07] MEDS: Warfarin Sodium 2.5 MG TABLET PO (17:40)
[2023-12-07 20:31] LABS: Glucose, Whole Blood 362 mg/dL (60-115)
[2023-12-07] MEDS: Gabapentin 100 MG CAPSULE PO (20:48)
[2023-12-07] MEDS: Insulin Glargine,Hum.rec.anlog 100 UNIT/ML 10 ML VIAL 86 UNIT SUBCUT (20:48)
--- NOTE | 2023-12-07 21:21 | PM.CNPUL ---
History of Present Illness History of Present Illness Consult date: 12/07/23 Chief complaint: COPD, CHF Exacerbation Narrative: This is an inpatient pulmonary consultation. The Pt is an 83-year-old female with a PMH significant for COPD with?chronic hypoxic respiratory failure on 3L home O2, HFpEF, HTN, chronic AFib on Coumadin, insulin-dependent diabetes type 2 among others who presents to the ED with?increased shortness of breath, difficulty breathing, and nonproductive cough for the past week. Has also noticed increased lower leg edema and weeping from lower legs. Patient complains of heartburn, but denies chest pain/pressure or palpitations. No fever, chills, nausea, vomiting, abdominal pain. Patient states she is able to move around her apartment by holding onto furniture, and uses a walker at baseline while in the community. Of note, during interview and exam patient was noted to desat to 85% on her chronic home 3L O2. In the ED pt was tachycardic up to 108, tachypneic up to 26, with soft BP as low as 117/52, satting as low as 85% on prescribed 3L home O2. Labs were significant for BUN 22, creatinine 1.43, and POC glucose 419. No leukocytosis. Stable H&H. No significant electrolyte abnormalities. Lactic acid WNL at 1.3. Hepatic function baseline. BNP WNL at 78. Tested negative for flu, RSV, and COVID. CXR personally reviewed by me, showed enlarged cardiac silhouette and prominent central bronchovascular markings, suggestive of mild pulmonary edema and airway disease. EKG demonstrated atrial fibrillation without significant evidence of ST elevations or depressions. Pt was treated with DuoNebs, Solu-Medrol, and furosemide 40 mg IV. Pt will be admitted to the hospital for treatment and further evaluation of acute on chronic hypoxic respiratory failure in the setting of COPD and CHF exacerbation. Currently feeling a little better, was able to wean down to an oxymask 5L/min. Still has a congested cough and wheezing. The patient underwent an echo demonstrating new onset mod to severe Pulmonary HTN. Currently tolerarating diuresis. Review of Systems Constitutional: Constitutional: Reports no additional constitutional complaints Eyes: Eyes: Reports no additional eye complaints Cardiovascular: Cardiovascular: Reports dyspnea Respiratory: Respiratory: Reports dyspnea and Reports wheezing Gastrointestinal: Gastrointestinal: Reports no additional gastrointestinal complaints Genitourinary: Genitourinary: Reports no additional female genitourinary complaints Musculoskeletal: Musculoskeletal: Reports no additional musculoskeletal complaints Psychiatric: Psychiatric: Reports no additional psychiatric complaints Allergic/Immunologic: Allergic/Immunologic: Reports wheezing [facility] Past Medical History Medical History (Updated 12/07/23 @ 11:00 by SUGEY Alejo) Lower back pain Congestive heart failure CHF (congestive heart failure) Hypoxia COPD (chronic obstructive pulmonary disease) On Coumadin for atrial fibrillation Atrial fibrillation Hyperlipidemia Shortness of breath Bilateral edema of lower extremity Social History Social History Household Members: Children Household Members Other:: daughter Housing: House Do you presently have visiting nurse or other home services: Yes (cleaing person 1x week) Unable to assess alcohol history related to: Unknown Alcohol intake: never Patient Tobacco Use Status: Former Tobacco user Smoked in Last 30 Days: No Use of substances other than those prescribed or required for medical reasons: No Currently Displaying Signs/Symptoms of Drug Intoxication Withdrawal: No Have you been hit, kicked, punched, or otherwise hurt by someone within the past year? If so, by whom?: No Do you feel safe in your current relationship?: Yes Is there a partner from a previous relationship who is making you feel unsafe now?: No Are you made to feel afraid or neglected: No Advance Directives: Yes Advance Directives on File: Yes Advance Directives Date on File: 07/18/23 Do you have a plan to hurt others: No Plan Recently lost weight without trying: No Nutrition Risks: No Nutritional Risk Patient : No Poor oral hygiene: No service: No Meds Allergies Allergy/AdvReac Type Severity Reaction Status Date / Time lisinopril Allergy Cough Verified 12/04/23 15:20 Active Medications: Current Medications Acetaminophen (Acetaminophen 325 Mg Tablet) 650 mg PO Q6H PRN PRN Reason: Pain, Mild (Pain Scale 1-3) Last Admin: 12/07/23 16:40 Dose: 650 mg Albuterol Sulfate (Albuterol Sulfate (0.083%) 2.5 Mg/3 Ml Vial.Neb) 2.5 mg INHALE Q4H PRN PRN Reason: Shortness of Breath/Wheezing Albuterol/Ipratropium (Albuterol/Iprat 2.5/0.5mg 3 Ml Ampul.Neb) 3 ml INHALE RQ4H WHILE AWAKE [facility] Last Admin: 12/07/23 19:27 Dose: 3 ml Atorvastatin Calcium (Atorvastatin Calcium 80 Mg Tablet) 80 mg PO DAILY [facility] Last Admin: 12/07/23 08:12 Dose: 80 mg Benzonatate (Benzonatate 100 Mg Capsule) 100 mg PO TID PRN PRN Reason: Cough Last Admin: 12/04/23 22:04 Dose: 100 mg Calcium Carbonate (Calcium Carbonate 750 Mg Tab.Chew) 750 mg PO Q4H PRN PRN Reason: Heartburn Last Admin: 12/04/23 23:23 Dose: 750 mg Diltiazem HCl (Diltiazem Hcl Cd 180 Mg Cap.Er.24h) 360 mg PO DAILY [facility]; Protocol Last Admin: 12/07/23 08:12 Dose: 360 mg Docusate Sodium (Docusate Sodium 100 Mg Capsule) 100 mg PO DAILY PRN PRN Reason: Constipation Fenofibrate (Fenofibrate 160 Mg Tablet) 160 mg PO DAILY [facility] Last Admin: 12/07/23 08:12 Dose: 160 mg Furosemide (Furosemide 40 Mg/4 Ml Vial) 40 mg IVPUSH DAILY [facility]; Protocol Last Admin: 12/07/23 08:13 Dose: 40 mg Gabapentin (Gabapentin 100 Mg Capsule) 100 mg PO BEDTIME [facility] Last Admin: 12/07/23 20:48 Dose: 100 mg Glucose (Glucose Gel 15 Gm Gel..Gram.) 15 gm PO Q15M PRN; Protocol PRN Reason: per Hypoglycemia Standing Ord. Dextrose (D10) 250 mls @ 750 mls/hr IV Q15M PRN; Protocol PRN Reason: per Hypoglycemia Standing Ord. Insulin Glargine (Insulin Glargine,Hum.Rec.Anlog 100 Unit/Ml 10 Ml Vial) 86 unit SUBCUT BEDTIME [facility] Last Admin: 12/07/23 20:48 Dose: 86 unit Insulin Human Lispro (Insulin Lispro 100 Unit/Ml 3 Ml Vial) 0 unit SUBCUT QIDACHS [facility]; Protocol Last Admin: 12/07/23 20:48 Dose: 12 unit Insulin Human Lispro (Insulin Lispro 100 Unit/Ml 3 Ml Vial) 10 unit SUBCUT TIDAC [facility] Last Admin: 12/07/23 16:41 Dose: 10 unit Lactic Acid (Ammonium Lactate 12 % Lotion 226 Gm Bottle) 1 appl TOPICAL BID [facility]; Protocol Last Admin: 12/07/23 20:52 Dose: Not Given Lactic Acid (Ammonium Lactate 12 % Cream 140 Gm Tube) 1 appl TOPICAL DAILY [facility]; Protocol Last Admin: 12/07/23 11:56 Dose: 1 appl Losartan Potassium (Losartan Potassium 25 Mg Tablet) 25 mg PO DAILY [facility]; Protocol Last Admin: 12/05/23 09:51 Dose: Not Given Melatonin (Melatonin 3 Mg Tablet) 6 mg PO BEDTIME PRN PRN Reason: Insomnia Last Admin: 12/06/23 21:51 Dose: 6 mg Methylprednisolone Sodium Succinate (Methylprednisolone Sod Succ 40 Mg/Ml Vial) 40 mg IVPUSH Q12H [facility] Last Admin: 12/07/23 16:40 Dose: 40 mg Nystatin (Nystatin Powder 15 Gm Bottle) 1 appl TOPICAL BID [facility]; Protocol Last Admin: 12/07/23 20:48 Dose: 1 appl Ondansetron HCl (Ondansetron Hcl 4 Mg/2 Ml Vial) 4 mg IVPUSH Q8H PRN PRN Reason: Nausea and Vomiting Sodium Chloride (0.9 % Sodium Chloride Flush 3 Ml Syringe) 3 ml IVFLUSH QSHIFT [facility] Last Admin: 12/07/23 20:51 Dose: 3 ml Warfarin Sodium (Warfarin Sodium 2.5 Mg Tablet) 2.5 mg PO SUTH@1800 [facility] Last Admin: 12/07/23 17:40 Dose: 2.5 mg Warfarin Sodium (Warfarin Sodium 5 Mg Tablet) 5 mg PO MOTUWEFRSA@1800 [facility] Last Admin: 12/06/23 17:47 Dose: 5 mg Home Medications ?Medication ?Instructions ?Recorded ?Confirmed ?Last Taken ?Type atorvastatin 80 mg tablet 80 mg PO DAILY 02/08/23 12/04/23 12/04/23 History diltiazem HCl 360 mg capsule,24 360 mg PO DAILY 02/08/23 12/04/23 12/04/23 History hr,extended release (Tiadylt ER) fenofibrate 160 mg tablet 160 mg PO DAILY 02/08/23 12/04/23 12/04/23 History furosemide 20 mg tablet 20 mg PO DAILY 02/08/23 12/04/23 12/04/23 History gabapentin 100 mg capsule 100 mg PO BEDTIME 02/08/23 12/04/23 12/03/23 History insulin glargine 100 unit/mL (3 86 unit subcut BEDTIME 02/08/23 12/04/23 12/03/23 History mL) subcutaneous pen (Lantus Solostar U-100 Insulin) insulin lispro 100 unit/mL 30 unit subcut TIDAC 02/08/23 12/04/23 12/03/23 History subcutaneous pen (Humalog KwikPen (U-100) Insulin) losartan 25 mg tablet 25 mg PO DAILY 02/08/23 12/04/23 12/04/23 History warfarin 5 mg tablet 5 mg PO MOTUWEFRSA@1800 02/08/23 12/04/23 12/03/23 History tiotropium bromide 18 mcg capsule 1 cap inhalation DAILY 07/15/23 12/04/23 12/04/23 History with inhalation device (Spiriva with HandiHaler) acetaminophen 650 mg 650 mg PO Q8H PRN Pain 12/04/23 12/04/23 12/03/23 History tablet,extended release (Tylenol 8 Hour) warfarin 2.5 mg tablet 2.5 mg PO SUTH@1800 12/04/23 12/04/23 11/30/23 History Physical Exam Vital Signs: Vital Signs: Last Vital Signs Temp 97.7 F 12/07/23 19:27 Pulse 86 12/07/23 19:27 Resp 20 12/07/23 19:27 BP 140/67 H 12/07/23 19:27 Pulse Ox 94 12/07/23 19:27 O2 Del Method Nasal Cannula 12/07/23 19:27 O2 Flow Rate 5 12/07/23 19:27 BMI result Body Mass Index 37.1 Neck: Neck: Yes trachea midline and Yes supple Resp: Effort & Inspection: normal respiratory effort Auscultation: wheezes scattered wheezes and diminished lung sounds Cardio: Rhythm: abnormal rhythm irregularly irregular Heart sounds: S1 normal heart sound present and S2 normal heart sound present Skin: General skin exam: no rashes or lesions noted and ecchymosis Extrem: General: No clubbing, No cyanosis and Yes edema Results Laboratory Findings 12/05/23 05:57 12/07/23 06:34 ABG, PT/INR, D-dimer: PT/INR, D-dimer PT 34.8 SEC (11.1-13.3) H 12/07/23 06:34 INR 2.9 (0.9-1.1) H 12/07/23 06:34 Abnormal lab findings: Abnormal Labs 12/04/23 12/04/23 12/04/23 15:30 15:44 20:54 RDW 16.7 H Immature Gran % (Auto) 0.6 H Steuben % (Auto) 13.0 H Steuben # (Auto) 1.3 H Abs Immat Gran (auto) 0.06 H PT 25.3 H D INR 2.1 H APTT 37.4 H VBG pH 7.44 H VBG HCO3 31 H Sodium Chloride 95 L Carbon Dioxide 31 H Anion Gap BUN 22 H Creatinine 1.43 H POC Glucose 559 H* Random Glucose 373 H* Troponin I High Sens B-Natriuretic Peptide 12/04/23 12/04/23 12/04/23 23:24 23:32 23:36 RDW Immature Gran % (Auto) Ste[place] % (Auto) [place]uben # (Auto) Abs Immat Gran (auto) PT INR APTT VBG pH VBG HCO3 Sodium Chloride 94 L Carbon Dioxide 21 L Anion Gap 24 H BUN 28 H Creatinine 1.81 H POC Glucose > 600 H* Random Glucose 712 H* Troponin I High Sens 224.0 H* D B-Natriuretic Peptide 12/05/23 12/05/23 12/05/23 00:54 01:00 01:57 RDW Immature Gran % (Auto) [place] % (Auto) [place] # (Auto) Abs Immat Gran (auto) PT INR APTT VBG pH VBG HCO3 Sodium Chloride Carbon Dioxide Anion Gap BUN Creatinine POC Glucose > 600 H* 595 H* 582 H* Random Glucose Troponin I High Sens B-Natriuretic Peptide 12/05/23 12/05/23 12/05/23 03:00 05:09 05:57 RDW 16.7 H Immature Gran % (Auto) [place] % (Auto) [place] # (Auto) Abs Immat Gran (auto) PT 22.5 H INR 1.8 H APTT VBG pH VBG HCO3 Sodium Chloride 95 L Carbon Dioxide Anion Gap BUN 28 H Creatinine 1.65 H POC Glucose 586 H* 551 H* Random Glucose 599 H* Troponin I High Sens B-Natriuretic Peptide 12/05/23 12/05/23 12/05/23 06:39 07:29 08:05 RDW Immature Gran % (Auto) [place] % (Auto) [place] # (Auto) Abs Immat Gran (auto) PT INR APTT VBG pH VBG HCO3 Sodium Chloride Carbon Dioxide Anion Gap BUN Creatinine POC Glucose 546 H* 435 H* 495 H* Random Glucose Troponin I High Sens B-Natriuretic Peptide 12/05/23 12/05/23 12/05/23 12:10 16:42 20:47 RDW Immature Gran % (Auto) [place] % (Auto) [place] # (Auto) Abs Immat Gran (auto) PT INR APTT VBG pH VBG HCO3 Sodium Chloride Carbon Dioxide Anion Gap BUN Creatinine POC Glucose 368 H* 282 H 240 H Random Glucose Troponin I High Sens B-Natriuretic Peptide 12/06/23 12/06/23 12/06/23 06:03 06:13 06:59 RDW Immature Gran % (Auto) [place] % (Auto) [place] # (Auto) Abs Immat Gran (auto) PT 30.0 H D INR 2.5 H APTT VBG pH VBG HCO3 Sodium Chloride Carbon Dioxide Anion Gap BUN 37 H Creatinine 1.45 H POC Glucose 277 H 283 H Random Glucose 299 H Troponin I High Sens B-Natriuretic Peptide 12/06/23 12/06/23 12/06/23 10:49 15:42 19:44 RDW Immature Gran % (Auto) [place] % (Auto) [place] # (Auto) Abs Immat Gran (auto) PT INR APTT VBG pH VBG HCO3 Sodium Chloride Carbon Dioxide Anion Gap BUN Creatinine POC Glucose 441 H* 342 H 322 H Random Glucose Troponin I High Sens B-Natriuretic Peptide 12/07/23 12/07/23 12/07/23 06:34 07:48 11:44 RDW Immature Gran % (Auto) [place] % (Auto) [place] # (Auto) Abs Immat Gran (auto) PT 34.8 H INR 2.9 H APTT VBG pH VBG HCO3 Sodium 133 L Chloride 93 L Carbon Dioxide Anion Gap BUN 46 H Creatinine POC Glucose 388 H* 404 H* Random Glucose 395 H* Troponin I High Sens B-Natriuretic Peptide 109 H 12/07/23 12/07/23 15:49 20:19 RDW Immature Gran % (Auto) [place] % (Auto) [place] # (Auto) Abs Immat Gran (auto) PT INR APTT VBG pH VBG HCO3 Sodium Chloride Carbon Dioxide Anion Gap BUN Creatinine POC Glucose 366 H* 362 H* Random Glucose Troponin I High Sens B-Natriuretic Peptide Microbiology: Microbiology 12/04/23 15:30 Blood - Venous Blood Culture - Preliminary Staphylococcus species 12/04/23 15:41 Blood - Venous Blood Culture - Preliminary No growth after 48 hours. Diagnostic Findings Additional studies: [address] [address] Cardiology Report Signed Patient: Sofia Farris MR#: [id number] : 1940 Acct:[id number] Age/Sex: 83 / F ADM Date: 12/04/23 Loc: [facility] [id number]: Komal MAYES Ordering Physician: Chana Mckinnon MD Date of Service: 12/05/23 Procedure(s): CA echo transthoracic complete Accession Number(s): cc: Chana Mckinnon MD~ Transthoracic Echocardiogram Patient (Last, First, Middle): Sofia Farris, Gender: Female Date of : 1940 Age: 83 Procedure Date: 12/05/2023 Procedure Type: Transthoracic Echocardiogram [place] [facility] [place]: 162.56 cm Weight: 101.15 kg BSA: 2.05 m2 Heart Rate: 108 bpm BP: 108 / 33 mmHg Medical Facilities Section Director: Referring MD: Chana Cooper MD Guest Services Agent: Jg Paz MD Symptoms: acute CHF Study Quality: Adequate ECG Rhythm: Atrial Fibrillation w RVR Conclusions: - 1. Normal LV ejection fraction of 60-65% with mild LVH with suggestion of elevated filling pressures 2. Mildly to moderately reduced RV systolic function 3. Biatrial enlargement, right greater than left 4. [id number] aortic stenosis next 5. Moderately severe tricuspid regurgitation severely elevated right ventricular systolic pressure with mildly elevated right atrial pressures 6. No gross pericardial effusion Findings Left Ventricle Normal left ventricular size and systolic function. There is mildly increased left ventricular wall thickness. The visually estimated ejection fraction is between 60-65%. Elevated filling pressures. E/E prime ratio is >15, consistent with elevated filling pressures. Right Ventricle Moderately increased right ventricular cavity size. There is mild to moderately decreased right ventricular systolic function. Atria The left atrium is mildly dilated. There is no evidence of interatrial shunt. The right atrium is moderately dilated. Aortic Valve There is mild calcification of the aortic valve. There is mild thickening of the aortic valve. There is mild to moderate aortic valve stenosis. The peak aortic gradient is 13 mmHg.The mean gradient is 7 mmHg. The aortic valve area is 1.36 cm2. There is no aortic valve regurgitation. Mitral Valve There is mild anterior and moderate posterior mitral leaflet thickening. There is moderate mitral annular calcification. There is mild mitral valve regurgitation. There is no mitral valve stenosis. Pulmonic Valve The pulmonic valve is likely normal. Tricuspid Valve Likely normal tricuspid valve structure and function. There is moderate to severe tricuspid valve regurgitation. Mildly elevated right atrial pressure. Severe pulmonary hypertension is present. Great Vessels The pulmonary artery was not well visualized. There is mild dilatation of the ascending aorta measuring 3.70 cm. Venous The inferior vena cava is moderately dilated and collapses less than 50% with inspiration. Pericardium/Pleural There is no evidence of pericardial effusion. Measurements 2D Linear Measurements IVSd: 1.15 0.6-0.9/0.6-1.0 cm LVIDd: 4.00 3.9-5.3/4.2-5.9 cm LVIDd Index: 1.95 2.4-3.2/2.2-3.1 cm/m2 LVIDs: 2.77 2.0-3.6 cm LVPWd: 1.18 0.7-1.1 cm LA Diam: 4.20 2.7-3.8/3.0-4.0 cm LAIDs Index: 2.05 1.5-2.3 cm/m2 LV Mass: 197.22 67-162/88-224 g LV Mass Index: 96.21 43-95/49-115 g/m2 LVOT Diam: 1.80 3.0+(-)1.3 cm Mitral Valve MV VTI: 0.38 MV Pk Tacos: 1.77 MV Mn Tacos: 0.96 MV Pk Grad: 13.00 MV Mn Grad: 5.00 MV Pk E: 1.39 MV Decel Time: 267.00 E'Lateral: 12.80 E'Medial: 7.40 E/E' Med: 18.80 E/E' Lat: 10.90 PHT: 78.00 MVA PHT: 2.82 MVA Continuity: 1.17 Decel Morrill: 5.22 Aortic Valve AoV Pk Tacos: 1.82 AoV Mn Tacos: 1.16 AoV VTI: 0.33 AoV Pk Grad: 13.00 Aov Mn Grad: 7.00 YASMEEN Cont.VTI: 1.36 LVOT LVOT Pk Tacos: 0.84 LVOT Mn Tacos: 0.63 LVOT VTI: 0.17 LVOT Pk Grad: 3.00 LVOT Mn Grad: 2.00 LVOT Diam: 1.80 LVOT Area: 2.54 Diastolic Function MV Pk E: 1.39 E'Medial: 7.40 E/E' Med: 18.80 E' Laterial: 12.80 E/E' Lat: 10.90 Right Ventricle TAPSE (mm): 19.40 TVS' Tacos: 11.90 Tricuspid Valve TR Pk Tacos: 3.84 TR Pk Grad: 59.00 RA Press: 8.00 RVSP: 67.00 Great Vessels Aorta Sinus of Valsalva: 3.30 2.0-3.5 cm Ao Asc: 3.70 2.1-3.4 cm Pulmonary Valve PV Pk Tacos: 1.29 Peak PV Grad: 7.00 Updated in Other Vendor System with Status of Final Jg Paz MD electronically signed on 12/05/2023 3:58:08 PM with status of Final Dictated By: Jg Paz MD Signed By: <Electronically signed by Jg Paz MD in OV> 12/05/23 1558 DD/ 1024 TD/TT: Pulpit Operator: Assessment and Plan (1) Acute hypoxemic respiratory failure: Status: Acute Patient present with acute hypoxemic respiratory failure on top of her chronic respiratory failure most likely related to COPD exacerbation. I do not see significant congestive heart failure at this point time. She is received some IV Lasix. I do not think she is has [place] heart failure at this point time as a cause for her acute hypoxemic respiratory failure. Could switch her to p.o. diuretics. Continue to optimize her pulmonary function and use bronchodilators as well as anti-inflammatory history improve her pulmonary situation. Continue supportive care. Continue oxygen therapy. Echocardiogram is being performed will review it later pretty (2) Atrial fibrillation: Status: Acute Atrial fibrillation with slightly rapid ventricular response most likely due to underlying pulmonary situation at this point time. Continue Cardizem therapy. Can use p.r.n. IV Cardizem for rate control. If rate remains difficult control consider adding digoxin to her regimen. Currently on full oral anticoagulation warfarin. Target INR between 2 and 3. At this point time will sign of the case. Thank you for allowing us to partake in the care (3) Pulmonary hypertension: Status: Acute (4) Acute dyspnea: Status: Acute Plan Diuresis as tolerated CPT with aerobika respiratory therapy Evaluating for pulmonary HTN: Bloodwork, VQ scan, should have an in lab sleep study continue oxygen to keep pox>90% Procedures Date of Service Date of Service: 12/07/23
[2023-12-07 23:20] LABS: Glucose, Whole Blood 332 mg/dL (60-115)
[2023-12-08] VITALS (10 sets, daily range): BP systolic 107–154; BP diastolic 55–83; PULSE 81–102; RESP 17–20; TEMP 36–36.6; O2SAT 92–97
[2023-12-08] MEDS: methylPREDNISolone Sod Succ 40 MG/ML VIAL IVPUSH ×2 (04:17→15:07)
[2023-12-08 07:03] LABS: INTERNATIONAL NORM RATIO 3.5 (0.9-1.1); Prothrombin Time 42.6 SEC (11.1-13.3)
[2023-12-08] MEDS: Albuterol/Iprat 2.5/0.5MG 3 ML AMPUL.NEB INHALE ×4 (07:28→20:04)
[2023-12-08 07:41] LABS: Glucose, Whole Blood 273 mg/dL (60-115)
[2023-12-08] MEDS: Insulin Lispro 100 UNIT/ML 3 ML VIAL SUBCUT ×4 (07:49→20:34)
[2023-12-08] MEDS: Atorvastatin Calcium 80 MG TABLET PO (07:49)
[2023-12-08] MEDS: Furosemide 40 MG/4 ML VIAL IVPUSH (07:49)
[2023-12-08] MEDS: dilTIAZem HCL CD 180 MG CAP.ER.24H 360 MG PO (07:49)
[2023-12-08] MEDS: Fenofibrate 160 MG TABLET PO (07:49)
[2023-12-08] MEDS: Ammonium Lactate 12 % Cream 140 GM TUBE 1 APPL TOPICAL (07:50)
[2023-12-08] MEDS: Insulin Lispro 100 UNIT/ML 3 ML VIAL 10 UNIT SUBCUT ×3 (07:50→16:37)
[2023-12-08] MEDS: Nystatin Powder 15 GM BOTTLE 1 APPL TOPICAL ×2 (08:17→20:37)
--- NOTE | 2023-12-08 10:39 | MHC.CM.PN ---
Per ROUNDS discussion, Patient is on high flow O2 and not medically cleared for dc. Patient may benefit from a PT Eval to assist with disposition and CM will continue to follow.
[2023-12-08] MEDS: Acetaminophen 325 MG TABLET 650 MG PO ×2 (10:52→19:38)
[2023-12-08 11:29] LABS: Glucose, Whole Blood 279 mg/dL (60-115)
--- NOTE | 2023-12-08 13:00 | P.PNIM_ITS ---
Subjective Subjective Date of Service: 12/08/23 Interval History: Seen and examined this morning Follow-up for respiratory failure, pulmonary hypertension, CHF, COPD Still with shortness of breath, dry cough; breathing improving slowly Review of Systems Review of Systems: Yes all other systems are reviewed and are negative Constitutional Constitutional: Denies fever(s) Cardiovascular Cardiovascular: Denies chest pain, Denies palpitations and Reports dyspnea Respiratory Respiratory: Reports cough and Reports dyspnea Gastrointestinal Gastrointestinal: Denies abdominal pain Endocrine Endocrine: Denies palpitations Physical Exam 2 Vital Signs: Vital Signs: Last Vital Signs Temp 97.2 F 12/08/23 11:12 Pulse 94 12/08/23 11:12 Resp 17 12/08/23 11:12 BP 137/72 12/08/23 11:12 Pulse Ox 92 12/08/23 11:12 O2 Del Method Room Air 12/08/23 11:12 O2 Flow Rate 8 12/08/23 07:16 BMI result Body Mass Index 37.1 Objective Data Active Medications Acetaminophen (Acetaminophen 325 Mg Tablet) 650 mg PO Q6H PRN PRN Reason: Pain, Mild (Pain Scale 1-3) Last Admin: 12/08/23 10:52 Dose: 650 mg Documented By: MARIS Albuterol Sulfate (Albuterol Sulfate (0.083%) 2.5 Mg/3 Ml Vial.Neb) 2.5 mg INHALE Q4H PRN PRN Reason: Shortness of Breath/Wheezing Albuterol/Ipratropium (Albuterol/Iprat 2.5/0.5mg 3 Ml Ampul.Neb) 3 ml INHALE RQ4H WHILE AWAKE [facility] Last Admin: 12/08/23 11:05 Dose: 3 ml Documented By: OK Atorvastatin Calcium (Atorvastatin Calcium 80 Mg Tablet) 80 mg PO DAILY [facility] Last Admin: 12/08/23 07:49 Dose: 80 mg Documented By: MARIS Benzonatate (Benzonatate 100 Mg Capsule) 100 mg PO TID PRN PRN Reason: Cough Last Admin: 12/04/23 22:04 Dose: 100 mg Documented By: CAROL Calcium Carbonate (Calcium Carbonate 750 Mg Tab.Chew) 750 mg PO Q4H PRN PRN Reason: Heartburn Last Admin: 12/04/23 23:23 Dose: 750 mg Documented By: CAROL Diltiazem HCl (Diltiazem Hcl Cd 180 Mg Cap.Er.24h) 360 mg PO DAILY DANIELE; Protocol Last Admin: 12/08/23 07:49 Dose: 360 mg Documented By: MARIS Docusate Sodium (Docusate Sodium 100 Mg Capsule) 100 mg PO DAILY PRN PRN Reason: Constipation Fenofibrate (Fenofibrate 160 Mg Tablet) 160 mg PO DAILY DANIELE Last Admin: 12/08/23 07:49 Dose: 160 mg Documented By: MARIS Furosemide (Furosemide 40 Mg/4 Ml Vial) 40 mg IVPUSH DAILY DANIELE; Protocol Last Admin: 12/08/23 07:49 Dose: 40 mg Documented By: MARIS Gabapentin (Gabapentin 100 Mg Capsule) 100 mg PO BEDTIME DANIELE Last Admin: 12/07/23 20:48 Dose: 100 mg Documented By: CHERYLE Glucose (Glucose Gel 15 Gm Gel..Gram.) 15 gm PO Q15M PRN; Protocol PRN Reason: per Hypoglycemia Standing Ord. Dextrose (D10) 250 mls @ 750 mls/hr IV Q15M PRN; Protocol PRN Reason: per Hypoglycemia Standing Ord. Insulin Glargine (Insulin Glargine,Hum.Rec.Anlog 100 Unit/Ml 10 Ml Vial) 86 unit SUBCUT BEDTIME [facility] Last Admin: 12/07/23 20:48 Dose: 86 unit Documented By: CHERYLE Insulin Human Lispro (Insulin Lispro 100 Unit/Ml 3 Ml Vial) 0 unit SUBCUT QIDACHS [facility]; Protocol Last Admin: 12/08/23 11:48 Dose: 8 unit Documented By: MARIS Insulin Human Lispro (Insulin Lispro 100 Unit/Ml 3 Ml Vial) 10 unit SUBCUT TIDAC [facility] Last Admin: 12/08/23 11:48 Dose: 10 unit Documented By: MARIS Lactic Acid (Ammonium Lactate 12 % Lotion 226 Gm Bottle) 1 appl TOPICAL BID DANIELE; Protocol Last Admin: 12/08/23 07:50 Dose: Not Given Documented By: MARIS Non-Admin Reason: Previously Administered Lactic Acid (Ammonium Lactate 12 % Cream 140 Gm Tube) 1 appl TOPICAL DAILY DANIELE; Protocol Last Admin: 12/08/23 07:50 Dose: 1 appl Documented By: MARIS Losartan Potassium (Losartan Potassium 25 Mg Tablet) 25 mg PO DAILY [facility]; Protocol Last Admin: 12/05/23 09:51 Dose: Not Given Documented By: SOM Non-Admin Reason: Unable to Scan Barcode Melatonin (Melatonin 3 Mg Tablet) 6 mg PO BEDTIME PRN PRN Reason: Insomnia Last Admin: 12/06/23 21:51 Dose: 6 mg Documented By: BEVERLY Methylprednisolone Sodium Succinate (Methylprednisolone Sod Succ 40 Mg/Ml Vial) 40 mg IVPUSH Q12H [facility] Last Admin: 12/08/23 04:17 Dose: 40 mg Documented By: CHERYLE Nystatin (Nystatin Powder 15 Gm Bottle) 1 appl TOPICAL BID [facility]; Protocol Last Admin: 12/08/23 08:17 Dose: 1 appl Documented By: MARIS Ondansetron HCl (Ondansetron Hcl 4 Mg/2 Ml Vial) 4 mg IVPUSH Q8H PRN PRN Reason: Nausea and Vomiting Sodium Chloride (0.9 % Sodium Chloride Flush 3 Ml Syringe) 3 ml IVFLUSH QSHIFT [facility] Last Admin: 12/08/23 12:50 Dose: Not Given Documented By: MARIS Non-Admin Reason: Previously Administered Warfarin Sodium (Warfarin Sodium 2.5 Mg Tablet) 2.5 mg PO SUTH@1800 [facility] Last Admin: 12/07/23 17:40 Dose: 2.5 mg Documented By: DEREK Warfarin Sodium (Warfarin Sodium 5 Mg Tablet) 5 mg PO MOTUWEFRSA@1800 [facility] Last Admin: 12/06/23 17:47 Dose: 5 mg Documented By: DEREK Labs 12/05/23 05:57 12/07/23 06:34 Labs: Laboratory Results - last 24 hr 12/07/23 12/07/23 12/07/23 15:49 20:19 23:14 Hold Purple Top PT INR POC Glucose 366 H* 362 H* 332 H 12/08/23 12/08/23 12/08/23 06:18 07:38 11:26 Hold Purple Top SEE NOTE PT 42.6 H D INR 3.5 H POC Glucose 273 H 279 H Microbiology Microbiology Results: Microbiology 12/04/23 15:30 Blood Culture - Final Blood - Venous Methicillin Res Staph Aureus Assessment and Plan (1) Acute hypoxemic respiratory failure: Status: Acute (2) Pulmonary hypertension: Status: Acute Plan Pt is an 83-year-old female with a PMH significant for COPD with?chronic hypoxic respiratory failure on 3L home O2, HFpEF, HTN, chronic AFib on Coumadin, insulin-dependent diabetes type 2 among others who presents to the ED with?increased shortness of breath, difficulty breathing, and nonproductive cough for the past week. Pt will be admitted to the hospital for treatment and further evaluation of acute on chronic hypoxic respiratory failure in the setting of COPD and CHF exacerbation. Acute on chronic hypoxic respiratory failure secondary to acute COPD exacerbation and HFpEF exacerbation continue DuoNebs, Solu-Medrol tachycardia secondary to albuterol use Continue home inhalers On baseline 3 L of supplemental oxygen improving down to 4L NC Likely right heart failure secondary to pulmonary hypertension Echo EF 60-65%, [id number] aortic stenosis, moderately severe tricuspid regurgitation, elevated right ventricular systolic pressure with mildly elevated right atrial pressures, severe continue IV lasix cardiology following Pulmonary hypertension due to underlying lung disease/untreated TREMAYNE>inpatient sleep study ordered Pulmonary consult pending CKD3 near baseline follow BMP insulin-dependent type 2 diabetes mellitus with hyperglycemia due to steroids continue home dose of Lantus continue premeal insulin changed to diabetic diet Atrial fibrillation with rapid ventricular response HR improved s/p Cardizem drip Continue home dose of diltiazem Seen by Cardiology, consider IV bolus dosing of Cardizem versus digoxin if heart rate remains uncontrolled Follow INR daily, continue Coumadin. INR subtherapeutic> hold warfarin Subtherapeutic INR Hold warfarin Hypertension Blood pressure soft likely due to medications Hold losartan Follow blood pressure closely HLD Continue statin, fenofibrate Chronic left lower extremity wound In the setting of chronic venous stasis and leg edema does not appear infected continue local wound care Wound nurse consult pending Morbid obesity BMI 37.1 Likely contributing to respiratory failure/hypoxia Full Code Attending Dr. Osorio DVT Prophylaxis: On Coumadin Requires ongoing inpatient hospitalization for management of? acute on chronic hypoxic respiratory failure in the setting of COPD and CHF exacerbations. Patient will require hospitalization for administration of increased supplemental oxygen, IV steroids, breathing treatments, IV diuretics, and close monitoring of labs and respiratory status. Quality Stroke Does the patient have a stroke diagnosis?: No VTE Prior VTE?: No VTE Risk Level:: Medical - moderate - high VTE Device Contraindication: Treatment Not Indicated VTE Drug Contraindication: N/A - Med Ordered
[2023-12-08] MEDS: Docusate Sodium 100 MG CAPSULE PO (15:07)
[2023-12-08] MEDS: polyethylene glycoL 3350 17 GM POWD.PACK PO (15:22)
--- NOTE | 2023-12-08 16:05 | P.PNPL_ITS ---
Subjective Subjective Date of Service: 12/08/23 Principal diagnosis: COPD exacerbation, heart failure, pulmonary hypertension Interval history: Respiratory status and oxygen requirements are improving with diuresis. Objective Data Labs 12/05/23 05:57 12/07/23 06:34 Labs: Laboratory Results - last 24 hr 12/07/23 12/07/23 12/08/23 20:19 23:14 06:18 Hold Purple Top SEE NOTE PT 42.6 H D INR 3.5 H POC Glucose 362 H* 332 H 12/08/23 12/08/23 07:38 11:26 Hold Purple Top PT INR POC Glucose 273 H 279 H Microbiology Microbiology Results: Microbiology 12/04/23 15:30 Blood - Venous Blood Culture - Final Methicillin Res Staph Aureus 12/04/23 15:41 Blood - Venous Blood Culture - Preliminary No growth after 48 hours. Physical Exam 2 Vital Signs: Vital Signs: Last Vital Signs Temp 97.6 F 12/08/23 15:21 Pulse 102 H 12/08/23 15:32 Resp 18 12/08/23 15:32 BP 138/63 12/08/23 15:21 Pulse Ox 95 12/08/23 15:21 O2 Del Method Oxymask 12/08/23 15:21 O2 Flow Rate 6 12/08/23 15:21 BMI result Body Mass Index 37.1 Const: General: no acute distress, alert and awake Nutritional Appearance: obese Eyes: Sclerae: sclerae normal EOM: EOMs intact bilaterally Neck: Neck: Yes no lymphadenopathy, Yes trachea midline and Yes supple Resp: Effort & Inspection: normal respiratory effort and no respiratory distress Auscultation: clear to auscultation bilaterally Cardio: Rate: tachycardic Rhythm: regular rhythm Heart sounds: no gallops, no murmurs and no rubs GI: Palpation (GI): Soft to palpation and Other GI palpation findings present ( Nontender) Auscultation: normal bowel sounds Extrem: General: No clubbing, No cyanosis and Yes edema (1+ bilateral) Procedures Date of Service Date of Service: 12/08/23 Assessment and Plan Assessment and plan (1) Acute hypoxemic respiratory failure: Status: Acute (2) CHF (congestive heart failure): Status: Acute Plan Impression: 83-year-old lady admitted with acute hypoxic respiratory failure secondary to exacerbation of underlying congestive heart failure that is improving with diuresis. Recommendations: Agree with continuation of diuresis. Consider discontinuation of systemic glucocorticoids. Time Spent With Patient Time: Total time managing care of this patient today ____ minutes. Progress Note: Quality Stroke Does the patient have a stroke diagnosis?: No
[2023-12-08 16:12] LABS: Glucose, Whole Blood 276 mg/dL (60-115)
--- NOTE | 2023-12-08 17:23 | HO.WOUND ---
Wound Consult: Initial 83yr old? Female admitted [place] [facility] [place]04[place]23 - See progress notes and H&P for detailed history.? Wound consult placed for Bilateral Lower Legs. Patient agreeable to assessment and photo documentation.? Bilateral heels assessed no pressure injury noted - recommend elevate feels off of bed surface with pillows and consider foam application for preventative measures. Improved from last admission in September 2023 Left Medial Ankle Etiology: ?Venous Dermatitis Wound Measurements: see charting for detailed measurements Wound Bed: dry adherent scab Drainage / Odor: None Edges: ?Linear María Elena wound: dry thickened epidermal layer -evidence of previous swelling - No Induration, Fluctuance or Warmth noted Pain: pain reported Goals of Treatment: ? Moist wound healing for autolytic debridement Bilateral Legs Left Leg Right Leg - Posterior Bilateral Lower Legs Etiology: ?Venous Dermatitis Wounds Measurements: various sites in various sizes in various stages Wound Bed: dried crusted marr yellow scabs Drainage / Odor: None Edges: well defined María Elena wound: dry thickened epidermal layer -evidence of previous swelling - No Induration, Fluctuance or Warmth noted Pain: pain reported Goals of Treatment: ? Moist wound healing for autolytic debridement Recommendations: 1. Turn and Reposition every 2 hours and as needed for patient comfort.? Use pillows or wedges to support off loading positions. 2. Off Load all bony prominences with use of pillows and heel boots if needed.? Apply Preventative foams where needed. ? 3. Monitor for incontinence and moisture control, use barrier creams when needed for prevention and treatment. 4. Provide adequate and supplemental nutrition.? 5. Order low air loss mattress. 6. When applicable maintain blood glucose levels per Providers order. 7. Left Medial Ankle and Bilateral Lower Legs - Elevate lower legs off of surface of bed with use of pillows.? Cleanse with NS, Pat dry.? Apply vaseline to both legs, apply layer of Xeroform to open wound beds secure with ABD pad, gauze wrap and tape.? Change Daily. Re-consult wound care Nurse for wound deterioration or wound changes.
--- NOTE | 2023-12-08 18:09 | MHC.SL.DTX ---
Dysphagia Diet modifications: Last documented Solid diet consistencies: Chopped/Advanced (NDD3) Last documented Liquid consistency: Thin Changes made to current diet?: Yes Liquid Consistency and Strategies: Liquid Intake Recommendation: Thin Compensatory Strategies for Safe Swallow: Unrestricted Compensatory Strategies for Safe Swallow(b): Sitting Upright (90 deg) Liquids from Cup Alternate Liquids/Solids Rate of Ingestion Change Solid Food Consistency: Dietary Recommendations: Chopped/Advanced (NDD3) Additional Modifications to Solids: Sauce/gravy Oral Medication Intake: Whole with Liquid Strategies and Precautions to be Taken for Safe Swallow: Sitting Upright (90 deg) Liquids from Cup Alternate Liquids/Solids Rate of Ingestion Change Supervision While Eating and/Drinking: Total Supervision (1:1) Foods to Avoid: Avoid dry foods (i.e. saltines, doris crackers) Swallowing Recommended Treatments: Compens. Strategy Educat. Level of Impact on: Daily activities: None Interpersonal interactions: Education: None Employment: None Community: None Prognosis for Improvement: Good Recommendation for Speech: Inpatient Speech Therapy Comment: Recommend CHOPPED/ADVANCED solids, THIN liquids, pills WHOLE w water. Full supervision recommended until ADVERTISING OPERATIONS COORDINATOR visit tomorrow to monitor for s/s aspiration, ensure upright position, cue to alternate liquids and solids. Additional Comments: Treatment: Pt seen with her lunch tray in the room. She had eaten less than 25% in total and explained that she wasn't hungry. She was working on her pudding however and agreed to try it with a doris cracker. She was able to eat the cracker mixed with pudding with timely mastication and oral preparation with no overt s/s of aspiration. Self-initiated follow-up sips of Thin Liquids passed with no overt s/s of aspiration. Electrocardiographic Technician Clinican/Clinical Fellow: No Supervisory Statement: I have reviewed and agree with the student/clinical fellow's documentation: N/A Speech Language Pathologist: Darwin lOmstead M.A., CCC-ADVERTISING OPERATIONS COORDINATOR
[2023-12-08] MEDS: vancomycin/NS 2,000 MG/500 ML PLAST..BAG 250 MG IV (18:14)
[2023-12-08 18:52] LABS: Estimated Glomerular Filt Rate 43
--- NOTE | 2023-12-08 19:13 | PHA.PROG ---
Admission Date/Time: December 04, 2023 20:43 Indication:Bacteremia Weight in k kg Adjusted body weight in K.02 Serum Creatinine - Last 168 Hours 12/04/23 12/04/23 12/05/23 15:30 23:36 05:57 Creatinine 1.43 H 1.81 H 1.65 H 12/06/23 12/07/23 12/08/23 06:13 06:34 18:23 Creatinine 1.45 H 1.38 1.19 Estimated CrCl and GFR - Last 168 Hours 12/04/23 12/04/23 12/05/23 15:30 23:36 05:57 Estim Creat Clear Calc 33.8 26.7 29.3 Estimated GFR 35 27 30 12/06/23 12/07/23 12/08/23 06:13 06:34 18:23 Estim Creat Clear Calc 32.8 34.4 40.0 Estimated GFR 34 36 43 Vancomycin Loading Dose: 2000 mg Current Vancomycin Dosing Regimen: 1250 mg Q24H Vancomycin Monitoring using AUC goal of 400 - 600 range with trough as surrogate marker: 515 Date and Time for next Vancomycin Level to be drawn: 12/11/23 @1600 Pharmacist Comments on Vancomycin Plan: Vancomycin dosing will take advantage of [employer] as a clinical decision support tool that uses Bayesian modeling to calculate individual patient's pharmacokinetic parameters and forecast the patient's drug concentration time course with the target goal AUC 24 range of 400 - 600 mg/L/hr.
[2023-12-08 20:24] LABS: Glucose, Whole Blood 227 mg/dL (60-115)
[2023-12-08] MEDS: Insulin Glargine,Hum.rec.anlog 100 UNIT/ML 10 ML VIAL 86 UNIT SUBCUT (20:33)
[2023-12-08] MEDS: Gabapentin 100 MG CAPSULE PO (20:33)
--- NOTE | 2023-12-08 23:05 | PC.RT ---
pt placed on overnight sleep study with 3lnc
[2023-12-08] MEDS: 0.9 % Sodium Chloride Flush 3 ML SYRINGE IVFLUSH (23:26)
[2023-12-09] VITALS (11 sets, daily range): BP systolic 104–155; BP diastolic 57–76; PULSE 65–107; RESP 17–20; TEMP 36.3–37.1; O2SAT 85–95
[2023-12-09] MEDS: methylPREDNISolone Sod Succ 40 MG/ML VIAL IVPUSH ×2 (04:39→16:59)
[2023-12-09 06:28] LABS: INTERNATIONAL NORM RATIO 3.1 (0.9-1.1); Prothrombin Time 37.7 SEC (11.1-13.3)
[2023-12-09 06:40] LABS: Creatinine Clr Calc Pharmacy 41.4; Estimated Glomerular Filt Rate 45
[2023-12-09 07:48] LABS: Glucose, Whole Blood 244 mg/dL (60-115)
[2023-12-09] MEDS: Albuterol/Iprat 2.5/0.5MG 3 ML AMPUL.NEB INHALE ×4 (08:02→20:11)
[2023-12-09] MEDS: Acetaminophen 325 MG TABLET 650 MG PO ×2 (08:43→22:46)
[2023-12-09] MEDS: Fenofibrate 160 MG TABLET PO (08:43)
[2023-12-09] MEDS: Atorvastatin Calcium 80 MG TABLET PO (08:43)
[2023-12-09] MEDS: dilTIAZem HCL CD 180 MG CAP.ER.24H 360 MG PO (08:43)
[2023-12-09] MEDS: Furosemide 40 MG/4 ML VIAL IVPUSH (08:44)
[2023-12-09] MEDS: Insulin Lispro 100 UNIT/ML 3 ML VIAL SUBCUT ×3 (08:44→16:59)
[2023-12-09] MEDS: Insulin Lispro 100 UNIT/ML 3 ML VIAL 10 UNIT SUBCUT ×3 (08:44→17:00)
--- NOTE | 2023-12-09 10:09 | P.PNIM_ITS ---
Subjective Subjective Date of Service: 12/09/23 Interval History: Seen and examined this morning Follow-up for respiratory failure, pulmonary hypertension, CHF, COPD Still with shortness of breath, dry cough; breathing improving slowly Review of Systems Review of Systems: Yes all other systems are reviewed and are negative Constitutional Constitutional: Denies fever(s) Cardiovascular Cardiovascular: Denies chest pain, Denies palpitations and Reports dyspnea Respiratory Respiratory: Reports cough and Reports dyspnea Gastrointestinal Gastrointestinal: Denies abdominal pain Endocrine Endocrine: Denies palpitations Physical Exam 2 Vital Signs: Vital Signs: Last Vital Signs Temp 97.5 F 12/09/23 07:16 Pulse 92 12/09/23 08:04 Resp 20 12/09/23 08:04 BP 138/68 12/09/23 07:16 Pulse Ox 94 12/09/23 07:16 O2 Del Method Nasal Cannula 12/09/23 07:16 O2 Flow Rate 4 12/09/23 07:16 BMI result Body Mass Index 37.1 Appearing in no acute distress lung sounds rhnonchi heart regular rate rhythm, clear S1, S2 positive bowel sounds, abdomen is soft, nontender neuro patient is alert x3, no focal deficits Objective Data Active Medications Acetaminophen (Acetaminophen 325 Mg Tablet) 650 mg PO Q6H PRN PRN Reason: Pain, Mild (Pain Scale 1-3) Last Admin: 12/09/23 08:43 Dose: 650 mg Documented By: MING Albuterol Sulfate (Albuterol Sulfate (0.083%) 2.5 Mg/3 Ml Vial.Neb) 2.5 mg INHALE Q4H PRN PRN Reason: Shortness of Breath/Wheezing Albuterol/Ipratropium (Albuterol/Iprat 2.5/0.5mg 3 Ml Ampul.Neb) 3 ml INHALE RQ4H WHILE AWAKE [facility] Last Admin: 12/09/23 08:02 Dose: 3 ml Documented By: KAYA Atorvastatin Calcium (Atorvastatin Calcium 80 Mg Tablet) 80 mg PO DAILY [facility] Last Admin: 12/09/23 08:43 Dose: 80 mg Documented By: MING Benzonatate (Benzonatate 100 Mg Capsule) 100 mg PO TID PRN PRN Reason: Cough Last Admin: 12/04/23 22:04 Dose: 100 mg Documented By: CAROL Calcium Carbonate (Calcium Carbonate 750 Mg Tab.Chew) 750 mg PO Q4H PRN PRN Reason: Heartburn Last Admin: 12/04/23 23:23 Dose: 750 mg Documented By: CAROL Diltiazem HCl (Diltiazem Hcl Cd 180 Mg Cap.Er.24h) 360 mg PO DAILY [facility]; Protocol Last Admin: 12/09/23 08:43 Dose: 360 mg Documented By: MING Docusate Sodium (Docusate Sodium 100 Mg Capsule) 100 mg PO DAILY PRN PRN Reason: Constipation Last Admin: 12/08/23 15:07 Dose: 100 mg Documented By: SOFFACameron Fenofibrate (Fenofibrate 160 Mg Tablet) 160 mg PO DAILY [facility] Last Admin: 12/09/23 08:43 Dose: 160 mg Documented By: MING Furosemide (Furosemide 40 Mg/4 Ml Vial) 40 mg IVPUSH DAILY [facility]; Protocol Last Admin: 12/09/23 08:44 Dose: 40 mg Documented By: MING Gabapentin (Gabapentin 100 Mg Capsule) 100 mg PO BEDTIME [facility] Last Admin: 12/08/23 20:33 Dose: 100 mg Documented By: SAROJ Glucose (Glucose Gel 15 Gm Gel..Gram.) 15 gm PO Q15M PRN; Protocol PRN Reason: per Hypoglycemia Standing Ord. Dextrose (D10) 250 mls @ 750 mls/hr IV Q15M PRN; Protocol PRN Reason: per Hypoglycemia Standing Ord. Vancomycin HCl 1,250 mg/ (Sodium Chloride) 250 mls @ 166.667 mls/hr IV Q24H [facility] Insulin Glargine (Insulin Glargine,Hum.Rec.Anlog 100 Unit/Ml 10 Ml Vial) 86 unit SUBCUT BEDTIME [facility] Last Admin: 12/08/23 20:33 Dose: 86 unit Documented By: SAROJ Comments: Insulin Human Lispro (Insulin Lispro 100 Unit/Ml 3 Ml Vial) 0 unit SUBCUT QIDACHS [facility]; Protocol Last Admin: 12/09/23 08:44 Dose: 6 unit Documented By: MING Insulin Human Lispro (Insulin Lispro 100 Unit/Ml 3 Ml Vial) 10 unit SUBCUT TIDAC [facility] Last Admin: 12/09/23 08:44 Dose: 10 unit Documented By: MING Lactic Acid (Ammonium Lactate 12 % Lotion 226 Gm Bottle) 1 appl TOPICAL BID [facility]; Protocol Last Admin: 12/08/23 20:38 Dose: Not Given Documented By: SAROJ Non-Admin Reason: pt reports was used earlier and legs wrapped Lactic Acid (Ammonium Lactate 12 % Cream 140 Gm Tube) 1 appl TOPICAL DAILY [facility]; Protocol Last Admin: 12/08/23 07:50 Dose: 1 appl Documented By: MARIS Losartan Potassium (Losartan Potassium 25 Mg Tablet) 25 mg PO DAILY [facility]; Protocol Last Admin: 12/05/23 09:51 Dose: Not Given Documented By: SOM Non-Admin Reason: Unable to Scan Barcode Melatonin (Melatonin 3 Mg Tablet) 6 mg PO BEDTIME PRN PRN Reason: Insomnia Last Admin: 12/06/23 21:51 Dose: 6 mg Documented By: BEVERLY Methylprednisolone Sodium Succinate (Methylprednisolone Sod Succ 40 Mg/Ml Vial) 40 mg IVPUSH Q12H [facility] Last Admin: 12/09/23 04:39 Dose: 40 mg Documented By: MING Nystatin (Nystatin Powder 15 Gm Bottle) 1 appl TOPICAL BID [facility]; Protocol Last Admin: 12/08/23 20:37 Dose: 1 appl Documented By: SAROJ Ondansetron HCl (Ondansetron Hcl 4 Mg/2 Ml Vial) 4 mg IVPUSH Q8H PRN PRN Reason: Nausea and Vomiting Pharmacy Consult (Consult Rx Vancomycin Dosing) 1 each MISCELLANE DAILY PRN PRN Reason: Consult order Polyethylene Glycol (Polyethylene Glycol 3350 17 Gm Powd.Pack) 17 gm PO DAILY [facility] Last Admin: 12/08/23 15:22 Dose: 17 gm Documented By: MARIS Sodium Chloride (0.9 % Sodium Chloride Flush 3 Ml Syringe) 3 ml IVFLUSH QSHIFT [facility] Last Admin: 12/08/23 23:26 Dose: 3 ml Documented By: SAROJ Warfarin Sodium (Warfarin Sodium 2.5 Mg Tablet) 2.5 mg PO SUTH@1800 [facility] Last Admin: 12/07/23 17:40 Dose: 2.5 mg Documented By: DEREK Warfarin Sodium (Warfarin Sodium 5 Mg Tablet) 5 mg PO MOTUWEFRSA@1800 [facility] Last Admin: 12/06/23 17:47 Dose: 5 mg Documented By: DEREK Labs 12/05/23 05:57 12/09/23 05:46 Labs: Laboratory Results - last 24 hr 12/08/23 12/08/23 12/08/23 11:26 16:08 18:23 Hold Purple Top PT INR Estim Creat Clear Calc 40.0 Estimated GFR 43 POC Glucose 279 H 276 H 12/08/23 12/09/23 12/09/23 20:21 05:46 07:40 Hold Purple Top SEE NOTE PT 37.7 H INR 3.1 H Estim Creat Clear Calc 41.4 Estimated GFR 45 POC Glucose 227 H 244 H Microbiology Microbiology Results: Microbiology 12/04/23 15:30 Blood Culture - Final Blood - Venous Methicillin Res Staph Aureus Assessment and Plan (1) Acute hypoxemic respiratory failure: Status: Acute (2) Pulmonary hypertension: Status: Acute Plan Pt is an 83-year-old female with a PMH significant for COPD with?chronic hypoxic respiratory failure on 3L home O2, HFpEF, HTN, chronic AFib on Coumadin, insulin-dependent diabetes type 2 among others who presents to the ED with?increased shortness of breath, difficulty breathing, and nonproductive cough for the past week. Pt will be admitted to the hospital for treatment and further evaluation of acute on chronic hypoxic respiratory failure in the setting of COPD and CHF exacerbation. Acute on chronic hypoxic respiratory failure secondary to acute COPD exacerbation and HFpEF exacerbation continue DuoNebs, Solu-Medrol tachycardia secondary to albuterol use Continue home inhalers On baseline 3 L of supplemental oxygen improving down to 4L NC Likely right heart failure secondary to pulmonary hypertension Echo EF 60-65%, [id number] aortic stenosis, moderately severe tricuspid regurgitation, elevated right ventricular systolic pressure with mildly elevated right atrial pressures, severe continue IV lasix cardiology following Pulmonary hypertension due to underlying lung disease/untreated TREMAYNE>inpatient sleep study ordered Pulmonary consult pending CKD3 near baseline follow BMP insulin-dependent type 2 diabetes mellitus with hyperglycemia due to steroids continue home dose of Lantus continue premeal insulin changed to diabetic diet Atrial fibrillation with rapid ventricular response HR improved s/p Cardizem drip Continue home dose of diltiazem Seen by Cardiology, consider IV bolus dosing of Cardizem versus digoxin if heart rate remains uncontrolled Follow INR daily, continue Coumadin. INR subtherapeutic> hold warfarin Subtherapeutic INR Hold warfarin Hypertension Blood pressure soft likely due to medications Hold losartan Follow blood pressure closely HLD Continue statin, fenofibrate Chronic left lower extremity wound In the setting of chronic venous stasis and leg edema does not appear infected continue local wound care Wound nurse consult pending Morbid obesity BMI 37.1 Likely contributing to respiratory failure/hypoxia Full Code Attending Dr. Osorio DVT Prophylaxis: On Coumadin Requires ongoing inpatient hospitalization for management of? acute on chronic hypoxic respiratory failure in the setting of COPD and CHF exacerbations. Patient will require hospitalization for administration of increased supplemental oxygen, IV steroids, breathing treatments, IV diuretics, and close monitoring of labs and respiratory status. Quality Stroke Does the patient have a stroke diagnosis?: No VTE Prior VTE?: No VTE Risk Level:: Medical - moderate - high VTE Device Contraindication: Treatment Not Indicated VTE Drug Contraindication: N/A - Med Ordered
[2023-12-09] MEDS: Nystatin Powder 15 GM BOTTLE 1 APPL TOPICAL (11:08)
[2023-12-09] MEDS: Ammonium Lactate 12 % Cream 140 GM TUBE 1 APPL TOPICAL ×2 (11:09→22:50)
[2023-12-09] MEDS: 0.9 % Sodium Chloride Flush 3 ML SYRINGE IVFLUSH ×2 (11:13→16:59)
[2023-12-09 11:34] LABS: Glucose, Whole Blood 324 mg/dL (60-115)
[2023-12-09] MEDS: polyethylene glycoL 3350 17 GM POWD.PACK PO (11:57)
[2023-12-09 16:12] LABS: Glucose, Whole Blood 204 mg/dL (60-115)
--- NOTE | 2023-12-09 16:55 | P.PNPL_ITS ---
Subjective Subjective Date of Service: 12/09/23 Principal diagnosis: COPD exacerbation, heart failure, pulmonary hypertension Interval history: Respiratory status and oxygen requirements continue to improve with diuresis. Objective Data Labs 12/05/23 05:57 12/09/23 05:46 Labs: Laboratory Results - last 24 hr 12/08/23 12/08/23 12/09/23 18:23 20:21 05:46 Hold Purple Top SEE NOTE PT 37.7 H INR 3.1 H Creatinine 1.19 1.15 Estim Creat Clear Calc 40.0 41.4 Estimated GFR 43 45 POC Glucose 227 H 12/09/23 12/09/23 12/09/23 07:40 11:31 16:06 Hold Purple Top PT INR Creatinine Estim Creat Clear Calc Estimated GFR POC Glucose 244 H 324 H 204 H Microbiology Microbiology Results: Microbiology 12/04/23 15:30 Blood - Venous Blood Culture - Final Methicillin Res Staph Aureus 12/04/23 15:41 Blood - Venous Blood Culture - Preliminary No growth after 48 hours. Physical Exam 2 Vital Signs: Vital Signs: Last Vital Signs Temp 97.5 F 12/09/23 15:18 Pulse 94 12/09/23 15:18 Resp 17 12/09/23 15:18 BP 145/75 H 12/09/23 15:18 Pulse Ox 94 12/09/23 15:18 O2 Del Method Nasal Cannula 12/09/23 15:18 O2 Flow Rate 3 12/09/23 15:18 BMI result Body Mass Index 37.1 Const: General: no acute distress, alert and awake Nutritional Appearance: obese Eyes: Sclerae: sclerae normal EOM: EOMs intact bilaterally Neck: Neck: Yes no lymphadenopathy, Yes trachea midline and Yes supple Resp: Effort & Inspection: normal respiratory effort and no respiratory distress Auscultation: clear to auscultation bilaterally Cardio: Rate: regular rate Rhythm: regular rhythm Heart sounds: no gallops, no murmurs and no rubs GI: Palpation (GI): Soft to palpation and Other GI palpation findings present ( Nontender) Auscultation: normal bowel sounds Extrem: General: No clubbing, No cyanosis and Yes edema (Trace bilateral) Procedures Date of Service Date of Service: 12/09/23 Assessment and Plan Assessment and plan (1) CHF (congestive heart failure): Status: Acute (2) Acute hypoxemic respiratory failure: Status: Acute (3) Pulmonary hypertension: Status: Acute Plan Impression: 83-year-old lady admitted with acute hypoxic respiratory failure secondary to exacerbation of underlying congestive heart failure that has significantly improved with diuresis. Recommendations: Agree with continuation of current diuretic regimen. Discontinue systemic glucocorticoids. Time Spent With Patient Time: Total time managing care of this patient today ____ minutes. Progress Note: Quality Stroke Does the patient have a stroke diagnosis?: No
[2023-12-09 16:58] LABS: Cardiolipin IgG Ab <2.0 GPL-U/mL; Cardiolipin IgM Ab <2.0 MPL-U/mL
[2023-12-09] MEDS: vancomycin HCL 1,250 MG in 0.9 % Sodium Chloride 250 ML 166.67 MG IV (17:17)
[2023-12-09] MEDS: Warfarin Sodium 5 MG TABLET PO (17:45)
[2023-12-09 19:09] LABS: Scleroderma 70 Antibody <1.0 NEG AI (<1.0 NEG)
[2023-12-09 20:52] LABS: Glucose, Whole Blood 91 mg/dL (60-115)
[2023-12-09] MEDS: Melatonin 3 MG TABLET 6 MG PO (22:45)
[2023-12-09] MEDS: Docusate Sodium 100 MG CAPSULE PO (22:45)
[2023-12-09] MEDS: Benzonatate 100 MG CAPSULE PO (22:46)
[2023-12-09] MEDS: Gabapentin 100 MG CAPSULE PO (22:46)
[2023-12-09] MEDS: Insulin Glargine,Hum.rec.anlog 100 UNIT/ML 10 ML VIAL 86 UNIT SUBCUT (22:49)
[2023-12-10] VITALS (12 sets, daily range): BP systolic 117–166; BP diastolic 55–85; PULSE 72–126; RESP 16–21; TEMP 36–36.8; O2SAT 84–98
[2023-12-10] MEDS: Albuterol Sulfate (0.083%) 2.5 MG/3 ML VIAL.NEB INHALE (03:46)
[2023-12-10] MEDS: 0.9 % Sodium Chloride Flush 3 ML SYRINGE IVFLUSH ×3 (05:53→17:58)
[2023-12-10] MEDS: methylPREDNISolone Sod Succ 40 MG/ML VIAL IVPUSH (05:54)
[2023-12-10] MEDS: Acetaminophen 325 MG TABLET 650 MG PO ×3 (05:54→20:42)
[2023-12-10] MEDS: Benzonatate 100 MG CAPSULE PO ×2 (05:54→20:41)
[2023-12-10 07:12] LABS: Estimated Glomerular Filt Rate 48
[2023-12-10] MEDS: Albuterol/Iprat 2.5/0.5MG 3 ML AMPUL.NEB INHALE ×4 (07:40→19:19)
[2023-12-10 07:43] LABS: Glucose, Whole Blood 196 mg/dL (60-115)
--- NOTE | 2023-12-10 07:52 | MHC.CM.PN ---
PT is recommending [facility] vs home with services and walker. CM will follow.
--- NOTE | 2023-12-10 08:11 | HE.PHANOTE ---
Re: [place] Patient renal function is improving, continue current dose of 1250mg q24h. Next trough 12/10 @ 1600.
--- NOTE | 2023-12-10 09:26 | P.PNIM_ITS ---
Subjective Subjective Date of Service: 12/10/23 Interval History: Seen and examined this morning Follow-up for respiratory failure, pulmonary hypertension, CHF, COPD Still with shortness of breath, dry cough; breathing improving slowly OOB ambulating Review of Systems Review of Systems: Yes all other systems are reviewed and are negative Constitutional Constitutional: Denies fever(s) Cardiovascular Cardiovascular: Denies chest pain, Denies palpitations and Reports dyspnea Respiratory Respiratory: Reports cough and Reports dyspnea Gastrointestinal Gastrointestinal: Denies abdominal pain Endocrine Endocrine: Denies palpitations Physical Exam 2 Vital Signs: Vital Signs: Last Vital Signs Temp 96.8 F 12/10/23 07:31 Pulse 86 12/10/23 07:41 Resp 20 12/10/23 07:41 BP 121/85 12/10/23 07:31 Pulse Ox 95 12/10/23 07:31 O2 Del Method Nasal Cannula 12/10/23 07:31 O2 Flow Rate 3 12/10/23 07:31 BMI result Body Mass Index 37.1 Appearing in no acute distress lung sounds exp wheezing, mild heart regular rate rhythm, clear S1, S2 positive bowel sounds, abdomen is soft, nontender neuro patient is alert x3, no focal deficits Bilateral heels Objective Data Active Medications Acetaminophen (Acetaminophen 325 Mg Tablet) 650 mg PO Q6H PRN PRN Reason: Pain, Mild (Pain Scale 1-3) Last Admin: 12/10/23 05:54 Dose: 650 mg Documented By: KAMLESH Albuterol Sulfate (Albuterol Sulfate (0.083%) 2.5 Mg/3 Ml Vial.Neb) 2.5 mg INHALE Q4H PRN PRN Reason: Shortness of Breath/Wheezing Last Admin: 12/10/23 03:46 Dose: 2.5 mg Documented By: TONE Albuterol/Ipratropium (Albuterol/Iprat 2.5/0.5mg 3 Ml Ampul.Neb) 3 ml INHALE RQ4H WHILE AWAKE [facility] Last Admin: 12/10/23 07:40 Dose: 3 ml Documented By: KRISTIAN Atorvastatin Calcium (Atorvastatin Calcium 80 Mg Tablet) 80 mg PO DAILY [facility] Last Admin: 12/09/23 08:43 Dose: 80 mg Documented By: MING Benzonatate (Benzonatate 100 Mg Capsule) 100 mg PO TID PRN PRN Reason: Cough Last Admin: 12/10/23 05:54 Dose: 100 mg Documented By: KAMLESH Calcium Carbonate (Calcium Carbonate 750 Mg Tab.Chew) 750 mg PO Q4H PRN PRN Reason: Heartburn Last Admin: 12/04/23 23:23 Dose: 750 mg Documented By: CAROL Diltiazem HCl (Diltiazem Hcl Cd 180 Mg Cap.Er.24h) 360 mg PO DAILY [facility]; Protocol Last Admin: 12/09/23 08:43 Dose: 360 mg Documented By: MING Docusate Sodium (Docusate Sodium 100 Mg Capsule) 100 mg PO DAILY PRN PRN Reason: Constipation Last Admin: 12/09/23 22:45 Dose: 100 mg Documented By: KAMLESH Fenofibrate (Fenofibrate 160 Mg Tablet) 160 mg PO DAILY [facility] Last Admin: 12/09/23 08:43 Dose: 160 mg Documented By: MING Furosemide (Furosemide 40 Mg/4 Ml Vial) 40 mg IVPUSH DAILY [facility]; Protocol Last Admin: 12/09/23 08:44 Dose: 40 mg Documented By: MING Gabapentin (Gabapentin 100 Mg Capsule) 100 mg PO BEDTIME [facility] Last Admin: 12/09/23 22:46 Dose: 100 mg Documented By: KAMLESH Glucose (Glucose Gel 15 Gm Gel..Gram.) 15 gm PO Q15M PRN; Protocol PRN Reason: per Hypoglycemia Standing Ord. Dextrose (D10) 250 mls @ 750 mls/hr IV Q15M PRN; Protocol PRN Reason: per Hypoglycemia Standing Ord. Vancomycin HCl 1,250 mg/ (Sodium Chloride) 250 mls @ 166.667 mls/hr IV Q24H [facility] Last Infusion: 12/09/23 18:47 Dose: Infused Documented By: GRECIA Insulin Glargine (Insulin Glargine,Hum.Rec.Anlog 100 Unit/Ml 10 Ml Vial) 86 unit SUBCUT BEDTIME [facility] Last Admin: 12/09/23 22:49 Dose: 86 unit Documented By: KAMLESH Insulin Human Lispro (Insulin Lispro 100 Unit/Ml 3 Ml Vial) 0 unit SUBCUT QIDACHS [facility]; Protocol Last Admin: 12/09/23 22:49 Dose: Not Given Documented By: KAMLESH Non-Admin Reason: No Insulin Coverage Insulin Human Lispro (Insulin Lispro 100 Unit/Ml 3 Ml Vial) 10 unit SUBCUT TIDAC [facility] Last Admin: 12/09/23 17:00 Dose: 10 unit Documented By: GRECIA Lactic Acid (Ammonium Lactate 12 % Lotion 226 Gm Bottle) 1 appl TOPICAL BID [facility]; Protocol Last Admin: 12/10/23 00:30 Dose: Not Given Documented By: KAMLESH Non-Admin Reason: Patient Refused Lactic Acid (Ammonium Lactate 12 % Cream 140 Gm Tube) 1 appl TOPICAL DAILY [facility]; Protocol Last Admin: 12/09/23 22:50 Dose: 1 appl Documented By: KAMLESH Losartan Potassium (Losartan Potassium 25 Mg Tablet) 25 mg PO DAILY [facility]; Protocol Last Admin: 12/05/23 09:51 Dose: Not Given Documented By: SOM Non-Admin Reason: Unable to Scan Barcode Melatonin (Melatonin 3 Mg Tablet) 6 mg PO BEDTIME PRN PRN Reason: Insomnia Last Admin: 12/09/23 22:45 Dose: 6 mg Documented By: KAMLESH Methylprednisolone Sodium Succinate (Methylprednisolone Sod Succ 40 Mg/Ml Vial) 40 mg IVPUSH Q12H [facility] Last Admin: 12/10/23 05:54 Dose: 40 mg Documented By: KAMLESH Nystatin (Nystatin Powder 15 Gm Bottle) 1 appl TOPICAL BID [facility]; Protocol Last Admin: 12/09/23 22:48 Dose: Not Given Documented By: KAMLESH Non-Admin Reason: Med Not Available Ondansetron HCl (Ondansetron Hcl 4 Mg/2 Ml Vial) 4 mg IVPUSH Q8H PRN PRN Reason: Nausea and Vomiting Pharmacy Consult (Consult Rx Vancomycin Dosing) 1 each MISCELLANE DAILY PRN PRN Reason: Consult order Polyethylene Glycol (Polyethylene Glycol 3350 17 Gm Powd.Pack) 17 gm PO DAILY [facility] Last Admin: 12/09/23 11:57 Dose: 17 gm Documented By: MING Sodium Chloride (0.9 % Sodium Chloride Flush 3 Ml Syringe) 3 ml IVFLUSH QSHIFT [facility] Last Admin: 12/10/23 05:53 Dose: 3 ml Documented By: KAMLESH Warfarin Sodium (Warfarin Sodium 2.5 Mg Tablet) 2.5 mg PO SUTH@1800 [facility] Last Admin: 12/07/23 17:40 Dose: 2.5 mg Documented By: DEREK Warfarin Sodium (Warfarin Sodium 5 Mg Tablet) 5 mg PO MOTUWEFRSA@1800 [facility] Last Admin: 12/09/23 17:45 Dose: 5 mg Documented By: GRECIA Labs 12/05/23 05:57 12/10/23 06:44 Labs: Laboratory Results - last 24 hr 12/08/23 12/09/23 12/09/23 06:18 11:31 16:06 Hold Purple Top Estim Creat Clear Calc Estimated GFR POC Glucose 324 H 204 H Scl-70 Scleroderma Ab <1.0 NEG Anti-Cardiolipin IgG Ab <2.0 Anti-Cardiolipin IgM Ab <2.0 12/09/23 12/10/23 12/10/23 20:48 06:44 07:30 Hold Purple Top SEE NOTE Estim Creat Clear Calc 44.0 Estimated GFR 48 POC Glucose 91 196 H Scl-70 Scleroderma Ab Anti-Cardiolipin IgG Ab Anti-Cardiolipin IgM Ab Microbiology Microbiology Results: Microbiology 12/04/23 15:41 Blood Culture - Final Blood - Venous No growth after 5 days. Assessment and Plan (1) Acute hypoxemic respiratory failure: Status: Acute (2) Pulmonary hypertension: Status: Acute Plan Pt is an 83-year-old female with a PMH significant for COPD with?chronic hypoxic respiratory failure on 3L home O2, HFpEF, HTN, chronic AFib on Coumadin, insulin-dependent diabetes type 2 among others who presents to the ED with?increased shortness of breath, difficulty breathing, and nonproductive cough for the past week. Pt will be admitted to the hospital for treatment and further evaluation of acute on chronic hypoxic respiratory failure in the setting of COPD and CHF exacerbation. Acute on chronic hypoxic respiratory failure secondary to acute COPD exacerbation and HFpEF exacerbation tachycardia secondary to albuterol use Continue home inhalers On baseline 3 L of supplemental oxygen Likely right heart failure secondary to pulmonary hypertension Echo EF 60-65% continue IV lasix stop steroids cardiology following Pulmonary hypertension due to underlying lung disease/untreated TREMAYNE>inpatient sleep study ordered Pulmonary following>continue diuresis, stop steroids CKD3 near baseline follow BMP insulin-dependent type 2 diabetes mellitus with hyperglycemia due to steroids ss, lantus, ada diet Atrial fibrillation with rapid ventricular response s/p Cardizem drip Continue home dose of diltiazem Follow INR daily Subtherapeutic INR Hold warfarin Hypertension stable blood pressure off losartan, continue to hold HLD Continue statin, fenofibrate Chronic left lower extremity wound In the setting of chronic venous stasis and leg edema Wound nurse consult> bilateral heels with no pressure injury, elevate of bed surface with pillow, left ankle medial with venous dermatitis wound moist wound healing for autolytic, bilateral lower extremities with venous dermatitis wounds moist wound healing for autolytic debridement debridement Morbid obesity BMI 37.1 Discussed importance of weight management as this may be contributing to worsening of other comorbidities Full Code Attending Dr. Osorio DVT Prophylaxis: On Coumadin DISPO Pt declining STR, home with services when medically clear Requires ongoing inpatient hospitalization for management of? acute on chronic hypoxic respiratory failure in the setting of COPD and CHF exacerbations. Patient will require hospitalization for administration of increased supplemental oxygen, IV steroids, breathing treatments, IV diuretics, and close monitoring of labs and respiratory status. Quality Stroke Does the patient have a stroke diagnosis?: No VTE Prior VTE?: No VTE Risk Level:: Medical - moderate - high VTE Device Contraindication: Treatment Not Indicated VTE Drug Contraindication: N/A - Med Ordered
[2023-12-10 10:00] LABS: INTERNATIONAL NORM RATIO 2.9 (0.9-1.1); Prothrombin Time 35.9 SEC (11.1-13.3)
[2023-12-10] MEDS: Fenofibrate 160 MG TABLET PO (10:58)
[2023-12-10] MEDS: Atorvastatin Calcium 80 MG TABLET PO (10:59)
[2023-12-10] MEDS: Furosemide 40 MG/4 ML VIAL IVPUSH (10:59)
[2023-12-10] MEDS: dilTIAZem HCL CD 180 MG CAP.ER.24H 360 MG PO (10:59)
[2023-12-10] MEDS: polyethylene glycoL 3350 17 GM POWD.PACK PO (11:00)
[2023-12-10] MEDS: Nystatin Powder 15 GM BOTTLE 1 APPL TOPICAL (11:01)
[2023-12-10] MEDS: Ammonium Lactate 12 % Cream 140 GM TUBE 1 APPL TOPICAL (11:02)
--- NOTE | 2023-12-10 11:14 | MHC.CM.PN ---
Patient is not yet medically cleared for dc. Per BULKER, Patient is declining PT's recommendation for Inpatient Pulmonary Rehab. Patient is active with [facility]; home/resume services is now the goal. CM will follow.
[2023-12-10] MEDS: Insulin Lispro 100 UNIT/ML 3 ML VIAL 10 UNIT SUBCUT ×3 (11:21→17:59)
[2023-12-10] MEDS: Insulin Lispro 100 UNIT/ML 3 ML VIAL SUBCUT ×4 (11:24→20:40)
[2023-12-10 11:41] LABS: Glucose, Whole Blood 455 mg/dL (60-115)
--- NOTE | 2023-12-10 16:35 | P.PNPL_ITS ---
Subjective Subjective Date of Service: 12/10/23 Principal diagnosis: COPD exacerbation, heart failure, pulmonary hypertension Interval history: Respiratory status improved essentially to baseline. Objective Data Labs 12/05/23 05:57 12/10/23 06:44 Labs: Laboratory Results - last 24 hr 12/08/23 12/09/23 12/10/23 06:18 20:48 06:44 Hold Purple Top SEE NOTE PT INR Creatinine 1.08 Estim Creat Clear Calc 44.0 Estimated GFR 48 POC Glucose 91 Scl-70 Scleroderma Ab <1.0 NEG Anti-Cardiolipin IgG Ab <2.0 Anti-Cardiolipin IgM Ab <2.0 12/10/23 12/10/23 12/10/23 07:30 09:27 11:32 Hold Purple Top PT 35.9 H INR 2.9 H Creatinine Estim Creat Clear Calc Estimated GFR POC Glucose 196 H 455 H* Scl-70 Scleroderma Ab Anti-Cardiolipin IgG Ab Anti-Cardiolipin IgM Ab Microbiology Microbiology Results: Microbiology 12/09/23 07:26 Blood - Venous Blood Culture - Preliminary Prelim: GPC Gram Stain only 12/09/23 07:26 Blood - Venous Blood Culture - Preliminary No growth after 24 hours. 12/04/23 15:41 Blood - Venous Blood Culture - Final No growth after 5 days. 12/04/23 15:30 Blood - Venous Blood Culture - Final Methicillin Res Staph Aureus Physical Exam 2 Vital Signs: Vital Signs: Last Vital Signs Temp 96.8 F 12/10/23 15:39 Pulse 93 12/10/23 15:39 Resp 17 12/10/23 15:39 BP 139/71 12/10/23 15:39 Pulse Ox 94 12/10/23 15:39 O2 Del Method Nasal Cannula 12/10/23 15:39 O2 Flow Rate 3 12/10/23 15:39 BMI result Body Mass Index 37.1 Const: General: no acute distress, alert and awake Nutritional Appearance: obese Eyes: Sclerae: sclerae normal EOM: EOMs intact bilaterally Neck: Neck: Yes no lymphadenopathy, Yes trachea midline and Yes supple Resp: Effort & Inspection: normal respiratory effort and no respiratory distress Auscultation: clear to auscultation bilaterally Cardio: Rate: regular rate Rhythm: regular rhythm Heart sounds: no gallops, no murmurs and no rubs GI: Palpation (GI): Soft to palpation and Other GI palpation findings present ( Nontender) Auscultation: normal bowel sounds Extrem: General: No clubbing, No cyanosis and Yes edema (Trace bilateral) Procedures Date of Service Date of Service: 12/10/23 Assessment and Plan Assessment and plan (1) Atrial fibrillation: Status: Acute (2) Pulmonary hypertension: Status: Acute (3) CHF (congestive heart failure): Status: Acute (4) Acute hypoxemic respiratory failure: Status: Acute Plan Impression: 83-year-old lady admitted with acute hypoxic respiratory failure secondary to exacerbation of underlying congestive heart failure that has significantly improved with diuresis. Recommendations: Agree with continuation of current diuretic regimen. Time Spent With Patient Time: Total time managing care of this patient today ____ minutes. Progress Note: Quality Stroke Does the patient have a stroke diagnosis?: No
[2023-12-10] MEDS: vancomycin HCL 1,250 MG in 0.9 % Sodium Chloride 250 ML 166.66 MG IV (18:00)
[2023-12-10] MEDS: Warfarin Sodium 5 MG TABLET PO (18:07)
[2023-12-10 18:13] LABS: Glucose, Whole Blood 345 mg/dL (60-115)
[2023-12-10 20:03] LABS: Glucose, Whole Blood 394 mg/dL (60-115)
[2023-12-10] MEDS: Insulin Glargine,Hum.rec.anlog 100 UNIT/ML 10 ML VIAL 86 UNIT SUBCUT (20:39)
[2023-12-10] MEDS: Melatonin 3 MG TABLET 6 MG PO (20:41)
[2023-12-10] MEDS: ceFAZolin Sodium/Dextrose,Iso 2 GM/50 ML PIGGYBACK IV (20:41)
[2023-12-10] MEDS: Gabapentin 100 MG CAPSULE PO (20:42)
[2023-12-10] MEDS: Docusate Sodium 100 MG CAPSULE PO (20:42)
--- NOTE | 2023-12-10 22:05 | P.CNID_ITS ---
History of Present Illness Data of Consult Service Date: 12/09/23 Requesting physician: Clementine Davenport Primary Care Provider: Miracle iTjerina MD [facility] Reason for consult: MRSA bacteremia She presents with shortness of breath and fatigue for a day. She has been on oxygen. She has blood culture 12/03 MRSA and 12/08 gram positive cocci. She has leg weepiness as well as swelling. Review of Systems 2 Review of Systems: Yes all other systems are reviewed and are negative [facility] Past Medical History Medical History (Updated 12/10/23 @ 22:22 by Cristin Lieberman MD) MRSA bacteremia CHF (congestive heart failure) Lower back pain Congestive heart failure Hypoxia COPD (chronic obstructive pulmonary disease) On Coumadin for atrial fibrillation Atrial fibrillation Hyperlipidemia Shortness of breath Bilateral edema of lower extremity Family History Family history: reviewed and not pertinent Social History Social History Household Members: Children Household Members Other:: daughter Housing: House Do you presently have visiting nurse or other home services: Yes (cleaing person 1x week) Unable to assess alcohol history related to: Unknown Alcohol intake: never Comment: rings appropriately Patient Tobacco Use Status: Former Tobacco user Smoked in Last 30 Days: No Use of substances other than those prescribed or required for medical reasons: No Currently Displaying Signs/Symptoms of Drug Intoxication Withdrawal: No Have you been hit, kicked, punched, or otherwise hurt by someone within the past year? If so, by whom?: No Do you feel safe in your current relationship?: Yes Is there a partner from a previous relationship who is making you feel unsafe now?: No Are you made to feel afraid or neglected: No Advance Directives: Yes Advance Directives on File: Yes Advance Directives Date on File: 07/18/23 Do you have a plan to hurt others: No Plan Recently lost weight without trying: No Nutrition Risks: No Nutritional Risk Patient : No Poor oral hygiene: No service: No Meds Allergies Allergy/AdvReac Type Severity Reaction Status Date / Time lisinopril Allergy Cough Verified 12/04/23 15:20 Active Medications: Current Medications Acetaminophen (Acetaminophen 325 Mg Tablet) 650 mg PO Q6H PRN PRN Reason: Pain, Mild (Pain Scale 1-3) Last Admin: 12/10/23 20:42 Dose: 650 mg Albuterol Sulfate (Albuterol Sulfate (0.083%) 2.5 Mg/3 Ml Vial.Neb) 2.5 mg INHALE Q4H PRN PRN Reason: Shortness of Breath/Wheezing Last Admin: 12/10/23 03:46 Dose: 2.5 mg Albuterol/Ipratropium (Albuterol/Iprat 2.5/0.5mg 3 Ml Ampul.Neb) 3 ml INHALE RQ4H WHILE AWAKE [facility]ANIELE Last Admin: 12/10/23 19:19 Dose: 3 ml Atorvastatin Calcium (Atorvastatin Calcium 80 Mg Tablet) 80 mg PO DAILY DANIELE Last Admin: 12/10/23 10:59 Dose: 80 mg Benzonatate (Benzonatate 100 Mg Capsule) 100 mg PO TID PRN PRN Reason: Cough Last Admin: 12/10/23 20:41 Dose: 100 mg Calcium Carbonate (Calcium Carbonate 750 Mg Tab.Chew) 750 mg PO Q4H PRN PRN Reason: Heartburn Last Admin: 12/04/23 23:23 Dose: 750 mg Diltiazem HCl (Diltiazem Hcl Cd 180 Mg Cap.Er.24h) 360 mg PO DAILY DANIELE; Protocol Last Admin: 12/10/23 10:59 Dose: 360 mg Docusate Sodium (Docusate Sodium 100 Mg Capsule) 100 mg PO DAILY PRN PRN Reason: Constipation Last Admin: 12/10/23 20:42 Dose: 100 mg Fenofibrate (Fenofibrate 160 Mg Tablet) 160 mg PO DAILY [facility]IELE Last Admin: 12/10/23 10:58 Dose: 160 mg Furosemide (Furosemide 40 Mg/4 Ml Vial) 40 mg IVPUSH DAILY [facility]; Protocol Last Admin: 12/10/23 10:59 Dose: 40 mg Gabapentin (Gabapentin 100 Mg Capsule) 100 mg PO BEDTIME [facility]LE Last Admin: 12/10/23 20:42 Dose: 100 mg Glucose (Glucose Gel 15 Gm Gel..Gram.) 15 gm PO Q15M PRN; Protocol PRN Reason: per Hypoglycemia Standing Ord. Dextrose (D10) 250 mls @ 750 mls/hr IV Q15M PRN; Protocol PRN Reason: per Hypoglycemia Standing Ord. Vancomycin HCl 1,250 mg/ (Sodium Chloride) 250 mls @ 166.667 mls/hr IV Q24H [facility]ANIELE Last Infusion: 12/10/23 21:29 Dose: Infused Cefazolin Sodium/Dextrose (Ancef) 2 gm in 50 mls @ 100 mls/hr IV Q8H [facility] Last Infusion: 12/10/23 21:28 Dose: Infused Insulin Glargine (Insulin Glargine,Hum.Rec.Anlog 100 Unit/Ml 10 Ml Vial) 86 unit SUBCUT BEDTIME [facility] Last Admin: 12/10/23 20:39 Dose: 86 unit Insulin Human Lispro (Insulin Lispro 100 Unit/Ml 3 Ml Vial) 0 unit SUBCUT QIDACHS [facility]; Protocol Last Admin: 12/10/23 20:40 Dose: 1 unit Insulin Human Lispro (Insulin Lispro 100 Unit/Ml 3 Ml Vial) 10 unit SUBCUT TIDAC [facility] Last Admin: 12/10/23 17:59 Dose: 10 unit Lactic Acid (Ammonium Lactate 12 % Lotion 226 Gm Bottle) 1 appl TOPICAL BID [facility]; Protocol Last Admin: 12/10/23 11:04 Dose: Not Given Lactic Acid (Ammonium Lactate 12 % Cream 140 Gm Tube) 1 appl TOPICAL DAILY [facility]; Protocol Last Admin: 12/10/23 11:02 Dose: 1 appl Losartan Potassium (Losartan Potassium 25 Mg Tablet) 25 mg PO DAILY [facility]; Protocol Last Admin: 12/05/23 09:51 Dose: Not Given Melatonin (Melatonin 3 Mg Tablet) 6 mg PO BEDTIME PRN PRN Reason: Insomnia Last Admin: 12/10/23 20:41 Dose: 6 mg Nystatin (Nystatin Powder 15 Gm Bottle) 1 appl TOPICAL BID [facility]; Protocol Last Admin: 12/10/23 11:01 Dose: 1 appl Ondansetron HCl (Ondansetron Hcl 4 Mg/2 Ml Vial) 4 mg IVPUSH Q8H PRN PRN Reason: Nausea and Vomiting Pharmacy Consult (Consult Rx Vancomycin Dosing) 1 each MISCELLANE DAILY PRN PRN Reason: Consult order Polyethylene Glycol (Polyethylene Glycol 3350 17 Gm Powd.Pack) 17 gm PO DAILY [facility] Last Admin: 12/10/23 11:00 Dose: 17 gm Sodium Chloride (0.9 % Sodium Chloride Flush 3 Ml Syringe) 3 ml IVFLUSH QSHIFT [facility] Last Admin: 12/10/23 17:58 Dose: 3 ml Warfarin Sodium (Warfarin Sodium 2.5 Mg Tablet) 2.5 mg PO SUTH@1800 [facility] Last Admin: 12/07/23 17:40 Dose: 2.5 mg Warfarin Sodium (Warfarin Sodium 5 Mg Tablet) 5 mg PO MOTUWEFRSA@1800 [facility]ANIELE Last Admin: 12/10/23 18:07 Dose: 5 mg Home Medications ?Medication ?Instructions ?Recorded ?Confirmed ?Last Taken ?Type atorvastatin 80 mg tablet 80 mg PO DAILY 02/08/23 12/04/23 12/04/23 History diltiazem HCl 360 mg capsule,24 360 mg PO DAILY 02/08/23 12/04/23 12/04/23 History hr,extended release (Tiadylt ER) fenofibrate 160 mg tablet 160 mg PO DAILY 02/08/23 12/04/23 12/04/23 History furosemide 20 mg tablet 20 mg PO DAILY 02/08/23 12/04/23 12/04/23 History gabapentin 100 mg capsule 100 mg PO BEDTIME 02/08/23 12/04/23 12/03/23 History insulin glargine 100 unit/mL (3 86 unit subcut BEDTIME 02/08/23 12/04/23 12/03/23 History mL) subcutaneous pen (Lantus Solostar U-100 Insulin) insulin lispro 100 unit/mL 30 unit subcut TIDAC 02/08/23 12/04/23 12/03/23 History subcutaneous pen (Humalog KwikPen (U-100) Insulin) losartan 25 mg tablet 25 mg PO DAILY 02/08/23 12/04/23 12/04/23 History warfarin 5 mg tablet 5 mg PO MOTUWEFRSA@1800 02/08/23 12/04/23 12/03/23 History tiotropium bromide 18 mcg capsule 1 cap inhalation DAILY 07/15/23 12/04/23 12/04/23 History with inhalation device (Spiriva with HandiHaler) acetaminophen 650 mg 650 mg PO Q8H PRN Pain 12/04/23 12/04/23 12/03/23 History tablet,extended release (Tylenol 8 Hour) warfarin 2.5 mg tablet 2.5 mg PO SUTH@1800 12/04/23 12/04/23 11/30/23 History Physical Exam 2 Vital Signs: Vital Signs: Last Vital Signs Temp 97.6 F 12/10/23 19:07 Pulse 72 05/22/24 19:21 Resp 20 12/10/23 19:21 BP 127/55 L 12/10/23 19:07 Pulse Ox 98 12/10/23 19:07 O2 Del Method Nasal Cannula 12/10/23 19:07 O2 Flow Rate 4 12/10/23 19:07 BMI result Body Mass Index 37.1 Const: General: cooperative HEENT: Head: Yes normal to inspection Face and sinus: Yes normal facial exam Mouth: Normal oral and palatal mucosa present Teeth and gingiva: d entition normal Eyes: General: appearance normal, both eyes and all related structures P upils: Equal, round and reactive pupils present Resp: Effort & Inspection: normal respiratory effort Cardio: Rate: regular rate Rhythm: regular rhythm GI: Palpation (GI): Soft to palpation and nontender : General: Yes no CVA tenderness Back/Spine/Pelvis: Back: no CVA tenderness Skin: Other: swollen legs ,weepy Neuro: General: moves all extremities Cranial nerves: Yes Equal, round and reactive pupils present Extrem: General: Yes normal to inspection Psych: Appearance: grossly normal Results Labs 12/05/23 05:57 12/10/23 06:44 Labs: BMP 12/10/23 06:44 Creatinine 1.08 Microbiology Microbiology Results: Microbiology 12/09/23 07:26 Blood - Venous Blood Culture - Preliminary Prelim: GPC Gram Stain only 12/09/23 07:26 Blood - Venous Blood Culture - Preliminary No growth after 24 hours. 12/04/23 15:41 Blood - Venous Blood Culture - Final No growth after 5 days. 12/04/23 15:30 Blood - Venous Blood Culture - Final Methicillin Res Staph Aureus Assessment and Plan (1) MRSA bacteremia: Status: Acute Plan She has MRSA bacteremia and source possibly legs She doesnt seem to have endocarditis as source or urine. Would continue Vancomycin. 4 weeks IV antibiotics. Consider check u/s legs evaluate for DVT ?septic emboli Add Kefzol for five days extra synergistic coverage. Await blood cultures and repeat.
[2023-12-11] VITALS (12 sets, daily range): BP systolic 116–131; BP diastolic 60–78; PULSE 73–116; RESP 17–20; TEMP 36–36.8; O2SAT 91–99
[2023-12-11] MEDS: ceFAZolin Sodium/Dextrose,Iso 2 GM/50 ML PIGGYBACK IV ×3 (05:43→22:31)
[2023-12-11] MEDS: 0.9 % Sodium Chloride Flush 3 ML SYRINGE IVFLUSH ×3 (05:44→17:51)
[2023-12-11 07:13] LABS: INTERNATIONAL NORM RATIO 3.6 (0.9-1.1); Prothrombin Time 44.1 SEC (11.1-13.3)
[2023-12-11 07:16] LABS: Estimated Glomerular Filt Rate 48
[2023-12-11 07:30] LABS: Glucose, Whole Blood 49 mg/dL (60-115)
[2023-12-11 07:30] LABS: Glucose, Whole Blood 49 mg/dL (60-115)
[2023-12-11] MEDS: Albuterol/Iprat 2.5/0.5MG 3 ML AMPUL.NEB INHALE ×4 (07:37→19:22)
[2023-12-11 07:51] LABS: Glucose, Whole Blood 76 mg/dL (60-115)
[2023-12-11 08:17] LABS: Glucose, Whole Blood 106 mg/dL (60-115)
[2023-12-11] MEDS: dilTIAZem HCL CD 180 MG CAP.ER.24H 360 MG PO (09:35)
[2023-12-11] MEDS: Furosemide 40 MG/4 ML VIAL IVPUSH (09:35)
[2023-12-11] MEDS: Fenofibrate 160 MG TABLET PO (09:36)
[2023-12-11] MEDS: Ammonium Lactate 12 % Lotion 226 GM BOTTLE 1 APPL TOPICAL (09:36)
[2023-12-11] MEDS: Atorvastatin Calcium 80 MG TABLET PO (09:36)
[2023-12-11] MEDS: Nystatin Powder 15 GM BOTTLE 1 APPL TOPICAL ×2 (09:37→21:50)
[2023-12-11] MEDS: polyethylene glycoL 3350 17 GM POWD.PACK PO ×2 (09:37→21:47)
[2023-12-11 11:30] LABS: Glucose, Whole Blood 143 mg/dL (60-115)
[2023-12-11] MEDS: Insulin Lispro 100 UNIT/ML 3 ML VIAL SUBCUT (11:59)
--- NOTE | 2023-12-11 12:22 | HO.PM.IMPN ---
Subjective Subjective Date of Service: 12/11/23 Interval History: Seen and examined this morning Follow-up for respiratory failure, bacteremia Breathing improving, has been ambulating more Review of Systems Review of Systems: Yes all other systems are reviewed and are negative Constitutional Constitutional: Denies chills and Denies fever(s) Physical Exam Vital Signs: Vital Signs: Last Vital Signs Temp 96.8 F 12/11/23 11:46 Pulse 88 12/11/23 11:46 Resp 20 12/11/23 11:46 BP 130/60 12/11/23 11:46 Pulse Ox 95 12/11/23 11:46 O2 Del Method Nasal Cannula 12/11/23 11:46 O2 Flow Rate 4 12/11/23 11:46 BMI result Body Mass Index 37.1 Const: General: cooperative, comfortable, alert and awake Nutritional Appearance: obese Orientation/consciousness: patient oriented x3 Resp: Effort & Inspection: normal respiratory effort, able to speak in complete sentences, no respiratory distress and no use of accessory muscles Cardio: Rate: regular rate and tachycardic GI: Inspection: No distended Palpation (GI): Soft to palpation Skin: Other: Bilateral venous stasis skin changes, lower extremities; shallow ulceration left anterior montemayor, no surrounding erythema Neuro: General: patient oriented x3, moves all extremities and CN's II-XI intact bilaterally Extrem: General: Yes no pedal edema Objective Data Active Medications Acetaminophen (Acetaminophen 325 Mg Tablet) 650 mg PO Q6H PRN PRN Reason: Pain, Mild (Pain Scale 1-3) Last Admin: 12/10/23 20:42 Dose: 650 mg Documented By: KAMLESH Albuterol Sulfate (Albuterol Sulfate (0.083%) 2.5 Mg/3 Ml Vial.Neb) 2.5 mg INHALE Q4H PRN PRN Reason: Shortness of Breath/Wheezing Last Admin: 12/10/23 03:46 Dose: 2.5 mg Documented By: TONE Albuterol/Ipratropium (Albuterol/Iprat 2.5/0.5mg 3 Ml Ampul.Neb) 3 ml INHALE RQ4H WHILE AWAKE [facility] Last Admin: 12/11/23 11:30 Dose: 3 ml Documented By: PATRICIA Atorvastatin Calcium (Atorvastatin Calcium 80 Mg Tablet) 80 mg PO DAILY [facility] Last Admin: 12/11/23 09:36 Dose: 80 mg Documented By: HOLLY Benzonatate (Benzonatate 100 Mg Capsule) 100 mg PO TID PRN PRN Reason: Cough Last Admin: 12/10/23 20:41 Dose: 100 mg Documented By: KAMLESH Calcium Carbonate (Calcium Carbonate 750 Mg Tab.Chew) 750 mg PO Q4H PRN PRN Reason: Heartburn Last Admin: 12/04/23 23:23 Dose: 750 mg Documented By: CAROL Diltiazem HCl (Diltiazem Hcl Cd 180 Mg Cap.Er.24h) 360 mg PO DAILY [facility]; Protocol Last Admin: 12/11/23 09:35 Dose: 360 mg Documented By: HOLLY Docusate Sodium (Docusate Sodium 100 Mg Capsule) 100 mg PO DAILY PRN PRN Reason: Constipation Last Admin: 12/10/23 20:42 Dose: 100 mg Documented By: KAMLESH Fenofibrate (Fenofibrate 160 Mg Tablet) 160 mg PO DAILY [facility] Last Admin: 12/11/23 09:36 Dose: 160 mg Documented By: HOLLY Furosemide (Furosemide 40 Mg/4 Ml Vial) 40 mg IVPUSH DAILY [facility]; Protocol Last Admin: 12/11/23 09:35 Dose: 40 mg Documented By: HOLLY Gabapentin (Gabapentin 100 Mg Capsule) 100 mg PO BEDTIME [facility] Last Admin: 12/10/23 20:42 Dose: 100 mg Documented By: KAMLESH Glucose (Glucose Gel 15 Gm Gel..Gram.) 15 gm PO Q15M PRN; Protocol PRN Reason: per Hypoglycemia Standing Ord. Dextrose (D10) 250 mls @ 750 mls/hr IV Q15M PRN; Protocol PRN Reason: per Hypoglycemia Standing Ord. Vancomycin HCl 1,250 mg/ (Sodium Chloride) 250 mls @ 166.667 mls/hr IV Q24H [facility] Last Infusion: 12/10/23 21:29 Dose: Infused Documented By: KAMLESH Cefazolin Sodium/Dextrose (Ancef) 2 gm in 50 mls @ 100 mls/hr IV Q8H [facility] Last Admin: 12/11/23 11:59 Dose: 100 mls/hr Documented By: SOM Insulin Glargine (Insulin Glargine,Hum.Rec.Anlog 100 Unit/Ml 10 Ml Vial) 86 unit SUBCUT BEDTIME [facility] Last Admin: 12/10/23 20:39 Dose: 86 unit Documented By: KAMLESH Insulin Human Lispro (Insulin Lispro 100 Unit/Ml 3 Ml Vial) 0 unit SUBCUT QIDACHS [facility]; Protocol Last Admin: 12/11/23 11:59 Dose: 2 unit Documented By: SOM Insulin Human Lispro (Insulin Lispro 100 Unit/Ml 3 Ml Vial) 10 unit SUBCUT TIDAC [facility] Last Admin: 12/11/23 07:34 Dose: Not Given Documented By: HOLLY Non-Admin Reason: No Insulin Coverage Lactic Acid (Ammonium Lactate 12 % Lotion 226 Gm Bottle) 1 appl TOPICAL BID [facility]; Protocol Last Admin: 12/11/23 09:36 Dose: 1 appl Documented By: HOLLY Losartan Potassium (Losartan Potassium 25 Mg Tablet) 25 mg PO DAILY [facility]; Protocol Last Admin: 12/05/23 09:51 Dose: Not Given Documented By: SOM Non-Admin Reason: Unable to Scan Barcode Melatonin (Melatonin 3 Mg Tablet) 6 mg PO BEDTIME PRN PRN Reason: Insomnia Last Admin: 12/10/23 20:41 Dose: 6 mg Documented By: KAMLESH Nystatin (Nystatin Powder 15 Gm Bottle) 1 appl TOPICAL BID [facility]; Protocol Last Admin: 12/11/23 09:37 Dose: 1 appl Documented By: HOLLY Ondansetron HCl (Ondansetron Hcl 4 Mg/2 Ml Vial) 4 mg IVPUSH Q8H PRN PRN Reason: Nausea and Vomiting Pharmacy Consult (Consult Rx Vancomycin Dosing) 1 each MISCELLANE DAILY PRN PRN Reason: Consult order Polyethylene Glycol (Polyethylene Glycol 3350 17 Gm Powd.Pack) 17 gm PO DAILY [facility] Last Admin: 12/11/23 09:37 Dose: 17 gm Documented By: HOLLY Sodium Chloride (0.9 % Sodium Chloride Flush 3 Ml Syringe) 3 ml IVFLUSH QSHIFT [facility] Last Admin: 12/11/23 09:36 Dose: 3 ml Documented By: HOLLY Warfarin Sodium (Warfarin Sodium 2.5 Mg Tablet) 2.5 mg PO SUTH@1800 [facility] Last Admin: 12/07/23 17:40 Dose: 2.5 mg Documented By: DEREK Warfarin Sodium (Warfarin Sodium 5 Mg Tablet) 5 mg PO KIKIA@1800 [facility] Last Admin: 12/10/23 18:07 Dose: 5 mg Documented By: MING Labs 12/05/23 05:57 12/11/23 06:39 Labs: Laboratory Results - last 24 hr 12/10/23 12/10/23 12/11/23 16:08 19:44 06:39 Hold Purple Top SEE NOTE PT 44.1 H D INR 3.6 H Estim Creat Clear Calc 44.0 Estimated GFR 48 POC Glucose 345 H 394 H* 12/11/23 12/11/23 12/11/23 07:18 07:26 07:47 Hold Purple Top PT INR Estim Creat Clear Calc Estimated GFR POC Glucose 49 L* 49 L* 76 12/11/23 12/11/23 08:13 11:18 Hold Purple Top PT INR Estim Creat Clear Calc Estimated GFR POC Glucose 106 143 H Microbiology Microbiology Results: Microbiology 12/09/23 07:26 Blood Culture - Preliminary Blood - Venous Staphylococcus species 12/09/23 07:26 Blood Culture - Preliminary Blood - Venous No growth after 48 hours. Assessment and Plan (1) MRSA bacteremia: Status: Acute (2) Pulmonary hypertension: Status: Acute Plan Pt is an 83-year-old female with a PMH significant for COPD with?chronic hypoxic respiratory failure on 3L home O2, HFpEF, HTN, chronic AFib on Coumadin, insulin-dependent diabetes type 2 among others who presents to the ED with?increased shortness of breath, difficulty breathing, and nonproductive cough for the past week. Pt will be admitted to the hospital for treatment and further evaluation of acute on chronic hypoxic respiratory failure in the setting of COPD and CHF exacerbation. MRSA bacteremia on IV vanco Cefazolin added for 5 days for synergistic effect per ID Repeat blood cultures pending Source ? skin with b/l leg wounds ID rec 4 weeks IV vanco, will need PICC when repeat cultures negative ID b/l LE US to eval for DVT Acute on chronic hypoxic respiratory failure secondary to acute COPD exacerbation and HFpEF exacerbation Continue home inhalers On baseline 3 L of supplemental oxygen Likely right heart failure secondary to pulmonary hypertension Echo EF 60-65% continue IV lasix stop steroids cardiology following Pulmonary hypertension due to underlying lung disease/untreated TREMAYNE>inpatient sleep study ordered. will need outpatient follow up Pulmonary following>continue diuresis, stop steroids VQ scan negative for PE CKD3 near baseline follow BMP insulin-dependent type 2 diabetes mellitus with hyperglycemia due to steroids now off steroids and POC low this am will hold premeal for now and follow POCs reduce lantus and follow ss, lantus, ada diet Atrial fibrillation with rapid ventricular response s/p Cardizem drip Continue home dose of diltiazem Continue Coumadin, INR high, will hold Coumadin today Follow INR daily Supratherapeutic INR Hold warfarin Hypertension stable blood pressure off losartan, continue to hold HLD Continue statin, fenofibrate Chronic left lower extremity wound In the setting of chronic venous stasis and leg edema Wound nurse consult> bilateral heels with no pressure injury, elevate of bed surface with pillow, left ankle medial with venous dermatitis wound moist wound healing for autolytic, bilateral lower extremities with venous dermatitis wounds moist wound healing for autolytic debridement Morbid obesity BMI 37.1 Discussed importance of weight management as this may be contributing to worsening of other comorbidities Full Code Attending Dr. Osorio DVT Prophylaxis: On Coumadin DISPO Pt declining STR, but will need 4 weeks IV abx Requires ongoing inpatient hospitalization for management of? acute on chronic hypoxic respiratory failure in the setting of COPD and CHF exacerbations. Patient will require hospitalization for administration of increased supplemental oxygen, IV steroids, breathing treatments, IV diuretics, and close monitoring of labs and respiratory status. Quality Stroke Does the patient have a stroke diagnosis?: No VTE Prior VTE?: No VTE Risk Level:: Medical - moderate - high VTE Device Contraindication: Treatment Not Indicated VTE Drug Contraindication: N/A - Med Ordered
[2023-12-11 13:05] LABS: Anion Gap 13 (12-20); Blood Urea Nitrogen 33 mg/dL (9-16); Calcium 8.8 mg/dL (8.4-10.2); Carbon Dioxide 36 mmol/L (22-29); Chloride 97 mmol/L (96-108); Glucose Random 62 mg/dL (60-115); Potassium 4.3 mmol/L (3.3-5.1); Sodium 142 mmol/L (135-145)
[2023-12-11] MEDS: Acetaminophen 325 MG TABLET 650 MG PO ×2 (15:45→21:47)
--- NOTE | 2023-12-11 15:57 | MHC.CM.PN ---
Addendum entered by Corazon See 12/11/23 16:18: PT STILL STATES SHE DOES NOT WANT TO GO TO STR PER DISCUSSION, CM MADE A REFERRAL TO [facility] AND HI RN WILL DO BEDSIDE TEACH WITH PT TO DETERMINE IF SHE WOULD BE ABLE TO ADMINISTER HER OWN MEDICATIONS. ONCE BEDSIDE TEACH IS COMPLETE, CM WILL MEET WITH PT TO DETERMINE IF PLAN WILL BE HOME OR SNF Original Note: CM RECEIVED A CALL FROM PTS DAUGHTERRAMSEY WHO REPORTS SHE DOES NOT THINK SHE CAN VISIT THE PT BECAUSE SHE IS IMMUNOCOMPROMISED AND SHE WOULD NOT BE ABLE TO MANAGE PTS ONCE A DAY IV ABX AT HOME. SHE SAYS EVEN IF THE PT DOES NOT REQUIRE IV ABX, SHE WANTS HER TO GO TO STR. CM WILL DISCUSS WITH PT
[2023-12-11 16:08] LABS: Anti Nuclear Antibody Screen NEGATIVE (NEGATIVE)
[2023-12-11 16:09] LABS: Glucose, Whole Blood 99 mg/dL (60-115)
[2023-12-11 17:00] LABS: Vancomycin Random 12.6 mcg/mL (15-20)
[2023-12-11] MEDS: vancomycin HCL 1,250 MG in 0.9 % Sodium Chloride 250 ML 166.66 MG IV (17:56)
[2023-12-11 20:27] LABS: Glucose, Whole Blood 100 mg/dL (60-115)
[2023-12-11] MEDS: Gabapentin 100 MG CAPSULE PO (21:47)
[2023-12-11] MEDS: Albuterol Sulfate (0.083%) 2.5 MG/3 ML VIAL.NEB INHALE (22:03)
[2023-12-12] VITALS (11 sets, daily range): BP systolic 115–153; BP diastolic 54–92; PULSE 72–100; RESP 17–20; TEMP 36–36.6; O2SAT 93–97
[2023-12-12] MEDS: ceFAZolin Sodium/Dextrose,Iso 2 GM/50 ML PIGGYBACK IV ×3 (02:49→18:29)
[2023-12-12] MEDS: 0.9 % Sodium Chloride Flush 3 ML SYRINGE IVFLUSH ×4 (02:49→20:49)
[2023-12-12 06:30] LABS: INTERNATIONAL NORM RATIO 3.9 (0.9-1.1); Prothrombin Time 47.6 SEC (11.1-13.3)
[2023-12-12 06:47] LABS: Anion Gap 14 (12-20); Blood Urea Nitrogen 36 mg/dL (9-16); Calcium 8.6 mg/dL (8.4-10.2); Carbon Dioxide 37 mmol/L (22-29); Chloride 95 mmol/L (96-108); Creatinine Clr Calc Pharmacy 43.3; Estimated Glomerular Filt Rate 47; Potassium 3.6 mmol/L (3.3-5.1); Sodium 142 mmol/L (135-145)
[2023-12-12] MEDS: Dextrose 10 % 250 ML 750 ML IV (07:37)
[2023-12-12 07:42] LABS: Glucose, Whole Blood 37 mg/dL (60-115)
[2023-12-12 07:58] LABS: Glucose, Whole Blood 164 mg/dL (60-115)
[2023-12-12] MEDS: Atorvastatin Calcium 80 MG TABLET PO (08:04)
[2023-12-12] MEDS: dilTIAZem HCL CD 180 MG CAP.ER.24H 360 MG PO (08:04)
[2023-12-12] MEDS: Fenofibrate 160 MG TABLET PO (08:04)
[2023-12-12] MEDS: polyethylene glycoL 3350 17 GM POWD.PACK PO (08:05)
[2023-12-12] MEDS: Albuterol/Iprat 2.5/0.5MG 3 ML AMPUL.NEB INHALE ×4 (08:38→18:57)
[2023-12-12] MEDS: Ammonium Lactate 12 % Lotion 226 GM BOTTLE 1 APPL TOPICAL ×2 (08:58→21:00)
[2023-12-12] MEDS: Nystatin Powder 15 GM BOTTLE 1 APPL TOPICAL ×2 (08:58→20:49)
[2023-12-12 09:10] LABS: Hematocrit 40.1 % (37.0-47.0); Hemoglobin 13.2 g/dl (12.0-16.0); Mean Corpuscular HGB Conc 32.9 g/dl (31.0-35.0); Mean Corpuscular Hemoglobin 28.6 pg (27.0-33.0); Mean Corpuscular Volume 86.8 fL (80.0-98.0); Mean Platelet Volume 9.9 fL (9.4-12.3); Platelet Count 365 X10*3/uL (160-400); Red Blood Count 4.62 X10*6/uL (4.20-5.50); Red Cell Distribution Width 17.3 % (11.0-16.0); White Blood Count 23.3 X10*3/uL (4.8-10.8)
[2023-12-12 09:43] LABS: Angiotensin Converting Enzyme 37.8 U/L (9-67)
[2023-12-12 10:40] LABS: Glucose Random 39 mg/dL (60-115)
[2023-12-12 11:05] LABS: Basophils Percent Auto 0.2 % (0-2); Eosinophils Absolute Auto 0.4 X10*3/uL (0.0-0.4); Eosinophils Percent Auto 1.7 % (0-4); Imm Gran Abs Auto 0.42 X10*3/uL (0.00-0.03); Imm Gran Pct Auto 1.8 % (0.0-0.4); Lymphocytes Absolute Auto 3.7 X10*3/uL (1.2-4.9); Lymphocytes Percent Auto 16.2 % (20-40); MANUAL DIFF FLAG SCAN; Monocytes Absolute Auto 2.2 X10*3/uL (0.1-1.2); Monocytes Percent Auto 9.3 % (2-11); Neutrophils Absolute Auto 16.3 x10*3/uL (2.0-8.3); Neutrophils Percent Auto 70.8 % (45-73); SCAN SMEAR FLAG 1
[2023-12-12 11:21] LABS: Glucose, Whole Blood 183 mg/dL (60-115)
[2023-12-12 11:35] LABS: SLIDE REVIEW VERIFIED
[2023-12-12] MEDS: Insulin Lispro 100 UNIT/ML 3 ML VIAL SUBCUT ×2 (11:46→16:35)
--- NOTE | 2023-12-12 12:44 | MHC.CM.PN ---
EMR reviewed and per MD rounds, pt is not medically cleared for discharge, with blood cultures pending and pending PICC line placement tentatively on Thursday 12/14. This CM met with pt to discuss DCP, per pt, she doesn't want to go to [facility] but is now agreeable as she realizes she needs the help and worries she won't be able to administer the IV abx at home. [facility], [facility], and [facility] interested and following. Rehab choices reviewed with pt, she will think about which facility she would like to go to.
[2023-12-12] MEDS: Acetaminophen 325 MG TABLET 650 MG PO ×2 (16:24→22:38)
[2023-12-12 16:32] LABS: Glucose, Whole Blood 175 mg/dL (60-115)
[2023-12-12 16:50] LABS: Vancomycin Random 14.4 mcg/mL (15-20)
--- NOTE | 2023-12-12 17:11 | HO.PM.IMPN ---
Subjective Subjective Date of Service: 12/12/23 Interval History: seen and examined this morning Follow-up for MRSA bacteremia No overnight events Breathing slowly improving Review of Systems Review of Systems: Yes all other systems are reviewed and are negative Constitutional Constitutional: Denies fever(s) Cardiovascular Cardiovascular: Denies chest pain and Denies palpitations Gastrointestinal Gastrointestinal: Denies abdominal pain Endocrine Endocrine: Denies palpitations Physical Exam Vital Signs: Vital Signs: Last Vital Signs Temp 96.8 F 12/12/23 15:20 Pulse 80 12/12/23 15:20 Resp 20 12/12/23 15:20 BP 153/86 H 12/12/23 15:20 Pulse Ox 97 12/12/23 15:20 O2 Del Method Nasal Cannula 12/12/23 15:20 O2 Flow Rate 4 12/12/23 15:20 BMI result Body Mass Index 37.1 Const: General: cooperative, comfortable, alert and awake Nutritional Appearance: obese Orientation/consciousness: patient oriented x3 Resp: Effort & Inspection: normal respiratory effort, able to speak in complete sentences, no respiratory distress and no use of accessory muscles Cardio: Rate: regular rate and tachycardic GI: Inspection: No distended Palpation (GI): Soft to palpation Skin: Other: Bilateral venous stasis skin changes, lower extremities; shallow ulceration left anterior montemayor, no surrounding erythema Neuro: General: patient oriented x3, moves all extremities and CN's II-XI intact bilaterally Extrem: General: Yes no pedal edema Objective Data Active Medications Acetaminophen (Acetaminophen 325 Mg Tablet) 650 mg PO Q6H PRN PRN Reason: Pain, Mild (Pain Scale 1-3) Last Admin: 12/12/23 16:24 Dose: 650 mg Documented By: GUERO Albuterol Sulfate (Albuterol Sulfate (0.083%) 2.5 Mg/3 Ml Vial.Neb) 2.5 mg INHALE Q4H PRN PRN Reason: Shortness of Breath/Wheezing Last Admin: 12/11/23 22:03 Dose: 2.5 mg Documented By: KRIS Albuterol/Ipratropium (Albuterol/Iprat 2.5/0.5mg 3 Ml Ampul.Neb) 3 ml INHALE RQ4H WHILE AWAKE [facility] Last Admin: 12/12/23 14:22 Dose: 3 ml Documented By: KAYA Atorvastatin Calcium (Atorvastatin Calcium 80 Mg Tablet) 80 mg PO DAILY [facility] Last Admin: 12/12/23 08:04 Dose: 80 mg Documented By: GUERO Benzonatate (Benzonatate 100 Mg Capsule) 100 mg PO TID PRN PRN Reason: Cough Last Admin: 12/10/23 20:41 Dose: 100 mg Documented By: KAMLESH Bisacodyl (Bisacodyl 10 Mg Supp.Rect) 10 mg [place] DAILY PRN PRN Reason: Constipation Calcium Carbonate (Calcium Carbonate 750 Mg Tab.Chew) 750 mg PO Q4H PRN PRN Reason: Heartburn Last Admin: 12/04/23 23:23 Dose: 750 mg Documented By: CAROL Diltiazem HCl (Diltiazem Hcl Cd 180 Mg Cap.Er.24h) 360 mg PO DAILY [facility]; Protocol Last Admin: 12/12/23 08:04 Dose: 360 mg Documented By: GUERO Docusate Sodium (Docusate Sodium 100 Mg Capsule) 100 mg PO DAILY PRN PRN Reason: Constipation Last Admin: 12/10/23 20:42 Dose: 100 mg Documented By: KAMLESH Fenofibrate (Fenofibrate 160 Mg Tablet) 160 mg PO DAILY [facility] Last Admin: 12/12/23 08:04 Dose: 160 mg Documented By: GUERO Furosemide (Furosemide 40 Mg/4 Ml Vial) 40 mg IVPUSH DAILY [facility]; Protocol Last Admin: 12/11/23 09:35 Dose: 40 mg Documented By: HOLLY Gabapentin (Gabapentin 100 Mg Capsule) 100 mg PO BEDTIME [facility] Last Admin: 12/11/23 21:47 Dose: 100 mg Documented By: DEREK Glucose (Glucose Gel 15 Gm Gel..Gram.) 15 gm PO Q15M PRN; Protocol PRN Reason: per Hypoglycemia Standing Ord. Dextrose (D10) 250 mls @ 750 mls/hr IV Q15M PRN; Protocol PRN Reason: per Hypoglycemia Standing Ord. Last Infusion: 12/12/23 08:11 Dose: Infused Documented By: GUERO Vancomycin HCl 1,250 mg/ (Sodium Chloride) 250 mls @ 166.667 mls/hr IV Q24H [facility] Last Infusion: 12/11/23 22:30 Dose: Infused Documented By: DEREK Cefazolin Sodium/Dextrose (Ancef) 2 gm in 50 mls @ 100 mls/hr IV Q8H [facility] Last Infusion: 12/12/23 11:11 Dose: Infused Documented By: GUERO Insulin Human Lispro (Insulin Lispro 100 Unit/Ml 3 Ml Vial) 0 unit SUBCUT QIDACHS [facility]; Protocol Last Admin: 12/12/23 16:35 Dose: 2 unit Documented By: GUERO Lactic Acid (Ammonium Lactate 12 % Lotion 226 Gm Bottle) 1 appl TOPICAL BID [facility]; Protocol Last Admin: 12/12/23 08:58 Dose: 1 appl Documented By: GUERO Melatonin (Melatonin 3 Mg Tablet) 6 mg PO BEDTIME PRN PRN Reason: Insomnia Last Admin: 12/10/23 20:41 Dose: 6 mg Documented By: KAMLESH Nystatin (Nystatin Powder 15 Gm Bottle) 1 appl TOPICAL BID [facility]; Protocol Last Admin: 12/12/23 08:58 Dose: 1 appl Documented By: GUERO Ondansetron HCl (Ondansetron Hcl 4 Mg/2 Ml Vial) 4 mg IVPUSH Q8H PRN PRN Reason: Nausea and Vomiting Pharmacy Consult (Consult Rx Vancomycin Dosing) 1 each MISCELLANE DAILY PRN PRN Reason: Consult order Polyethylene Glycol (Polyethylene Glycol 3350 17 Gm Powd.Pack) 17 gm PO BID [facility] Last Admin: 12/12/23 08:05 Dose: 17 gm Documented By: GUERO Sodium Chloride (0.9 % Sodium Chloride Flush 3 Ml Syringe) 3 ml IVFLUSH QSHIFT [facility] Last Admin: 12/12/23 16:28 Dose: 3 ml Documented By: GUERO Warfarin Sodium (Warfarin Sodium 2.5 Mg Tablet) 2.5 mg PO SUTH@1800 [facility] Last Admin: 12/07/23 17:40 Dose: 2.5 mg Documented By: DEREK Warfarin Sodium (Warfarin Sodium 5 Mg Tablet) 5 mg PO MOTUWEFRSA@1800 [facility] Last Admin: 12/10/23 18:07 Dose: 5 mg Documented By: PJT Labs 12/12/23 05:56 12/12/23 05:56 Labs: Laboratory Results - last 24 hr 12/08/23 12/11/23 12/12/23 06:18 20:18 05:56 MCV 86.8 MCH 28.6 MCHC 32.9 RDW 17.3 H Plt Count 365 MPV 9.9 Immature Gran % (Auto) 1.8 H Neut % (Auto) 70.8 Lymph % (Auto) 16.2 L [place] % (Auto) 9.3 Eos % (Auto) 1.7 Baso % (Auto) 0.2 Lymph # (Auto) 3.7 [place] # (Auto) 2.2 H Eos # (Auto) 0.4 Baso # (Auto) 0.0 Abs Immat Gran (auto) 0.42 H Absolute Neuts (auto) 16.3 H Absolute Nucleated RBC 0.000 Nucleated RBC % (auto) 0.0 Smear Tech's Comments VERIFIED Hold Purple Top SEE NOTE PT 47.6 H INR 3.9 H Anion Gap 14 Estim Creat Clear Calc 43.3 Estimated GFR 47 POC Glucose 100 Random Glucose 39 L* Calcium 8.6 Angiotensin Convert Enz 37.8 Random Vancomycin JP Titer TNP JP Titer 2 TNP JP Titer 3 TNP JP Pattern TNP JP Pattern 2 TNP JP Pattern 3 TNP 12/12/23 12/12/23 12/12/23 07:30 07:55 11:13 MCV MCH MCHC RDW Plt Count MPV Immature Gran % (Auto) Neut % (Auto) Lymph % (Auto) [place] % (Auto) Eos % (Auto) Baso % (Auto) Lymph # (Auto) [place] # (Auto) Eos # (Auto) Baso # (Auto) Abs Immat Gran (auto) Absolute Neuts (auto) Absolute Nucleated RBC Nucleated RBC % (auto) Smear Tech's Comments Hold Purple Top PT INR Anion Gap Estim Creat Clear Calc Estimated GFR POC Glucose 37 L* 164 H 183 H Random Glucose Calcium Angiotensin Convert Enz Random Vancomycin JP Titer JP Titer 2 JP Titer 3 JP Pattern JP Pattern 2 JP Pattern 3 12/12/23 12/12/23 16:05 16:28 MCV MCH MCHC RDW Plt Count MPV Immature Gran % (Auto) Neut % (Auto) Lymph % (Auto) [place] % (Auto) Eos % (Auto) Baso % (Auto) Lymph # (Auto) [place] # (Auto) Eos # (Auto) Baso # (Auto) Abs Immat Gran (auto) Absolute Neuts (auto) Absolute Nucleated RBC Nucleated RBC % (auto) Smear Tech's Comments Hold Purple Top PT INR Anion Gap Estim Creat Clear Calc Estimated GFR POC Glucose 175 H Random Glucose Calcium Angiotensin Convert Enz Random Vancomycin 14.4 L JP Titer JP Titer 2 JP Titer 3 JP Pattern JP Pattern 2 JP Pattern 3 Microbiology Microbiology Results: Microbiology 12/11/23 08:30 Blood Culture - Preliminary Blood - Venous No growth after 24 hours. 12/11/23 08:31 Blood Culture - Preliminary Blood - Venous No growth after 24 hours. 12/09/23 07:26 Blood Culture - Final Blood - Venous Methicillin Res Staph Aureus Assessment and Plan (1) MRSA bacteremia: Status: Acute Plan Pt is an 83-year-old female with a PMH significant for COPD with?chronic hypoxic respiratory failure on 3L home O2, HFpEF, HTN, chronic AFib on Coumadin, insulin-dependent diabetes type 2 among others who presents to the ED with?increased shortness of breath, difficulty breathing, and nonproductive cough for the past week. Pt will be admitted to the hospital for treatment and further evaluation of acute on chronic hypoxic respiratory failure in the setting of COPD and CHF exacerbation. MRSA bacteremia continue IV vanco Cefazolin added for 5 days for synergistic effect per ID Repeat blood cultures negative to date Source ? skin with b/l leg wounds ID rec 4 weeks IV vanco, will need PICC when repeat cultures negative ID b/l LE US negative for DVT Acute on chronic hypoxic respiratory failure secondary to acute COPD exacerbation and HFpEF exacerbation Continue home inhalers On baseline 3 L of supplemental oxygen, near baseline on 4L now Likely right heart failure secondary to pulmonary hypertension Echo EF 60-65% s/p IV lasix, will transition to po stop steroids cardiology following had overnight sleep study - follow report Pulmonary hypertension due to underlying lung disease/untreated TREMAYNE>inpatient sleep study ordered. will need outpatient follow up Pulmonary following>continue diuresis, stop steroids VQ scan negative for PE CKD3 near baseline follow BMP insulin-dependent type 2 diabetes mellitus with hyperglycemia due to steroids now off steroids and POC low am x2 days will hold premeal for now and follow POCs lantus stopped continue SSI Atrial fibrillation with rapid ventricular response s/p Cardizem drip Continue home dose of diltiazem Continue Coumadin, INR high, will hold Coumadin today Follow INR daily Supratherapeutic INR Hold warfarin Hypertension stable blood pressure off losartan, continue to hold HLD Continue statin, fenofibrate Chronic left lower extremity wound In the setting of chronic venous stasis and leg edema Wound nurse consult> bilateral heels with no pressure injury, elevate of bed surface with pillow, left ankle medial with venous dermatitis wound moist wound healing for autolytic, bilateral lower extremities with venous dermatitis wounds moist wound healing for autolytic debridement Morbid obesity BMI 37.1 Discussed importance of weight management as this may be contributing to worsening of other comorbidities Full Code Attending Dr. Osorio DVT Prophylaxis: On Coumadin DISPO Pt declining STR, but will need 4 weeks IV abx Requires ongoing inpatient hospitalization for management of? acute on chronic hypoxic respiratory failure in the setting of COPD and CHF exacerbations. Patient will require hospitalization for administration of increased supplemental oxygen, IV steroids, breathing treatments, IV diuretics, and close monitoring of labs and respiratory status. IV antbiotics for bacteremia Quality Stroke Does the patient have a stroke diagnosis?: No VTE Prior VTE?: No VTE Risk Level:: Medical - moderate - high VTE Device Contraindication: Treatment Not Indicated VTE Drug Contraindication: N/A - Med Ordered
--- NOTE | 2023-12-12 17:19 | HE.PHANOTE ---
Addendum entered by Savannah Delarosa [facility] 12/12/23 17:27: Also holding off for 2 hours, starting the new dose of 1000 mg q24h @1999, next trough scheduled for @1800. Original Note: RE: VANCO DOSING Trough came back as 14.4. It was predicted to be 12.4 with KCH=940. So by linear kinetics, since trough is 14.4, AUC is 635 which is supratherapeutic. Being that pt is older (83 yo), renal functions is not great, dose is decreased to 1000 mg q24h, with next trough scheduled for 12/13/23 @1600.
[2023-12-12] MEDS: Gabapentin 100 MG CAPSULE PO (20:40)
[2023-12-12] MEDS: vancomycin HCL 1,000 MG in 0.9 % Sodium Chloride 250 ML 270 MG IV (20:40)
[2023-12-12 20:54] LABS: Glucose, Whole Blood 218 mg/dL (60-115)
[2023-12-12] MEDS: Melatonin 3 MG TABLET 6 MG PO (22:37)
[2023-12-13] VITALS (13 sets, daily range): BP systolic 125–145; BP diastolic 62–65; PULSE 63–100; RESP 17–20; TEMP 36.2–36.9; O2SAT 93–99
[2023-12-13] MEDS: Albuterol/Iprat 2.5/0.5MG 3 ML AMPUL.NEB INHALE ×5 (00:01→19:15)
[2023-12-13] MEDS: ceFAZolin Sodium/Dextrose,Iso 2 GM/50 ML PIGGYBACK IV ×3 (03:57→20:39)
[2023-12-13] MEDS: Albuterol Sulfate (0.083%) 2.5 MG/3 ML VIAL.NEB INHALE (05:05)
[2023-12-13] MEDS: Acetaminophen 325 MG TABLET 650 MG PO ×2 (05:27→15:27)
[2023-12-13 06:47] LABS: INTERNATIONAL NORM RATIO 2.5 (0.9-1.1); Prothrombin Time 30.5 SEC (11.1-13.3)
[2023-12-13 06:56] LABS: Creatinine Clr Calc Pharmacy 40.3; Estimated Glomerular Filt Rate 44
[2023-12-13 07:42] LABS: Glucose, Whole Blood 141 mg/dL (60-115)
[2023-12-13] MEDS: Fenofibrate 160 MG TABLET PO (08:41)
[2023-12-13] MEDS: Furosemide 40 MG TABLET PO (08:41)
[2023-12-13] MEDS: dilTIAZem HCL CD 180 MG CAP.ER.24H 360 MG PO (08:41)
[2023-12-13] MEDS: Atorvastatin Calcium 80 MG TABLET PO (08:41)
[2023-12-13] MEDS: 0.9 % Sodium Chloride Flush 3 ML SYRINGE IVFLUSH ×3 (08:42→23:42)
[2023-12-13] MEDS: Nystatin Powder 15 GM BOTTLE 1 APPL TOPICAL (08:45)
[2023-12-13] MEDS: Ammonium Lactate 12 % Lotion 226 GM BOTTLE 1 APPL TOPICAL (08:46)
--- NOTE | 2023-12-13 10:56 | HO.PM.IMPN ---
Subjective Subjective Date of Service: 12/13/23 Interval History: seen and examined this morning Follow-up for MRSA bacteremia No overnight events Breathing improving Review of Systems Review of Systems: Yes all other systems are reviewed and are negative Constitutional Constitutional: Denies fever(s) Cardiovascular Cardiovascular: Denies chest pain and Denies palpitations Gastrointestinal Gastrointestinal: Denies abdominal pain Endocrine Endocrine: Denies palpitations Physical Exam Vital Signs: Vital Signs: Last Vital Signs Temp 98.4 F 12/13/23 07:41 Pulse 100 12/13/23 08:41 Resp 18 12/13/23 08:16 BP 137/65 12/13/23 08:41 Pulse Ox 97 12/13/23 07:41 O2 Del Method Nasal Cannula 12/13/23 07:41 O2 Flow Rate 3 12/13/23 07:41 BMI result Body Mass Index 37.1 Appearing in no acute distress lung sounds are clear to auscultation heart regular rate rhythm, clear S1, S2 positive bowel sounds, abdomen is soft, nontender neuro patient is alert x3, no focal deficits Objective Data Active Medications Acetaminophen (Acetaminophen 325 Mg Tablet) 650 mg PO Q6H PRN PRN Reason: Pain, Mild (Pain Scale 1-3) Last Admin: 12/13/23 05:27 Dose: 650 mg Documented By: BEVERLY Albuterol Sulfate (Albuterol Sulfate (0.083%) 2.5 Mg/3 Ml Vial.Neb) 2.5 mg INHALE Q4H PRN PRN Reason: Shortness of Breath/Wheezing Last Admin: 12/13/23 05:05 Dose: 2.5 mg Documented By: TITUS Albuterol/Ipratropium (Albuterol/Iprat 2.5/0.5mg 3 Ml Ampul.Neb) 3 ml INHALE RQ4H WHILE AWAKE [facility] Last Admin: 12/13/23 08:14 Dose: 3 ml Documented By: LACIE Atorvastatin Calcium (Atorvastatin Calcium 80 Mg Tablet) 80 mg PO DAILY [facility] Last Admin: 12/13/23 08:41 Dose: 80 mg Documented By: ANIRUDH Benzonatate (Benzonatate 100 Mg Capsule) 100 mg PO TID PRN PRN Reason: Cough Last Admin: 12/10/23 20:41 Dose: 100 mg Documented By: KAMLESH Bisacodyl (Bisacodyl 10 Mg Supp.Rect) 10 mg [place] DAILY PRN PRN Reason: Constipation Calcium Carbonate (Calcium Carbonate 750 Mg Tab.Chew) 750 mg PO Q4H PRN PRN Reason: Heartburn Last Admin: 12/04/23 23:23 Dose: 750 mg Documented By: CAROL Diltiazem HCl (Diltiazem Hcl Cd 180 Mg Cap.Er.24h) 360 mg PO DAILY [facility]; Protocol Last Admin: 12/13/23 08:41 Dose: 360 mg Documented By: ANIRUDH Docusate Sodium (Docusate Sodium 100 Mg Capsule) 100 mg PO DAILY PRN PRN Reason: Constipation Last Admin: 12/10/23 20:42 Dose: 100 mg Documented By: KAMLESH Fenofibrate (Fenofibrate 160 Mg Tablet) 160 mg PO DAILY [facility] Last Admin: 12/13/23 08:41 Dose: 160 mg Documented By: ANIRUDH Furosemide (Furosemide 40 Mg Tablet) 40 mg PO DAILY [facility]; Protocol Last Admin: 12/13/23 08:41 Dose: 40 mg Documented By: ANIRUDH Gabapentin (Gabapentin 100 Mg Capsule) 100 mg PO BEDTIME [facility] Last Admin: 12/12/23 20:40 Dose: 100 mg Documented By: BEVERLY Glucose (Glucose Gel 15 Gm Gel..Gram.) 15 gm PO Q15M PRN; Protocol PRN Reason: per Hypoglycemia Standing Ord. Dextrose (D10) 250 mls @ 750 mls/hr IV Q15M PRN; Protocol PRN Reason: per Hypoglycemia Standing Ord. Last Infusion: 12/12/23 08:11 Dose: Infused Documented By: GUERO Cefazolin Sodium/Dextrose (Ancef) 2 gm in 50 mls @ 100 mls/hr IV Q8H [facility] Stop: 12/15/23 18:59 Last Infusion: 12/13/23 04:27 Dose: Infused Documented By: BEVERLY Vancomycin HCl 1,000 mg/ (Sodium Chloride) 270 mls @ 270 mls/hr IV Q24H [facility] Last Infusion: 12/12/23 21:40 Dose: Infused Documented By: BEVERLY Insulin Human Lispro (Insulin Lispro 100 Unit/Ml 3 Ml Vial) 0 unit SUBCUT QIDACHS [facility]; Protocol Last Admin: 12/13/23 08:22 Dose: Not Given Documented By: ANIRUDH Non-Admin Reason: No Insulin Coverage Lactic Acid (Ammonium Lactate 12 % Lotion 226 Gm Bottle) 1 appl TOPICAL BID [facility]; Protocol Last Admin: 12/13/23 08:46 Dose: 1 appl Documented By: ANIRUDH Melatonin (Melatonin 3 Mg Tablet) 6 mg PO BEDTIME PRN PRN Reason: Insomnia Last Admin: 12/12/23 22:37 Dose: 6 mg Documented By: BEVERLY Nystatin (Nystatin Powder 15 Gm Bottle) 1 appl TOPICAL BID [facility]; Protocol Last Admin: 12/13/23 08:45 Dose: 1 appl Documented By: ANIRUDH Ondansetron HCl (Ondansetron Hcl 4 Mg/2 Ml Vial) 4 mg IVPUSH Q8H PRN PRN Reason: Nausea and Vomiting Pharmacy Consult (Consult Rx Vancomycin Dosing) 1 each MISCELLANE DAILY PRN PRN Reason: Consult order Polyethylene Glycol (Polyethylene Glycol 3350 17 Gm Powd.Pack) 17 gm PO BID [facility] Last Admin: 12/13/23 08:45 Dose: Not Given Documented By: ANIRUDH Non-Admin Reason: Patient Refused Sodium Chloride (0.9 % Sodium Chloride Flush 3 Ml Syringe) 3 ml IVFLUSH QSHI Last Admin: 12/13/23 08:42 Dose: 3 ml Documented By: ANIRUDH Warfarin Sodium (Warfarin Sodium 5 Mg Tablet) 5 mg PO MOTUWEFRSA@1800 [facility] Warfarin Sodium (Warfarin Sodium 2.5 Mg Tablet) 2.5 mg PO ONCE@1800 ONE Stop: 12/13/23 18:01 Warfarin Sodium (Warfarin Sodium 2.5 Mg Tablet) 2.5 mg PO SUTH@1800 [facility] Labs 12/12/23 05:56 12/13/23 06:03 Labs: Laboratory Results - last 24 hr 12/12/23 12/12/23 12/12/23 05:56 11:13 16:05 Immature Gran % (Auto) 1.8 H Neut % (Auto) 70.8 Lymph % (Auto) 16.2 L [place] % (Auto) 9.3 Eos % (Auto) 1.7 Baso % (Auto) 0.2 Lymph # (Auto) 3.7 [place] # (Auto) 2.2 H Eos # (Auto) 0.4 Baso # (Auto) 0.0 Abs Immat Gran (auto) 0.42 H Absolute Neuts (auto) 16.3 H Smear Tech's Comments VERIFIED PT INR Estim Creat Clear Calc Estimated GFR POC Glucose 183 H Random Vancomycin 14.4 L 12/12/23 12/12/23 12/13/23 16:28 20:42 06:03 Immature Gran % (Auto) Neut % (Auto) Lymph % (Auto) [place] % (Auto) Eos % (Auto) Baso % (Auto) Lymph # (Auto) [place] # (Auto) Eos # (Auto) Baso # (Auto) Abs Immat Gran (auto) Absolute Neuts (auto) Smear Tech's Comments PT 30.5 H D INR 2.5 H Estim Creat Clear Calc 40.3 Estimated GFR 44 POC Glucose 175 H 218 H Random Vancomycin 12/13/23 07:33 Immature Gran % (Auto) Neut % (Auto) Lymph % (Auto) [place] % (Auto) Eos % (Auto) Baso % (Auto) Lymph # (Auto) [place] # (Auto) Eos # (Auto) Baso # (Auto) Abs Immat Gran (auto) Absolute Neuts (auto) Smear Tech's Comments PT INR Estim Creat Clear Calc Estimated GFR POC Glucose 141 H Random Vancomycin Microbiology Microbiology Results: Microbiology 12/11/23 08:30 Blood Culture - Preliminary Blood - Venous No growth after 48 hours. 12/11/23 08:31 Blood Culture - Preliminary Blood - Venous No growth after 48 hours. 12/09/23 07:26 Blood Culture - Final Blood - Venous Methicillin Res Staph Aureus Assessment and Plan (1) MRSA bacteremia: Status: Acute Plan Pt is an 83-year-old female with a PMH significant for COPD with?chronic hypoxic respiratory failure on 3L home O2, HFpEF, HTN, chronic AFib on Coumadin, insulin-dependent diabetes type 2 among others who presents to the ED with?increased shortness of breath, difficulty breathing, and nonproductive cough for the past week. Pt will be admitted to the hospital for treatment and further evaluation of acute on chronic hypoxic respiratory failure in the setting of COPD and CHF exacerbation. MRSA bacteremia continue IV vanco Cefazolin added for 5 days for synergistic effect per ID Repeat blood cultures negative to date Source ? skin with b/l leg wounds ID rec 4 weeks IV vanco, will need PICC when repeat cultures negative b/l LE US negative for DVT Acute on chronic hypoxic respiratory failure secondary to acute COPD exacerbation and HFpEF exacerbation Continue home inhalers On baseline 3 L of supplemental oxygen, near baseline on 4L now Likely right heart failure secondary to pulmonary hypertension Echo EF 60-65% s/p IV lasix, will transition to po stop steroids cardiology following had overnight sleep study - report pending Pulmonary hypertension due to underlying lung disease/untreated TREMAYNE>inpatient sleep study ordered. will need outpatient follow up Pulmonary following>continue diuresis, stop steroids VQ scan negative for PE CKD3 near baseline follow BMP insulin-dependent type 2 diabetes mellitus with hyperglycemia due to steroids now off steroids and POC low am x2 days will hold premeal for now and follow POCs lantus stopped continue SSI Atrial fibrillation with rapid ventricular response s/p Cardizem drip Continue home dose of diltiazem Continue Coumadin Follow INR daily Supratherapeutic INR. Resolved Hold warfarin Hypertension stable blood pressure off losartan, continue to hold HLD Continue statin, fenofibrate Chronic left lower extremity wound In the setting of chronic venous stasis and leg edema Wound nurse consult> bilateral heels with no pressure injury, elevate of bed surface with pillow, left ankle medial with venous dermatitis wound moist wound healing for autolytic, bilateral lower extremities with venous dermatitis wounds moist wound healing for autolytic debridement Morbid obesity BMI 37.1 Discussed importance of weight management as this may be contributing to worsening of other comorbidities Full Code Attending Dr. Contreras DVT Prophylaxis: On Coumadin DISPO Pt declining STR, but will need 4 weeks IV abx Requires ongoing inpatient hospitalization for management of? acute on chronic hypoxic respiratory failure in the setting of COPD and CHF exacerbations. Patient will require hospitalization for administration of increased supplemental oxygen, IV steroids, breathing treatments, IV diuretics, and close monitoring of labs and respiratory status. IV antbiotics for bacteremia Quality Stroke Does the patient have a stroke diagnosis?: No VTE Prior VTE?: No VTE Risk Level:: Medical - moderate - high VTE Device Contraindication: Treatment Not Indicated VTE Drug Contraindication: N/A - Med Ordered
[2023-12-13 11:58] LABS: Glucose, Whole Blood 233 mg/dL (60-115)
[2023-12-13] MEDS: Insulin Lispro 100 UNIT/ML 3 ML VIAL SUBCUT ×3 (12:25→20:38)
[2023-12-13 16:09] LABS: Glucose, Whole Blood 182 mg/dL (60-115)
[2023-12-13] MEDS: Warfarin Sodium 2.5 MG TABLET PO (17:37)
[2023-12-13 18:52] LABS: Vancomycin Random 14.5 mcg/mL (15-20)
--- NOTE | 2023-12-13 19:04 | HE.PHANOTE ---
Re: [place] Renal function has decreased. Trough returned at 14.5. We are treating bactermia. Increasing dose 1,250mg Q24H. Next trough 12/13 @ 1800.
[2023-12-13] MEDS: Gabapentin 100 MG CAPSULE PO (20:39)
[2023-12-13 20:44] LABS: Glucose, Whole Blood 251 mg/dL (60-115)
[2023-12-13] MEDS: vancomycin HCL 1,250 MG in 0.9 % Sodium Chloride 250 ML 166.67 MG IV (21:31)
[2023-12-13] MEDS: Melatonin 3 MG TABLET 6 MG PO (23:48)
[2023-12-14] VITALS (12 sets, daily range): BP systolic 106–139; BP diastolic 58–74; PULSE 75–95; RESP 17–20; TEMP 36.1–36.6; O2SAT 92–97
[2023-12-14] MEDS: ceFAZolin Sodium/Dextrose,Iso 2 GM/50 ML PIGGYBACK IV ×2 (02:22→12:07)
[2023-12-14 07:10] LABS: INTERNATIONAL NORM RATIO 1.7 (0.9-1.1); Prothrombin Time 20.3 SEC (11.1-13.3)
[2023-12-14 07:18] LABS: Estimated Glomerular Filt Rate 43
[2023-12-14] MEDS: Albuterol/Iprat 2.5/0.5MG 3 ML AMPUL.NEB INHALE ×4 (07:26→20:00)
[2023-12-14 07:39] LABS: Glucose, Whole Blood 115 mg/dL (60-115)
[2023-12-14] MEDS: Fenofibrate 160 MG TABLET PO (08:35)
[2023-12-14] MEDS: Furosemide 40 MG TABLET PO (08:35)
[2023-12-14] MEDS: dilTIAZem HCL CD 180 MG CAP.ER.24H 360 MG PO (08:35)
[2023-12-14] MEDS: polyethylene glycoL 3350 17 GM POWD.PACK PO ×2 (08:35→21:05)
[2023-12-14] MEDS: Ammonium Lactate 12 % Lotion 226 GM BOTTLE 1 APPL TOPICAL (08:36)
[2023-12-14] MEDS: Nystatin Powder 15 GM BOTTLE 1 APPL TOPICAL ×2 (08:36→22:47)
[2023-12-14] MEDS: 0.9 % Sodium Chloride Flush 3 ML SYRINGE IVFLUSH (08:36)
[2023-12-14] MEDS: Atorvastatin Calcium 80 MG TABLET PO (08:36)
[2023-12-14] MEDS: Acetaminophen 325 MG TABLET 650 MG PO ×2 (08:40→18:44)
--- NOTE | 2023-12-14 09:37 | HO.PM.IMPN ---
Subjective Subjective Date of Service: 12/14/23 Interval History: seen and examined this morning Follow-up for MRSA bacteremia No overnight events Breathing improving Review of Systems Review of Systems: Yes all other systems are reviewed and are negative Constitutional Constitutional: Denies fever(s) Cardiovascular Cardiovascular: Denies chest pain and Denies palpitations Gastrointestinal Gastrointestinal: Denies abdominal pain Endocrine Endocrine: Denies palpitations Physical Exam Vital Signs: Vital Signs: Last Vital Signs Temp 97.2 F 12/14/23 07:38 Pulse 86 12/14/23 08:35 Resp 18 12/14/23 07:38 BP 117/65 12/14/23 08:35 Pulse Ox 96 12/14/23 07:38 O2 Del Method Nasal Cannula 12/14/23 07:38 O2 Flow Rate 2 12/14/23 07:38 BMI result Body Mass Index 37.1 Appearing in no acute distress lung sounds chronic dry crackles heart regular rate rhythm, clear S1, S2 positive bowel sounds, abdomen is soft, nontender neuro patient is alert x3, no focal deficits Objective Data Active Medications Acetaminophen (Acetaminophen 325 Mg Tablet) 650 mg PO Q6H PRN PRN Reason: Pain, Mild (Pain Scale 1-3) Last Admin: 12/14/23 08:40 Dose: 650 mg Documented By: GUERA Albuterol/Ipratropium (Albuterol/Iprat 2.5/0.5mg 3 Ml Ampul.Neb) 3 ml INHALE RQ4H WHILE AWAKE [facility] Last Admin: 12/14/23 07:26 Dose: 3 ml Documented By: PATRICIA Atorvastatin Calcium (Atorvastatin Calcium 80 Mg Tablet) 80 mg PO DAILY [facility] Last Admin: 12/14/23 08:36 Dose: 80 mg Documented By: GUERA Benzonatate (Benzonatate 100 Mg Capsule) 100 mg PO TID PRN PRN Reason: Cough Last Admin: 12/10/23 20:41 Dose: 100 mg Documented By: KAMLESH Bisacodyl (Bisacodyl 10 Mg Supp.Rect) 10 mg [place] DAILY PRN PRN Reason: Constipation Calcium Carbonate (Calcium Carbonate 750 Mg Tab.Chew) 750 mg PO Q4H PRN PRN Reason: Heartburn Last Admin: 12/04/23 23:23 Dose: 750 mg Documented By: CAROL Diltiazem HCl (Diltiazem Hcl Cd 180 Mg Cap.Er.24h) 360 mg PO DAILY [facility]; Protocol Last Admin: 12/14/23 08:35 Dose: 360 mg Documented By: GUERA Docusate Sodium (Docusate Sodium 100 Mg Capsule) 100 mg PO DAILY PRN PRN Reason: Constipation Last Admin: 12/10/23 20:42 Dose: 100 mg Documented By: KAMLESH Fenofibrate (Fenofibrate 160 Mg Tablet) 160 mg PO DAILY [facility] Last Admin: 12/14/23 08:35 Dose: 160 mg Documented By: GUERA Furosemide (Furosemide 40 Mg Tablet) 40 mg PO DAILY [facility]; Protocol Last Admin: 12/14/23 08:35 Dose: 40 mg Documented By: GUERA Gabapentin (Gabapentin 100 Mg Capsule) 100 mg PO BEDTIME [facility] Last Admin: 12/13/23 20:39 Dose: 100 mg Documented By: FOSTEKR Glucose (Glucose Gel 15 Gm Gel..Gram.) 15 gm PO Q15M PRN; Protocol PRN Reason: per Hypoglycemia Standing Ord. Dextrose (D10) 250 mls @ 750 mls/hr IV Q15M PRN; Protocol PRN Reason: per Hypoglycemia Standing Ord. Last Infusion: 12/12/23 08:11 Dose: Infused Documented By: GUERO Cefazolin Sodium/Dextrose (Ancef) 2 gm in 50 mls @ 100 mls/hr IV Q8H [facility] Stop: 12/15/23 18:59 Last Infusion: 12/14/23 02:58 Dose: Infused Documented By: BRIANA Vancomycin HCl 1,250 mg/ (Sodium Chloride) 250 mls @ 166.667 mls/hr IV Q24H [facility] Last Infusion: 12/13/23 23:45 Dose: Infused Documented By: BRIANA Insulin Human Lispro (Insulin Lispro 100 Unit/Ml 3 Ml Vial) 0 unit SUBCUT QIDACHS [facility]; Protocol Last Admin: 12/14/23 07:48 Dose: Not Given Documented By: GUERA Non-Admin Reason: No Insulin Coverage Lactic Acid (Ammonium Lactate 12 % Lotion 226 Gm Bottle) 1 appl TOPICAL BID [facility]; Protocol Last Admin: 12/14/23 08:36 Dose: 1 appl Documented By: GUERA Melatonin (Melatonin 3 Mg Tablet) 6 mg PO BEDTIME PRN PRN Reason: Insomnia Last Admin: 12/13/23 23:48 Dose: 6 mg Documented By: BRIANA Nystatin (Nystatin Powder 15 Gm Bottle) 1 appl TOPICAL BID [facility]; Protocol Last Admin: 12/14/23 08:36 Dose: 1 appl Documented By: GUERA Ondansetron HCl (Ondansetron Hcl 4 Mg/2 Ml Vial) 4 mg IVPUSH Q8H PRN PRN Reason: Nausea and Vomiting Pharmacy Consult (Consult Rx Vancomycin Dosing) 1 each MISCELLANE DAILY PRN PRN Reason: Consult order Polyethylene Glycol (Polyethylene Glycol 3350 17 Gm Powd.Pack) 17 gm PO BID [facility] Last Admin: 12/14/23 08:35 Dose: 17 gm Documented By: GUERA Sodium Chloride (0.9 % Sodium Chloride Flush 3 Ml Syringe) 3 ml IVFLUSH QSHIFT [facility] Last Admin: 12/14/23 08:36 Dose: 3 ml Documented By: GUERA Warfarin Sodium (Warfarin Sodium 5 Mg Tablet) 5 mg PO MOTUWEFRSA@1800 [facility] Warfarin Sodium (Warfarin Sodium 2.5 Mg Tablet) 2.5 mg PO SUTH@1800 [facility] Labs 12/12/23 05:56 12/14/23 06:27 Labs: Laboratory Results - last 24 hr 12/13/23 12/13/23 12/13/23 11:47 16:03 18:30 PT INR Estim Creat Clear Calc Estimated GFR POC Glucose 233 H 182 H Random Vancomycin 14.5 L 12/13/23 12/14/23 12/14/23 20:28 06:27 07:35 PT 20.3 H D INR 1.7 H Estim Creat Clear Calc 40.0 Estimated GFR 43 POC Glucose 251 H 115 Random Vancomycin Microbiology Microbiology Results: Microbiology 12/09/23 07:26 Blood Culture - Final Blood - Venous No growth after 5 days. 12/11/23 08:30 Blood Culture - Preliminary Blood - Venous No growth after 48 hours. 12/11/23 08:31 Blood Culture - Preliminary Blood - Venous No growth after 48 hours. Assessment and Plan (1) MRSA bacteremia: Status: Acute Plan Pt is an 83-year-old female with a PMH significant for COPD with?chronic hypoxic respiratory failure on 3L home O2, HFpEF, HTN, chronic AFib on Coumadin, insulin-dependent diabetes type 2 among others who presents to the ED with?increased shortness of breath, difficulty breathing, and nonproductive cough for the past week. Pt will be admitted to the hospital for treatment and further evaluation of acute on chronic hypoxic respiratory failure in the setting of COPD and CHF exacerbation. MRSA bacteremia continue IV vanco Cefazolin added for 5 days for synergistic effect per ID (12/15/23) Repeat blood cultures negative to date Source ? skin with b/l leg wounds ID rec 4 weeks IV vanco b/l LE US negative for DVT Midline placed 12/13/23 Acute on chronic hypoxic respiratory failure secondary to acute COPD exacerbation and HFpEF exacerbation Continue home inhalers On baseline 3 L of supplemental oxygen Likely right heart failure secondary to pulmonary hypertension Echo EF 60-65% s/p IV lasix, transitioned to po stop steroids cardiology following had overnight sleep study - report pending Pulmonary hypertension due to underlying lung disease/untreated TREMAYNE>inpatient sleep study ordered. will need outpatient follow up Pulmonary following>continue diuresis, stop steroids VQ scan negative for PE CKD3 near baseline follow BMP insulin-dependent type 2 diabetes mellitus with hyperglycemia due to steroids now off steroids and POC low am x2 days will hold premeal for now and follow POCs lantus stopped continue SSI Atrial fibrillation with rapid ventricular response s/p Cardizem drip Continue home dose of diltiazem Continue Coumadin Follow INR daily Subtherapeutic INR 1.7 continue warfarin Supratherapeutic INR. Resolved Hypertension stable blood pressure off losartan, continue to hold HLD Continue statin, fenofibrate Chronic left lower extremity wound In the setting of chronic venous stasis and leg edema Wound nurse consult> bilateral heels with no pressure injury, elevate of bed surface with pillow, left ankle medial with venous dermatitis wound moist wound healing for autolytic, bilateral lower extremities with venous dermatitis wounds moist wound healing for autolytic debridement Morbid obesity BMI 37.1 Discussed importance of weight management as this may be contributing to worsening of other comorbidities Full Code Attending Dr. Contreras DVT Prophylaxis: On Coumadin DISPO STR when bed available Requires ongoing inpatient hospitalization for management of? acute on chronic hypoxic respiratory failure in the setting of COPD and CHF exacerbations. Patient will require hospitalization for administration of increased supplemental oxygen, IV steroids, breathing treatments, IV diuretics, and close monitoring of labs and respiratory status. IV antbiotics for bacteremia Quality Stroke Does the patient have a stroke diagnosis?: No VTE Prior VTE?: No VTE Risk Level:: Medical - moderate - high VTE Device Contraindication: Treatment Not Indicated VTE Drug Contraindication: N/A - Med Ordered
[2023-12-14 11:27] LABS: Glucose, Whole Blood 280 mg/dL (60-115)
[2023-12-14] MEDS: Insulin Lispro 100 UNIT/ML 3 ML VIAL SUBCUT ×3 (12:06→22:47)
[2023-12-14 16:11] LABS: Glucose, Whole Blood 199 mg/dL (60-115)
[2023-12-14] MEDS: Warfarin Sodium 2.5 MG TABLET PO (17:26)
[2023-12-14 18:50] LABS: Vancomycin Random 14.9 mcg/mL (15-20)
--- NOTE | 2023-12-14 19:00 | HE.PHANOTE ---
Re: [place] Renal function has increased. Trough returned at 14.9 (when predicted was supposed to be 18.9). We are treating bactermia, continue dose of 1,250mg Q24H, with predicted AUC 570 mg/L, and predicted trough 21.4 mg/L (patient is running 4 points lower). Next trough 12/14 @ 1800.
[2023-12-14] MEDS: Gabapentin 100 MG CAPSULE PO (21:05)
[2023-12-14] MEDS: vancomycin HCL 1,250 MG in 0.9 % Sodium Chloride 250 ML 166.67 MG IV (21:06)
[2023-12-14 22:16] LABS: Glucose, Whole Blood 268 mg/dL (60-115)
[2023-12-15] VITALS (9 sets, daily range): BP systolic 113–137; BP diastolic 52–71; PULSE 64–92; RESP 15–20; TEMP 35.9–36.6; O2SAT 91–98
[2023-12-15] MEDS: 0.9 % Sodium Chloride Flush 3 ML SYRINGE IVFLUSH ×3 (00:06→17:15)
[2023-12-15] MEDS: ceFAZolin Sodium/Dextrose,Iso 2 GM/50 ML PIGGYBACK IV ×2 (00:07→06:11)
[2023-12-15 07:03] LABS: INTERNATIONAL NORM RATIO 1.6 (0.9-1.1); Prothrombin Time 19.1 SEC (11.1-13.3)
[2023-12-15 07:14] LABS: Estimated Glomerular Filt Rate 43
[2023-12-15 07:22] LABS: Glucose, Whole Blood 135 mg/dL (60-115)
[2023-12-15] MEDS: Albuterol/Iprat 2.5/0.5MG 3 ML AMPUL.NEB INHALE ×4 (07:39→19:45)
--- NOTE | 2023-12-15 08:36 | P.PNIM_ITS ---
Subjective Subjective Date of Service: 12/15/23 Interval History: seen and examined this morning Follow-up for MRSA bacteremia No overnight events OOB to chair waiting for rehab bed Review of Systems Review of Systems: Yes all other systems are reviewed and are negative Constitutional Constitutional: Denies fever(s) Cardiovascular Cardiovascular: Denies chest pain and Denies palpitations Gastrointestinal Gastrointestinal: Denies abdominal pain Endocrine Endocrine: Denies palpitations Physical Exam 2 Vital Signs: Vital Signs: Last Vital Signs Temp 97.1 F 12/15/23 07:48 Pulse 92 12/15/23 07:48 Resp 20 12/15/23 07:48 BP 113/71 12/15/23 07:48 Pulse Ox 95 12/15/23 07:48 O2 Del Method Nasal Cannula 12/15/23 07:48 O2 Flow Rate 2 12/15/23 07:48 BMI result Body Mass Index 37.1 Appearing in no acute distress lung sounds chronic dry crackles heart regular rate rhythm, clear S1, S2 positive bowel sounds, abdomen is soft, nontender neuro patient is alert x3, no focal deficits Objective Data Active Medications Acetaminophen (Acetaminophen 325 Mg Tablet) 650 mg PO Q6H PRN PRN Reason: Pain, Mild (Pain Scale 1-3) Last Admin: 12/14/23 18:44 Dose: 650 mg Documented By: GUERA Albuterol/Ipratropium (Albuterol/Iprat 2.5/0.5mg 3 Ml Ampul.Neb) 3 ml INHALE RQ4H WHILE AWAKE REPLACED BY [facility] Last Admin: 12/15/23 07:39 Dose: 3 ml Documented By: YOEL Atorvastatin Calcium (Atorvastatin Calcium 80 Mg Tablet) 80 mg PO DAILY [facility] Last Admin: 12/14/23 08:36 Dose: 80 mg Documented By: GUERA Benzonatate (Benzonatate 100 Mg Capsule) 100 mg PO TID PRN PRN Reason: Cough Last Admin: 12/10/23 20:41 Dose: 100 mg Documented By: KAMLESH Bisacodyl (Bisacodyl 10 Mg Supp.Rect) [address] DAILY PRN PRN Reason: Constipation Calcium Carbonate (Calcium Carbonate 750 Mg Tab.Chew) 750 mg PO Q4H PRN PRN Reason: Heartburn Last Admin: 12/04/23 23:23 Dose: 750 mg Documented By: CAROL Diltiazem HCl (Diltiazem Hcl Cd 180 Mg Cap.Er.24h) 360 mg PO DAILY [facility]; Protocol Last Admin: 12/14/23 08:35 Dose: 360 mg Documented By: GUERA Docusate Sodium (Docusate Sodium 100 Mg Capsule) 100 mg PO DAILY PRN PRN Reason: Constipation Last Admin: 12/10/23 20:42 Dose: 100 mg Documented By: KAMLESH Fenofibrate (Fenofibrate 160 Mg Tablet) 160 mg PO DAILY [facility] Last Admin: 12/14/23 08:35 Dose: 160 mg Documented By: GUERA Furosemide (Furosemide 40 Mg Tablet) 40 mg PO DAILY [facility]; Protocol Last Admin: 12/14/23 08:35 Dose: 40 mg Documented By: GUERA Gabapentin (Gabapentin 100 Mg Capsule) 100 mg PO BEDTIME [facility] Last Admin: 12/14/23 21:05 Dose: 100 mg Documented By: MERA Glucose (Glucose Gel 15 Gm Gel..Gram.) 15 gm PO Q15M PRN; Protocol PRN Reason: per Hypoglycemia Standing Ord. Dextrose (D10) 250 mls @ 750 mls/hr IV Q15M PRN; Protocol PRN Reason: per Hypoglycemia Standing Ord. Last Infusion: 12/12/23 08:11 Dose: Infused Documented By: GUERO Vancomycin HCl 1,250 mg/ (Sodium Chloride) 250 mls @ 166.667 mls/hr IV Q24H [facility] Last Infusion: 12/14/23 22:58 Dose: Infused Documented By: MERA Insulin Human Lispro (Insulin Lispro 100 Unit/Ml 3 Ml Vial) 0 unit SUBCUT QIDACHS [facility]; Protocol Last Admin: 12/14/23 22:47 Dose: 8 unit Documented By: MERA Lactic Acid (Ammonium Lactate 12 % Lotion 226 Gm Bottle) 1 appl TOPICAL BID [facility]; Protocol Last Admin: 12/14/23 21:22 Dose: Not Given Documented By: MERA Non-Admin Reason: Patient Refused Melatonin (Melatonin 3 Mg Tablet) 6 mg PO BEDTIME PRN PRN Reason: Insomnia Last Admin: 12/13/23 23:48 Dose: 6 mg Documented By: BRIANA Nystatin (Nystatin Powder 15 Gm Bottle) 1 appl TOPICAL BID [facility]; Protocol Last Admin: 12/14/23 22:47 Dose: 1 appl Documented By: MERA Ondansetron HCl (Ondansetron Hcl 4 Mg/2 Ml Vial) 4 mg IVPUSH Q8H PRN PRN Reason: Nausea and Vomiting Pharmacy Consult (Consult Rx Vancomycin Dosing) 1 each MISCELLANE DAILY PRN PRN Reason: Consult order Polyethylene Glycol (Polyethylene Glycol 3350 17 Gm Powd.Pack) 17 gm PO BID [facility] Last Admin: 12/14/23 21:05 Dose: 17 gm Documented By: MERA Sodium Chloride (0.9 % Sodium Chloride Flush 3 Ml Syringe) 3 ml IVFLUSH QSHIFT REPLACED BY [facility] Last Admin: 12/15/23 00:06 Dose: 3 ml Documented By: BRIANA Warfarin Sodium (Warfarin Sodium 5 Mg Tablet) 5 mg PO MOTUWEFRSA@1800 REPLACED BY [facility] Warfarin Sodium (Warfarin Sodium 2.5 Mg Tablet) 2.5 mg PO SUTH@1800 REPLACED BY [facility] Last Admin: 12/14/23 17:26 Dose: 2.5 mg Documented By: GUERA Labs 12/12/23 05:56 12/15/23 06:47 Labs: Laboratory Results - last 24 hr 12/14/23 12/14/23 12/14/23 11:09 16:00 18:10 Hold Purple Top PT INR Estim Creat Clear Calc Estimated GFR POC Glucose 280 H 199 H Random Vancomycin 14.9 L 12/14/23 12/15/23 12/15/23 21:43 06:47 07:15 Hold Purple Top SEE NOTE PT 19.1 H INR 1.6 H Estim Creat Clear Calc 40.0 Estimated GFR 43 POC Glucose 268 H 135 H Random Vancomycin Microbiology Microbiology Results: Microbiology 12/09/23 07:26 Blood Culture - Final Blood - Venous No growth after 5 days. Assessment and Plan (1) MRSA bacteremia: Status: Acute Plan Pt is an 83-year-old female with a PMH significant for COPD with?chronic hypoxic respiratory failure on 3L home O2, HFpEF, HTN, chronic AFib on Coumadin, insulin-dependent diabetes type 2 among others who presents to the ED with?increased shortness of breath, difficulty breathing, and nonproductive cough for the past week. Pt will be admitted to the hospital for treatment and further evaluation of acute on chronic hypoxic respiratory failure in the setting of COPD and CHF exacerbation. MRSA bacteremia continue IV vanco s/p Cefazolin added for 5 days for synergistic effect per ID, completed 12/15/23 Repeat blood cultures negative to date Source ? skin with b/l leg wounds ID rec 4 weeks IV vanco (01/10/24) b/l LE US negative for DVT Midline placed 12/13/23 Acute on chronic hypoxic respiratory failure secondary to acute COPD exacerbation and HFpEF exacerbation Continue home inhalers On baseline 3 L of supplemental oxygen Likely right heart failure secondary to pulmonary hypertension Echo EF 60-65% s/p IV lasix, transitioned to po s/p steroids cardiology following had overnight sleep study - report pending Pulmonary hypertension due to underlying lung disease/untreated TREMAYNE>inpatient sleep study ordered. will need outpatient follow up Pulmonary following>continue diuresis, stop steroids VQ scan negative for PE CKD3 near baseline follow BMP insulin-dependent type 2 diabetes mellitus with hyperglycemia due to steroids. Resolved lantus stopped continue SSI Atrial fibrillation with rapid ventricular response s/p Cardizem drip Continue home dose of diltiazem Continue Coumadin Follow INR daily Subtherapeutic INR 1.6 continue warfarin Supratherapeutic INR. Resolved Hypertension stable blood pressure off losartan, continue to hold HLD Continue statin, fenofibrate Chronic left lower extremity wound In the setting of chronic venous stasis and leg edema Wound nurse consult> bilateral heels with no pressure injury, elevate of bed surface with pillow, left ankle medial with venous dermatitis wound moist wound healing for autolytic, bilateral lower extremities with venous dermatitis wounds moist wound healing for autolytic debridement Morbid obesity BMI 37.1 Discussed importance of weight management as this may be contributing to worsening of other comorbidities Full Code Attending Dr. Contreras DVT Prophylaxis: On Coumadin DISPO STR when bed available Requires ongoing inpatient hospitalization for management of? acute on chronic hypoxic respiratory failure in the setting of COPD and CHF exacerbations. Patient will require hospitalization for administration of increased supplemental oxygen, IV steroids, breathing treatments, IV diuretics, and close monitoring of labs and respiratory status. IV antbiotics for bacteremia Quality Stroke Does the patient have a stroke diagnosis?: No VTE Prior VTE?: No VTE Risk Level:: Medical - moderate - high VTE Device Contraindication: Treatment Not Indicated VTE Drug Contraindication: N/A - Med Ordered
[2023-12-15] MEDS: dilTIAZem HCL CD 180 MG CAP.ER.24H 360 MG PO (09:51)
[2023-12-15] MEDS: Furosemide 40 MG TABLET PO (09:51)
[2023-12-15] MEDS: Atorvastatin Calcium 80 MG TABLET PO (09:51)
[2023-12-15] MEDS: Nystatin Powder 15 GM BOTTLE 1 APPL TOPICAL ×2 (09:51→20:29)
[2023-12-15] MEDS: Fenofibrate 160 MG TABLET PO (09:51)
[2023-12-15] MEDS: Ammonium Lactate 12 % Lotion 226 GM BOTTLE 1 APPL TOPICAL ×2 (09:55→20:28)
[2023-12-15] MEDS: polyethylene glycoL 3350 17 GM POWD.PACK PO ×2 (09:55→20:28)
[2023-12-15] MEDS: Acetaminophen 325 MG TABLET 650 MG PO ×2 (10:00→18:25)
[2023-12-15 12:15] LABS: Glucose, Whole Blood 271 mg/dL (60-115)
[2023-12-15] MEDS: Insulin Lispro 100 UNIT/ML 3 ML VIAL SUBCUT ×3 (12:21→21:15)
--- NOTE | 2023-12-15 15:28 | MHC.CM.PN ---
EMR reviewed and per MD rounds, pt remains medically cleared for discharge pending auth for STR. This CM inquired with [facility] regarding an update on auth, no response received, but as of their response on 12/13 they state is is not likely to obtain auth prior to Friday 12/15.
[2023-12-15 17:11] LABS: Glucose, Whole Blood 159 mg/dL (60-115)
[2023-12-15] MEDS: Warfarin Sodium 5 MG TABLET PO (17:38)
[2023-12-15 18:45] LABS: Vancomycin Random 14.3 mcg/mL (15-20)
--- NOTE | 2023-12-15 18:53 | HE.PHANOTE ---
RE: jodi Patient's level on 12/14 came back at 14.3mg/L; increased dose to 1500mg Q24H with predicted AUC of 563mg/L, trough of 19.9 mg/L. Patient's level has been coming back slightly lower than predicted. Next level to be drawn after two doses on 12/16 @1800
[2023-12-15] MEDS: Gabapentin 100 MG CAPSULE PO (20:27)
[2023-12-15] MEDS: vancomycin HCL 1,500 MG in 0.9 % Sodium Chloride 500 ML 333.33 MG IV (20:29)
[2023-12-15 20:42] LABS: Glucose, Whole Blood 274 mg/dL (60-115)
[2023-12-16] MEDS: 0.9 % Sodium Chloride Flush 3 ML SYRINGE IVFLUSH ×2 (01:16→07:40)
[2023-12-16 04:00] VITALS: BP 137/65; PULSE 97; RESP 20; TEMP 36.1; O2SAT 97
[2023-12-16 07:31] LABS: INTERNATIONAL NORM RATIO 1.7 (0.9-1.1); Prothrombin Time 21.1 SEC (11.1-13.3)
[2023-12-16] MEDS: Atorvastatin Calcium 80 MG TABLET PO (07:39)
[2023-12-16] MEDS: Fenofibrate 160 MG TABLET PO (07:39)
[2023-12-16] MEDS: polyethylene glycoL 3350 17 GM POWD.PACK PO (07:40)
[2023-12-16] MEDS: Nystatin Powder 15 GM BOTTLE 1 APPL TOPICAL (07:41)
[2023-12-16] MEDS: Ammonium Lactate 12 % Lotion 226 GM BOTTLE 1 APPL TOPICAL (07:41)
[2023-12-16 07:42] LABS: Creatinine Clr Calc Pharmacy 43.6; Estimated Glomerular Filt Rate 48
[2023-12-16 07:54] VITALS: BP 128/62; PULSE 78
[2023-12-16] MEDS: Furosemide 40 MG TABLET PO (07:54)
[2023-12-16] MEDS: dilTIAZem HCL CD 180 MG CAP.ER.24H 360 MG PO (07:54)
[2023-12-16 07:57] VITALS: PULSE 86; RESP 5; O2SAT 96
[2023-12-16] MEDS: Albuterol/Iprat 2.5/0.5MG 3 ML AMPUL.NEB INHALE ×2 (07:57→11:19)
[2023-12-16 08:00] VITALS: BP 128/62; PULSE 78; RESP 18; TEMP 36.4; O2SAT 96
[2023-12-16 08:08] LABS: Glucose, Whole Blood 230 mg/dL (60-115)
[2023-12-16] MEDS: Insulin Lispro 100 UNIT/ML 3 ML VIAL SUBCUT ×2 (08:23→12:01)
[2023-12-16 11:19] VITALS: PULSE 68; RESP 17; O2SAT 96
[2023-12-16 11:29] LABS: Glucose, Whole Blood 283 mg/dL (60-115)
--- NOTE | 2023-12-16 11:53 | MHC.CM.PN ---
Second IMM given 12/15. Pt is medically cleared for discharge to [facility] at [facility] (insurance auth obtained). Pt will transport there today via [facility] at 1pm. Pt and her daughter aware and in agreement with discharge plan.
--- NOTE | 2023-12-16 12:15 | PM.DS ---
DS: Providers Provider Date of Service: 12/16/23 Date of admission: 12/04/23 20:43 Primary care physician: Miracle Tijerina MD Consults: 12/05/23 00:08 Consult to Cardiology Routine Consulting Provider: [facility] Reason for consultation: Elevated troponin 12/05/23 10:17 Consult to Wound Care Routine Reason for consultation: diabetic ulcers bilateral lower legs 12/06/23 07:49 Consult to Pulmonology Routine Consulting Provider: [facility] Reason for consultation: pulmonary hypertension, COPD Has provider been notified: No 12/08/23 17:03 Consult to Infectious Diseases Routine Consulting Provider: [facility] Reason for consultation: MRSA bacteremia DS: Diagnosis Discharge Diagnosis (1) MRSA bacteremia: Status: Acute DS: Summary Hospital Course Hospital Course: History and physical as per admitting provider. Pt is an 83-year-old female with a PMH significant for COPD with?chronic hypoxic respiratory failure on 3L home O2, HFpEF, HTN, chronic AFib on Coumadin, insulin-dependent diabetes type 2 among others who presents to the ED with?increased shortness of breath, difficulty breathing, and nonproductive cough for the past week. Has also noticed increased lower leg edema and weeping from lower legs. Patient complains of heartburn, but denies chest pain/pressure or palpitations. No fever, chills, nausea, vomiting, abdominal pain. Patient states she is able to move around her apartment by holding onto furniture, and uses a walker at baseline while in the community. Of note, during interview and exam patient was noted to desat to 85% on her chronic home 3L O2. In the ED pt was tachycardic up to 108, tachypneic up to 26, with soft BP as low as 117/52, satting as low as 85% on prescribed 3L home O2. Labs were significant for BUN 22, creatinine 1.43, and POC glucose 419. No leukocytosis. Stable H&H. No significant electrolyte abnormalities. Lactic acid WNL at 1.3. Hepatic function baseline. BNP WNL at 78. Tested negative for flu, RSV, and COVID. CXR showed enlarged cardiac silhouette and prominent central bronchovascular markings, suggestive of mild pulmonary edema and airway disease. EKG demonstrated atrial fibrillation without significant evidence of ST elevations or depressions. Pt was treated with DuoNebs, Solu-Medrol, and furosemide 40 mg IV. Pt will be admitted to the hospital for treatment and further evaluation of acute on chronic hypoxic respiratory failure in the setting of COPD and CHF exacerbation. 83-year-old woman treated for MRSA bacteremia, acute on chronic hypoxic respiratory failure secondary to COPD exacerbation and heart failure with preserved ejection fraction exacerbation. She was treated with IV Lasix was transitioned to oral and IV steroids. She was seen evaluated by Cardiology. She had an overnight sleep study with report and reading still pending, patient can follow up with her primary care provider for this. She was found to have MRSA bacteremia and was started on IV vancomycin. She had 5 days of cefazolin added for synergistic effect. She had a midline placed on 12/13/2023 and she will continue vancomycin until 01/10/2024. Blood cultures remained negative to date. She did have some noted pulmonary hypertension likely due to underlying lung disease and untreated sleep apnea but inpatient sleep study from 12/08/23 was negative for sleep apnea . She was treated with IV diuresis and steroids. CKD stage 3. New baseline Diabetes mellitus type 2. Treated with sliding scale, continue home medications Atrial fibrillation with rapid ventricular response. Treated with IV Cardizem drip. Continue home dose of diltiazem and warfarin. Follow-up PT INR Hypertension. Stable blood pressure off losartan, will continue to hold Hyperlipidemia. Continue statin and fenofibrate Morbid obesity. Discussed importance of weight management as this may be contributing to worsening of other comorbidities Chronic left lower extremity wound In the setting of chronic venous stasis and leg edema Wound nurse consult> bilateral heels with no pressure injury, elevate of bed surface with pillow, left ankle medial with venous dermatitis wound moist wound healing for autolytic, bilateral lower extremities with venous dermatitis wounds moist wound healing for autolytic debridement Time Attestation Discharge Coordination Time (in mins): 38 Quality: Safe Use of Opioids Does Pt have an Active Cancer Diagnosis on the Problem List?: No Quality: Stroke Does the patient have a stroke diagnosis?: No Physical Exam Vital Signs: Vital Signs: Last Vital Signs Temp 97.6 F 12/16/23 08:00 Pulse 68 12/16/23 11:19 Resp 17 12/16/23 11:19 BP 128/62 12/16/23 08:00 Pulse Ox 96 12/16/23 08:00 O2 Del Method Nasal Cannula 12/16/23 08:00 O2 Flow Rate 2 12/16/23 08:00 BMI result Body Mass Index 37.1 Appearing in no acute distress head is normocephalic atraumatic eyes pupils are PERRLA sclera is anicteric mouth throat mucous membranes are intact and moist neck is supple no lymphadenopathy, no JVD noted lung sounds are clear to auscultation heart regular rate rhythm, clear S1, S2 positive bowel sounds, abdomen is soft, nontender neuro patient is alert x3, no focal deficits DS: Data Data Completed and Pending Labs on day of discharge: Laboratory Results - last 24 hr 12/15/23 12/15/23 12/15/23 12:10 17:06 18:09 Hold Purple Top PT INR Creatinine Estim Creat Clear Calc Estimated GFR POC Glucose 271 H 159 H Random Vancomycin 14.3 L 12/15/23 12/16/23 12/16/23 20:37 06:53 08:02 Hold Purple Top SEE NOTE PT 21.1 H INR 1.7 H Creatinine 1.09 Estim Creat Clear Calc 43.6 Estimated GFR 48 POC Glucose 274 H 230 H Random Vancomycin 12/16/23 11:25 Hold Purple Top PT INR Creatinine Estim Creat Clear Calc Estimated GFR POC Glucose 283 H Random Vancomycin Discharge Plan Discharge Anticipated Discharge Date/Time: 12/16/23 12:00 Patient Disposition: [facility] Discharge Diagnosis: MRSA bacteremia Acute on chronic hypoxic respiratory failure COPD exacerbation Heart failure with preserved ejection fraction exacerbation Pulmonary hypertension Referrals: [facility] [Outside] - 1 Week Miracle Tijerina MD [Primary Care Provider] - 1 Week Discharge Medications: New vancomycin in dextrose 5 % 1.5 gram/300 mL piggyback 1.5 g IV Q24H Continued tiotropium bromide [Spiriva with HandiHaler] 18 mcg Capsule, W/Inhalation Device 1 cap INHALATION DAILY Rx Instructions: puncture 1 cap using device; one dose = 2 inhalations ammonium lactate 12 % Lotion 1 appl topical BID Qty: 225 2RF Protocol: Apply to: Apply to: Lower extremities atorvastatin 80 mg tablet 80 mg PO DAILY diltiazem HCl [Tiadylt ER] 360 mg capsule,extended release 24 hr 360 mg PO DAILY warfarin 5 mg tablet 5 mg PO MOTUWEFRSA@1800 furosemide 20 mg tablet 20 mg PO DAILY gabapentin 100 mg capsule 100 mg PO BEDTIME insulin lispro [Humalog KwikPen Insulin] 100 unit/mL insulin pen 30 unit subcut TIDAC fenofibrate 160 mg tablet 160 mg PO DAILY insulin glargine [Lantus Solostar U-100 Insulin] 100 unit/mL (3 mL) insulin pen 86 unit subcut BEDTIME warfarin 2.5 mg Tablet 2.5 mg PO SUTH@1800 acetaminophen [Tylenol 8 Hour] 650 mg Tablet Extended Release 650 mg PO Q8H PRN (Reason: Pain) Discontinued losartan 25 mg tablet 25 mg PO DAILY Discharge Orders: Discharge Order (Routine); Ordered 12/16/23 Ordered By: Clementine Davenport Diet: Advance to usual diet Activity on Discharge: As tolerated Stand Alone Forms: Patient Portal Discharge page Print Language: Thai Care Plan Goals: Continue IV vancomycin for total of 4 weeks, end date 01/10/2024. Midline can be removed by RN after last dose Currently on vancomycin 1500 mg every 24 hours Health Concerns: MRSA bacteremia Acute on chronic hypoxic respiratory failure COPD exacerbation Heart failure with preserved ejection fraction exacerbation Pulmonary hypertension Plan of Treatment: Follow-up with primary care provider as needed Take all medications as prescribed Assessment: See discharge summary
[2023-12-16] MEDS: Acetaminophen 325 MG TABLET 650 MG PO (13:38)
== END 2023-12-16 14:26 | disposition skilled nursing facility (03) | DRG 291 ==
LOC: HO.ED 20:48 → HO.EDOVER 21:09 → HO.IMC 12-05 07:27
PROVIDERS: Hospitalist; Internal Medicine; Physician Assistant; Physician Assistant Medical; Admitting Provider Student in an Organized Health Care Education/Training Program; Emergency Provider Student in an Organized Health Care Education/Training Program; PCP Family Medicine; Visit Provider Nurse Practitioner Acute Care
DX: I13.0 Hypertensive heart and chronic kidney disease with heart failure and stage 1 through stage 4 chronic kidney disease, or unspecified chronic kidney disease (principal); I50.33 Acute on chronic diastolic (congestive) heart failure; J96.21 Acute and chronic respiratory failure with hypoxia; J44.1 Chronic obstructive pulmonary disease with (acute) exacerbation; L97.829 Non-pressure chronic ulcer of other part of left lower leg with unspecified severity; L97.819 Non-pressure chronic ulcer of other part of right lower leg with unspecified severity; I48.20 Chronic atrial fibrillation, unspecified; E66.2 Morbid (severe) obesity with alveolar hypoventilation; R78.81 Bacteremia; I87.333 Chronic venous hypertension (idiopathic) with ulcer and inflammation of bilateral lower extremity; Z99.81 Dependence on supplemental oxygen; R79.1 Abnormal coagulation profile; B95.62 Methicillin resistant Staphylococcus aureus infection as the cause of diseases classified elsewhere; I50.811 Acute right heart failure; I27.23 Pulmonary hypertension due to lung diseases and hypoxia; E78.5 Hyperlipidemia, unspecified; I07.1 Rheumatic tricuspid insufficiency; N18.30 Chronic kidney disease, stage 3 unspecified; E11.65 Type 2 diabetes mellitus with hyperglycemia; E11.22 Type 2 diabetes mellitus with diabetic chronic kidney disease; Z68.37 Body mass index [BMI] 37.0-37.9, adult; Z71.3 Dietary counseling and surveillance; Z20.822 Contact with and (suspected) exposure to COVID-19; Z79.4 Long term (current) use of insulin; Z79.01 Long term (current) use of anticoagulants; Z79.899 Other long term (current) drug therapy
CPT/HCPCS: 0241U; 36415; 71045; 78580; 80048; 80053; 80202; 82164; 82565; 82803; 82947; 83605; 83735; 83880; 84484; 85025; 85027; 85610; 85730; 86038; 86147; 86235; 87040; 87077; 87186; 87205; 92526; 92610; 93005; 93306; 93970; 94640; 97116; 97162; 99285; A9540; J0690; J1940; J2919; J3370; J3371; Q9957

== ENCOUNTER → 2023-12-04 15:27 | Outpatient (BNV) | payer MEDICARE, SELFPAY | PROVIDERS: Admitting Provider Student in an Organized Health Care Education/Training Program; Emergency Provider Student in an Organized Health Care Education/Training Program; PCP Family Medicine; Visit Provider Internal Medicine Cardiovascular Disease | DX: I48.0 Paroxysmal atrial fibrillation (principal); R94.31 Abnormal electrocardiogram [ECG] [EKG]; R06.02 Shortness of breath | CPT/HCPCS: 93010 ==

== ENCOUNTER 2023-12-04 20:43 | Outpatient (BNV) | payer MEDICARE, SELFPAY | END 2023-12-05 07:00 | PROVIDERS: Admitting Provider Student in an Organized Health Care Education/Training Program; Emergency Provider Student in an Organized Health Care Education/Training Program; PCP Family Medicine; Visit Provider Internal Medicine Cardiovascular Disease | DX: I36.1 Nonrheumatic tricuspid (valve) insufficiency (principal); I34.0 Nonrheumatic mitral (valve) insufficiency; I35.0 Nonrheumatic aortic (valve) stenosis | CPT/HCPCS: 93306 ==

== ENCOUNTER → 2023-12-04 20:43 | Outpatient (BNV) | payer MEDICARE, SELFPAY | PROVIDERS: Admitting Provider Student in an Organized Health Care Education/Training Program; Emergency Provider Student in an Organized Health Care Education/Training Program; PCP Family Medicine; Visit Provider Internal Medicine Cardiovascular Disease | DX: J96.01 Acute respiratory failure with hypoxia (principal); I48.91 Unspecified atrial fibrillation | CPT/HCPCS: 99222; 99233 ==

== ENCOUNTER → 2023-12-04 20:43 | Outpatient (BNV) | payer MEDICARE, SELFPAY | PROVIDERS: Admitting Provider Student in an Organized Health Care Education/Training Program; Emergency Provider Student in an Organized Health Care Education/Training Program; PCP Family Medicine; Visit Provider Internal Medicine | DX: R78.81 Bacteremia (principal); B95.62 Methicillin resistant Staphylococcus aureus infection as the cause of diseases classified elsewhere | CPT/HCPCS: 99222 ==

== ENCOUNTER → 2023-12-04 20:43 | Outpatient (BNV) | payer MEDICARE, SELFPAY | PROVIDERS: Admitting Provider Student in an Organized Health Care Education/Training Program; Emergency Provider Student in an Organized Health Care Education/Training Program; PCP Family Medicine; Visit Provider Hospitalist | DX: J96.01 Acute respiratory failure with hypoxia (principal); I50.9 Heart failure, unspecified; I27.20 Pulmonary hypertension, unspecified; I48.91 Unspecified atrial fibrillation | CPT/HCPCS: 99223; 99232 ==

== ENCOUNTER → 2023-12-04 20:43 | Outpatient (BNV) | payer MEDICARE, SELFPAY | PROVIDERS: Admitting Provider Student in an Organized Health Care Education/Training Program; Emergency Provider Student in an Organized Health Care Education/Training Program; PCP Family Medicine; Visit Provider Physician Assistant Medical | DX: R78.81 Bacteremia (principal); B95.62 Methicillin resistant Staphylococcus aureus infection as the cause of diseases classified elsewhere; J96.21 Acute and chronic respiratory failure with hypoxia; J44.1 Chronic obstructive pulmonary disease with (acute) exacerbation | CPT/HCPCS: 99223; 99232; 99233; 99239 ==

== ENCOUNTER 2024-03-20 15:48 | Emergency (ER) | payer MEDICARE, SELFPAY ==
[2024-03-20 15:52] VITALS: BP 105/50; BP 141/90; PULSE 72; RESP 16; TEMP 36.2; O2SAT 93; O2SAT 95; BMI 44.7
[2024-03-20 15:59] LABS: Glucose, Whole Blood 81 mg/dL (60-115)
--- NOTE | 2024-03-20 16:00 | PC.NURSE ---
jingmarino from home d/t hypoglycemic episode. family members found her on the floor after she states she slid to the floor - on the ground for approximately down for 5-6 min. -headstrike, -loc, -thinners. AMS x week. POC = 46 mg/dL upon EMS arrival. given 15g of oral glucose w/ good effect. POC post medication administration = 115mg/dL. POC = 81mg/dL upon ED arrival. a&ox4. vss and up to date. pt on 4L via NC (baseline). resting in no apparent distress. no sob/wob noted. respirations even/unlabored. pt provided w/ orange juice/sugar packet and crackers. will reassess POC shortly. plan of care ongoing. call mercedes placed within reach.
[2024-03-20 16:10] LABS: MANUAL DIFF FLAG NO
[2024-03-20 16:15] LABS: Basophils Percent Auto 0.5 % (0-2); Eosinophils Absolute Auto 0.2 X10*3/uL (0.0-0.4); Eosinophils Percent Auto 1.9 % (0-4); Hemoglobin 12.1 g/dl (12.0-16.0); Imm Gran Abs Auto 0.03 X10*3/uL (0.00-0.03); Imm Gran Pct Auto 0.4 % (0.0-0.4); Lymphocytes Absolute Auto 1.2 X10*3/uL (1.2-4.9); Lymphocytes Percent Auto 14.1 % (20-40); Mean Corpuscular Hemoglobin 27.9 pg (27.0-33.0); Mean Corpuscular Volume 90.1 fL (80.0-98.0); Mean Platelet Volume 8.5 fL (9.4-12.3); Monocytes Absolute Auto 0.7 X10*3/uL (0.1-1.2); Neutrophils Absolute Auto 6.4 x10*3/uL (2.0-8.3); Neutrophils Percent Auto 75.1 % (45-73); Platelet Count 342 X10*3/uL (160-400); Red Blood Count 4.33 X10*6/uL (4.20-5.50); Red Cell Distribution Width 18.6 % (11.0-16.0); White Blood Count 8.5 X10*3/uL (4.8-10.8)
[2024-03-20 16:25] LABS: Alanine Aminotransferase 13 U/L (0-31); Albumin Level 3.6 g/dL (3.5-5.0); Alkaline Phosphatase 46 U/L (39-117); Anion Gap 12 (12-20); Aspartate Amino Transferase 26 U/L (5-31); Bilirubin Total 0.5 mg/dL (0.0-1.0); Blood Urea Nitrogen 32 mg/dL (9-16); Calcium 9.6 mg/dL (8.4-10.2); Carbon Dioxide 30 mmol/L (22-29); Chloride 110 mmol/L (96-108); Creatinine Clr Calc Pharmacy 33.3; Estimated Glomerular Filt Rate 39; Glucose Random 88 mg/dL (60-115); Potassium 4.1 mmol/L (3.3-5.1); Sodium 148 mmol/L (135-145)
[2024-03-20 16:33] LABS: Glucose, Whole Blood 86 mg/dL (60-115)
--- NOTE | 2024-03-20 16:48 | PC.NURSE ---
repeat POC s/p orange juice/crackers administration = 86mg/dL. pt seen by ED provider/aware of plan of care. otherwise resting in no apparent distress. no sob/wob noted. respirations even/unlabored. plan of care ongoing.
[2024-03-20 17:35] LABS: Glucose, Whole Blood 112 mg/dL (60-115)
[2024-03-20 17:51] VITALS: BP 114/68; PULSE 71; RESP 18; TEMP 36.4; O2SAT 98
[2024-03-20 19:27] LABS: Glucose, Whole Blood 160 mg/dL (60-115)
[2024-03-20 19:28] VITALS: BP 126/42; PULSE 87; RESP 20; TEMP 36.7; O2SAT 99
--- NOTE | 2024-03-20 19:59 | ED.RECABL ---
HPI - Recheck/Abnormal Lab/Rx General Chief Complaint: Recheck/Abnormal Lab/Rx Stated Complaint: fall, bgl was 46 now at 112 Time Seen by Provider: 03/20/24 16:35 Related Data Home Medications ?Medication ?Instructions ?Recorded ?Confirmed atorvastatin 80 mg tablet 80 mg PO DAILY 02/08/23 12/04/23 diltiazem HCl 360 mg capsule,24 360 mg PO DAILY 02/08/23 12/04/23 hr,extended release (Tiadylt ER) fenofibrate 160 mg tablet 160 mg PO DAILY 02/08/23 12/04/23 furosemide 20 mg tablet 20 mg PO DAILY 02/08/23 12/04/23 gabapentin 100 mg capsule 100 mg PO BEDTIME 02/08/23 12/04/23 insulin glargine 100 unit/mL (3 86 unit subcut BEDTIME 02/08/23 12/04/23 mL) subcutaneous pen (Lantus Solostar U-100 Insulin) insulin lispro 100 unit/mL 30 unit subcut TIDAC 02/08/23 12/04/23 subcutaneous pen (Humalog KwikPen (U-100) Insulin) warfarin 5 mg tablet 5 mg PO MOTUWEFRSA@1800 02/08/23 12/04/23 tiotropium bromide 18 mcg capsule 1 cap inhalation DAILY 07/15/23 12/04/23 with inhalation device (Spiriva with HandiHaler) acetaminophen 650 mg 650 mg PO Q8H PRN Pain 12/04/23 12/04/23 tablet,extended release (Tylenol 8 Hour) warfarin 2.5 mg tablet 2.5 mg PO SUTH@1800 12/04/23 12/04/23 Previous Rx's ?Medication ?Instructions ?Recorded ammonium lactate 12 % lotion 1 appl topical BID #225 grams 07/17/23 vancomycin 1.5 gram/300 mL in 1.5 g IV Q24H MRSA bacteremia 12/16/23 dextrose 5 % intravenous piggyback Allergies Allergy/AdvReac Type Severity Reaction Status Date / Time lisinopril Allergy Cough Verified 03/20/24 15:55 [facility] Past Medical History Medical History (Updated 03/20/24 @ 20:06 by Froilan Gil MD) Pulmonary hypertension MRSA bacteremia CHF (congestive heart failure) Lower back pain Congestive heart failure Hypoxia COPD (chronic obstructive pulmonary disease) On Coumadin for atrial fibrillation Atrial fibrillation Hyperlipidemia Shortness of breath Bilateral edema of lower extremity Social History Social History Household Members: Children Household Members Other:: daughter Housing: House Do you presently have visiting nurse or other home services: Yes (cleaing person 1x week) Unable to assess alcohol history related to: Unknown Alcohol intake: never Comment: rings appropriately Patient Tobacco Use Status: Former Tobacco user Smoked in Last 30 Days: No Use of substances other than those prescribed or required for medical reasons: No Advance Directives: Yes Advance Directives on File: Yes Advance Directives Date on File: 07/18/23 Do you have a plan to hurt others: No Plan service: No Physical Exam Vital Signs: Vital Signs: Last Vital Signs Temp 98.1 F 03/20/24 19:28 Pulse 87 03/20/24 19:28 Resp 20 03/20/24 19:28 BP 126/42 L 03/20/24 19:28 Pulse Ox 99 03/20/24 19:28 O2 Del Method Nasal Cannula 03/20/24 19:28 O2 Flow Rate 4 03/20/24 19:28 Oxygen Flow Rate 4 03/20/24 15:52 BMI result Body Mass Index 44.7 Medical Decision Making Lab Data 03/20/24 16:04 03/20/24 16:04 Labs: Lab Results 03/20/24 03/20/24 03/20/24 Range/Units 15:56 16:04 16:30 WBC 8.5 (4.8-10.8) X10*3/uL RBC 4.33 (4.20-5.50) X10*6/uL Hgb 12.1 (12.0-16.0) g/dl Hct 39.0 (37.0-47.0) % MCV 90.1 (80.0-98.0) fL MCH 27.9 (27.0-33.0) pg MCHC 31.0 (31.0-35.0) g/dl RDW 18.6 H (11.0-16.0) % Plt Count 342 (160-400) X10*3/uL MPV 8.5 L (9.4-12.3) fL Immature Gran % (Auto) 0.4 (0.0-0.4) % Neut % (Auto) 75.1 H (45-73) % Lymph % (Auto) 14.1 L (20-40) % Green % (Auto) 8.0 (2-11) % Eos % (Auto) 1.9 (0-4) % Baso % (Auto) 0.5 (0-2) % Lymph # (Auto) 1.2 (1.2-4.9) X10*3/uL Green # (Auto) 0.7 (0.1-1.2) X10*3/uL Eos # (Auto) 0.2 (0.0-0.4) X10*3/uL Baso # (Auto) 0.0 (0.0-0.2) X10*3/uL Abs Immat Gran (auto) 0.03 (0.00-0.03) X10*3/uL Absolute Neuts (auto) 6.4 (2.0-8.3) x10*3/uL Absolute Nucleated RBC 0.000 (0.0-0.012) X10*3/uL Nucleated RBC % (auto) 0.0 (0.0-0.2) /100WBC Sodium 148 H (135-145) mmol/L Potassium 4.1 (3.3-5.1) mmol/L Chloride 110 H (96-108) mmol/L Carbon Dioxide 30 H (22-29) mmol/L Anion Gap 12 (12-20) BUN 32 H (9-16) mg/dL Creatinine 1.31 (0.5-1.4) mg/dL Estim Creat Clear Calc 33.3 Estimated GFR 39 POC Glucose 81 86 (60-115) mg/dL Random Glucose 88 (60-115) mg/dL Calcium 9.6 D (8.4-10.2) mg/dL Total Bilirubin 0.5 (0.0-1.0) mg/dL AST 26 (5-31) U/L ALT 13 (0-31) U/L Alkaline Phosphatase 46 (39-117) U/L Total Protein 7.0 (6.5-8.0) g/dL Albumin 3.6 (3.5-5.0) g/dL 03/20/24 03/20/24 Range/Units 17:32 19:24 WBC (4.8-10.8) X10*3/uL RBC (4.20-5.50) X10*6/uL Hgb (12.0-16.0) g/dl Hct (37.0-47.0) % MCV (80.0-98.0) fL MCH (27.0-33.0) pg MCHC (31.0-35.0) g/dl RDW (11.0-16.0) % Plt Count (160-400) X10*3/uL MPV (9.4-12.3) fL Immature Gran % (Auto) (0.0-0.4) % Neut % (Auto) (45-73) % Lymph % (Auto) (20-40) % Green % (Auto) (2-11) % Eos % (Auto) (0-4) % Baso % (Auto) (0-2) % Lymph # (Auto) (1.2-4.9) X10*3/uL Green # (Auto) (0.1-1.2) X10*3/uL Eos # (Auto) (0.0-0.4) X10*3/uL Baso # (Auto) (0.0-0.2) X10*3/uL Abs Immat Gran (auto) (0.00-0.03) X10*3/uL Absolute Neuts (auto) (2.0-8.3) x10*3/uL Absolute Nucleated RBC (0.0-0.012) X10*3/uL Nucleated RBC % (auto) (0.0-0.2) /100WBC Sodium (135-145) mmol/L Potassium (3.3-5.1) mmol/L Chloride (96-108) mmol/L Carbon Dioxide (22-29) mmol/L Anion Gap (12-20) BUN (9-16) mg/dL Creatinine (0.5-1.4) mg/dL Estim Creat Clear Calc Estimated GFR POC Glucose 112 160 H (60-115) mg/dL Random Glucose (60-115) mg/dL Calcium (8.4-10.2) mg/dL Total Bilirubin (0.0-1.0) mg/dL AST (5-31) U/L ALT (0-31) U/L Alkaline Phosphatase (39-117) U/L Total Protein (6.5-8.0) g/dL Albumin (3.5-5.0) g/dL Discharge Plan Discharge Clinical Impression: Hypoglycemia, Diabetes mellitus Patient Disposition: Home, Self-Care Additional Instructions: Your blood work was unremarkable. Your low sugars are caused by either not eating enough food or by taking too much insulin. Since you had several episodes of low blood sugars over the past week I want to decrease your insulin to prevent you from having a low blood sugar. I am changing your Lantus from 80 mg at night to 60 mg at night. Take your Lantus tonight when you get home and have a snack before you go to bed. I am changing your lispro insulin from 30 units before meals to 25 units before meals It is important that you increase the amount of food that you eat over the next week. You should follow-up with your doctor that prescribes her insulin to discuss further adjustments in your insulin. Follow-up with your doctor in 2 days. Please return to the emergency department if your symptoms get worse or if you develop any symptoms that are concerning to you. Prescriptions: No Action tiotropium bromide [Spiriva with HandiHaler] 18 mcg Capsule, W/Inhalation Device 1 cap INHALATION DAILY Rx Instructions: puncture 1 cap using device; one dose = 2 inhalations ammonium lactate 12 % Lotion 1 appl topical BID Qty: 225 2RF Protocol: Apply to: Apply to: Lower extremities atorvastatin 80 mg tablet 80 mg PO DAILY diltiazem HCl [Tiadylt ER] 360 mg capsule,extended release 24 hr 360 mg PO DAILY warfarin 5 mg tablet 5 mg PO MOTUWEFRSA@1800 furosemide 20 mg tablet 20 mg PO DAILY gabapentin 100 mg capsule 100 mg PO BEDTIME insulin lispro [Humalog KwikPen Insulin] 100 unit/mL insulin pen 30 unit subcut TIDAC fenofibrate 160 mg tablet 160 mg PO DAILY insulin glargine [Lantus Solostar U-100 Insulin] 100 unit/mL (3 mL) insulin pen 86 unit subcut BEDTIME warfarin 2.5 mg Tablet 2.5 mg PO SUTH@1800 acetaminophen [Tylenol 8 Hour] 650 mg Tablet Extended Release 650 mg PO Q8H PRN (Reason: Pain) vancomycin in dextrose 5 % 1.5 gram/300 mL piggyback 1.5 g IV Q24H Print Language: Pashto
--- NOTE | 2024-03-20 20:22 | PC.NURSE ---
son vishal called to medicinal plant picker pt as ready for discharge. per son the daughter usually stays with patient overnight to assist/monitor pt however she is currently camping and will not be home. son concerned for pt being home alone tonight however stated his daughter can stay with her for tonight. questioned for need for cm consult however son refused. ua obtained to r/o uti as son concerned pt has frequent utis. aware.
[2024-03-20 20:37] LABS: Appearance Urine Clear; Color Urine Yellow; Glucose Urine UA Negative (Negative); Leukocyte Esterase Urine Negative (Negative); Nitrite Urine Negative (Negative); PH 5.5 (5.0-9.0); Specific Gravity - Urine 1.015 (1.005-1.025); Urine Blood Negative (Negative); Urine Ketones Negative (Negative); Urine Protein Negative (Neg-Trace)
[2024-03-20 20:42] LABS: Bacteria Urine None Seen (None Seen); Hyaline Casts Urine 0-2 /LPF (0-2); RBC Urine 0-2 /HPF (0-2); Squamous Epithelial Cell Urine 0-2 /HPF (0-2); WBC Urine 0-5 /HPF (0-5)
--- NOTE | 2024-03-20 20:58 | PC.NURSE ---
pt d/c with son and daughter in law. at bedside to educate for d/c instructions and all verbalize understanding. son did not bring pt home o2 but pt states she can go 30-40min without o2 and at home takes o2 off when cooking etc. ok with as home only 5min from ed. pt d/c with wheelchair and o2 til car.
[2024-03-20 21:03] VITALS: BP 126/42; PULSE 87; RESP 20; TEMP 36.7; O2SAT 99
== END 2024-03-20 21:03 | disposition home or self-care (01) ==
PROVIDERS: Emergency Provider Emergency Medicine Emergency Medical Services; PCP Family Medicine
DX: E11.649 Type 2 diabetes mellitus with hypoglycemia without coma (principal); I48.91 Unspecified atrial fibrillation; Z79.01 Long term (current) use of anticoagulants; Z86.14 Personal history of Methicillin resistant Staphylococcus aureus infection
CPT/HCPCS: 36415; 80053; 81001; 82947; 85025; 99283; 99284